=== PATIENT | female | born 1950 | race Caucasian/White ===

== ENCOUNTER → 2017-06-04 08:38 | Day surgery (SDC) | payer MEDICARE, OTHER, SELFPAY ==
[2017-06-03 10:26] VITALS: BMI 16.7
--- NOTE | 2017-06-04 09:59 | CL.D_ITS ---
Patient Name: ASHANTI JUDGE Study Date: 06/04/2017 Performing: Sherif Flores MD Ht: 59.84 inches 152 cm : 1950 Wt: 85.98 lbs 39 kg Age: 66 Gender: female BSA: 1.3 PROCEDURE(S) PERFORMED [id number]/LV CLINICAL PROFILE AND INDICATIONS INDICATIONS: Chest-Pain syndrome of unclear etiology , Class I Stress/Imaging Stress Test w/SPECT MPI: Yes Result: IndeterminantStress Test with SPECT MPI: Inde terminant Angina Classification Anginal Classification w/in 2 Weeks: CCS IV CAD Presentations: Symptom unlikely to be ischemic. Comorbidities/Risk Factors: Current/Recent Smoker (< 1year) Hypertension CONCLUSIONS Normal LV size, wall motion,and systolic function Normal coronary arteries RECOMMENDATIONS d/c plavix, d/w Dr Thakur Evaluate for non cardiac source of chest pain Smoking cessation. DESCRIPTION OF PROCEDURE The patient arrived to the procedure lab. The risks and benefits of the procedure as well as a full d escription of our services here and current unavailability of surgical backup were fully explained to the patient and/or their significant other prior to the catheterization. The Timeout was completed, verifying the correct patient and procedure. The patient's procedural site was prepped and draped in the usual fashion. Local anesthetic was given subcutaneously to right groin region with Lidocaine 2%. Using a modified Seldinger technique, arterial access was obtained via the right femoral artery, a 4 Fr sheath was inserted Left Coronary Artery selective angiography was performed in multiple views us ing a 4 Fr. JL5 catheter. Right Coronary Artery selective angiography was then performed in multiple views using a 4 Fr. 3DRC catheter. Left Ventriculography was performed in MEYER projection using a 4 Fr . Pigtail catheter. LV to AO pullback pressures were then recorded.The arterial sheath was pulled and manual compression applied until hemostasis is achieved. CORONARY ANGIOGRAPHY DOMINANCE: Right Dominant LEFT HEART ASSESSMENT Left Ventricular Ejection Fraction: by LV Gram 65 % Normal LV wall motion Normal Left Ventricular systolic function Normal Left Ventricular systolic function LEFT MAIN: Angiographically normal LEFT ANTERIOR DECENDING ARTERY: Angiographically normal CIRCUMFLEX ARTERY: Angiographically normal RIGHT CORONARY ARTERY: Angiographically normal COMPLICATIONS PROCEDURE MEDICATIONS Oxygen: 2 L/min via nasal cannula SUMMARY OF HEMODYNAMIC DATA Time AIR REST ECG 08:56:16 AO 109/60 (80) SA 09:45:44 LV 104/-18, 7 09:50:58 LV 104/-18, 7 09:51:04 LVp 103/-19, 6 09:51:09 AOp 106/44 (71) 09:51:15 Signed By Sherif Flores MD On 06/04/2017 09:58:42 Sherif Flores MD
== END ==
PROVIDERS: Family Provider Internal Medicine; PCP Internal Medicine; Visit Provider Internal Medicine Cardiovascular Disease
DX: R07.89 Other chest pain (principal); R94.39 Abnormal result of other cardiovascular function study; J30.9 Allergic rhinitis, unspecified; M54.5 Low back pain; G89.29 Other chronic pain; K59.00 Constipation, unspecified; J44.9 Chronic obstructive pulmonary disease, unspecified; M50.30 Other cervical disc degeneration, unspecified cervical region; K21.9 Gastro-esophageal reflux disease without esophagitis; E11.40 Type 2 diabetes mellitus with diabetic neuropathy, unspecified; M81.0 Age-related osteoporosis without current pathological fracture; E55.9 Vitamin D deficiency, unspecified; M79.7 Fibromyalgia; F32.9 Major depressive disorder, single episode, unspecified; I10 Essential (primary) hypertension; F17.200 Nicotine dependence, unspecified, uncomplicated; Z90.89 Acquired absence of other organs; Z90.710 Acquired absence of both cervix and uterus; Z79.82 Long term (current) use of aspirin; Z79.899 Other long term (current) drug therapy
CPT/HCPCS: 93458; 99152; J7040; C1769; C1894; Q9967

== ENCOUNTER 2017-06-05 14:01 | Emergency (ER) | payer MEDICARE, OTHER, SELFPAY ==
[2017-06-05 14:02] VITALS: BP 114/67; PULSE 60; RESP 22; TEMP 36.6; O2SAT 97; BMI 17.4
--- NOTE | 2017-06-05 14:49 | CT_ITS ---
STUDY: CT ABDOMEN AND PELVIS WITHOUT CONTRAST REASON FOR EXAM: Female, 66 years old. Groin pain. Recent cardiac catheter. RADIATION DOSAGE (If Supplied By Facility): CTDIvol = ( 6.05 ) mGy, DLP = ( 246.27 ) mGycm TECHNIQUE: Transaxial images were obtained from the dome of the diaphragm to the symphysis pubis without oral contrast, and without intravenous contrast. Sagittal and coronal images were reconstructed. Individualized dose optimization techniques were used for this CT. COMPARISON: 01/09/2017. FINDINGS: There are chronic interstitial fibrotic changes of the lung bases. The visualized portions of the heart are within normal limits. Normal liver. Normal gallbladder and extrahepatic biliary system. Normal spleen. Normal pancreas. Normal bilateral adrenal glands. No acute abnormality of the right kidney. Stable 2 mm mid right renal nonobstructing stone. Normal left kidney. Evaluation of the GI tract is limited by absence of oral contrast. Cannot exclude stomach wall thickening. No dilated loops of bowel or evidence for obstruction. Cannot exclude segmental thickening of the jones of the small or large bowel. Cannot exclude enteritis or colitis. Moderate diffuse fecal retention. Appendix is not seen. There is diffuse atherosclerotic calcification of the abdominal aorta, without a demonstrated aneurysm. Normal inferior vena cava. Normal retroperitoneum. No evidence for retroperitoneal hematoma. Normal urinary bladder. There is absence of the uterus consistent with a prior hysterectomy. Normal abdominal wall. Normal osseous structures. CT/Abdomen/Pelvis without Cont IMPRESSION: There is no definite acute abnormality. Electronically Signed: Toñito Bowser MD at 15:46 EST , Service support ,
[2017-06-05 15:04] LABS: Absolute Lymphocyte Count 1.01 X10^3/ul (0.83-4.51); Absolute Neutrophil Count 7.3 X10^3/uL (2.0-7.7); Basophil# 0.04 X10^3/uL; Basophil% 0.4 % (0-1); Eosinophil# 0.09 X10^3/uL; Hematocrit 40.7 % (37-47); Hemoglobin 13.6 g/dl (12.0-15.0); Lymphocyte # 1.01 X10^3/ul (4.0); Mean Corp Hgb Conc 33.4 g/gl (32-36); Mean Corpuscular Hgb 33.3 pg (27.0-32.0); Mean Corpuscular Volume 99.8 fL (81-99); Mean Platelet Vol. 8.5 fl (6.2-12.0); Monocyte% 7.6 % (0-10); Neutrophil # 7.33 X10^3/uL (2.7-7.7); Neutrophil % 79.9 % (47-70); Platelet Count 247 K/mm3 (150-450); RBC Distribution Width CV 15.7 % (11.6-14.6); RBC Distribution Width SD 56.1 fl (35.1-43.9); Red Blood Count 4.08 M/mm3 (4.2-5.4); White Blood Count 9.2 K/mm3 (4.4-11.0)
[2017-06-05 15:06] LABS: POSITIVE COUNT NO; POSITIVE DIFFERENTIAL NO; POSITIVE MORPHOLOGY NO
[2017-06-05 15:15] LABS: Anion Gap 5 (5-15); BUN 11 mg/dL (7-18); BUN/Creat Ratio 16.9 RATIO (10-20); Calcium,Total 8.4 mg/dL (8.5-10.1); Chloride 106 mmol/L (98-107); Creatinine, Serum 0.65 mg/dL (0.55-1.02); EST Glomerular Filtration Rate 96 mL/min (>60); Est Glom Filt Rate - Afr Amer 116 mL/min (>60); Estimated Creatinine Clearance 33.16 ml/min; Glucose 115 mg/dL (74-106); Potassium 3.8 mmol/L (3.5-5.1); Sodium Level 142 mmol/L (136-145)
[2017-06-05 16:02] VITALS: BP 128/70; PULSE 65; RESP 14; O2SAT 98
--- NOTE | 2017-06-05 16:25 | ED.DCSUM_ITS ---
- ER Visit Summary Date of Service: 06/05/17 Chief Complaint: [] Back pain History of Present Illness: The patient is a 66 F [] complaining of back pain today that started while walking. She denies any injury. She reports a history of osteoporosis and chronic back pain. No other complaints at this time. She does report that she had a cardiac catheterization yesterday and has slight discomfort in her right groin. She denies bleeding, swelling, warmth or infection in that area. She reports she received no cardiac stents. Physical Examination: [] Afebrile, vital signs stable. Elderly female in no acute distress. Cardiovascular exam is regular rate and rhythm. Lungs are clear to auscultation. Abdomen is soft and nontender. There is discomfort to the mid lumbar spine around L5-S1. Test Results: [] CT of the abdomen/pelvis without contrast is negative. CBC, BMP are normal. Emergency Department Course and Treatment: [] Given intravenous morphine for analgesia. Her labs and CT scan were normal to rule out other significant pathology as the underlying cause for her new pain. She was given a repeat dose of morphine and discharged to follow-up with her primary care physician. Treatment Plan: [] Discharge to follow-up with PCP. Disposition: [] Discharge, stable. Impression: [] Acute on chronic back pain This note was generated with [employer] dictation software. It may contain incorrect words, spelling, and punctuation that were not noted in review of the chart prior to signing ED Disposition - Plan for ED Patient: Chief Complaint: Back Referrals: Tiffany Bull [Primary Care Provider] -
--- NOTE | 2017-06-05 16:25 | ED.DEP ---
ED Disposition - Plan for ED Patient: Disposition: Home or Assisted Living Chief Complaint: Back Instructions: ED Spasm Back No Trauma Referrals: Tiffany Bull [Primary Care Provider] -
[2017-06-05 16:58] VITALS: BP 105/80; PULSE 62; RESP 14; O2SAT 97
== END 2017-06-05 17:00 | disposition home or self-care (01) ==
PROVIDERS: Emergency Provider Emergency Medicine; Family Provider Internal Medicine; PCP Internal Medicine
DX: M54.5 Low back pain (principal); G89.29 Other chronic pain; R10.813 Right lower quadrant abdominal tenderness; M81.0 Age-related osteoporosis without current pathological fracture; J44.9 Chronic obstructive pulmonary disease, unspecified; Z79.82 Long term (current) use of aspirin; Z79.899 Other long term (current) drug therapy; Z72.0 Tobacco use
CPT/HCPCS: 74176; 80048; 85025; 96361; 96374; 96375; 96376; 99285; J7030; J7040; A4216

== ENCOUNTER → 2017-07-19 07:43 | Outpatient (CLI) | payer MEDICARE, OTHER, SELFPAY ==
[2017-07-19 08:08] LABS: Absolute Lymphocyte Count 2.13 X10^3/ul (0.83-4.51); Absolute Neutrophil Count 3.5 X10^3/uL (2.0-7.7); Basophil# 0.09 X10^3/uL; Basophil% 1.4 % (0-1); Eosinophil# 0.15 X10^3/uL; Eosinophils% 2.3 % (0-5); Hematocrit 42.2 % (37-47); Hemoglobin 13.8 g/dl (12.0-15.0); Lymphocyte # 2.13 X10^3/ul (4.0); Mean Corp Hgb Conc 32.7 g/gl (32-36); Mean Platelet Vol. 8.5 fl (6.2-12.0); Monocyte# 0.58 X10^3/uL; Neutrophil # 3.49 X10^3/uL (2.7-7.7); Neutrophil % 54.1 % (47-70); Platelet Count 310 K/mm3 (150-450); RBC Distribution Width CV 15.4 % (11.6-14.6); RBC Distribution Width SD 56.4 fl (35.1-43.9); Red Blood Count 4.18 M/mm3 (4.2-5.4); White Blood Count 6.5 K/mm3 (4.4-11.0)
[2017-07-19 08:09] LABS: POSITIVE COUNT NO; POSITIVE DIFFERENTIAL NO; POSITIVE MORPHOLOGY NO
[2017-07-19 08:43] LABS: ALB/GLOB Ratio 1.2 RATIO (0.9-2.4); AST(SGOT) 18 U/L (15-37); Alanine Aminotransfer ALT/SGPT 22 U/L (13-56); Albumin, Serum 3.9 g/dL (3.2-5.0); Alkaline Phosphatase 72 U/L (45-117); Anion Gap 4 (5-15); BUN 20 mg/dL (7-18); BUN/Creat Ratio 33.5 RATIO (10-20); Calcium,Total 8.7 mg/dL (8.5-10.1); Chloride 105 mmol/L (98-107); EST Glomerular Filtration Rate 106 mL/min (>60); Est Glom Filt Rate - Afr Amer 128 mL/min (>60); Globulin 3.3 g/dL (2.2-4.2); Glucose 83 mg/dL (74-106); Potassium 4.2 mmol/L (3.5-5.1); Protein, Total 7.2 g/dL (6.4-8.2); Sodium Level 140 mmol/L (136-145)
== END ==
PROVIDERS: Family Provider Internal Medicine; PCP Internal Medicine; Visit Provider Internal Medicine Rheumatology
DX: M06.4 Inflammatory polyarthropathy (principal); Z79.899 Other long term (current) drug therapy; M79.7 Fibromyalgia; M51.36 Other intervertebral disc degeneration, lumbar region; J44.9 Chronic obstructive pulmonary disease, unspecified; E11.9 Type 2 diabetes mellitus without complications; F43.23 Adjustment disorder with mixed anxiety and depressed mood; N32.81 Overactive bladder; G25.0 Essential tremor
CPT/HCPCS: 36415; 80053; 85025

== ENCOUNTER 2017-08-07 08:39 | Emergency (ER) | payer MEDICARE, OTHER, SELFPAY ==
[2017-08-07 08:40] VITALS: BP 121/46; PULSE 92; RESP 16; TEMP 36.1; O2SAT 98; BMI 18.3
--- NOTE | 2017-08-07 09:00 | ED.VISSUMM ---
- ER Visit Summary Date of Service: 08/07/17 Chief Complaint: Left leg pain History of Present Illness: The patient is a [address] Campbell and Dr. Rey. She reports that she has a history of chronic back pain. However, she took her morning dose of OxyContin and tramadol and denies any back pain now. She reports that she has left leg pain that began at 130 this morning. Says sharp pain that radiates down the lateral side of her left leg to her ankle. It is 10 out of 10 at worst 9 out of 10 currently. Is worsened by movement. She denies any numbness or weakness. No recent trauma. No fall, MVA, or change in activity. Patient reports that she is currently on a Medrol Dosepak for plantar fasciitis. She has taken her third dose. She reports that she has had 8 episodes of black diarrhea since 1 AM. She denies any abdominal pain. She has been nauseated, but has not vomited. Physical Examination: Vitals: Stable. Afebrile. General: A&O x 3. NAD. Cardiovascular exam: Regular rate and rhythm, no murmur, rub or gallop. Respiratory exam: Clear to auscultation bilaterally. No wheezes or stridor. Abdominal exam: Soft, nontender, nondistended, normal bowel sounds. No peritoneal signs. Back: Diffuse moderate tenderness to palpation over the lumbar spine and the paraspinous musculature in the lumbar region. No point tenderness. Negative straight leg bilaterally. 5/5 DF, PF, EHL bilaterally. Normal sensation to light touch throughout. Extremity: No clubbing, cyanosis, or edema. 2+ dorsalis pedis pulse bilaterally. She has moderate tenderness palpation over the entire surface of her lateral left leg. This is in her thigh and her leg. Test Results: is marked for a white count of 17.3, hemoglobin 15.4, segmented neutrophils 85, lymphocytes of 8. I suspect that her white count is elevated from her steroids. Her last hemoglobin on July 19 was 13.8. Chem-7 is normal. Her BUN is 18. Coags are normal. Emergency Department Course and Treatment: Given the history of recent steroid use and black diarrhea the patient was given a dose of Pepcid IV. She was given Zofran and Dilaudid IV. She is resting comfortably. Treatment Plan: Patient will be placed on Prilosec. She is instructed to not take any further steroid medications. Follow-up with her primary care physician in 1-2 days for another exam and repeat hemoglobin. Follow-up with Dr. Campbell for further treatment of her pain. Return to the emergency department for any worsening symptoms. Disposition: To home in improved and stable condition. Impression: 1. Chronic back pain. 2. Left thigh and leg pain, acute. 3. Stride is due to steroids. This note was generated with [employer] dictation software. It may contain incorrect words, spelling, and punctuation that were not noted in review of the chart prior to signing ED Disposition - Plan for ED Patient: Chief Complaint: Lower Extremity Injury Instructions: ED Sciatica Prescriptions: Omeprazole [Prilosec] 20 mg PO DAILY #30 capsule Referrals: Tiffany Bull [Primary Care Provider] - 1-2 Days if not improving Ashok Campbell MD [STAFF PHYSICIAN] -
[2017-08-07 09:13] LABS: Absolute Neutrophil Count 14.6 X10^3/uL (2.0-7.7); Basophil# 0.02 X10^3/uL; Basophil% 0.1 % (0-1); Eosinophil# 0.07 X10^3/uL; Eosinophils% 0.4 % (0-5); Hematocrit 45.9 % (37-47); Hemoglobin 15.4 g/dl (12.0-15.0); Lymphocyte % 7.5 % (19-41); Mean Corp Hgb Conc 33.6 g/gl (32-36); Mean Corpuscular Hgb 34.5 pg (27.0-32.0); Mean Corpuscular Volume 102.7 fL (81-99); Mean Platelet Vol. 8.6 fl (6.2-12.0); Monocyte# 1.23 X10^3/uL; Monocyte% 7.1 % (0-10); Neutrophil # 14.61 X10^3/uL (2.7-7.7); Neutrophil % 84.7 % (47-70); Platelet Count 265 K/mm3 (150-450); RBC Distribution Width SD 55.3 fl (35.1-43.9); Red Blood Count 4.47 M/mm3 (4.2-5.4); White Blood Count 17.3 K/mm3 (4.4-11.0)
[2017-08-07 09:14] LABS: POSITIVE COUNT NO; POSITIVE DIFFERENTIAL NO; POSITIVE MORPHOLOGY NO
[2017-08-07 09:24] LABS: Anion Gap 6 (5-15); BUN 18 mg/dL (7-18); BUN/Creat Ratio 31.6 RATIO (10-20); Calcium,Total 9.1 mg/dL (8.5-10.1); Chloride 103 mmol/L (98-107); Creatinine, Serum 0.57 mg/dL (0.55-1.02); EST Glomerular Filtration Rate 112 mL/min (>60); Est Glom Filt Rate - Afr Amer 135 mL/min (>60); Glucose 85 mg/dL (74-106); Potassium 3.8 mmol/L (3.5-5.1); Sodium Level 140 mmol/L (136-145)
[2017-08-07 09:29] LABS: International Normalized Ratio 0.9; Prothrombin Time (Protime)PT. 12.1 SECONDS (11.7-14.9)
[2017-08-07 09:30] LABS: Partial Thromboplast Time 24.3 Seconds (24.1-36.2)
[2017-08-07] MEDS: 0.9% Normal Saline 1,000 ML 1000 ML IV (09:35)
[2017-08-07] MEDS: Ondansetron 4 MG/2 ML Vial IV (09:37)
[2017-08-07] MEDS: HYDROmorphone 1 MG/ML Syringe IV (09:37)
[2017-08-07 09:40] VITALS: BP 89/52; PULSE 18; RESP 20; O2SAT 97
[2017-08-07 09:57] VITALS: BP 102/59; BP 90/49; BP 99/84; PULSE 86; PULSE 88
== END 2017-08-07 10:43 | disposition home or self-care (01) ==
PROVIDERS: Emergency Provider Emergency Medicine; Family Provider Internal Medicine; PCP Internal Medicine
DX: M54.5 Low back pain (principal); G89.29 Other chronic pain; M79.605 Pain in left leg; M79.652 Pain in left thigh; K29.70 Gastritis, unspecified, without bleeding; T38.0X5A Adverse effect of glucocorticoids and synthetic analogues, initial encounter; Y92.9 Unspecified place or not applicable; M72.2 Plantar fascial fibromatosis; J02.9 Acute pharyngitis, unspecified; J44.9 Chronic obstructive pulmonary disease, unspecified; M79.7 Fibromyalgia; F41.9 Anxiety disorder, unspecified; M81.0 Age-related osteoporosis without current pathological fracture; Z90.710 Acquired absence of both cervix and uterus; Z79.52 Long term (current) use of systemic steroids; Z79.899 Other long term (current) drug therapy; F17.200 Nicotine dependence, unspecified, uncomplicated
CPT/HCPCS: 80048; 85025; 85610; 85730; 96365; 96375; 99284; J2405; J3490

== ENCOUNTER 2017-08-08 02:07 | Emergency (ER) | payer MEDICARE, OTHER, SELFPAY ==
[2017-08-08 02:09] VITALS: BP 153/116; PULSE 72; RESP 20; TEMP 36.5; O2SAT 95; BMI 18.3
--- NOTE | 2017-08-08 02:33 | ED.VIS.GEN ---
History of Present Illness Chief Complaint: Back Informant: Patient Onset: Yesterday - around 18 hrs ago Context: - - awoke w/ sx Timing: Continuous Quality: ache Location: across low back, worse on right Current Severity: Severe Maximum Severity: Severe Worsened by: movement Relieved by: nothing Associated Symptoms: diarrhea. no abd pain, n/v, fevers. pain radiates into both thighs. Narrative: Chronic symptoms that are worse than usual. States she denies any injury. Woke up with symptoms day before this past day, and states that she started having liquid nonbloody, non-melanotic diarrhea simultaneously and does not know how many times she has gone. She denies any abdominal pain, fevers, vomiting. The back pain does not let up after bowel movements. She states she started prednisone recently, prescribed her by a tool engineer for plantar fasciitis, and states that is the cause of her diarrhea so she has discontinued it as of tonight. Denies any other new medications. Oxycodone 30 mg tablets are on her medication list, but she cannot tell me the last time she took it. It is listed as prescribed to her by Dr. Campbell. She cannot tell me if she is currently in pain management or not. The back pain radiates into both anterior thighs, but does not go below the knees. She denies any bowel or bladder dysfunction. No recent antibiotics. No recent hospital admission or contact with anyone with C. difficile that she knows of, or a senior care. No history of C. difficile that she knows of. No recent travel. Prior similar symptoms: Yes Recent Illness/Hospitalization: Yes - nonbloody diarrhea started simultaneously. no hosp. Past Medical History - Allergies and Home Meds Allergies/Adverse Reactions: Allergies No Known Allergies Allergy (Verified 08/08/17 02:12) Home Medications: Home Medications Medication Instructions Recorded Albuterol Inhaler [Ventolin Hfa 2 puff INHALATION Q6H PRN PRN 06/03/17 (SP)] Benzonatate [Tessalon Perle] 100 mg PO TID PRN PRN 06/03/17 Calcium Carbonate 600 mg PO BID 06/03/17 Ergocalciferol [Vitamin D] 50,000 unit PO Q7D 06/03/17 Famotidine [Pepcid] 20 mg PO BID 06/03/17 Folic Acid 1 mg PO DAILY@0800 02/27/18 Glucosamine Sulf/Chondroitin A 1 each PO BID 06/03/17 [Glucosamine-Chondroitin Cap] Lactose-Reduced Food [Ensure 237 ml PO DAILY 06/03/17 Original] Linacolotide [Linzess] 145 mcg PO DAILY 06/03/17 Lmfol Ca/Acetyl/Mb12/Algal Oil 1 each PO DAILY 06/03/17 [Cerefolin Nac Caplet] Methotrexate 15 mg PO Q7D 06/03/17 Montelukast [Singulair] 10 mg PO DAILY 06/03/17 Nitroglycerin [Nitrostat] 0.4 mg SUBLINGUAL Q5M PRN 06/03/17 [place]-3 Fatty Acids/Fish Oil 1 each PO DAILY 06/03/17 [[place] 3 1,000 mg Softgel] Oxycodone HCl [Roxicodone] 30 mg PO BID PRN PRN 06/03/17 traMADol [Ultram (G)] 50 mg PO 4X/DAY 06/03/17 Duloxetine Hcl [Cymbalta] 20 mg PO BID 08/08/17 Ibandronate Sodium [Boniva] 150 mg PO Q30D 08/08/17 Omeprazole [Prilosec] 20 mg PO BID 08/08/17 Primary Care Physician: Ashok Campbell MD [STAFF PHYSICIAN] - 2 Days Smoking Status: Current every day smoker Physical Exam Vital Signs/Narrative: Vital Signs Temp Pulse Resp BP Pulse Ox 08/08/17 02:09 97.7 F L 72 20 H 153/116 H 95 Diagnostic/Tx/Re-eval Impressions Lumbar Spine X-Ray 08/08/17 02:40 IMPRESSION: Diffuse facet disease with normal alignment. Electronically Signed: Eddie Carter MD at 3:37 EDT Tel , Service support , 08/08/17 02:40 Lumbar Spine 2 or 3 Views [RAD] Stat Laboratory Results 08/08/17 08/08/17 Range/Units 02:50 02:50 WBC 12.1 H (4.4-11.0) K/mm3 RBC 4.19 L (4.2-5.4) M/mm3 Hgb 14.7 (12.0-15.0) g/dl Hct 43.0 (37-47) % MCV 102.6 H (81-99) fL MCH 35.1 H (27.0-32.0) pg MCHC 34.2 (32-36) g/gl RDW 14.8 H (11.6-14.6) % RDW Differential 54.5 H (35.1-43.9) fl Plt Count 311 (150-450) K/mm3 MPV 8.5 (6.2-12.0) fl Immature Gran % (Auto) 0.200 (0.0-0.9) % Neut % (Auto) 83.4 H (47-70) % Lymph % (Auto) 12.4 L (19-41) % [place] % (Auto) 2.8 (0-10) % Eos % (Auto) 0.8 (0-5) % Baso % (Auto) 0.4 (0-1) % Absolute Neuts (auto) 10.0 H (2.0-7.7) X10^3/uL Absolute Lymphs (auto) 1.50 (0.83-4.51) X10^3/ul Total Counted Not Reportable Sodium 136 (136-145) mmol/L Potassium 3.4 L (3.5-5.1) mmol/L Chloride 102 (98-107) mmol/L Carbon Dioxide 29.0 (21.0-32.0) mmol/L Anion Gap 5 (5-15) BUN 14 (7-18) mg/dL Creatinine 0.63 (0.55-1.02) mg/dL Estim Creat Clear Calc 34.60 ml/min Est GFR (MDRD) Af Amer 120 (>60) mL/min Est GFR (MDRD) Non-Af 99 (>60) mL/min BUN/Creatinine Ratio 22.2 H (10-20) RATIO Glucose 151 H (74-106) mg/dL Calcium 8.1 L (8.5-10.1) mg/dL Total Bilirubin 0.70 (0.20-1.00) mg/dL AST 13 L (15-37) U/L ALT 30 (13-56) U/L Alkaline Phosphatase 68 (45-117) U/L Total Protein 7.0 (6.4-8.2) g/dL Albumin 3.5 (3.2-5.0) g/dL Globulin 3.5 (2.2-4.2) g/dL Albumin/Globulin Ratio 1.0 (0.9-2.4) RATIO Lipase 152 (73-393) U/L - Medical Decision Making X-rays show no acute abnormalities are compressions. Her leukocytosis is down compared to a couple days ago, which I determined she had several recent visits, the last of which was yesterday for the same symptoms, which the patient did not disclose. She was given morphine. She then was demanding Dilaudid from the nurses, which I do not feel she needs; she admits she feels improved, and is objectively more comfortable. She has no radicular symptoms, or positive straight leg raises. She had a CT of the abdomen and pelvis recently, which was benign and did not state any abnormalities of the spine, and her x-rays today are unremarkable. She is neurologically intact throughout her lower extremities and ambulatory. I feel she is stable for discharge home outpatient follow-up with her pain management doctor. Given her diarrhea and multiple ER visits recently, I did send off an enteric pathogen panel and C. difficile, those are not back yet but are not due to return tonight. ED Disposition - Plan for ED Patient: Disposition: Home or Assisted Living Chief Complaint: Back Diagnosis: Acute exacerbation of chronic low back pain Instructions: ED Neck Back Pain General Referrals: Ashok Campbell MD [STAFF PHYSICIAN] - 2 Days
--- NOTE | 2017-08-08 02:40 | RAD_ITS ---
STUDY: X-RAY - LUMBAR SPINE REASON FOR EXAM: Female, 67 years old. Chronic back pain radiating into the left leg TECHNIQUE: 3 view(s) of the lumbar spine were obtained. COMPARISON: None FINDINGS: Diffuse facet disease. Normal alignment. Heights of disc spaces are maintained. Aortic calcifications. No compression deformities are seen. RAD/Lumbar Spine 2 or 3 Views IMPRESSION: Diffuse facet disease with normal alignment. Electronically Signed: Eddie Carter MD at 3:37 EDT Tel , Service support ,
--- NOTE | 2017-08-08 02:43 | ED.DCSUM_ITS ---
History of Present Illness Chief Complaint: Back Informant: Patient Onset: Yesterday - around 18 hrs ago Context: - - awoke w/ sx Timing: Continuous Quality: ache Location: across low back, worse on right Current Severity: Severe Maximum Severity: Severe Worsened by: movement Relieved by: nothing Associated Symptoms: diarrhea. no abd pain, n/v, fevers. pain radiates into both thighs. Narrative: Chronic symptoms that are worse than usual. States she denies any injury. Woke up with symptoms day before this past day, and states that she started having liquid nonbloody, non-melanotic diarrhea simultaneously and does not know how many times she has gone. She denies any abdominal pain, fevers, vomiting. The back pain does not let up after bowel movements. She states she started prednisone recently, prescribed her by a marshmallow machine worker for plantar fasciitis, and states that is the cause of her diarrhea so she has discontinued it as of tonight. Denies any other new medications. Oxycodone 30 mg tablets are on her medication list, but she cannot tell me the last time she took it. It is listed as prescribed to her by Dr. Campbell. She cannot tell me if she is currently in pain management or not. The back pain radiates into both anterior thighs, but does not go below the knees. She denies any bowel or bladder dysfunction. No recent antibiotics. No recent hospital admission or contact with anyone with C. difficile that she knows of, or a long-term. No history of C. difficile that she knows of. No recent travel. Prior similar symptoms: Yes Recent Illness/Hospitalization: Yes - nonbloody diarrhea started simultaneously. no hosp. Past Medical History - Allergies and Home Meds Allergies/Adverse Reactions: Allergies No Known Allergies Allergy (Verified 08/08/17 02:12) Home Medications: Home Medications Medication Instructions Recorded Albuterol Inhaler [Ventolin Hfa 2 puff INHALATION Q6H PRN PRN 06/03/17 (SP)] Benzonatate [Tessalon Perle] 100 mg PO TID PRN PRN 06/03/17 Calcium Carbonate 600 mg PO BID 06/03/17 Ergocalciferol [Vitamin D] 50,000 unit PO Q7D 06/03/17 Famotidine [Pepcid] 20 mg PO BID 06/03/17 Folic Acid 1 mg PO DAILY@0800 02/27/18 Glucosamine Sulf/Chondroitin A 1 each PO BID 06/03/17 [Glucosamine-Chondroitin Cap] Lactose-Reduced Food [Ensure 237 ml PO DAILY 06/03/17 Original] Linacolotide [Linzess] 145 mcg PO DAILY 06/03/17 Lmfol Ca/Acetyl/Mb12/Algal Oil 1 each PO DAILY 06/03/17 [Cerefolin Nac Caplet] Methotrexate 15 mg PO Q7D 06/03/17 Montelukast [Singulair] 10 mg PO DAILY 06/03/17 Nitroglycerin [Nitrostat] 0.4 mg SUBLINGUAL Q5M PRN 06/03/17 [place]-3 Fatty Acids/Fish Oil 1 each PO DAILY 06/03/17 [[place] 3 1,000 mg Softgel] Oxycodone HCl [Roxicodone] 30 mg PO BID PRN PRN 06/03/17 traMADol [Ultram (G)] 50 mg PO 4X/DAY 06/03/17 Duloxetine Hcl [Cymbalta] 20 mg PO BID 08/08/17 Ibandronate Sodium [Boniva] 150 mg PO Q30D 08/08/17 Omeprazole [Prilosec] 20 mg PO BID 08/08/17 Primary Care Physician: Ashok Campbell MD [STAFF PHYSICIAN] - 2 Days Smoking Status: Current every day smoker Physical Exam Vital Signs/Narrative: Vital Signs Temp Pulse Resp BP Pulse Ox 08/08/17 02:09 97.7 F L 72 20 H 153/116 H 95 Diagnostic/Tx/Re-eval Impressions Lumbar Spine X-Ray 08/08/17 02:40 IMPRESSION: Diffuse facet disease with normal alignment. Electronically Signed: Eddie Carter MD at 3:37 EDT Tel , Service support , 08/08/17 02:40 Lumbar Spine 2 or 3 Views [RAD] Stat Laboratory Results 08/08/17 08/08/17 Range/Units 02:50 02:50 WBC 12.1 H (4.4-11.0) K/mm3 RBC 4.19 L (4.2-5.4) M/mm3 Hgb 14.7 (12.0-15.0) g/dl Hct 43.0 (37-47) % MCV 102.6 H (81-99) fL MCH 35.1 H (27.0-32.0) pg MCHC 34.2 (32-36) g/gl RDW 14.8 H (11.6-14.6) % RDW Differential 54.5 H (35.1-43.9) fl Plt Count 311 (150-450) K/mm3 MPV 8.5 (6.2-12.0) fl Immature Gran % (Auto) 0.200 (0.0-0.9) % Neut % (Auto) 83.4 H (47-70) % Lymph % (Auto) 12.4 L (19-41) % [place] % (Auto) 2.8 (0-10) % Eos % (Auto) 0.8 (0-5) % Baso % (Auto) 0.4 (0-1) % Absolute Neuts (auto) 10.0 H (2.0-7.7) X10^3/uL Absolute Lymphs (auto) 1.50 (0.83-4.51) X10^3/ul Total Counted Not Reportable Sodium 136 (136-145) mmol/L Potassium 3.4 L (3.5-5.1) mmol/L Chloride 102 (98-107) mmol/L Carbon Dioxide 29.0 (21.0-32.0) mmol/L Anion Gap 5 (5-15) BUN 14 (7-18) mg/dL Creatinine 0.63 (0.55-1.02) mg/dL Estim Creat Clear Calc 34.60 ml/min Est GFR (MDRD) Af Amer 120 (>60) mL/min Est GFR (MDRD) Non-Af 99 (>60) mL/min BUN/Creatinine Ratio 22.2 H (10-20) RATIO Glucose 151 H (74-106) mg/dL Calcium 8.1 L (8.5-10.1) mg/dL Total Bilirubin 0.70 (0.20-1.00) mg/dL AST 13 L (15-37) U/L ALT 30 (13-56) U/L Alkaline Phosphatase 68 (45-117) U/L Total Protein 7.0 (6.4-8.2) g/dL Albumin 3.5 (3.2-5.0) g/dL Globulin 3.5 (2.2-4.2) g/dL Albumin/Globulin Ratio 1.0 (0.9-2.4) RATIO Lipase 152 (73-393) U/L - Medical Decision Making X-rays show no acute abnormalities are compressions. Her leukocytosis is down compared to a couple days ago, which I determined she had several recent visits , the last of which was yesterday for the same symptoms, which the patient did not disclose. She was given morphine. She then was demanding Dilaudid from the nurses, which I do not feel she needs; she admits she feels improved, and is objectively more comfortable. She has no radicular symptoms, or positive straight leg raises. She had a CT of the abdomen and pelvis recently, which was benign and did not state any abnormalities of the spine, and her x-rays today are unremarkable. She is neurologically intact throughout her lower extremities and ambulatory. I feel she is stable for discharge home outpatient follow-up with her pain management doctor. Given her diarrhea and multiple ER visits recently, I did send off an enteric pathogen panel and C. difficile, those are not back yet but are not due to return tonight. ED Disposition - Plan for ED Patient: Disposition: Home or Assisted Living Chief Complaint: Back Diagnosis: Acute exacerbation of chronic low back pain Instructions: ED Neck Back Pain General Referrals: Ashok Campbell MD [STAFF PHYSICIAN] - 2 Days
[2017-08-08 02:59] LABS: Basophil# 0.05 X10^3/uL; Basophil% 0.4 % (0-1); Eosinophils% 0.8 % (0-5); Hemoglobin 14.7 g/dl (12.0-15.0); Lymphocyte % 12.4 % (19-41); Mean Corp Hgb Conc 34.2 g/gl (32-36); Mean Corpuscular Hgb 35.1 pg (27.0-32.0); Mean Corpuscular Volume 102.6 fL (81-99); Mean Platelet Vol. 8.5 fl (6.2-12.0); Monocyte# 0.34 X10^3/uL; Monocyte% 2.8 % (0-10); Neutrophil # 10.04 X10^3/uL (2.7-7.7); Neutrophil % 83.4 % (47-70); Platelet Count 311 K/mm3 (150-450); RBC Distribution Width CV 14.8 % (11.6-14.6); RBC Distribution Width SD 54.5 fl (35.1-43.9); Red Blood Count 4.19 M/mm3 (4.2-5.4); White Blood Count 12.1 K/mm3 (4.4-11.0)
[2017-08-08 03:00] LABS: POSITIVE COUNT NO; POSITIVE DIFFERENTIAL NO; POSITIVE MORPHOLOGY NO
[2017-08-08] MEDS: Morphine 4 MG/ML Syringe IV (03:03)
[2017-08-08 03:13] LABS: AST(SGOT) 13 U/L (15-37); Alanine Aminotransfer ALT/SGPT 30 U/L (13-56); Albumin, Serum 3.5 g/dL (3.2-5.0); Alkaline Phosphatase 68 U/L (45-117); Anion Gap 5 (5-15); BUN 14 mg/dL (7-18); BUN/Creat Ratio 22.2 RATIO (10-20); Calcium,Total 8.1 mg/dL (8.5-10.1); Chloride 102 mmol/L (98-107); Creatinine, Serum 0.63 mg/dL (0.55-1.02); EST Glomerular Filtration Rate 99 mL/min (>60); Est Glom Filt Rate - Afr Amer 120 mL/min (>60); Globulin 3.5 g/dL (2.2-4.2); Glucose 151 mg/dL (74-106); Lipase 152 U/L (73-393); Potassium 3.4 mmol/L (3.5-5.1); Sodium Level 136 mmol/L (136-145)
[2017-08-08 04:10] VITALS: BP 146/80; PULSE 78; RESP 18; O2SAT 96
== END 2017-08-08 04:11 | disposition home or self-care (01) ==
PROVIDERS: Emergency Provider Emergency Medicine; Family Provider Internal Medicine; PCP Internal Medicine
DX: M54.5 Low back pain (principal); G89.29 Other chronic pain; R19.7 Diarrhea, unspecified; M72.2 Plantar fascial fibromatosis; Z79.52 Long term (current) use of systemic steroids; Z79.899 Other long term (current) drug therapy; F17.200 Nicotine dependence, unspecified, uncomplicated
CPT/HCPCS: 72100; 80053; 83690; 85025; 96374; 99282; A4216

== ENCOUNTER 2017-11-01 00:34 | Emergency (ER) | payer MEDICARE, OTHER, SELFPAY ==
[2017-11-01 00:37] VITALS: BP 108/52; PULSE 94; RESP 17; TEMP 36.6; O2SAT 99; BMI 18.9
--- NOTE | 2017-11-01 01:17 | ED.VISSUMM ---
- ER Visit Summary Date of Service: 11/01/17 Chief Complaint: Vomiting diarrhea History of Present Illness: The patient is a 67 F vomiting diarrhea this evening. Total 3 episodes each. Last time prior to arrival. No hematemesis, melena, hematochezia. No recent antibiotics. Complains of chills. No urinary symptoms. No cough. Denies sick contacts. History of chronic back pain. States to the symptoms of vomiting diarrhea is having some abdominal cramping. History of appendectomy and hysterectomy. Unable keep her pain pills down for her back. Physical Examination: General: Alert and oriented ?3, no acute distress HEENT: Normocephalic, atraumatic. Moist mucosa membranes Neck: supple, nontender. Cardiovascular: Regular rate and rhythm, no murmurs Respiratory: Normal breath sounds, symmetric, no distress Abdomen: Soft, generalized tenderness without guarding or rebound, nondistended. Normal bowel sounds Extremities: Nontender, no edema, pulses intact ?4 Neuro: no focal neurological deficits. Test Results: WBC 7.7 hemoglobin 15.1. Creatinine 0.61. Lipase 78. Liver enzymes normal. Potassium 3.8. Emergency Department Course and Treatment: Patient with a nonsurgical abdomen. Presents with reported vomiting diarrhea since yesterday. No C. difficile risk factors. I did check abdominal labs including electrolytes which were normal. She is given Zofran IV fluids. Reevaluation complains of aches in her thighs. She given Toradol with improvement of symptoms she is able to tolerate oral fluids. Patient given prescription for Zofran to use as needed. Encouraged continued oral hydration. She is on chronic opiate medications for her back pain. Treatment Plan: [] Disposition: Discharge Impression: 1. Vomiting and diarrhea 2. Myalgias This note was generated with [employer] dictation software. It may contain incorrect words, spelling, and punctuation that were not noted in review of the chart prior to signing ED Disposition - Plan for ED Patient: Disposition: Home or Assisted Living Chief Complaint: General Illness Diagnosis: Vomiting and diarrhea, Myalgia Instructions: ED Diet Vomiting Diarrhea Prescriptions: Ondansetron [Zofran Odt] 4 mg PO Q8H PRN PRN #10 tablet PRN Reason: Nausea Referrals: Tiffany Bull [Primary Care Provider] - 3-5 Days
[2017-11-01] MEDS: Ondansetron 4 MG/2 ML Vial IV (01:26)
[2017-11-01] MEDS: 0.9% Normal Saline 1,000 ML 1000 ML IV (01:26)
[2017-11-01 01:38] LABS: Absolute Lymphocyte Count 0.52 X10^3/ul (0.83-4.51); Absolute Neutrophil Count 6.5 X10^3/uL (2.0-7.7); Basophil# 0.03 X10^3/uL; Basophil% 0.4 % (0-1); Differential Indicated SCAN CRITERIA MET; Eosinophil# 0.04 X10^3/uL; Eosinophils% 0.5 % (0-5); Hematocrit 43.4 % (37-47); Hemoglobin 15.1 g/dl (12.0-15.0); Lymphocyte # 0.52 X10^3/ul (4.0); Lymphocyte % 6.7 % (19-41); Mean Corp Hgb Conc 34.8 g/gl (32-36); Mean Corpuscular Hgb 35.1 pg (27.0-32.0); Mean Corpuscular Volume 100.9 fL (81-99); Mean Platelet Vol. 8.7 fl (6.2-12.0); Monocyte# 0.62 X10^3/uL; Neutrophil # 6.49 X10^3/uL (2.7-7.7); Neutrophil % 84.3 % (47-70); POSITIVE COUNT NO; POSITIVE DIFFERENTIAL YES; POSITIVE MORPHOLOGY NO; Platelet Count 289 K/mm3 (150-450); RBC Distribution Width CV 14.1 % (11.6-14.6); RBC Distribution Width SD 50.9 fl (35.1-43.9); White Blood Count 7.7 K/mm3 (4.4-11.0)
[2017-11-01 01:54] LABS: AST(SGOT) 14 U/L (15-37); Alanine Aminotransfer ALT/SGPT 22 U/L (13-56); Albumin, Serum 3.7 g/dL (3.2-5.0); Alkaline Phosphatase 65 U/L (45-117); Anion Gap 4 (5-15); BUN 11 mg/dL (7-18); Calcium,Total 8.7 mg/dL (8.5-10.1); Chloride 104 mmol/L (98-107); Creatinine, Serum 0.61 mg/dL (0.55-1.02); EST Glomerular Filtration Rate 103 mL/min (>60); Est Glom Filt Rate - Afr Amer 125 mL/min (>60); Estimated Creatinine Clearance 35.62 ml/min; Globulin 3.7 g/dL (2.2-4.2); Glucose 119 mg/dL (74-106); Potassium 3.8 mmol/L (3.5-5.1); Protein, Total 7.4 g/dL (6.4-8.2); Sodium Level 138 mmol/L (136-145)
[2017-11-01 02:03] LABS: Differential Comment SCANNED
[2017-11-01 02:35] LABS: Lipase 78 U/L (73-393)
[2017-11-01 03:10] VITALS: PULSE 87; RESP 18; O2SAT 98
[2017-11-01] MEDS: Ketorolac 30 MG/ML Syringe IV (03:11)
[2017-11-01 04:30] VITALS: BP 132/98; PULSE 95; RESP 16; O2SAT 97
== END 2017-11-01 04:37 | disposition home or self-care (01) ==
PROVIDERS: Emergency Provider Emergency Medicine; Family Provider Internal Medicine; PCP Internal Medicine
DX: R11.2 Nausea with vomiting, unspecified (principal); R19.7 Diarrhea, unspecified; M79.1 Myalgia; R10.817 Generalized abdominal tenderness; M54.9 Dorsalgia, unspecified; G89.29 Other chronic pain; Z90.89 Acquired absence of other organs; Z90.710 Acquired absence of both cervix and uterus; Z79.899 Other long term (current) drug therapy; Z72.0 Tobacco use
CPT/HCPCS: 80053; 82248; 83690; 85025; 96361; 96374; 96375; 99283; J7030; A4216; J2405

== ENCOUNTER → 2017-12-31 11:20 | Outpatient (CLI) | payer MEDICARE, OTHER, SELFPAY ==
[2017-12-31 12:18] LABS: Absolute Lymphocyte Count 2.05 X10^3/ul (0.83-4.51); Absolute Neutrophil Count 3.6 X10^3/uL (2.0-7.7); Basophil# 0.06 X10^3/uL; Eosinophil# 0.24 X10^3/uL; Eosinophils% 3.8 % (0-5); Hematocrit 42.4 % (37-47); Hemoglobin 14.4 g/dl (12.0-15.0); Lymphocyte # 2.05 X10^3/ul (4.0); Lymphocyte % 32.6 % (19-41); Mean Corpuscular Hgb 34.4 pg (27.0-32.0); Mean Corpuscular Volume 101.4 fL (81-99); Mean Platelet Vol. 8.9 fl (6.2-12.0); Monocyte# 0.38 X10^3/uL; Neutrophil # 3.56 X10^3/uL (2.7-7.7); Neutrophil % 56.6 % (47-70); Platelet Count 299 K/mm3 (150-450); RBC Distribution Width CV 14.4 % (11.6-14.6); RBC Distribution Width SD 52.2 fl (35.1-43.9); Red Blood Count 4.18 M/mm3 (4.2-5.4); White Blood Count 6.3 K/mm3 (4.4-11.0)
[2017-12-31 12:23] LABS: POSITIVE COUNT NO; POSITIVE DIFFERENTIAL NO; POSITIVE MORPHOLOGY NO
[2017-12-31 12:39] LABS: BUN 12 mg/dL (7-18); Creatinine, Serum 0.78 mg/dL (0.55-1.02); EST Glomerular Filtration Rate 78 mL/min (>60); Glucose 105 mg/dL (74-106)
[2017-12-31 12:40] LABS: ALB/GLOB Ratio 1.1 RATIO (0.9-2.4); AST(SGOT) 16 U/L (15-37); Alanine Aminotransfer ALT/SGPT 26 U/L (13-56); Albumin, Serum 3.7 g/dL (3.2-5.0); Alkaline Phosphatase 64 U/L (45-117); Anion Gap 8 (5-15); BUN/Creat Ratio 15.4 RATIO (10-20); Calcium,Total 9.1 mg/dL (8.5-10.1); Chloride 103 mmol/L (98-107); Est Glom Filt Rate - Afr Amer 94 mL/min (>60); Globulin 3.5 g/dL (2.2-4.2); Potassium 4.2 mmol/L (3.5-5.1); Protein, Total 7.2 g/dL (6.4-8.2); Sodium Level 144 mmol/L (136-145)
== END ==
PROVIDERS: Family Provider Internal Medicine; PCP Internal Medicine; Visit Provider Internal Medicine Rheumatology
DX: M06.4 Inflammatory polyarthropathy (principal); Z79.899 Other long term (current) drug therapy; M79.7 Fibromyalgia; M51.36 Other intervertebral disc degeneration, lumbar region; J44.9 Chronic obstructive pulmonary disease, unspecified; E11.9 Type 2 diabetes mellitus without complications; F43.23 Adjustment disorder with mixed anxiety and depressed mood; N32.81 Overactive bladder; G25.0 Essential tremor
CPT/HCPCS: 36415; 80053; 85025

== ENCOUNTER → 2018-02-05 10:14 | Outpatient (CLI) | payer MEDICARE, OTHER, SELFPAY ==
[2018-02-05 10:47] LABS: Amphetamine Urine VISTA NEGATIVE (<1000 ng/mL); Barbiturate Urine VISTA NEGATIVE (< 200 ng/mL); Benzodiazepine Urine VISTA NEGATIVE (< 200 ng/mL); Cocaine Urine VISTA NEGATIVE (< 300 ng/mL); Ecstacy Urine VISTA NEGATIVE (< 500 ng/mL); Methadone Urine VISTA NEGATIVE (< 300 ng/mL); PCP Urine VISTA NEGATIVE (< 25 ng/mL); THC Urine VISTA NEGATIVE (< 50 ng/mL); Vista UDS pH Range 6
== END ==
PROVIDERS: Family Provider Internal Medicine; PCP Internal Medicine; Referring Provider Anesthesiology Pain Medicine; Visit Provider Anesthesiology Pain Medicine
DX: F11.20 Opioid dependence, uncomplicated (principal)
CPT/HCPCS: 80307

== ENCOUNTER → 2018-03-12 06:25 | Outpatient (CLI) | payer MEDICARE, OTHER, SELFPAY ==
--- NOTE | 2018-03-12 06:34 | MRI_ITS ---
STUDY: MRI CERVICAL SPINE WITHOUT CONTRAST REASON FOR EXAM: Female, 67 years old. Neck pain and right shoulder pain. TECHNIQUE: Standardized fat and water weighted pulse sequences were obtained in the sagittal and axial planes. COMPARISON: None FINDINGS: Normal foramen magnum and brainstem-cervical cord junction. Normal craniovertebral junction. Normal anterior atlantoaxial articulation. Normal odontoid process. Normal cervical lordosis. Normal vertebral bodies and posterior osseous elements. C2-3: Normal endplates. Normal disc height, signal and morphology. Normal central canal and intervertebral neural foramina. C3-4: Normal endplates. Normal disc height, signal and morphology. Normal central canal and intervertebral neural foramina. C4-5: Normal endplates. Normal disc height, signal and morphology. Normal central canal and intervertebral neural foramina. C5-6: Normal endplates. Mild disc space height narrowing. No ventral extradural defect. Normal central canal and bilateral intervertebral neural foramina. Minimal osteophytes arising from the uncovertebral joints. C6-7: Normal endplates. Normal disc height, signal and morphology. Normal central canal and intervertebral neural foramina. C7-T1: Normal endplates. Normal disc height, signal and morphology. Normal central canal and intervertebral neural foramina. T1-T2: Normal endplates. Normal disc height, hydration and morphology. Normal central canal and bilateral intervertebral neural foramina. T2-T3, T3-T4, T4-T5 and T5-T6: (Sagittal only). Normal endplates. Normal disc height and morphology. Normal central canal and bilateral intervertebral neural foramina. Normal cervical cord. Normal visualized soft tissue structures. MRI/Spine Cervical (Routine) IMPRESSION: 1. No MRI evidence of cervical extruded disc fragment, spinal stenosis or cervical nerve root displacement. 2. Minimal C5-C6 disc space height narrowing with minimal spurs arising from both sides of the uncovertebral joints. Electronically Signed: Enrique Garcia MD at 14:29 EST , Service support ,
== END ==
PROVIDERS: Family Provider Internal Medicine; PCP Internal Medicine; Referring Provider Anesthesiology Pain Medicine; Visit Provider Anesthesiology Pain Medicine
DX: M54.2 Cervicalgia (principal); M79.603 Pain in arm, unspecified
CPT/HCPCS: 72141

== ENCOUNTER → 2018-04-20 13:16 | Outpatient (CLI) | payer MEDICARE, OTHER, SELFPAY ==
[2018-04-20 13:52] LABS: Absolute Lymphocyte Count 2.23 X10^3/ul (0.83-4.51); Absolute Neutrophil Count 2.3 X10^3/uL (2.0-7.7); Basophil# 0.14 X10^3/uL; Basophil% 2.7 % (0-1); Eosinophil# 0.18 X10^3/uL; Eosinophils% 3.4 % (0-5); Hematocrit 43.2 % (37-47); Hemoglobin 14.7 g/dl (12.0-15.0); Lymphocyte # 2.23 X10^3/ul (4.0); Lymphocyte % 42.6 % (19-41); Mean Corpuscular Hgb 34.7 pg (27.0-32.0); Mean Corpuscular Volume 101.9 fL (81-99); Mean Platelet Vol. 9.2 fl (6.2-12.0); Monocyte# 0.36 X10^3/uL; Monocyte% 6.9 % (0-10); Neutrophil # 2.32 X10^3/uL (2.7-7.7); Neutrophil % 44.2 % (47-70); Platelet Count 287 K/mm3 (150-450); RBC Distribution Width CV 13.8 % (11.6-14.6); RBC Distribution Width SD 50.5 fl (35.1-43.9); Red Blood Count 4.24 M/mm3 (4.2-5.4); White Blood Count 5.2 K/mm3 (4.4-11.0)
[2018-04-20 14:11] LABS: POSITIVE COUNT NO; POSITIVE DIFFERENTIAL NO; POSITIVE MORPHOLOGY NO
[2018-04-20 14:23] LABS: ALB/GLOB Ratio 1.2 RATIO (0.9-2.4); AST(SGOT) 15 U/L (15-37); Alanine Aminotransfer ALT/SGPT 24 U/L (13-56); Alkaline Phosphatase 68 U/L (45-117); Anion Gap 9 (5-15); BUN 13 mg/dL (7-18); Chloride 104 mmol/L (98-107); Creatinine, Serum 0.68 mg/dL (0.55-1.02); EST Glomerular Filtration Rate 91 mL/min (>60); Est Glom Filt Rate - Afr Amer 110 mL/min (>60); Globulin 3.3 g/dL (2.2-4.2); Glucose 84 mg/dL (74-106); Potassium 4.1 mmol/L (3.5-5.1); Protein, Total 7.3 g/dL (6.4-8.2); Sodium Level 141 mmol/L (136-145)
== END ==
PROVIDERS: Family Provider Internal Medicine; PCP Internal Medicine; Referring Provider Internal Medicine Rheumatology; Visit Provider Internal Medicine Rheumatology
DX: M06.4 Inflammatory polyarthropathy (principal); Z79.899 Other long term (current) drug therapy; M79.7 Fibromyalgia; M18.0 Bilateral primary osteoarthritis of first carpometacarpal joints; M51.36 Other intervertebral disc degeneration, lumbar region; M47.897 Other spondylosis, lumbosacral region; J44.9 Chronic obstructive pulmonary disease, unspecified; E11.9 Type 2 diabetes mellitus without complications; F43.23 Adjustment disorder with mixed anxiety and depressed mood; N32.81 Overactive bladder; G25.0 Essential tremor
CPT/HCPCS: 36415; 80053; 85025

== ENCOUNTER → 2018-07-01 10:09 | Outpatient (CLI) | payer MEDICARE, OTHER, SELFPAY ==
[2018-07-01 11:37] LABS: Vitamin D,25 Hydroxy 83.2 ng/mL (29.95-100.01)
[2018-07-01 11:43] LABS: ALB/GLOB Ratio 1.1 RATIO (0.9-2.4); AST(SGOT) 17 U/L (15-37); Alanine Aminotransfer ALT/SGPT 22 U/L (13-56); Albumin, Serum 3.7 g/dL (3.2-5.0); Alkaline Phosphatase 58 U/L (45-117); Anion Gap 9 (5-15); BUN 14 mg/dL (7-18); BUN/Creat Ratio 24.3 RATIO (10-20); Calcium,Total 8.8 mg/dL (8.5-10.1); Chloride 106 mmol/L (98-107); Creatinine, Serum 0.58 mg/dL (0.55-1.02); EST Glomerular Filtration Rate 110 mL/min (>60); Est Glom Filt Rate - Afr Amer 133 mL/min (>60); Globulin 3.3 g/dL (2.2-4.2); Glucose 98 mg/dL (74-106); Potassium 4.4 mmol/L (3.5-5.1); Sodium Level 143 mmol/L (136-145)
[2018-07-01 12:29] LABS: Hemoglobin A1c 5.7 % (4.2-6.3)
== END ==
PROVIDERS: Family Provider Internal Medicine; PCP Internal Medicine; Referring Provider Internal Medicine; Visit Provider Internal Medicine
DX: E11.9 Type 2 diabetes mellitus without complications (principal); E55.9 Vitamin D deficiency, unspecified
CPT/HCPCS: 36415; 80053; 82306; 83036

== ENCOUNTER → 2018-07-10 08:44 | Outpatient (CLI) | payer MEDICARE, OTHER, SELFPAY ==
--- NOTE | 2018-07-10 08:46 | RAD_ITS ---
STUDY: X-RAY CHEST REASON FOR EXAM: Female, 68 years old. Upper anterior chest pain and COPD. TECHNIQUE: PA and lateral views of the chest. COMPARISON: Prior comparison studies are not available for review at this time. FINDINGS: There is hyperinflation of the lungs consistent with chronic obstructive lung disease (COPD). Nodular opacities at the lung bases probably represent nipple shadows. There is mild interstitial thickening visible at the lung bases. There is pleural fibrotic thickening of the pulmonary lung apices. There is blunting of lateral and posterior costophrenic angles possibly representing small effusions versus hyperexpansion of lungs. Normal size heart. Normal mediastinum and otilia. There is prominence of the pulmonary hilar arteries without peripheral pulmonary vascular congestion. There is atherosclerotic calcification of the aortic arch with tortuosity. There is demineralization of the osseous structures. Normal visualized ribs, clavicles, and shoulders. There is no demonstrated abnormality of the visualized soft tissue structures of the upper abdomen. RAD/Chest PA and Lateral IMPRESSION: COPD with small pleural effusion. Electronically Signed: Gilda Pate MD at 8:52 EDT , Service support ,
--- NOTE | 2018-07-10 08:55 | US_ITS ---
STUDY: ABDOMINAL ULTRASOUND REASON FOR EXAM: Female, 68 years old. Abdominal pain TECHNIQUE: Transabdominal ultrasound was performed with real-time and static lee scale imaging. TECHNICAL QUALITY: Adequate. COMPARISON: None. FINDINGS: Liver: The liver measures 14 cm. There is coarsened echogenicity of the liver. The bile ducts are within normal limits. There is hepatic color flow. The direction of portal flow is hepatopetal. There is no demonstrated mass lesion. Portal vein measurement: Gallbladder: Normal distended gallbladder. The gallbladder wall measures 1.3 mm. There is a negative sonographic Cunningham's sign. There is no pericholecystic fluid. There are no gallstones. Common Bile Duct (C.B.D.): The common bile duct measures 6.8 mm. Pancreas: There is normal echogenicity of the visualized pancreas. There is no demonstrated pancreatic mass or cyst. Spleen: Normal size of the spleen. The spleen measures 7.6 cm. Right Kidney: Normal size of the right kidney. The right kidney measures 8.9 cm. Normal renal cortex. The right cortex measures 0.8 cm. There is no demonstrated renal mass or cyst. There is no right hydronephrosis. No shadowing calculi. Left Kidney: Normal size of the left kidney. The left kidney measures 10.1 cm. Normal renal cortex. The left cortex measures 0.8 cm. There is no demonstrated renal mass or cyst. There is no left hydronephrosis. No shadowing calculi. Aorta: Nonaneurysmal I.V.C.: The IVC is patent. There is no ascites. Atherosclerotic calcifications of the abdominal aorta demonstrated. US/Abdomen Complete IMPRESSION: 1. No gallstones or biliary obstruction. 2. No hydronephrosis or shadowing calcifications of the kidneys. 3. Atherosclerosis. 4. Increased, coarsened echo pattern of the liver is nonspecific but most commonly associated with hepatic steatosis or other infiltrative hepatic process. Electronically Signed: Carlton Spann MD at 16:21 EDT , Service support ,
== END ==
PROVIDERS: Family Provider Internal Medicine; PCP Internal Medicine; Referring Provider Internal Medicine; Visit Provider Internal Medicine
DX: R10.9 Unspecified abdominal pain (principal); R07.9 Chest pain, unspecified
CPT/HCPCS: 71046; 76700

== ENCOUNTER → 2018-08-13 | Outpatient (CLI) | payer MEDICARE, OTHER, SELFPAY ==
[2018-08-13 10:12] LABS: Absolute Lymphocyte Count 1.91 X10^3/ul (0.83-4.51); Absolute Neutrophil Count 3.9 X10^3/uL (2.0-7.7); Basophil# 0.09 X10^3/uL; Basophil% 1.3 % (0-1); Eosinophil# 0.25 X10^3/uL; Eosinophils% 3.6 % (0-5); Hematocrit 40.8 % (37-47); Hemoglobin 13.7 g/dl (12.0-15.0); Lymphocyte # 1.91 X10^3/ul (4.0); Lymphocyte % 27.5 % (19-41); Mean Corp Hgb Conc 33.6 g/gl (32-36); Mean Corpuscular Hgb 34.6 pg (27.0-32.0); Monocyte# 0.78 X10^3/uL; Monocyte% 11.2 % (0-10); Neutrophil # 3.91 X10^3/uL (2.7-7.7); Neutrophil % 56.3 % (47-70); Platelet Count 322 K/mm3 (150-450); RBC Distribution Width CV 14.8 % (11.6-14.6); RBC Distribution Width SD 54.7 fl (35.1-43.9); Red Blood Count 3.96 M/mm3 (4.2-5.4)
[2018-08-13 10:17] LABS: POSITIVE COUNT NO; POSITIVE DIFFERENTIAL NO; POSITIVE MORPHOLOGY NO
[2018-08-13 10:40] LABS: ALB/GLOB Ratio 1.1 RATIO (0.9-2.4); AST(SGOT) 14 U/L (15-37); Alanine Aminotransfer ALT/SGPT 32 U/L (13-56); Albumin, Serum 3.7 g/dL (3.2-5.0); Alkaline Phosphatase 59 U/L (45-117); Anion Gap 6 (5-15); BUN 21 mg/dL (7-18); BUN/Creat Ratio 31.7 RATIO (10-20); Calcium,Total 8.8 mg/dL (8.5-10.1); Chloride 106 mmol/L (98-107); Creatinine, Serum 0.66 mg/dL (0.55-1.02); EST Glomerular Filtration Rate 94 mL/min (>60); Est Glom Filt Rate - Afr Amer 113 mL/min (>60); Globulin 3.4 g/dL (2.2-4.2); Glucose 89 mg/dL (74-106); Potassium 4.1 mmol/L (3.5-5.1); Protein, Total 7.1 g/dL (6.4-8.2); Sodium Level 142 mmol/L (136-145)
== END | disposition home or self-care (01) ==
LOC: LAB 09:22
PROVIDERS: Family Provider Internal Medicine; PCP Internal Medicine; Referring Provider Internal Medicine Rheumatology; Visit Provider Internal Medicine Rheumatology
DX: M06.4 Inflammatory polyarthropathy (principal); Z79.899 Other long term (current) drug therapy; M79.7 Fibromyalgia; M18.0 Bilateral primary osteoarthritis of first carpometacarpal joints; M51.36 Other intervertebral disc degeneration, lumbar region; M47.897 Other spondylosis, lumbosacral region
CPT/HCPCS: 36415; 80053; 85025

== ENCOUNTER → 2018-09-29 | Outpatient (CLI) | payer MEDICARE, OTHER, SELFPAY ==
--- NOTE | 2018-09-29 09:29 | RAD_ITS ---
STUDY: X-RAY CHEST REASON FOR EXAM: Female, 68 years old. TECHNIQUE: 2 views COMPARISON: None. FINDINGS: Both lungs are hyperexpanded due to chronic obstructive lung disease but no evidence of consolidation or atelectasis. No pleural effusion noted. And no pneumothorax. The cardiac silhouette is not enlarged. The visualized bones are intact. The trachea is in the midline. The visualized bones are intact. RAD/Chest PA and Lateral IMPRESSION: Hyperinflation of both lung sher due to COPD. Electronically Signed: Antonio Mcknight, at 13:44 EDT Tel , Service support ,
== END | disposition home or self-care (01) ==
LOC: RAD 09:27
PROVIDERS: Family Provider Internal Medicine; PCP Internal Medicine; Referring Provider Internal Medicine; Visit Provider Internal Medicine
DX: J44.9 Chronic obstructive pulmonary disease, unspecified (principal)
CPT/HCPCS: 71046

== ENCOUNTER 2018-10-20 17:17 | Inpatient (IN) | payer MEDICARE, OTHER, SELFPAY ==
[2018-10-20] VITALS (11 sets, daily range): BP systolic 89–119; BP diastolic 35–74; PULSE 56–81; RESP 16–28; TEMP 36.8–36.9; O2SAT 95–98; BMI 17.9; BMI 19.0
--- NOTE | 2018-10-20 18:51 | CT_ITS ---
STUDY: CTA CHEST REASON FOR EXAM: Female, 68 years old. Shortness of breath RADIATION DOSAGE (If Supplied By Facility): CTDIvol = ( 7.45 ) mGy, DLP = ( 191.70 ) mGycm TECHNIQUE: The examination was performed with the intravenous administration of 75ml IV Isovue 300. Post-processing of the angiographic images was performed, with multiplanar reformation and 3D reconstruction. Individualized dose optimization techniques were used for this CT. COMPARISON: None. FINDINGS: Normal enhancement of the main pulmonary artery and right and left pulmonary arteries. Normal enhancement of the bilateral peripheral pulmonary arteries. There is no demonstrated pulmonary embolism. Normal thoracic aorta and visualized great vessels. There is no demonstrated aortic dissection. There is a small pericardial effusion. The heart is normal in size. Mild mediastinal prominence is present. Normal hilar regions. Normal visualized trachea and bronchi. The lungs are well expanded. Severe emphysema is present with cystic change. Bilateral apical fibrotic changes are present. There is left medial lower lobe consolidation versus scarring. Normal pleura. Normal chest wall structures. Normal osseous structures. Normal visualized upper abdomen. CT/CTA Chest W/WO Contrast IMPRESSION: No evidence of pulmonary embolus. Severe emphysema with cystic change as well as bilateral apical fibrotic change and left medial lower lobe consolidation versus scarring. Small pericardial effusion. Electronically Signed: Josh Leong, at 20:59 EDT Tel , Service support ,
--- NOTE | 2018-10-20 18:52 | EKG12_ITS ---
Test Reason : CP Blood Pressure : / mmHG Vent. Rate : 065 BPM Atrial Rate : 065 BPM P-R Int : 130 ms QRS Dur : 072 ms QT Int : 378 ms P-R-T Axes : 062 072 055 degrees QTc Int : 393 ms Normal sinus rhythm Normal ECG Confirmed by MEGAN DICKERSON, AIDA ([id number]), graphics editor FRANKIE TEJADA ([id number] on 10/22/2018 1:32:10 PM Referred By: Salvador Capps Confirmed By:AIDA GUZMAN MD
--- NOTE | 2018-10-20 19:01 | US_ITS ---
STUDY: VENOUS DOPPLER ULTRASOUND - LEFT LOWER EXTREMITY REASON FOR EXAM: Female, 68 years old. Pain TECHNIQUE: Ultrasound evaluation of the deep vein system to include gage-scale imaging and compression was performed. Gage-scale imaging and Doppler sonographic evaluation, including duplex spectral analysis and qualitative color flow sonography, was performed. COMPARISON: None. FINDINGS: Common Femoral Vein: Normal compression, spontaneity and augmentation. Normal color Doppler. Common Femoral Vein/Greater Saphenous Junction: Normal compression, spontaneity and augmentation. Normal color Doppler. Deep Femoral Vein: Normal compression, spontaneity and augmentation. Normal color Doppler. Femoral Proximal: Normal compression, spontaneity and augmentation. Normal color Doppler. Femoral Middle: Normal compression, spontaneity and augmentation. Normal color Doppler. Femoral Distal: Normal compression, spontaneity and augmentation. Normal color Doppler. Popliteal Vein: Normal compression, spontaneity and augmentation. Normal color Doppler. Posterior Tibial Vein: Normal compression, spontaneity and augmentation. Normal color Doppler. Peroneal Vein: Normal compression, spontaneity and augmentation. Normal color Doppler. US/Venous Duplex Imag/Limited/Uni IMPRESSION: Normal venous Doppler ultrasound of the lower extremity. Electronically Signed: Josh Leong, at 19:33 EDT Tel , Service support ,
[2018-10-20] MEDS: Aspirin 81 MG TAB.CHEW 324 MG PO (19:03)
[2018-10-20 19:05] LABS: Absolute Lymphocyte Count 0.82 X10^3/uL (0.83-4.51); Basophil# 0.05 X10^3/uL; Basophil% 0.9 % (0-1); Eosinophils% 1.9 % (0-5); Hematocrit 43.1 % (37-47); Hemoglobin 14.4 g/dL (12.0-15.0); Lymphocyte # 0.82 X10^3/ul (4.0); Lymphocyte % 15.5 % (19-41); Mean Corp Hgb Conc 33.4 g/dL (32-36); Mean Corpuscular Hgb 34.1 pg (27.0-32.0); Mean Corpuscular Volume 102.1 fL (81-99); Mean Platelet Vol. 9.2 fl (6.2-12.0); Monocyte# 0.27 X10^3/uL; Monocyte% 5.1 % (0-10); NRBC Flagged by Analyzer 0 % (0-5); Neutrophil # 4.02 X10^3/uL (2.7-7.7); Neutrophil % 76.2 % (47-70); Platelet Count 353 K/mm3 (150-450); RBC Distribution Width CV 13.8 % (11.6-14.6); RBC Distribution Width SD 51.6 fl (35.1-43.9); Red Blood Count 4.22 M/mm3 (4.2-5.4); White Blood Count 5.3 K/mm3 (4.4-11.0)
--- NOTE | 2018-10-20 19:33 | ED.VISSUMM ---
- ER Visit Summary Date of Service: 10/20/18 Chief Complaint: Chest pain History of Present Illness: The patient is a 68 F presenting with chest pain. Patient states it started last night. She complains of chest pain, shortness of breath. She states she has been very fatigued and unable to sleep. She took 2-3 nitro last night which intermittently improved her pain. She also took aspirin at home. She was seen by her pain management physician Dr. Campbell today for an injection of her lower back. This pain started before this injection. She does not feel that they are related. She has a history of COPD. She has a mild cough. She denies fever. She also complains of left lower extremity pain which has been ongoing for several weeks but is improving. Denies other complaints. Physical Examination: Vitals are stable. Patient is afebrile. Alert no acute distress. HEENT exam is unremarkable. Neck is supple. Lungs are wheezing bilaterally. Heart is regular rate and rhythm. Abdomen is soft nontender nondistended. Extremities are unremarkable. Normal distal pulses. Skin is warm and dry. No focal neurologic deficit. Remainder of exam is unremarkable. Emergency Department Course and Treatment: Patient was given albuterol, Atrovent aerosols. EKG is sinus rhythm rate of 65 with no acute ischemic changes. CBC, chemistries unremarkable. Troponin is negative. Ultrasound left lower extremity shows no evidence of DVT. CTA chest shows no evidence of pulmonary embolus. Severe emphysema with cystic change as well as bilateral apical fibrotic change and left medial lower lobe consolidation versus scarring. Small pericardial effusion. While in the emergency department patient desaturated to 85% on room air. She was put on nasal cannula oxygen with improvement. She was given Solu-Medrol IV. Discussed with the hospitalist for admission. Disposition: Admission Impression: COPD exacerbation, hypoxia This note was generated with [employer] dictation software. It may contain incorrect words, spelling, and punctuation that were not noted in review of the chart prior to signing ED Disposition - Plan for ED Patient:
[2018-10-20 19:58] LABS: Anion Gap 3 (5-15); BUN 14 mg/dL (7-18); BUN/Creat Ratio 20.1 RATIO (10-20); Calcium,Total 9.1 mg/dL (8.5-10.1); Chloride 108 mmol/L (98-107); EST Glomerular Filtration Rate 88 mL/min (>60); Est Glom Filt Rate - Afr Amer 107 mL/min (>60); Estimated Creatinine Clearance 36.61 ml/min; Glucose 117 mg/dL (74-106); Potassium 4.1 mmol/L (3.5-5.1); Sodium Level 139 mmol/L (136-145)
[2018-10-20] MEDS: Ipratropium/Albuterol Sulfate 3 ML AMPUL.NEB INHALATION (20:08)
[2018-10-20] MEDS: Morphine 4 MG/ML Syringe IV (21:05)
[2018-10-20] MEDS: Ondansetron 4 MG/2 ML Vial IV (21:05)
--- NOTE | 2018-10-20 21:54 | PCM.HP.STD ---
Problem List (1) COPD with exacerbation Status: Chronic History of Present Illness Date of Admission: 10/20/18 Chief Complaint: SHORTNESS OF BREATH The patient is a 68 year old F with a significant history of fibromyalgia; osteoporosis; diabetes mellitus; IBS; arthritis; and COPD who presented to the emergency department with persistent shortness of breath that occurs at rest; and which started a day before presentation. Associated with her symptoms is chest tightness; and fatigue. She has had cough in the morning that she attributes to postnasal drip. Reportedly at the emergency department on room air her oxygen saturation was 85%. Also for the past 3 weeks patient has had left leg pain. She sees Dr. Capmbell, pain management for back pain that has been going on for about 10 years. She gets shots at her back. Also she is on chronic Ultram for pain. She has pain in multiple sites of her body. At the emergency department CTPA showed emphysema and a small pericardial effusion. Emergency department doctor discussed the case with sheet metal duct installer helper who recommended echocardiogram to evaluate the pericardial effusion. Past Medical History Past Medical History (Chronic Problems): Chronic Problems COPD with exacerbation (Chronic) Allergies No Known Allergies Allergy (Verified 10/20/18 17:21) Home Medications: Ambulatory Orders Medication Instructions Recorded Albuterol Inhaler [Ventolin Hfa 2 puff INHALATION Q6H PRN PRN 06/03/17 (SP)] Benzonatate [Tessalon Perle] 100 mg PO TID PRN PRN 06/03/17 Calcium Carbonate 600 mg PO BID 06/03/17 Ergocalciferol [Vitamin D] 50,000 unit PO Q7D 06/03/17 Folic Acid 1 mg PO BID 06/03/17 Glucosa Crabtree 2Kcl/Chondroitin Crabtree 1 each PO BID 06/03/17 [Glucosamine-Chondroitin Cap] Linacolotide [Linzess] 145 mcg PO DAILY 06/03/17 Methotrexate 15 mg PO Q7D 06/03/17 Montelukast [Singulair] 10 mg PO DAILY 06/03/17 Nitroglycerin (INPATIENT USE) 0.4 mg SUBLINGUAL Q5M PRN 06/03/17 [Nitrostat] Garrison-3 Fatty Acids/Fish Oil 1 each PO DAILY 06/03/17 [Garrison 3 1,000 mg Softgel] traMADol [Ultram (G)] 100 mg PO BID 06/03/17 Duloxetine Hcl [Cymbalta] 20 mg PO BID 08/08/17 Ibandronate Sodium [Boniva] 150 mg PO Q30D 08/08/17 Omeprazole [Prilosec] 20 mg PO DAILY 08/08/17 Ondansetron [Zofran Odt] 4 mg PO Q8H PRN PRN #10 tablet 11/01/17 Acetaminophen [Tylenol] 500 mg PO BID 10/20/18 Lactose-Reduced Food [Boost] 237 ml PO BID 10/20/18 Surgical History: appendectomy, hysterectomy Lives: Spouse/ Significant Other Smoking Status: Current every day smoker - *Family History Maternal History Items: - - Patient does not know. Paternal History Items: Pulmonary Disease - His father had lung disease attributed to working at the [email or web address] Review of Systems Constitutional: Reports: Fatigue. Denies: Chills, Fever, Weight Change HEENT: Reports: Post Nasal Drip. Denies: Head Aches, Sinus Congestion, Sinus Drainage Cardiovascular: Reports: Chest Tightness. Denies: Palpitations Respiratory: Reports: Cough, Shortness of breath at rest, Sputum production - associated with postnasal drip. Gastrointestinal: Denies: Abdominal Pain, Nausea, Vomiting Genitourinary: Denies: Dysuria Musculoskeletal: Reports: Leg Pain - left. Denies: Joint Pain, Joint Tenderness Skin: Denies: Rash, Wounds Neurological: Denies: Numbness, Tingling, Focal weakness Psychiatric: Denies: Anxiety, Depression, Homicidal Ideations, Suicidal Ideations Hematologic/ Lymphatic: Denies: Easy Bruising, Easy Bleeding VTE Information - Inpt Only VTE Present on Admission: No VTE Mechan Device Prophylaxis: None VTE Pharm Prophylaxis ordered?: Yes - Physical Exam General: Alert, Oriented x3, Cooperative, - - Thin frame HEENT: Atraumatic, PERRLA, EOMI, Normocephalic Neck: Supple, No JVD, Negative Carotid Bruits Lungs: Clear to auscultation, Normal air movement Cardiovascular: Regular rate, No murmurs Abdomen: Bowel Sounds Present, Soft, Non Tender Extremities: No edema, Capillary Refill Less than 3 Seconds Skin: No rashes, No breakdown Musculoskeletal: No Tenderness to Palpation of Joints or Extremities Neurological: Cranial nerves II-XII grossly intact Psych/Mental Status: Normal Affect, Appropriate Vital Signs Temp Pulse Resp BP Pulse Ox 98.4 F 74 18 119/71 96 10/20/18 17:18 10/20/18 21:04 10/20/18 21:04 10/20/18 21:04 10/20/18 21:04 Oxygen Flow Rate (L/min) 2 Oxygen Delivery Method Room Air Weight: 44.3 kg Body Mass Index (BMI) 17.9 Laboratory Tests Past 24 Hrs 10/20/18 10/20/18 17:45 17:45 WBC 5.3 RBC 4.22 Hgb 14.4 Hct 43.1 MCV 102.1 H MCH 34.1 H MCHC 33.4 RDW Std Deviation 51.6 H RDW Coeff of Casper 13.8 Plt Count 353 MPV 9.2 Immature Gran % (Auto) 0.400 Neut % (Auto) 76.2 H Lymph % (Auto) 15.5 L [place] % (Auto) 5.1 Eos % (Auto) 1.9 Baso % (Auto) 0.9 Absolute Neuts (auto) 4.0 Absolute Lymphs (auto) 0.82 L Absolute Nucleated RBC 0.00 Nucleated RBC % 0 Sodium 139 Potassium 4.1 Chloride 108 H Carbon Dioxide 28.0 Anion Gap 3 L BUN 14 Creatinine 0.70 Estim Creat Clear Calc 36.61 Est GFR (MDRD) Af Amer 107 Est GFR (MDRD) Non-Af 88 BUN/Creatinine Ratio 20.1 H Glucose 117 H Calcium 9.1 Troponin I < 0.015 Assessment/Plan All Active Problems Chest pain (Acute) Abnormal nuclear stress test (Acute) The patient is a 68 year old F with a significant history of fibromyalgia; osteoporosis; diabetes mellitus; IBS; arthritis; and COPD who presented to the emergency department with persistent shortness of breath that occurs at rest; chest tightness; and fatigue consistent with acute COPD exacerbation. Acute COPD exacerbation CTPA showed no evidence of pulmonary embolus. Severe emphysema with cystic changes as well as bilateral apical fibrotic change in left medial lower lobe consolidation versus scarring. Small pericardial effusion. CTPA was independently reviewed. I agree with radiologist interpretation. EKG independently reviewed confirms rhythm with a rate of 65 Scheduled DuoNeb Albuterol as needed Prednisone ordered Oxygen as needed Chest pain Likely because of his COPD patient. Her initial troponin was negative. Trend troponin. EKG independently reviewed showed sinus rhythm. Review of records: Cardiac catheterization on 06/04/2017 showed normal left ventricular size, wall motion and systolic function with normal coronary arteries. At that time patient's Plavix was discontinued. Pericardial effusion Small Echocardiogram ordered. Left leg pain Duplex ultrasound was unremarkable. Likely secondary to sciatica from back pain. Patient to continue outpatient management with steroid shots; and Ultram. DVT prophylaxis Lovenox ordered Code Visit OBSV E&M: 68280 Initial observation care L3
[2018-10-20] MEDS: MethylPREDNISolone 125 MG/2 ML Vial IV (22:40)
[2018-10-21] VITALS (16 sets, daily range): BP systolic 90–112; BP diastolic 32–55; PULSE 71–87; RESP 16–20; TEMP 36.6–37.1; O2SAT 88–96
[2018-10-21] MEDS: traMADol 50 MG Tablet 100 MG PO ×3 (00:49→22:48)
[2018-10-21] MEDS: Acetaminophen 325 MG Tablet 650 MG PO ×3 (00:50→22:48)
--- NOTE | 2018-10-21 00:55 | EKG12_ITS ---
Test Reason : CP ADMISSION Blood Pressure : / mmHG Vent. Rate : 056 BPM Atrial Rate : 056 BPM P-R Int : 120 ms QRS Dur : 080 ms QT Int : 436 ms P-R-T Axes : 013 062 047 degrees QTc Int : 420 ms Sinus bradycardia Otherwise normal ECG When compared with ECG of 20-OCT-2018 17:24, MANUAL COMPARISON REQUIRED, DATA IS UNCONFIRMED Confirmed by CAROLE DICKERSON, ASIF ([id number]), assignment editor RAMSES SAM ([id number]) on 10/27/2018 2:01:53 PM Referred By: Salvador Capps Confirmed By:SAIF LAM MD
--- NOTE | 2018-10-21 05:55 | ECHOCS_ITS ---
Reason For Study: DYSPNEA Procedure This was a 2D Doppler, Color Flow transthoracic echocardiogram. The study was technically difficult. Contrast injection was performed. Exam performed portable in patient room. Left Ventricle Normal LV size. Left ventricular systolic function is normal. The estimated ejection fraction is 70 %. No evidence for diastolic dysfunction. No regional wall motion abnormalities noted. Right Ventricle Normal RV size. Normal systolic function. Atria Normal left atrium. Normal right atrium. No doppler evidence for ASD. Mitral Valve There is no mitral annular calcification. Normal mitral valve. Trivial mitral valve insufficiency. Tricuspid Valve Normal tricuspid valve. Mild tricuspid valve insufficiency. Right ventricular systolic pressure estimated to be 42 mmHg. Aortic Valve Trisinus/trileaflet aortic valve. Normal aortic valve. Pulmonic Valve The pulmonic valve is not well visualized. Great Vessels Normal sized aortic root. Pericardium/Pleural Trivial pericardial effusion. There are no echocardiographic indications of cardiac tamponade. Medication Diluted definity 2ml given slow IV push to enhance endocardial definition. MMode/2D Measurements & Calculations LVIDd: 4.0 cm IVSd: 0.79 cm Ao root diam: 3.1 cm LVIDs: 2.9 cm LVPWd: 0.98 cm RVDd: 3.1 cm FS: 28.0 % LAV(MOD-bp): 25.6 ml LA A4 area: 12.8 cm2 LA dimension(2D): 2.9 cm LAV(MOD-bp) Indexed: 18.8 ml/m2 LAV(MOD-sp2): 22.7 ml LAV(MOD-sp4): 29.2 ml RA A4 area: 11.9 cm2 Time Measurements MV dec time: 0.22 sec Doppler Measurements & Calculations MV E max ricky: 85.4 cm/sec Lat Peak E' Ricky: 7.7 cm/sec Med Peak E' Ricky: 7.2 cm/sec MV A max ricky: 81.6 cm/sec E/E' lat: 11.1 E/E' med: 11.8 MV E/A: 1.0 Ao V2 max: 133.7 cm/sec LV V1 max: 123.9 cm/sec PA V2 max: 84.5 cm/sec Ao max P.2 mmHg LV V1 max P.1 mmHg TR max ricky: 261.2 cm/sec TR max P.3 mmHg Interpretation Summary The study was technically difficult. Contrast injection was performed. Left ventricular systolic function is normal. The estimated ejection fraction is 70 %. Trivial mitral valve insufficiency. Mild tricuspid valve insufficiency. Trivial pericardial effusion. There are no echocardiographic indications of cardiac tamponade. Right ventricular systolic pressure estimated to be 42 mmHg. No evidence for diastolic dysfunction. Ordering Physician: Salvador Capps Referring Physician: DALTON DAMON Performed By: Joycelyn Payne RDCS, RVT
[2018-10-21] MEDS: 0.9% NaCl Peripheral Flush Adult/Peds IV (07:05)
[2018-10-21] MEDS: Ipratropium/Albuterol Sulfate 3 ML AMPUL.NEB INHALATION ×3 (07:25→20:55)
[2018-10-21] MEDS: Montelukast 10 MG Tablet PO (08:10)
[2018-10-21] MEDS: Enoxaparin 40 MG/0.4 ML Syringe SC (08:10)
[2018-10-21] MEDS: DULoxetine Hcl 20 MG Capsule PO ×2 (08:10→22:47)
[2018-10-21] MEDS: Folic Acid 1 MG Tablet PO (08:10)
[2018-10-21] MEDS: Pantoprazole Sodium 20 MG Tablet PO ×2 (08:10→22:48)
[2018-10-21] MEDS: LINACLOTIDE 145 MCG CAPSULE PO (08:10)
[2018-10-21] MEDS: Calcium Carbonate 500 MG Tablet PO ×2 (08:11→22:48)
--- NOTE | 2018-10-21 09:24 | NS ---
Per pharmacy, pt has Boost 237mL PO BID at home. Will provide Ensure Enlive 120 mL 4x/day as substitute. If pt would prefer supplement with meals, please call clinical dietitian at [phone]. Ashok Nuñez MS, RDN, LD
[2018-10-21] MEDS: tiZANidine HCl 2 MG Tablet PO (11:34)
--- NOTE | 2018-10-21 13:16 | PN_ITS ---
Subjective: Pt without further CP or SOB. CP occurred midsternal with associated SOB and occurred with exertion. Prior stress 2 years ago + and follow up cath negative. No workup since. Continues to smoke 2 cigs per day. - Physical Exam General: Alert, Oriented x3, Cooperative HEENT: Atraumatic, PERRLA, EOMI, Normocephalic Neck: Supple, No JVD, Negative Carotid Bruits Lungs: Clear to auscultation, Normal air movement Cardiovascular: Regular rate, No murmurs Abdomen: Bowel Sounds Present, Soft, Non Tender Extremities: No edema, Capillary Refill Less than 3 Seconds Skin: No rashes, No breakdown Musculoskeletal: No Tenderness to Palpation of Joints or Extremities Neurological: Cranial nerves II-XII grossly intact Psych/Mental Status: Normal Affect, Appropriate, Alert and oriented to time, place, person, mood and affect Vital Signs Temp Pulse Resp BP Pulse Ox 98.1 F 81 18 112/55 L 93 10/21/18 08:40 10/21/18 08:40 10/21/18 08:40 10/21/18 08:40 10/21/18 08:40 Oxygen Flow Rate (L/min) 93 Oxygen Delivery Method Room Air Weight: 95 lb 10.89 oz Body Mass Index (BMI) 19.0 Intake and Output for Last 24 Hours 10/19/18 10/20/18 10/21/18 23:59 23:59 23:59 Intake Total 120 / 120 720 / 720 Balance 120 / 120 720 / 720 Laboratory Tests Past 24 Hrs 10/20/18 10/20/18 10/20/18 17:45 17:45 23:25 WBC 5.3 RBC 4.22 Hgb 14.4 Hct 43.1 MCV 102.1 H MCH 34.1 H MCHC 33.4 RDW Std Deviation 51.6 H RDW Coeff of [place] 13.8 Plt Count 353 MPV 9.2 Immature Gran % (Auto) 0.400 Neut % (Auto) 76.2 H Lymph % (Auto) 15.5 L [place] % (Auto) 5.1 Eos % (Auto) 1.9 Baso % (Auto) 0.9 Absolute Neuts (auto) 4.0 Absolute Lymphs (auto) 0.82 L Absolute Nucleated RBC 0.00 Nucleated RBC % 0 Sodium 139 Potassium 4.1 Chloride 108 H Carbon Dioxide 28.0 Anion Gap 3 L BUN 14 Creatinine 0.70 Estim Creat Clear Calc 36.61 Est GFR (MDRD) Af Amer 107 Est GFR (MDRD) Non-Af 88 BUN/Creatinine Ratio 20.1 H Glucose 117 H Calcium 9.1 Troponin I < 0.015 < 0.015 10/21/18 10/21/18 02:38 05:05 WBC RBC Hgb Hct MCV MCH MCHC RDW Std Deviation RDW Coeff of [place] Plt Count MPV Immature Gran % (Auto) Neut % (Auto) Lymph % (Auto) [place] % (Auto) Eos % (Auto) Baso % (Auto) Absolute Neuts (auto) Absolute Lymphs (auto) Absolute Nucleated RBC Nucleated RBC % Sodium Potassium Chloride Carbon Dioxide Anion Gap BUN Creatinine Estim Creat Clear Calc Est GFR (MDRD) Af Amer Est GFR (MDRD) Non-Af BUN/Creatinine Ratio Glucose Calcium Troponin I < 0.015 < 0.015 Medical Necessity - Tobacco Use Smoking Status: Current every day smoker Assessment/Plan All Active Problems Chest pain (Acute) Abnormal nuclear stress test (Acute) 1. Acute COPD exacerbation - no SOB, no wheezing, no O2 requirement. po prednisone. aerosols. 2. Chest pain - likely etiology for SOB. Trop negative. EKG neg. will stress in AM. -Echo with EF70%, no LV dysfunction, RVSP 42 mmHg, trivial pericardial effusion. 3. Pericardial effusion - as above. trivial. 4. LLE pain / swelling - CTA neg for PE, US neg for DVT. 5. Ongoing nicotine abuse - discussed need for cessation. DVT ppx: lovenox DC planning: stress in am. This patient was seen by Monty Moya PA-C under the supervision of Dr. Perez.
--- NOTE | 2018-10-21 15:00 | CASEMGMT ---
RN CM SOCIAL WORK SPECIALIST CM to room to meet with patient for initial transition planning/care coordination assessment. LYNETTE BALL introduced self and role at [facility]. Pt voices understanding and consents to assessment at this time. Pt resting in bed in no distress at this time. Pt is A/O at this time and answers all questions appropriately. Care providers, pharmacy, and demographics verified at this time. PCP: Ml jensen [place] Specialists: Basali for pain mgmt Preferred Pharmacy: [facility] Insurance: MCR, Prescription Benefit: Living Will/HPOA: States does not have LW or HCPOA . Interested in more information and would like to talk to DEIRDRE to complete paperwork. DEIRDRE Aggarwal, notifiied. LNOK: , Anjel Living Arrangements: Lives with her in a split-level home. Independent with ADL's. and pt share home mgmt tasks. Transportation: Pt states drives self and states no transportation concerns at this time. will drive pt home @ discharge. DME: States has/uses a cane @ home on occasion. Also has a shower chair and walker but does not use them. Does not have home O2. Pt states no need for further DME at this time. HHC/SNF: No history of either and denies needs. No needs identified. PT/OT notes have been reviewed and no further therapy is recommended. Pt wishes to return home and states has no concerns with going home at time of discharge. CM to follow for home oxygen needs and any further discharge planning/needs. Pt voices no further concerns/needs at this time. Advised pt to ask for CM if any further questions/concerns/needs arise. Voices understanding. PLAN: Home w/spousal support and discharge plans in place. Mer TEJADA RN, CM
[2018-10-21 17:13] LABS: Magnesium 2.3 mg/dL (1.6-2.6)
[2018-10-21] MEDS: 0.9% Normal Saline 1,000 ML 100 ML IV (23:14)
[2018-10-22 02:56] VITALS: PULSE 63
[2018-10-22 04:20] VITALS: BP 113/64; PULSE 77; RESP 20; TEMP 37.3; O2SAT 94
[2018-10-22 05:16] LABS: Absolute Lymphocyte Count 1.06 X10^3/uL (0.83-4.51); Absolute Neutrophil Count 6.2 X10^3/uL (2.0-7.7); Basophil# 0.03 X10^3/uL; Basophil% 0.4 % (0-1); Hematocrit 34.9 % (37-47); Hemoglobin 11.9 g/dL (12.0-15.0); Lymphocyte # 1.06 X10^3/ul (4.0); Lymphocyte % 13.4 % (19-41); Mean Corp Hgb Conc 34.1 g/dL (32-36); Mean Corpuscular Volume 102.6 fL (81-99); Mean Platelet Vol. 8.8 fl (6.2-12.0); Monocyte# 0.55 X10^3/uL; NRBC Flagged by Analyzer 0 % (0-5); Neutrophil # 6.24 X10^3/uL (2.7-7.7); Neutrophil % 78.8 % (47-70); Platelet Count 261 K/mm3 (150-450); RBC Distribution Width CV 14.3 % (11.6-14.6); RBC Distribution Width SD 53.8 fl (35.1-43.9); White Blood Count 7.9 K/mm3 (4.4-11.0)
[2018-10-22 05:41] VITALS: BP 107/55; PULSE 65; RESP 18; TEMP 37.2; O2SAT 94
[2018-10-22 05:43] LABS: Anion Gap 4 (5-15); BUN 18 mg/dL (7-18); BUN/Creat Ratio 28.7 RATIO (10-20); Calcium,Total 8.3 mg/dL (8.5-10.1); Chloride 111 mmol/L (98-107); Cholesterol 140 mg/dL (200); Creatinine, Serum 0.63 mg/dL (0.55-1.02); EST Glomerular Filtration Rate 100 mL/min (>60); Est Glom Filt Rate - Afr Amer 121 mL/min (>60); Estimated Creatinine Clearance 35.87 ml/min; Glucose 103 mg/dL (74-106); High Density Lipoprotein 66 mg/dL; Potassium 4.3 mmol/L (3.5-5.1); Sodium Level 143 mmol/L (136-145); Triglycerides 45 mg/dL; Very Low Density Lipoprotein 9 mg/dL (5-40)
--- NOTE | 2018-10-22 05:55 | EKG12_ITS ---
Test Reason : AM EKG Blood Pressure : / mmHG Vent. Rate : 064 BPM Atrial Rate : 064 BPM P-R Int : 126 ms QRS Dur : 072 ms QT Int : 388 ms P-R-T Axes : 013 067 056 degrees QTc Int : 400 ms Normal sinus rhythm Normal ECG When compared with ECG of 20-OCT-2018 23:43, MANUAL COMPARISON REQUIRED, DATA IS UNCONFIRMED Confirmed by CAROLE DICKERSON, ASIF ([id number]), mapping editor RAMSES SAM ([id number]) on 10/27/2018 2:01:42 PM Referred By: Salvador Capps Confirmed By:ASIF LAM MD
[2018-10-22] MEDS: Folic Acid 1 MG Tablet PO (10:42)
[2018-10-22] MEDS: predniSONE 20 MG Tablet 40 MG PO (10:42)
[2018-10-22] MEDS: Calcium Carbonate 500 MG Tablet PO (10:43)
[2018-10-22] MEDS: LINACLOTIDE 145 MCG CAPSULE PO (10:43)
[2018-10-22] MEDS: DULoxetine Hcl 20 MG Capsule PO (10:43)
[2018-10-22] MEDS: Pantoprazole Sodium 20 MG Tablet PO (10:43)
[2018-10-22] MEDS: Montelukast 10 MG Tablet PO (10:43)
[2018-10-22] MEDS: Acetaminophen 325 MG Tablet 650 MG PO (10:44)
[2018-10-22] MEDS: traMADol 50 MG Tablet 100 MG PO (10:44)
[2018-10-22] MEDS: tiZANidine HCl 2 MG Tablet PO (10:47)
--- NOTE | 2018-10-22 10:56 | CASEMGMT ---
Pt interested in completing LW/POA forms as per CM. SW met w/pt in room, pt is not interested in completing the forms at this time, but may want to complete them in the future. SW gave pt the forms and the rack card for social work, let pt know when she is ready to complete the forms, she can call and set up an appointment as an outpt. Pt states understanding. Pt also spoke of both her and her 's health issues, financial concerns. SW offered support to pt. No further needs at this time. MELVI Womack
--- NOTE | 2018-10-22 11:13 | STRESSREP_ITS ---
Stress Test Report Date: 10/22/2018 Procedure: Pharmacologic stress nuclear imaging study Indications: Chest pain, shortness of breath Consent: Per the patient Procedure: The patient underwent pharmacologic (Regadenoson) evaluation with a peak heart rate of 104 beats per minute (69 %predicted maximal heart rate) and a peak blood pressure of 130/60 mmHg. The baseline ECG demonstrated normal sinus rhythm. EKG during lexiscan infusion revealed no significant ischemic changes. EKG post infusion revealed no significant ischemic changes [There were no cardiac dysrhythmias pretest, during pharmacologic infusion, or recovery]. [There was no complaint of chest discomfort during pharmacologic infusion or recovery]. The examination was discontinued secondary to completion of protocol. Impression: 1. Lexiscan stress test test is negative for Lexiscan infusion induced EKG changes of ischemia. 2. Lexiscan stress test test is negative for Lexiscan infusion induced chest pain. 3. Results of the nuclear portion of the test is as below Myocardial perfusion imaging study: Technique: The patient was injected with 11.1 millicuries of technetium 99m Cardiolite and subsequently rest SPECT Cardiolite nuclear imaging was obtained in the horizontal long, vertical long, and short axis views. The patient underwent pharmacologic (Regadenoson) evaluation. Please see above for details. The patient was injected with 33.4 millicuries of technetium 99m Cardiolite and subsequently stress SPECT Cardiolite nuclear imaging was obtained in the horizontal long, vertical long, and short axis views. A gated Cardiolite study at peak stress was obtained. Interpretation: Rest and stress SPECT Cardiolite nuclear imaging status post realignment, normalization, and attenuation correction demonstrate normal myocardial radioisotope uptake. Gated images reveal no significant regional wall motion abnormalities. The reported LVEF is greater than 70 %. Impression: 1. There is no evidence of significant ischemia or infarction. 2. Estimated ejection fraction is greater than 70%. This note was generated with [email or web address] software. It may contain incorrect words, spelling, and punctuation that were not noted in checking the note before signing.
[2018-10-22 11:23] VITALS: BP 103/50; PULSE 67; RESP 16; TEMP 36.8; O2SAT 94
--- NOTE | 2018-10-22 11:57 | DCINST_ITS ---
- Discharge Diagnoses Current Active Problems: Current Active and Chronic Problems (1) Chest Pain, Suspected non-cardiac, negative cardiac enzymes and normal stress testing, unspecific etiology (2) Acute on chronic COPD exacerbation (3) Tobacco Abuse (4) Severe protein calorie malnutrition (5) Incidental small pericardial effusion You will use the following diet at home:: Regular Your food should be the consistency of: Regular Your liquids should be the consistency of: Regular/Thin Discharge Activity: - - Encourage continuation of moderate activity until completion of your steroid regimen for you mild COPD exacerbation. May resume sexual activity in: No Restrictions Weight Bearing Status: Weight bearing as tolerated Call your doctor if you observe: Fever of 101 or Higher, Inability to urinate, Inability to have a bowel movement, Shortness of breath, Dizziness, Fainting spells, Chest pain, Uncontrolled pain Instructions: What Is COPD?, Treatments for COPD, Chronic Lung Disease: Becoming More Active, Chronic Lung Disease: Maximizing Your Energy, Why Do You Smoke?, Planning to Quit Smoking, Coping with Smoking Withdrawal Additional Instructions: The chest pain you experienced is not from your heart. The stress test is negative and your heart squeezed normally. The ekg monitor tech you wore showed no problem with the rhythm of your heart. Additionally, the cardiac enzyme series performed remained normal. Sometimes chest pain can come from a problem with the muscles or skeleton and/or associated with straining or doing some strenuous activity you do not normally perform. Generally Aleve or Motrin will help allieviate this discomfort if these medications are appropriate for you to take. Chest pain can also be associated with anxiety and with this you frequently have racing heart, trouble sleeping and irritability. It can also come from gastroesophageal reflux disease or heartburn. People who smoke experience increased heartburn because nicotine decreases the pressure in the lower esophageal sphincter and causes reflux. This type of discomfort is well treated with drinking a large glass of cold water which strips the acid out of the esophagus or taking Mylanta, Maalox or Pepto- Bismol. Other foods to avoid if you have reflux are chocolate, peppermint and calcium containing products such as Tums. Allergies/Adverse Reactions: Allergies No Known Allergies Allergy (Verified 10/20/18 17:21) Medications to take at Discharge Albuterol Inhaler [Ventolin Hfa] 2 puff INHALATION Q6H PRN PRN 06/03/17 Benzonatate [Tessalon Perle] 100 mg PO TID PRN PRN 06/03/17 Calcium Carbonate 600 mg PO BID 06/03/17 Ergocalciferol [Vitamin D] 50,000 unit PO Q7D 06/03/17 Folic Acid 1 mg PO BID 06/03/17 Glucosa [place] 2Kcl/Chondroitin [place]tree [Glucosamine-Chondroitin Cap] 1 each PO BID 06/03/17 Linacolotide [Linzess] 145 mcg PO DAILY 06/03/17 Methotrexate 15 mg PO Q7D 06/03/17 Montelukast [Singulair] 10 mg PO DAILY 06/03/17 Nitroglycerin (INPATIENT USE) [Nitrostat] 0.4 mg SUBLINGUAL Q5M PRN 06/03/17 [place]-3 Fatty Acids/Fish Oil [[place] 3 1,000 mg Softgel] 1 each PO DAILY 06/03/17 traMADol [Ultram] 100 mg PO BID 06/03/17 Duloxetine Hcl [Cymbalta] 20 mg PO BID 08/08/17 Ibandronate Sodium [Boniva] 150 mg PO Q30D 08/08/17 Omeprazole [Prilosec] 20 mg PO DAILY 08/08/17 Ondansetron [Zofran Odt] 4 mg PO Q8H PRN PRN #10 tablet 11/01/17 Acetaminophen [Tylenol] 500 mg PO BID 10/20/18 Lactose-Reduced Food [Boost] 237 ml PO BID 10/20/18 Aspirin [Aspirin, Baby] 81 mg PO DAILY@0800 #30 tab.chew 10/22/18 Fluticasone/Salmeterol [Advair 250-50 Diskus] 1 ea IH BID #1 blst.w.dev 10/22/18 Prednisone 10 mg PO UD 12 Days #30 tab 10/22/18 The following prescriptions were given: Fluticasone/Salmeterol [Advair 250-50 Diskus] 1 ea IH BID #1 blst.w.dev Prescription Printed Aspirin [Aspirin, Baby] 81 mg PO DAILY@0800 #30 tab.chew Prescription Printed Prednisone 10 mg PO UD 12 Days #30 tab Prescription Printed Primary Care Physician: Tiffany Bull [Primary Care Provider] - Please follow up with your Primary Care Physician in: Follow-up within 3-5 days to review admission. Test Results: Test results from this visit will be discussed in further detail at your follow- up appointment, if applicable. Please Follow Up With: Silverio Miramontes MD When: Please consider follow-up/establishing w/ pulmonary within 4-8 weeks. Proposed Discharge Date: 10/22/18
--- NOTE | 2018-10-22 12:09 | DS.PCM_ITS ---
Discharge Date and Diagnosis Date of Admission: 10/20/18 Date of Discharge: 10/22/18 - Primary Discharge Diagnosis (1) Chest Pain, Suspected non-cardiac, negative cardiac enzymes and normal stress testing, unspecific etiology (2) Acute on chronic COPD exacerbation (3) Tobacco Abuse (4) Severe protein calorie malnutrition (5) Incidental small pericardial effusion - Secondary Discharge Diagnosis Chronic Problems COPD with exacerbation (Chronic) Hospital Course and Treatment Imaging Results: 10/22/18 05:55 Nuclear Stress Test - Chemical [NM] AM (NON MEDS) Operations: None Procedures: 2-D Echocardiogram, EKG Summary of Care Provided: The patient is a 68 y/o w/ PMHx: Chronic COPD, Tobacco use, Severe Protein- Calorie Malnutrition who presented to the [facility] ED on 10/20/18 w/ history of worsening dyspnea, chest tightness with no specific increased purulent sputum but ongoing cough. EKG in ED SR without acute evidence of ischemia, CXR w/ no changes, initial trop x 1. Admitted to PCU, placed on a monitored bed to assure no acute myocardial infarction with serial cardiac enzymes and EKGs which remained unremarkable, mag obtained and normal, no telemetry events noted, FLP not marked appearing. Given higher suspicion for cardiac etiology for dyspnea presentation, continue to treat patient for as noted concurrent mild COPD ex acerbation but performed 10/22/18 AM nuclear stress testing which was noted to be unremarkable for inducible ischemia. During admission, patient maintained on oxygen with wean as tolerated to room air with oxygenation testing prior to discharge with appropriate oxygenation on room air, continue ATC duonebs, PRN albuterol, respiratory viral panel obtained and negative, IV methylprednisolone-->prednisone transition given stable improvement day prior with discharge on steroid taper as well as initiation of albuterol inhaler and Advair regimen with recommendation for follow-up pulmonary function testing. Tobacco cessation encouraged. Nutrition consultation during admission given severe protein calorie malnutrition with education and discussions with patient administered. Patient discharged to home in stable improved condition with follow-up with primary care physician, referral to pulmonary medicine with continued as noted steroid taper and inhalers. DAY OF DISCHARGE PROGRESS NOTE: Subjective: Patient without acute event overnight per self and nursing report. Patient denies any further dyspnea, chest discomfort and states that she is amenable to discharge to home. Patient denies fever, chills, nausea, emesis, abdominal pain, recurrent or worsened chest pain or dyspnea. Patient will be discharged with follow-up with primary care physician within 3-5 days in addition to referral to pulmonary medicine. Objective: T 98.3, heart rate 67, BP 103/50, respiratory rate 16, 94% on room air. Physical Examination: General: awake, alert, oriented x 3 and cooperative, seated upright in the PCU bedside chair, NAD. Skin: normal color, turgor, no icterus, cyanosis. HEENT: AT/NC, EOMI, PERRLA, improved MMM. Lungs: Improved breath sounds, still diminished bilateral bases, improved ef fort, no evidence of respiratory distress, improved examination from day prior, no current rales, ronchi or wheezing. Heart: Regular rate and rhythm; no gallop, rub audible. Abdomen: soft, thin, cachectic appearance, NTTP, ND, normal BS. Extremities: no cyanosis, clubbing, or edema. Neurological: patient awake, alert, oriented x 3; cognitive function intact; pupils equally reactive to light and accomodation; cranial nerves II-XII grossly normal, moving all 4 extremities, no focal deficits, strength proved, moderately globally decreased secondary to acute presentation. Psychiatric: affect appears normal, no acute evidence of depressive or anxiety feelings. Assessment and Plan: Please see hospital summary above. - Physical Exam Vital Signs Temp Pulse Resp BP Pulse Ox 98.3 F 67 16 103/50 L 94 10/22/18 11:23 10/22/18 11:23 10/22/18 11:23 10/22/18 11:23 10/22/18 11:23 Oxygen Flow Rate (L/min) [ 2 AMBULATION with Oxygen] Oxygen Flow Rate (L/min) 93 Oxygen Delivery Method Room Air Weight: 95 lb 10.89 oz Body Mass Index (BMI) 19.0 Intake and Output for Last 24 Hours 10/20/18 10/21/18 10/22/18 23:59 23:59 23:59 Intake Total 120 / 120 960 / 960 895 / 895 Output Total Balance 120 / 120 959 / 959 895 / 895 Microbiology Past 72 Hours 10/21/18 17:04 Respiratory Panel (PCR) - Final Mucosa - Nasopharyngeal Laboratory Tests Past 24 Hrs 10/21/18 10/22/18 10/22/18 05:05 05:05 05:05 WBC 7.9 RBC 3.40 L Hgb 11.9 L Hct 34.9 L MCV 102.6 H MCH 35.0 H MCHC 34.1 RDW Std Deviation 53.8 H RDW Coeff of [place] 14.3 Plt Count 261 MPV 8.8 Immature Gran % (Auto) 0.400 Neut % (Auto) 78.8 H Lymph % (Auto) 13.4 L [place] % (Auto) 7.0 Eos % (Auto) 0.0 Baso % (Auto) 0.4 Absolute Neuts (auto) 6.2 Absolute Lymphs (auto) 1.06 Absolute Nucleated RBC 0.00 Nucleated RBC % 0 Sodium 143 Potassium 4.3 Chloride 111 H Carbon Dioxide 28.0 Anion Gap 4 L BUN 18 Creatinine 0.63 Estim Creat Clear Calc 35.87 Est GFR (MDRD) Af Amer 121 Est GFR (MDRD) Non-Af 100 BUN/Creatinine Ratio 28.7 H Glucose 103 Calcium 8.3 L Magnesium 2.3 Triglycerides 45 Cholesterol 140 LDL Cholesterol 65 VLDL Cholesterol 9 HDL Cholesterol 66 Discharge Activity: - - Encourage continuation of moderate activity until completion of your steroid regimen for you mild COPD exacerbation. May resume sexual activity in: No Restrictions Weight Bearing Status: Weight bearing as tolerated Call your doctor if you observe: Fever of 101 or Higher, Inability to urinate, Inability to have a bowel movement, Shortness of breath, Dizziness, Fainting spells, Chest pain, Uncontrolled pain Home Medications: Medications to take at Discharge Albuterol Inhaler [Ventolin Hfa] 2 puff INHALATION Q6H PRN PRN 06/03/17 Benzonatate [Tessalon Perle] 100 mg PO TID PRN PRN 06/03/17 Calcium Carbonate 600 mg PO BID 06/03/17 Ergocalciferol [Vitamin D] 50,000 unit PO Q7D 06/03/17 Folic Acid 1 mg PO BID 06/03/17 Glucosa [place] 2Kcl/Chondroitin [place] [Glucosamine-Chondroitin Cap] 1 each PO BID 06/03/17 Linacolotide [Linzess] 145 mcg PO DAILY 06/03/17 Methotrexate 15 mg PO Q7D 06/03/17 Montelukast [Singulair] 10 mg PO DAILY 06/03/17 Nitroglycerin (INPATIENT USE) [Nitrostat] 0.4 mg SUBLINGUAL Q5M PRN 06/03/17 [place]-3 Fatty Acids/Fish Oil [[place] 3 1,000 mg Softgel] 1 each PO DAILY 06/03/17 traMADol [Ultram] 100 mg PO BID 06/03/17 Duloxetine Hcl [Cymbalta] 20 mg PO BID 08/08/17 Ibandronate Sodium [Boniva] 150 mg PO Q30D 08/08/17 Omeprazole [Prilosec] 20 mg PO DAILY 08/08/17 Ondansetron [Zofran Odt] 4 mg PO Q8H PRN PRN #10 tablet 11/01/17 Acetaminophen [Tylenol] 500 mg PO BID 10/20/18 Lactose-Reduced Food [Boost] 237 ml PO BID 10/20/18 Aspirin [Aspirin, Baby] 81 mg PO DAILY@0800 #30 tab.chew 10/22/18 Fluticasone/Salmeterol [Advair 250-50 Diskus] 1 ea IH BID #1 blst.w.dev 10/22/18 Prednisone 10 mg PO UD 12 Days #30 tab 10/22/18 Following Prescrptions Were Given to Patient: Fluticasone/Salmeterol [Advair 250-50 Diskus] 1 ea IH BID #1 blst.w.dev Prescription Printed Aspirin [Aspirin, Baby] 81 mg PO DAILY@0800 #30 tab.chew Prescription Printed Prednisone 10 mg PO UD 12 Days #30 tab Prescription Printed Primary Care Physician: Tiffany Bull [Primary Care Provider] - Please follow up with your Primary Care Physician in: Follow-up within 3-5 days to review admission. Please Follow Up With: Silverio Miramontes MD When: Please consider follow-up/establishing w/ pulmonary within 4-8 weeks. Patient Instructions: What Is COPD?, Chronic Lung Disease: Becoming More Active, Chronic Lung Disease: Maximizing Your Energy, Why Do You Smoke?, Planning to Quit Smoking, Coping with Smoking Withdrawal, Treatments for COPD Disposition: Home Minutes spent on discharge:: 35 Patient Condition:: Fair Medical Necessity - Tobacco Use Smoking Status: Current every day smoker Meaningful Use Info Meaningful Use Diagnoses (Choose all that apply): None applicable Code Visit Inpatient E&M: 46383 Disch Hosp
[2018-10-22 13:01] VITALS: PULSE 70; RESP 16
[2018-10-22] MEDS: Ipratropium/Albuterol Sulfate 3 ML AMPUL.NEB INHALATION (13:01)
--- NOTE | 2018-10-26 14:14 | CASEMGMT ---
LYNETTE DC PHONE CALL DC DATE: 10/22/18 DC Disposition: Diagnosis on Discharge: COPD LACE/STRATA: 12/08 Attempted call to home phone. No answer and no machine grain picker. Yves TEJADA RN ACM
== END 2018-10-22 14:31 | disposition home or self-care (01) | DRG 190 ==
LOC: ED 18:34 → PCU 22:33
PROVIDERS: Admitting Provider Hospitalist; Emergency Provider Emergency Medicine; Family Provider Internal Medicine; PCP Internal Medicine; Referring Provider Hospitalist; Visit Provider Family Medicine
DX: J44.1 Chronic obstructive pulmonary disease with (acute) exacerbation (principal); E43 Unspecified severe protein-calorie malnutrition; Z68.1 Body mass index [BMI] 19.9 or less, adult; I31.3 Pericardial effusion (noninflammatory); R09.02 Hypoxemia; F17.210 Nicotine dependence, cigarettes, uncomplicated; M79.605 Pain in left leg; R07.89 Other chest pain; K58.9 Irritable bowel syndrome, unspecified
CPT/HCPCS: 36415; 71275; 78452; 80048; 80061; 83735; 84484; 85025; 87633; 93005; 93017; 93306; 93971; 94640; 97161; 97166; 97802; 99285; 99406; A9500; J7030; J7040; Q9957; Q9967; A4216; C8929; J2405; J2785

== ENCOUNTER → 2018-11-12 | Outpatient (CLI) | payer MEDICARE, OTHER, SELFPAY ==
[2018-10-20 23:42] VITALS: BMI 19.0
--- NOTE | 2018-11-12 09:56 | BI_ITS ---
MAMMOGRAPHY - BILATERAL SCREENING 3-D TOMOSYNTHESIS REASON FOR EXAM: Female, 68 years old. Bilateral Screening 3-D tomosynthesis PERTINENT HISTORY: No significant family history. TECHNIQUE: 2-D mammograms and 3-D Tomosynthesis of the breast (s) were performed. CAD was performed. COMPARISON: 10/22/2017. FINDINGS: The breast composition is composed of scattered fibroglandular density. Scattered benign calcifications are seen. No dense spiculated masses or suspicious microcalcifications are identified. No architectural distortion is identified. There is no skin thickening or retraction. There has been no significant change since the prior study. BI/SCREEN MAMM (CAD) W/NADEEN BILAT IMPRESSION: No mammographic signs of malignancy. Routine yearly mammograms recommended. ASSESSMENT CATEGORY: BIRADS Category 2: Benign. A letter regarding these results will be sent to the patient by the facility within 30 days. FOLLOW UP RECOMMENDATION: Yearly follow up mammogram recommended. (A) Approximately 10% of breast cancers are not detected by mammography. A normal mammogram should not delay biopsy of a clinically suspicious abnormality. Electronically Signed: Gregorio Rojas MD at 11:18 EDT Tel [phone], Service support ,
--- NOTE | 2018-11-12 09:59 | BD_ITS ---
STUDY: DUAL ENERGY X-RAY ABSORPTIOMETRY / DXA REASON FOR EXAM: Female, 68 years old. The patient is postmenopausal. Loss of height. TECHNIQUE: Bone Mineral Density (BMD) measurements of lumbar spine and bilateral hips were obtained. COMPARISON: None. FINDINGS: Lumbar Spine (L1-L4): g/cm2 (0.694) / T-score (-4.0) / Z-score (-2.4) Findings are suggestive of osteoporosis with a high fracture risk. Left Femur Total: g/cm2 (0.509) / T-score (-4.0) / Z-score (-2.5) Left Femoral Neck: g/cm2 (0.565) / T-score (-3.4) / Z-score (-1.7) Right Femur Total: g/cm2 (0.567) / T-score (-3.5) / Z-score (-2.0) Right Femoral Neck: g/cm2 (0.614) / T-score (-3.0) / Z-score (-1.3) BD/Dexa Bone Density Study IMPRESSION: The patient is considered osteoporotic as outlined below according to World George Organization (WHO) criteria with a high fracture risk. Reference Information: The T-score is the number of standard deviations above or below the standard which is normal for young adults at their peak bone mineral density. The World Health Organization (WHO) interprets the T-scores as follows: Above -1 Normal bone density Between -1 and -2.5 Osteopenia Equal to / or below -2.5 Osteoporosis As a practical clinical guideline, osteopenia may be graded as follows: Mild -1 through -1.5 Moderate -1.6 through -2.0 Severe -2.1 through -2.4 The Z-score is the number of standard deviations above or below age-matched controls. A Z-score of less than -1.5 would be considered abnormal. References: 1. NIH Osteoporosis and Related Bone Diseases http://www.osteo.org 2. International Society for Clinical Densitometry http://www.iscd.org 3. National Osteoporosis Foundation http://www.nof.org Electronically Signed: Jonnie Allen, at 9:44 EDT , Service support ,
== END | disposition home or self-care (01) ==
LOC: OPBD 09:54
PROVIDERS: Family Provider Internal Medicine; PCP Internal Medicine; Referring Provider Internal Medicine; Visit Provider Internal Medicine
DX: Z12.31 Encounter for screening mammogram for malignant neoplasm of breast (principal); Z78.0 Asymptomatic menopausal state
CPT/HCPCS: 77063; 77067; 77080

== ENCOUNTER → 2018-11-13 | Outpatient (CLI) | payer MEDICARE, OTHER, SELFPAY ==
[2018-10-20 23:42] VITALS: BMI 19.0
[2018-11-13 06:27] LABS: Absolute Lymphocyte Count 1.37 X10^3/uL (0.83-4.51); Absolute Neutrophil Count 3.4 X10^3/uL (2.0-7.7); Basophil# 0.07 X10^3/uL; Basophil% 1.2 % (0-1); Eosinophil# 0.53 X10^3/uL; Eosinophils% 8.8 % (0-5); Hematocrit 41.4 % (37-47); Hemoglobin 13.7 g/dL (12.0-15.0); Lymphocyte # 1.37 X10^3/ul (4.0); Lymphocyte % 22.6 % (19-41); Mean Corp Hgb Conc 33.1 g/dL (32-36); Mean Corpuscular Hgb 34.8 pg (27.0-32.0); Mean Corpuscular Volume 105.1 fL (81-99); Mean Platelet Vol. 8.6 fl (6.2-12.0); Monocyte% 11.6 % (0-10); NRBC Flagged by Analyzer 0 % (0-5); Neutrophil # 3.37 X10^3/uL (2.7-7.7); Neutrophil % 55.6 % (47-70); Platelet Count 285 K/mm3 (150-450); RBC Distribution Width CV 15.4 % (11.6-14.6); RBC Distribution Width SD 59.2 fl (35.1-43.9); Red Blood Count 3.94 M/mm3 (4.2-5.4); White Blood Count 6.1 K/mm3 (4.4-11.0)
[2018-11-13 06:43] LABS: ALB/GLOB Ratio 1.1 RATIO (0.9-2.4); AST(SGOT) 30 U/L (15-37); Alanine Aminotransfer ALT/SGPT 74 U/L (13-56); Albumin, Serum 3.6 g/dL (3.2-5.0); Alkaline Phosphatase 71 U/L (45-117); Anion Gap 5 (5-15); BUN 17 mg/dL (7-18); Calcium,Total 9.2 mg/dL (8.5-10.1); Chloride 105 mmol/L (98-107); Creatinine, Serum 0.66 mg/dL (0.55-1.02); EST Glomerular Filtration Rate 95 mL/min (>60); Est Glom Filt Rate - Afr Amer 115 mL/min (>60); Globulin 3.4 g/dL (2.2-4.2); Glucose 96 mg/dL (74-106); Potassium 4.3 mmol/L (3.5-5.1); Sodium Level 142 mmol/L (136-145)
== END | disposition home or self-care (01) ==
LOC: LAB 06:07
PROVIDERS: Family Provider Internal Medicine; PCP Internal Medicine; Referring Provider Internal Medicine Rheumatology; Visit Provider Internal Medicine Rheumatology
DX: M06.4 Inflammatory polyarthropathy (principal); Z79.899 Other long term (current) drug therapy; M79.7 Fibromyalgia; M18.0 Bilateral primary osteoarthritis of first carpometacarpal joints; M51.36 Other intervertebral disc degeneration, lumbar region; M47.897 Other spondylosis, lumbosacral region; J44.9 Chronic obstructive pulmonary disease, unspecified; E11.9 Type 2 diabetes mellitus without complications; F43.23 Adjustment disorder with mixed anxiety and depressed mood; N32.81 Overactive bladder; G25.0 Essential tremor
CPT/HCPCS: 36415; 80053; 85025

== ENCOUNTER → 2018-12-15 08:40 | Outpatient (CLI) | payer MEDICARE, OTHER, SELFPAY ==
[2018-11-26 07:57] VITALS: BMI 20.5
[2018-12-15 09:03] LABS: Absolute Lymphocyte Count 1.87 X10^3/uL (0.83-4.51); Absolute Neutrophil Count 3.5 X10^3/uL (2.0-7.7); Basophil# 0.11 X10^3/uL; Basophil% 1.7 % (0-1); Eosinophil# 0.42 X10^3/uL; Eosinophils% 6.4 % (0-5); Hematocrit 44.4 % (37-47); Hemoglobin 14.4 g/dL (12.0-15.0); Lymphocyte # 1.87 X10^3/ul (4.0); Lymphocyte % 28.3 % (19-41); Mean Corp Hgb Conc 32.4 g/dL (32-36); Mean Corpuscular Hgb 33.6 pg (27.0-32.0); Mean Corpuscular Volume 103.5 fL (81-99); Mean Platelet Vol. 8.6 fl (6.2-12.0); Monocyte# 0.67 X10^3/uL; Monocyte% 10.2 % (0-10); NRBC Flagged by Analyzer 0 % (0-5); Neutrophil # 3.51 X10^3/uL (2.7-7.7); Neutrophil % 53.1 % (47-70); Platelet Count 254 K/mm3 (150-450); RBC Distribution Width CV 13.4 % (11.6-14.6); RBC Distribution Width SD 51.5 fl (35.1-43.9); Red Blood Count 4.29 M/mm3 (4.2-5.4); White Blood Count 6.6 K/mm3 (4.4-11.0)
[2018-12-15 09:33] LABS: AST(SGOT) 24 U/L (15-37); Alanine Aminotransfer ALT/SGPT 26 U/L (13-56); Albumin, Serum 3.5 g/dL (3.2-5.0); Alkaline Phosphatase 75 U/L (45-117); Anion Gap 6 (5-15); BUN 15 mg/dL (7-18); BUN/Creat Ratio 24.3 RATIO (10-20); Calcium,Total 8.8 mg/dL (8.5-10.1); Chloride 108 mmol/L (98-107); Creatinine, Serum 0.62 mg/dL (0.55-1.02); EST Glomerular Filtration Rate 101 mL/min (>60); Est Glom Filt Rate - Afr Amer 123 mL/min (>60); Globulin 3.6 g/dL (2.2-4.2); Glucose 93 mg/dL (74-106); Potassium 4.2 mmol/L (3.5-5.1); Protein, Total 7.1 g/dL (6.4-8.2); Sodium Level 143 mmol/L (136-145)
== END ==
PROVIDERS: Family Provider Internal Medicine; PCP Internal Medicine; Referring Provider Internal Medicine Rheumatology; Visit Provider Internal Medicine Rheumatology
DX: M06.4 Inflammatory polyarthropathy (principal); Z79.899 Other long term (current) drug therapy; M79.7 Fibromyalgia; M18.0 Bilateral primary osteoarthritis of first carpometacarpal joints; M51.36 Other intervertebral disc degeneration, lumbar region; M47.897 Other spondylosis, lumbosacral region
CPT/HCPCS: 36415; 80053; 85025

== ENCOUNTER → 2018-12-17 08:23 | Outpatient (CLI) | payer MEDICARE, OTHER, SELFPAY ==
[2018-11-26 07:57] VITALS: BMI 20.5
[2018-12-17 08:30] VITALS: PULSE 100; PULSE 101; PULSE 82; PULSE 90; PULSE 99; O2SAT 90; O2SAT 91; O2SAT 93; O2SAT 95
--- NOTE | 2018-12-18 08:46 | PCM.PSN.6M ---
PSN 6 Minute Walk Test - 6 Minute Walk Test 6 Minute Walk Test: 6 Minute Walk Test PSN:6-Minute Walk Test Start: 12/17/18 08:48 Freq: Status: Active Protocol: [id number] Document 12/17/18 08:30 HG (Rec: 12/17/18 08:51 HG [id number]) 6 Minute Walk Test Date Performed 12/17/18 Time Performed 08:30 Height 5 ft Weight: 106 lb Weight in Pounds 106.[address]: Pete Amin Assistive device used: None Pre-test Oxygen Delivery Method Room Air Pulse Ox (%) 91 Pulse Rate (60-100 beats/min) 82 Dyspnea Gilmer Scale (0-10) 1 Exertion Gilmer Scale (6-20) 8 1st minute Oxygen Delivery Method Room Air Pulse Ox (%) 91 Pulse Rate (60-100 beats/min) 100 2nd minute Oxygen Delivery Method Room Air Pulse Ox (%) 93 Pulse Rate (60-100 beats/min) 99 3rd minute Oxygen Delivery Method Room Air Pulse Ox (%) 90 Pulse Rate (60-100 beats/min) 101 H 4th minute Oxygen Delivery Method Room Air Pulse Ox (%) 91 Pulse Rate (60-100 beats/min) 99 5th minute Oxygen Delivery Method Room Air Pulse Ox (%) 91 Pulse Rate (60-100 beats/min) 99 6th minute Oxygen Delivery Method Room Air Pulse Ox (%) 90 Pulse Rate (60-100 beats/min) 99 Post-test Oxygen Delivery Method Room Air Pulse Ox (%) 95 Pulse Rate (60-100 beats/min) 90 Dyspnea Gilmer Scale (0-10) 2 Exertion Gilmer Scale (6-20) 11 Full Laps Walked 15 Partial Lap, Number of Tiles Walked 20 Total Distance Walked (ft) 905 - Interpretation Interpretation: The patient ambulated 905 feet over the course of 6 minutes beginning on room air without assistive devices or breaks. Pretesting oxygen saturation was noted to be 91% on room air. With ambulation, the stacey oxygen saturation was 90%. There was no significant exertional oxygen desaturation. - Recommendations Recommendations: There is no indication for the use of supplemental oxygen at this time. However, close interval follow-up is recommended, given the patient's low resting oxygen saturation on room air.
== END ==
PROVIDERS: Family Provider Internal Medicine; PCP Internal Medicine; Referring Provider Internal Medicine Critical Care Medicine; Visit Provider Internal Medicine Critical Care Medicine
DX: J44.9 Chronic obstructive pulmonary disease, unspecified (principal); F17.210 Nicotine dependence, cigarettes, uncomplicated
CPT/HCPCS: 94618

== ENCOUNTER → 2019-01-12 06:53 | Outpatient (CLI) | payer MEDICARE, OTHER, SELFPAY ==
[2018-11-26 07:57] VITALS: BMI 20.5
--- NOTE | 2019-01-12 10:40 | PFT ---
INTRODUCTION: The patient is a 68-year-old female that presents for pulmonary function studies secondary to a diagnosis of COPD. Respiratory therapy reports good patient effort. Bronchodilators were used during testing. INTERPRETATION: Forced expiration spirometry demonstrates the presence of a mild large airways obstructive ventilatory defect. There was a significant response to aerosolized bronchodilators noted, based upon change in FVC. Spirograms are of fair quality and do not plateau indicating slow emptying of the lungs. Body plethysmography was performed and reveals lung volumes to be within normal limits. Diffusing capacity by single breath CO is reduced at 53% of predicted. IMPRESSION: Partially reversible mild large airways obstructive ventilatory defect with preserved lung volumes and moderate reduction in diffusing capacity.
== END ==
PROVIDERS: Family Provider Internal Medicine; PCP Internal Medicine; Referring Provider Internal Medicine Critical Care Medicine; Visit Provider Internal Medicine Critical Care Medicine
DX: J44.9 Chronic obstructive pulmonary disease, unspecified (principal); F17.210 Nicotine dependence, cigarettes, uncomplicated
CPT/HCPCS: 94060; 94726; 94729

== ENCOUNTER → 2019-01-14 08:03 | Outpatient (CLI) | payer MEDICARE, OTHER, SELFPAY ==
[2018-11-26 07:57] VITALS: BMI 20.5
[2019-01-14 09:11] LABS: Absolute Lymphocyte Count 1.79 X10^3/uL (0.83-4.51); Absolute Neutrophil Count 2.7 X10^3/uL (2.0-7.7); Basophil% 1.8 % (0-1); Eosinophil# 0.41 X10^3/uL; Eosinophils% 7.3 % (0-5); Hematocrit 42.6 % (37-47); Hemoglobin 13.6 g/dL (12.0-15.0); Lymphocyte # 1.79 X10^3/ul (4.0); Lymphocyte % 31.9 % (19-41); Mean Corp Hgb Conc 31.9 g/dL (32-36); Mean Corpuscular Hgb 33.1 pg (27.0-32.0); Mean Corpuscular Volume 103.6 fL (81-99); Monocyte% 10.7 % (0-10); NRBC Flagged by Analyzer 0 % (0-5); Neutrophil # 2.71 X10^3/uL (2.7-7.7); Neutrophil % 48.1 % (47-70); Platelet Count 320 K/mm3 (150-450); RBC Distribution Width CV 14.1 % (11.6-14.6); RBC Distribution Width SD 53.3 fl (35.1-43.9); Red Blood Count 4.11 M/mm3 (4.2-5.4); White Blood Count 5.6 K/mm3 (4.4-11.0)
[2019-01-14 09:39] LABS: ALB/GLOB Ratio 1.1 RATIO (0.9-2.4); AST(SGOT) 17 U/L (15-37); Alanine Aminotransfer ALT/SGPT 20 U/L (13-56); Albumin, Serum 3.5 g/dL (3.2-5.0); Alkaline Phosphatase 74 U/L (45-117); Anion Gap 5 (5-15); BUN 10 mg/dL (7-18); BUN/Creat Ratio 16.4 RATIO (10-20); Calcium,Total 8.6 mg/dL (8.5-10.1); Chloride 109 mmol/L (98-107); Creatinine, Serum 0.61 mg/dL (0.55-1.02); EST Glomerular Filtration Rate 103 mL/min (>60); Est Glom Filt Rate - Afr Amer 124 mL/min (>60); Globulin 3.3 g/dL (2.2-4.2); Glucose 87 mg/dL (74-106); Potassium 4.3 mmol/L (3.5-5.1); Protein, Total 6.8 g/dL (6.4-8.2); Sodium Level 144 mmol/L (136-145)
== END ==
PROVIDERS: Family Provider Internal Medicine; PCP Internal Medicine; Referring Provider Internal Medicine Rheumatology; Visit Provider Internal Medicine Rheumatology
DX: M06.4 Inflammatory polyarthropathy (principal); Z79.899 Other long term (current) drug therapy; M79.7 Fibromyalgia; M18.0 Bilateral primary osteoarthritis of first carpometacarpal joints; M51.36 Other intervertebral disc degeneration, lumbar region; M47.897 Other spondylosis, lumbosacral region
CPT/HCPCS: 36415; 80053; 85025

== ENCOUNTER → 2019-03-15 08:55 | Outpatient (CLI) | payer MEDICARE, OTHER, SELFPAY ==
[2019-01-19 14:42] VITALS: BMI 20.5
[2019-03-15 10:37] LABS: Hemoglobin A1c 5.4 % (4.2-6.3)
[2019-03-15 10:52] LABS: ALB/GLOB Ratio 1.3 RATIO (0.9-2.4); AST(SGOT) 18 U/L (15-37); Alanine Aminotransfer ALT/SGPT 27 U/L (13-56); Albumin, Serum 3.9 g/dL (3.2-5.0); Alkaline Phosphatase 58 U/L (45-117); Anion Gap 3 (5-15); BUN 15 mg/dL (7-18); BUN/Creat Ratio 22.7 RATIO (10-20); Calcium,Total 9.1 mg/dL (8.5-10.1); Chloride 108 mmol/L (98-107); Creatinine, Serum 0.66 mg/dL (0.55-1.02); EST Glomerular Filtration Rate 94 mL/min (>60); Est Glom Filt Rate - Afr Amer 113 mL/min (>60); Globulin 3.1 g/dL (2.2-4.2); Glucose 87 mg/dL (74-106); Sodium Level 141 mmol/L (136-145)
[2019-03-15 11:28] LABS: Vitamin D,25 Hydroxy 48.5 ng/mL (29.95-100.01)
== END ==
PROVIDERS: Family Provider Internal Medicine; PCP Internal Medicine; Referring Provider Internal Medicine; Visit Provider Internal Medicine
DX: E11.9 Type 2 diabetes mellitus without complications (principal); R94.5 Abnormal results of liver function studies; Z87.898 Personal history of other specified conditions; M62.838 Other muscle spasm
CPT/HCPCS: 36415; 80053; 82306; 83036

== ENCOUNTER → 2019-04-20 06:24 | Outpatient (CLI) | payer MEDICARE, OTHER, SELFPAY ==
[2019-01-19 14:42] VITALS: BMI 20.5
[2019-04-20 07:50] LABS: Absolute Lymphocyte Count 1.24 X10^3/uL (0.83-4.51); Absolute Neutrophil Count 5.1 X10^3/uL (2.0-7.7); Basophil# 0.09 X10^3/uL; Basophil% 1.2 % (0-1); Hematocrit 42.4 % (37-47); Hemoglobin 13.9 g/dL (12.0-15.0); Lymphocyte # 1.24 X10^3/ul (4.0); Lymphocyte % 16.4 % (19-41); Mean Corp Hgb Conc 32.8 g/dL (32-36); Mean Corpuscular Hgb 34.2 pg (27.0-32.0); Mean Corpuscular Volume 104.4 fL (81-99); Mean Platelet Vol. 9.2 fl (6.2-12.0); Monocyte# 0.87 X10^3/uL; Monocyte% 11.5 % (0-10); NRBC Flagged by Analyzer 0 % (0-5); Neutrophil # 5.06 X10^3/uL (2.7-7.7); Neutrophil % 66.6 % (47-70); Platelet Count 306 K/mm3 (150-450); RBC Distribution Width CV 14.9 % (11.6-14.6); RBC Distribution Width SD 57.8 fl (35.1-43.9); Red Blood Count 4.06 M/mm3 (4.2-5.4); White Blood Count 7.6 K/mm3 (4.4-11.0)
[2019-04-20 08:26] LABS: AST(SGOT) 19 U/L (15-37); Alanine Aminotransfer ALT/SGPT 34 U/L (13-56); Albumin, Serum 3.6 g/dL (3.2-5.0); Alkaline Phosphatase 72 U/L (45-117); Anion Gap 3 (5-15); BUN 9 mg/dL (7-18); BUN/Creat Ratio 13.4 RATIO (10-20); Calcium,Total 9.1 mg/dL (8.5-10.1); Chloride 104 mmol/L (98-107); Creatinine, Serum 0.67 mg/dL (0.55-1.02); EST Glomerular Filtration Rate 92 mL/min (>60); Est Glom Filt Rate - Afr Amer 112 mL/min (>60); Globulin 3.7 g/dL (2.2-4.2); Glucose 87 mg/dL (74-106); Potassium 4.2 mmol/L (3.5-5.1); Protein, Total 7.3 g/dL (6.4-8.2); Sodium Level 136 mmol/L (136-145)
== END ==
PROVIDERS: Family Provider Internal Medicine; PCP Internal Medicine; Referring Provider Internal Medicine Rheumatology; Visit Provider Internal Medicine Rheumatology
DX: M06.4 Inflammatory polyarthropathy (principal); Z79.899 Other long term (current) drug therapy; M79.7 Fibromyalgia; M18.11 Unilateral primary osteoarthritis of first carpometacarpal joint, right hand; M18.12 Unilateral primary osteoarthritis of first carpometacarpal joint, left hand; M51.36 Other intervertebral disc degeneration, lumbar region; M47.897 Other spondylosis, lumbosacral region; J44.9 Chronic obstructive pulmonary disease, unspecified; E11.9 Type 2 diabetes mellitus without complications
CPT/HCPCS: 36415; 80053; 85025

== ENCOUNTER → 2019-05-01 09:21 | Outpatient (CLI) | payer MEDICARE, OTHER, SELFPAY ==
[2019-01-19 14:42] VITALS: BMI 20.5
--- NOTE | 2019-05-01 09:27 | RAD_ITS ---
STUDY: X-RAY CHEST REASON FOR EXAM: Female, 68 years old. cough TECHNIQUE: PA and lateral views of the chest. COMPARISON: 09/29/2018 FINDINGS: There is hyperinflation of the lungs consistent with chronic obstructive lung disease (COPD). There are scattered fibrotic changes. There is consolidation of the medial left lower lobe which is new since the prior study. There is pleural fibrotic thickening of the pulmonary lung apices. Normal size heart. Normal mediastinum and otilia. Normal visualized pulmonary arteries. Normal visualized aortic arch and descending thoracic aorta. Normal visualized thoracic spine. Normal visualized ribs, clavicles, and shoulders. There is no demonstrated abnormality of the visualized soft tissue structures of the upper abdomen. RAD/Chest PA and Lateral IMPRESSION: Localized consolidation the medial left lower lobe may represent volume loss/atelectasis or pneumonia (including postobstructive causes). Electronically Signed: Carlton Spann MD ([place]) at 17:52 EST , Service support ,
== END ==
PROVIDERS: Family Provider Internal Medicine; PCP Internal Medicine; Referring Provider Internal Medicine; Visit Provider Internal Medicine
DX: R05 Cough (principal)
CPT/HCPCS: 71046

== ENCOUNTER → 2019-05-11 10:13 | Outpatient (CLI) | payer MEDICARE, OTHER, SELFPAY ==
[2019-01-19 14:42] VITALS: BMI 20.5
[2019-05-11 11:15] LABS: Amphetamine Urine VISTA NEGATIVE (<1000 ng/mL); Barbiturate Urine VISTA NEGATIVE (< 200 ng/mL); Benzodiazepine Urine VISTA NEGATIVE (< 200 ng/mL); Cocaine Urine VISTA NEGATIVE (< 300 ng/mL); Ecstacy Urine VISTA NEGATIVE (< 500 ng/mL); Methadone Urine VISTA NEGATIVE (< 300 ng/mL); PCP Urine VISTA NEGATIVE (< 25 ng/mL); THC Urine VISTA NEGATIVE (< 50 ng/mL); Vista UDS pH Range 6
== END ==
PROVIDERS: PCP Internal Medicine; Referring Provider Anesthesiology Pain Medicine; Visit Provider Anesthesiology Pain Medicine
DX: F11.20 Opioid dependence, uncomplicated (principal)
CPT/HCPCS: 80307

== ENCOUNTER → 2019-05-18 08:41 | Outpatient (CLI) | payer MEDICARE, OTHER, SELFPAY ==
[2019-01-19 14:42] VITALS: BMI 20.5
--- NOTE | 2019-05-18 08:45 | RAD_ITS ---
STUDY: X-RAY CHEST REASON FOR EXAM: Female, 68 years old. Dyspnea. COPD. Smoker. History of collapsed left lung. TECHNIQUE: PA and lateral views of the chest. COMPARISON: May 01, 2019. FINDINGS: There is hyperinflation of the lungs consistent with chronic obstructive lung disease (COPD). Again seen is collapse of the left lower lobe There is no new mass or infiltrate. There is no demonstrated pleural abnormality. Normal size heart. Normal mediastinum and otilia. Normal visualized pulmonary arteries. There is atherosclerotic calcification of the aortic arch with tortuosity. No visualized osseous changes. There is no demonstrated abnormality of the visualized soft tissue structures of the upper abdomen. RAD/Chest PA and Lateral IMPRESSION: No major interval change when compared to the previous examination. Electronically Signed: Reese Doran DO at 18:59 EST Tel [phone], Service support ,
== END ==
PROVIDERS: PCP Internal Medicine; Referring Provider Internal Medicine; Visit Provider Internal Medicine
DX: R93.89 Abnormal findings on diagnostic imaging of other specified body structures (principal)
CPT/HCPCS: 71046

== ENCOUNTER → 2019-07-21 11:38 | Outpatient (CLI) | payer MEDICARE, OTHER, SELFPAY ==
[2019-05-26 06:29] VITALS: BMI 21.4
[2019-07-21 12:46] LABS: Absolute Lymphocyte Count 1.91 X10^3/uL (0.83-4.51); Basophil# 0.11 X10^3/uL; Basophil% 1.8 % (0-1); Eosinophil# 0.35 X10^3/uL; Eosinophils% 5.9 % (0-5); Hematocrit 44.1 % (37-47); Hemoglobin 14.6 g/dL (12.0-15.0); Lymphocyte # 1.91 X10^3/ul (4.0); Mean Corp Hgb Conc 33.1 g/dL (32-36); Mean Corpuscular Volume 102.8 fL (81-99); Mean Platelet Vol. 9.2 fl (6.2-12.0); Monocyte# 0.57 X10^3/uL; Monocyte% 9.6 % (0-10); NRBC Flagged by Analyzer 0 % (0-5); Neutrophil # 3.01 X10^3/uL (2.7-7.7); Neutrophil % 50.5 % (47-70); Platelet Count 344 K/mm3 (150-450); RBC Distribution Width CV 14.2 % (11.6-14.6); RBC Distribution Width SD 53.9 fl (35.1-43.9); Red Blood Count 4.29 M/mm3 (4.2-5.4)
[2019-07-21 13:13] LABS: ALB/GLOB Ratio 1.1 RATIO (0.9-2.4); AST(SGOT) 15 U/L (15-37); Alanine Aminotransfer ALT/SGPT 19 U/L (13-56); Albumin, Serum 3.7 g/dL (3.2-5.0); Alkaline Phosphatase 76 U/L (45-117); Anion Gap 4 (5-15); BUN 12 mg/dL (7-18); Calcium,Total 8.9 mg/dL (8.5-10.1); Chloride 108 mmol/L (98-107); Creatinine, Serum 0.71 mg/dL (0.55-1.02); EST Glomerular Filtration Rate 87 mL/min (>60); Est Glom Filt Rate - Afr Amer 105 mL/min (>60); Globulin 3.3 g/dL (2.2-4.2); Glucose 85 mg/dL (74-106); Sodium Level 141 mmol/L (136-145)
== END ==
PROVIDERS: PCP Internal Medicine; Referring Provider Internal Medicine Rheumatology; Visit Provider Internal Medicine Rheumatology
DX: M06.4 Inflammatory polyarthropathy (principal); Z79.899 Other long term (current) drug therapy; M79.7 Fibromyalgia; M18.0 Bilateral primary osteoarthritis of first carpometacarpal joints; M51.36 Other intervertebral disc degeneration, lumbar region; M47.897 Other spondylosis, lumbosacral region; J44.9 Chronic obstructive pulmonary disease, unspecified; E11.9 Type 2 diabetes mellitus without complications; F43.23 Adjustment disorder with mixed anxiety and depressed mood
CPT/HCPCS: 36415; 80053; 85025

== ENCOUNTER → 2019-08-27 06:45 | Outpatient (CLI) | payer MEDICARE, OTHER, SELFPAY ==
[2019-05-26 06:29] VITALS: BMI 21.4
[2019-08-18 08:50] VITALS: BMI 21.4
[2019-08-27 07:23] LABS: Absolute Lymphocyte Count 1.99 X10^3/uL (0.83-4.51); Absolute Neutrophil Count 2.6 X10^3/uL (2.0-7.7); Basophil% 1.7 % (0-1); Eosinophil# 0.54 X10^3/uL; Eosinophils% 9.1 % (0-5); Hematocrit 42.4 % (37-47); Lymphocyte # 1.99 X10^3/ul (4.0); Lymphocyte % 33.6 % (19-41); Mean Corpuscular Hgb 33.9 pg (27.0-32.0); Mean Corpuscular Volume 102.7 fL (81-99); Monocyte# 0.67 X10^3/uL; Monocyte% 11.3 % (0-10); NRBC Flagged by Analyzer 0 % (0-5); Platelet Count 336 K/mm3 (150-450); RBC Distribution Width CV 14.6 % (11.6-14.6); RBC Distribution Width SD 54.9 fl (35.1-43.9); Red Blood Count 4.13 M/mm3 (4.2-5.4); White Blood Count 5.9 K/mm3 (4.4-11.0)
[2019-08-27 07:48] LABS: AST(SGOT) 28 U/L (15-37); Alanine Aminotransfer ALT/SGPT 24 U/L (13-56); Albumin, Serum 3.6 g/dL (3.2-5.0); Alkaline Phosphatase 72 U/L (45-117); Anion Gap 5 (5-15); BUN 17 mg/dL (7-18); BUN/Creat Ratio 24.4 RATIO (10-20); Calcium,Total 8.9 mg/dL (8.5-10.1); Chloride 106 mmol/L (98-107); EST Glomerular Filtration Rate 88 mL/min (>60); Est Glom Filt Rate - Afr Amer 107 mL/min (>60); Globulin 3.5 g/dL (2.2-4.2); Glucose 94 mg/dL (74-106); Potassium 4.5 mmol/L (3.5-5.1); Protein, Total 7.1 g/dL (6.4-8.2); Sodium Level 140 mmol/L (136-145)
== END ==
PROVIDERS: PCP Internal Medicine; Referring Provider Internal Medicine Rheumatology; Visit Provider Internal Medicine Rheumatology
DX: M06.4 Inflammatory polyarthropathy (principal); M79.7 Fibromyalgia; Z79.899 Other long term (current) drug therapy; M18.0 Bilateral primary osteoarthritis of first carpometacarpal joints; M51.36 Other intervertebral disc degeneration, lumbar region; M47.897 Other spondylosis, lumbosacral region
CPT/HCPCS: 36415; 80053; 85025

== ENCOUNTER → 2019-09-09 08:27 | Outpatient (CLI) | payer MEDICARE, OTHER, SELFPAY ==
[2019-08-18 08:50] VITALS: BMI 21.4
--- NOTE | 2019-09-09 08:30 | CT_ITS ---
STUDY: LOW DOSE CT LUNG CANCER SCREENING REASON FOR EXAM: Female, 69 years old. TOBACCO USE, 1 PPD X 50 YRS. COPD, HX PNEUMOTHORAX RADIATION DOSAGE (If Supplied By Facility): CTDIvol = ( 1.70 ) mGy, DLP = ( 54.88 ) mGycm TECHNIQUE: No contrast was administered. Low dose technique was utilized (average mAS-38 and kVp 120). 1.25 mm axial source images with a slice interval of 1.25-mm were reconstructed in lung windows. 2.5 mm axial source images with a slice interval of 2.5-mm were reconstructed in lung windows. 5.0 mm axial source images with a slice interval of 5.0-mm were reconstructed in soft tissue windows. Nodule measured using lung windows on PACS and/or independent workstation with automated measurement of minimum and maximum diameter. Nodule measurement reported as average diameter rounded to the nearest whole number. Growth is defined as an increase ins size of greater than 1.5 mm. COMPARISON: Comparison is made with prior examination dated October 20, 2018. NODULES: No suspicious nodules are seen. Emphysema: Diffuse emphysematous changes with bleb formation in the upper lobes worse on the right side. Stable areas of scarring in the lung apices more prominent on the right side. The previously seen focal soft tissue density in the posterior medial segment of the left lower lobe is not seen at this time. Aorta: Atherosclerotic calcific plaques of the aortic arch as well as descending thoracic aorta. Coronary arteries: Coronary artery calcification. Heart: Stable mild degree of anterior pericardial thickening. Pulmonary artery: Unremarkable. Mediastinal nodes: Small mediastinal lymph nodes. Other chest and abdominal findings: Demineralizationof the thoracic spine. CT/Low Dose CT Lung Screening IMPRESSION: Lung-RADS category 2 - Continue annual screening with LDCT in 12 months. IMPORTANT NOTES FOR USE: ACR Lung-RADS Version 1.0 Assessment Categories Release Date: August 02, 2013 Category: Coded 0-4 bases on nodule(s) with highest degree of suspicion. Negative screen is defined as categories 1 and 2; a positive screen is defined as categories 3 and 4. Category 3 and 4A nodules that are unchanged on interval CT should be coded as category 2, and individuals returned to screening in 12 months. Category 4X: Category 3 or 4 nodules with additional imaging findings that increase the suspicion of lung cancer, such as spiculation, GGN that doubles in size in 1 year, enlarged lymph notes, etc. Category Modifiers: S (significant finding unrelated to lung cancer) and C (prior history of treated lung cancer) may be added to the 0-4 Lung-RADS Electronically Signed: Jonnie Allen, at 9:09 EDT , Service support ,
== END ==
PROVIDERS: PCP Internal Medicine; Referring Provider Nurse Practitioner Acute Care; Visit Provider Nurse Practitioner Acute Care
DX: F17.210 Nicotine dependence, cigarettes, uncomplicated (principal)
CPT/HCPCS: G0297

== ENCOUNTER → 2019-10-04 10:48 | Outpatient (CLI) | payer MEDICARE, OTHER, SELFPAY ==
[2019-08-18 08:50] VITALS: BMI 21.4
[2019-10-04 11:43] LABS: ALB/GLOB Ratio 1.2 RATIO (0.9-2.4); AST(SGOT) 15 U/L (15-37); Alanine Aminotransfer ALT/SGPT 23 U/L (13-56); Albumin, Serum 3.7 g/dL (3.2-5.0); Alkaline Phosphatase 74 U/L (45-117); Anion Gap 4 (5-15); BUN 15 mg/dL (7-18); BUN/Creat Ratio 22.9 RATIO (10-20); Chloride 106 mmol/L (98-107); Creatinine, Serum 0.66 mg/dL (0.55-1.02); EST Glomerular Filtration Rate 94 mL/min (>60); Est Glom Filt Rate - Afr Amer 114 mL/min (>60); Globulin 3.2 g/dL (2.2-4.2); Glucose 90 mg/dL (74-106); Protein, Total 6.9 g/dL (6.4-8.2); Sodium Level 141 mmol/L (136-145)
[2019-10-04 11:47] LABS: Hemoglobin A1c 5.4 % (3.8-5.6)
== END ==
PROVIDERS: PCP Internal Medicine; Referring Provider Internal Medicine; Visit Provider Internal Medicine
DX: E11.9 Type 2 diabetes mellitus without complications (principal)
CPT/HCPCS: 36415; 80053; 83036

== ENCOUNTER → 2019-11-26 06:10 | Outpatient (CLI) | payer MEDICARE, OTHER, SELFPAY ==
[2019-11-17 09:01] VITALS: BMI 22.2
[2019-11-26 07:20] LABS: Absolute Neutrophil Count 3.8 X10^3/uL (2.0-7.7); Basophil# 0.11 X10^3/uL; Basophil% 1.7 % (0-1); Eosinophil# 0.29 X10^3/uL; Eosinophils% 4.6 % (0-5); Hematocrit 41.6 % (37-47); Hemoglobin 13.6 g/dL (12.0-15.0); Lymphocyte % 22.1 % (19-41); Mean Corp Hgb Conc 32.7 g/dL (32-36); Mean Corpuscular Volume 106.9 fL (81-99); Mean Platelet Vol. 8.9 fl (6.2-12.0); Monocyte# 0.71 X10^3/uL; Monocyte% 11.2 % (0-10); NRBC Flagged by Analyzer 0 % (0-5); Neutrophil # 3.81 X10^3/uL (2.7-7.7); Neutrophil % 60.1 % (47-70); Platelet Count 306 K/mm3 (150-450); RBC Distribution Width CV 14.8 % (11.6-14.6); RBC Distribution Width SD 57.1 fl (35.1-43.9); Red Blood Count 3.89 M/mm3 (4.2-5.4); White Blood Count 6.3 K/mm3 (4.4-11.0)
[2019-11-26 08:13] LABS: ALB/GLOB Ratio 1.1 RATIO (0.9-2.4); AST(SGOT) 12 U/L (15-37); Alanine Aminotransfer ALT/SGPT 22 U/L (13-56); Albumin, Serum 3.5 g/dL (3.2-5.0); Alkaline Phosphatase 61 U/L (45-117); Anion Gap 2 (5-15); BUN 11 mg/dL (7-18); BUN/Creat Ratio 16.7 RATIO (10-20); Calcium,Total 8.6 mg/dL (8.5-10.1); Chloride 106 mmol/L (98-107); Creatinine, Serum 0.66 mg/dL (0.55-1.02); EST Glomerular Filtration Rate 94 mL/min (>60); Est Glom Filt Rate - Afr Amer 114 mL/min (>60); Globulin 3.2 g/dL (2.2-4.2); Glucose 93 mg/dL (74-106); Protein, Total 6.7 g/dL (6.4-8.2); Sodium Level 139 mmol/L (136-145)
== END ==
PROVIDERS: PCP Internal Medicine; Referring Provider Internal Medicine Rheumatology; Visit Provider Internal Medicine Rheumatology
DX: M06.4 Inflammatory polyarthropathy (principal); Z79.899 Other long term (current) drug therapy; M79.7 Fibromyalgia; M18.0 Bilateral primary osteoarthritis of first carpometacarpal joints; M51.36 Other intervertebral disc degeneration, lumbar region; M47.897 Other spondylosis, lumbosacral region; J44.9 Chronic obstructive pulmonary disease, unspecified; E11.9 Type 2 diabetes mellitus without complications; F43.23 Adjustment disorder with mixed anxiety and depressed mood; N32.81 Overactive bladder; G25.0 Essential tremor; M81.0 Age-related osteoporosis without current pathological fracture
CPT/HCPCS: 36415; 80053; 85025

== ENCOUNTER → 2019-11-30 06:57 | Outpatient (CLI) | payer MEDICARE, OTHER, SELFPAY ==
[2019-08-18 08:50] VITALS: BMI 21.4
[2019-11-17 09:01] VITALS: BMI 22.2
--- NOTE | 2019-12-02 08:18 | PFT ---
INTRODUCTION: The patient is a 69-year-old female that presents for pulmonary function studies secondary to a diagnosis of COPD. Respiratory therapy reports good patient effort. Bronchodilators were used during testing. INTERPRETATION: Forced expiration spirometry demonstrates the presence of a mild large airways obstructive ventilatory defect. There was no significant response to aerosolized bronchodilators. Spirograms are of good quality and do not plateau indicating slow emptying of the lungs. Body plus tomography was performed and reveals an elevated TLC and RV, indicative of underlying hyperinflation and air trapping. Diffusing capacity by single breath CO is reduced at 56% of predicted. IMPRESSION: Irreversible mild large airways obstructive ventilatory defect with associated hyperinflation, air trapping and moderate reduction in diffusing capacity.
== END ==
PROVIDERS: PCP Internal Medicine; Referring Provider Nurse Practitioner Acute Care; Visit Provider Nurse Practitioner Acute Care
DX: J44.9 Chronic obstructive pulmonary disease, unspecified (principal)
CPT/HCPCS: 94060; 94726; 94729

== ENCOUNTER → 2020-02-10 10:40 | Outpatient (CLI) | payer MEDICARE, OTHER, SELFPAY ==
[2019-12-17 10:48] VITALS: BMI 22.0
== END ==
PROVIDERS: PCP Internal Medicine; Referring Provider Internal Medicine; Visit Provider Internal Medicine
DX: R05 Cough (principal)
CPT/HCPCS: 87635; C9803; U0003

== ENCOUNTER → 2020-02-17 09:36 | Outpatient (CLI) | payer MEDICARE, OTHER, SELFPAY ==
[2019-12-17 10:48] VITALS: BMI 22.0
--- NOTE | 2020-02-17 09:57 | RAD_ITS ---
STUDY: X-RAY CHEST REASON FOR EXAM: Female, 69 years old. INCREASED SOB x2-3 WEEKS, MEDICATION NOT HELPING -- HX OF HTN, SMOKER TECHNIQUE: Frontal and lateral views COMPARISON: 05/18/2019 FINDINGS: The lungs are hyperaerated. Questionable right basilar 1 cm nodular density opacity. Apical pleural thickening. Normal size heart. Normal mediastinum and otilia. Normal visualized pulmonary arteries. Calcified aortic arch and descending thoracic aorta. Normal visualized thoracic spine. Normal visualized ribs, clavicles, and shoulders. There is no demonstrated abnormality of the visualized soft tissue structures of the upper abdomen. RAD/Chest PA and Lateral IMPRESSION: Hyperaerated lungs. Questionable right basilar nodular opacity. Correlation with CT if needed. Electronically Signed: Reinier Montana DO at 23:54 EST Tel [phone], Service support ,
== END ==
PROVIDERS: PCP Internal Medicine; Visit Provider Internal Medicine
DX: R05 Cough (principal); R06.02 Shortness of breath
CPT/HCPCS: 71046

== ENCOUNTER → 2020-02-23 06:13 | Outpatient (CLI) | payer MEDICARE, OTHER, SELFPAY ==
[2019-05-26 06:29] VITALS: BMI 21.4
[2019-08-18 08:50] VITALS: BMI 21.4
[2019-12-17 10:48] VITALS: BMI 22.0
[2020-02-23 07:02] LABS: Absolute Lymphocyte Count 1.21 X10^3/uL (0.83-4.51); Absolute Neutrophil Count 8.8 X10^3/uL (2.0-7.7); Basophil# 0.02 X10^3/uL; Basophil% 0.2 % (0-1); Hematocrit 45.3 % (37-47); Hemoglobin 14.9 g/dL (12.0-15.0); Lymphocyte # 1.21 X10^3/ul (4.0); Lymphocyte % 11.5 % (19-41); Mean Corp Hgb Conc 32.9 g/dL (32-36); Mean Corpuscular Hgb 34.2 pg (27.0-32.0); Mean Corpuscular Volume 103.9 fL (81-99); Mean Platelet Vol. 8.8 fl (6.2-12.0); Monocyte# 0.45 X10^3/uL; Monocyte% 4.3 % (0-10); NRBC Flagged by Analyzer 0 % (0-5); Neutrophil # 8.79 X10^3/uL (2.7-7.7); Neutrophil % 83.3 % (47-70); Platelet Count 406 K/mm3 (150-450); RBC Distribution Width CV 14.5 % (11.6-14.6); RBC Distribution Width SD 55.5 fl (35.1-43.9); Red Blood Count 4.36 M/mm3 (4.2-5.4); White Blood Count 10.5 K/mm3 (4.4-11.0)
[2020-02-23 07:40] LABS: ALB/GLOB Ratio 1.1 RATIO (0.9-2.4); AST(SGOT) 14 U/L (15-37); Alanine Aminotransfer ALT/SGPT 25 U/L (13-56); Albumin, Serum 3.7 g/dL (3.2-5.0); Alkaline Phosphatase 62 U/L (45-117); Anion Gap 5 (5-15); BUN 25 mg/dL (7-18); Calcium,Total 8.8 mg/dL (8.5-10.1); Chloride 105 mmol/L (98-107); Creatinine, Serum 0.74 mg/dL (0.55-1.02); EST Glomerular Filtration Rate 83 mL/min (>60); Est Glom Filt Rate - Afr Amer 100 mL/min (>60); Globulin 3.3 g/dL (2.2-4.2); Glucose 93 mg/dL (74-106); Potassium 4.2 mmol/L (3.5-5.1); Sodium Level 141 mmol/L (136-145)
[2020-02-23 08:12] LABS: Hemoglobin A1c 5.7 % (3.8-5.6)
[2020-02-23 09:24] LABS: Vitamin D,25 Hydroxy 66.2 ng/mL
== END ==
PROVIDERS: PCP Internal Medicine; Referring Provider Internal Medicine Rheumatology; Visit Provider Internal Medicine Rheumatology
DX: E55.9 Vitamin D deficiency, unspecified (principal); E11.9 Type 2 diabetes mellitus without complications; M79.7 Fibromyalgia
CPT/HCPCS: 36415; 80053; 82306; 83036; 85025

== ENCOUNTER → 2020-02-28 10:58 | Outpatient (CLI) | payer MEDICARE, OTHER, SELFPAY ==
[2019-12-17 10:48] VITALS: BMI 22.0
--- NOTE | 2020-02-28 11:05 | MRI_ITS ---
STUDY: MRI CERVICAL SPINE WITHOUT CONTRAST REASON FOR EXAM: Female, 69 years old. neck and bilat shoulder -- pain , nki TECHNIQUE: Standardized fat and water weighted pulse sequences were obtained in the sagittal and axial planes. COMPARISON: None FINDINGS: Normal foramen magnum and brainstem-cervical cord junction. There is straightening of the normal cervical lordosis. C2-3: Normal endplates. Normal disc height, signal and morphology. Normal central canal and intervertebral neural foramina. C3-4: There is minimal disc space narrowing and endplate spondylosis. There is no significant disc herniation, central canal or foraminal stenosis. C4-5: There is minimal disc space narrowing and endplate spondylosis. There is no significant disc herniation, central canal or foraminal stenosis. C5-6: There is mild disc space narrowing and endplates spondylosis. Mild disc osteophyte complex without significant central canal or foraminal stenosis. C6-7: There is mild disc space narrowing and endplates spondylosis. Mild disc osteophyte complex with mild central canal stenosis. Uncovertebral arthropathy without significant foraminal stenosis. C7-T1: There is minimal disc space narrowing and endplate spondylosis. There is no significant disc herniation, central canal or foraminal stenosis. Normal cervical cord. MRI/Spine Cervical (Routine) IMPRESSION: Mild degenerative changes. Electronically Signed: Rebecca Mcintosh MD at 11:03 EST Tel , Service support ,
== END ==
PROVIDERS: PCP Internal Medicine; Referring Provider Anesthesiology Pain Medicine; Visit Provider Anesthesiology Pain Medicine
DX: M54.2 Cervicalgia (principal); M79.603 Pain in arm, unspecified
CPT/HCPCS: 72141

== ENCOUNTER → 2020-03-06 12:06 | Outpatient (CLI) | payer MEDICARE, OTHER, SELFPAY ==
[2020-03-06 11:10] VITALS: BMI 24.2
== END ==
PROVIDERS: PCP Internal Medicine; Referring Provider Nurse Practitioner Acute Care; Visit Provider Nurse Practitioner Acute Care
DX: R51.9 Headache, unspecified (principal)
CPT/HCPCS: 87633

== ENCOUNTER 2020-05-11 13:00 | Outpatient (RCR) | payer MEDICARE, OTHER, SELFPAY ==
[2020-03-06 11:10] VITALS: BMI 24.2
--- NOTE | 2020-03-24 13:27 | HP.PTEVAL ---
Patient's Visit Information ASHANTI JUDGE is a 69 year old F referred to Physical Therapy by Dr. Ashok Campbell MD with a diagnosis of NECK PAIN. Date of Evaluation: 03/24/20 Physical Therapist: Analia Bradford, PT, Cert MDT - Visit Plan Frequency: 2-3x /Week Duration: 4-6 Weeks Plan: US, CP OR MH, POSTURE CORRECTION/STRENGTHENING, INSTRUCTION IN APPROPRIATE BODY MECHANICS AND ACTIVITY MODIFICATIONS. ARINA UE ROM, STRETCHING AND STRENGTHENING. HEP INSTRUCTION. - Subjective Work/Leisure: RETIRED. Present symptoms: PAIN BASE OF NECK AND UP INTO HEAD AND ALSO AROUND THE SIDES OF HER NECK. RIGHT UP PAIN, NUMBNESS AND TINGLING TO FINGERS AT TIMES. Present since: 3-4 YEARS. Pain Scale: Worst - 8/10 Least - 4/10. Currently: /10 - WORSENING. Commenced as a result of: NO APPARENT REASON. Symptoms at onset: RIGHT NECK PAIN. Worse: NOTHING IN PARTICULAR. Better: ICE PACK. HAS NOT TRIED HEAT. Disturbed sleep: NO. Previous history/Previous treatment: HAS BEEN IN PAIN MGMT AND GETTING NECK INJECTIONS FOR ABOUT 3 YEARS AND RECEIVED A SHOT ABOUT 2 MONTHS AGO BUT DIDN'T HELP. STATES IT IS GETTING TO THE POINT THAT THE SHOTS ARE NO LONGER HELPING. NO NECK SURGERY. NO PT. NO CHIROPRACTOR. Dizziness: NO. Tinnitis: NO. Nausea: NO. Shortness of Breath: YES - COPD. Difficulty Swollowing: NO. Gait: NORMAL. Accidents: NO. Unexplained weight loss: NO. Imaging: RECENT CERVICAL MRI 2020: Comparison: 03/12/2018. Overall there is minimal increase of the multilevel degenerative changes. most prominent at C6/C7 with minimal increase of the disc space narrowing. and endplate spondylosis and disc herniation. PMH/Recent major surgery: COPD, NEUROPATHY, HEART CATH. CHRONIC LBP - TRAMADOL. FIBROMYALGIA. OA. SEE BELOW FOR MORE. - Objective Sitting Posture/Standing Posture: POOR. FH. RS'S. Active Correction of posture: WORSE - PULLS ON NECK. Other Observations: INDEP GAIT AND TRANSFERS WITHOUT AD. Motor deficit: ARINA UE'S GROSSLY 4/5 WITH MMT'ING. Sensory deficit: ARINA UE LIGHT TOUCH SENSATION INTACT AND SYMMETRICAL. ROM deficit: ARINA UE'S WFL. Reflexes: 2/3 ARINA UE'S. Dural Signs: POSITIVE RIGHT UE. Cervical Mvmt Loss: Flex: NIL. Pro: NIL. Ext: DOMINIC. Ret: DOMINIC. RSB: MOD. LSB: MOD. R Rot: MOD. L Rot: MOD. PATIENT WITH C/O RIGHT NECK PAIN WITH CERVICAL ROM TESTING ALL PLANES ESPECIALLY EXT AND RETRACTION. Postural strength: POOR. Palpation: TENDERNESS WITH LIGHT PALPATION OF OF ENTIRE CERVICAL AND OCCIPUT REGIONS INTO THORACIC SPINE. TREATMENT: NEUROMUSCULAR REEDUCATION - RETRAINING OF MVMT AND POSTURE FOR SITTING, LYING AND STANDING ACTIVITIES. - Goals Goal 1:: DECREASE C/O NECK AND RIGHT UE SX'S. Goal Time Frame: 4-6 Weeks Goal 2:: IMPROVE PERSONAL CARE, LIFTING, READING, WORK, DRIVING AND RECREATIONAL FUNCTION Goal Time Frame: 4-6 Weeks Goal 3:: INSTRUCT IN PROPHYLAXIS Goal Time Frame: 4-6 Weeks - Anticipated Interventions Patient/Client Instruction: Educate patient on: Condition, Plan of Care, Risk Factors, Benefits of Fitness Program For the Purpose of:: To improve self management Therapeutic Exercise to Include: Strength training, Body mechanics, Postural training, Flexibilty training, Neuromotor development, Scapular Strength/Stabilization For the Purpose of:: To decrease pain, To increase ROM, To improve muscle performance and motor function, To increase tolerance to activity/condition/position, To improve ability of physical actions for home/community/work/leisure Cryotherapy (ice pack, ice massage): Yes Thermo therapy (hot pack): Yes Ultrasound (thermal/non thermal): Yes For the Purpose of:: To decrease pain, To decrease swelling/inflammation, To improve nutrient delivery to tissue Thank you for the opportunity to evaluate your patient. For Medicare and Medicare HMO plans, please review the plan of care and approve it. It will need to be FAXED BACK to us at [phone] for Medicare purposes. For Medicare only, by signing this I certify the plan of care. Please let me know if there are questions or concerns regarding this plan of care. Physician Signature: Date:
--- NOTE | 2020-05-11 13:30 | HP.PTDCSUM ---
It has been my pleasure to treat ASHANTI JUDGE referred by Dr. Ashok Campbell MD, with the diagnosis of NECK PAIN for a total of 9 visit(s). Discharge Date: 05/11/20 Please see the following information for a summary of their discharge status. Subjective: PATIENT REPORTS SHE HAS LESS PAIN IN HER NECK SINCE HAVING PHYSICAL THEARPY AND IT IS JUST ON THE RIGHT SIDE NOW. PATIENT REPORTS SHE DOESN'T CURRENTLY FEEL LIKE SHE NEEDS ANOTHER CORTISONE SHOT IN HER NECK.PATIENT REPORTS SHE THINKS SHE IS GOING TO BE OK WITHOUT THERAPY NOW AND THE EX'S REALLY HELP. PATIENT REPORTS SHE FEELS LIKE SHE HAS ENOUGH HOME EX'S AT THIS TIME. Right sided neck pain Pain Intensity (Out of 10): 3 % Improvement: 75 Objective/Function: Motor deficit: ARINA UE'S GROSSLY 4/5 WITH MMT'ING. Sensory deficit: ARINA UE LIGHT TOUCH SENSATION INTACT AND SYMMETRICAL. ROM deficit: ARINA UE'S WFL. Reflexes: 2/3 ARINA UE'S. Dural Signs: POSITIVE RIGHT UE. Cervical Mvmt Loss: Flex: NIL. Pro: NIL. Ext: DOMINIC. Ret: DOMINIC. RSB: MOD. LSB: MOD. R Rot: MOD. L Rot: MOD. PATIENT DENIES INCREASED PAIN WITH CERVCIAL ROM TESTING ALL PLANES TODAY. Postural strength: POOR Goal 1:: DECREASE C/O NECK AND RIGHT UE SX'S. Goal Progress: Goal Met Goal 2:: IMPROVE PERSONAL CARE, LIFTING, READING, WORK, DRIVING AND RECREATIONAL FUNCTION Goal Progress: Goal Met Goal 3:: INSTRUCT IN PROPHYLAXIS Goal Progress: Goal Met Plan: D/C TO HEP. PATIENT AGREEABLE. If there are questions or concerns regarding this patient's physical therapy, please feel free to call me at [phone]. Thank you for the referral of this patient. Sincerely, Analia Bradford, PT, Cert MDT
== END 2020-05-11 19:00 | disposition home or self-care (01) ==
LOC: PT 13:00
PROVIDERS: PCP Internal Medicine; Referring Provider Anesthesiology Pain Medicine; Visit Provider Anesthesiology Pain Medicine
DX: M54.2 Cervicalgia (principal)
CPT/HCPCS: 97035; 97110; 97112; 97162; 97164; 97530

== ENCOUNTER → 2020-05-17 16:12 | Outpatient (CLI) | payer MEDICARE, OTHER, SELFPAY ==
[2020-03-06 11:10] VITALS: BMI 24.2
[2020-05-17 17:24] LABS: Hemoglobin A1c 5.5 % (3.8-5.6)
[2020-05-17 17:50] LABS: AST(SGOT) 18 U/L (15-37); Alanine Aminotransfer ALT/SGPT 25 U/L (13-56); Albumin, Serum 3.6 g/dL (3.2-5.0); Alkaline Phosphatase 78 U/L (45-117); Anion Gap 5 (5-15); BUN 11 mg/dL (7-18); BUN/Creat Ratio 15.3 RATIO (10-20); Calcium,Total 9.1 mg/dL (8.5-10.1); Chloride 107 mmol/L (98-107); Creatinine, Serum 0.72 mg/dL (0.55-1.02); EST Glomerular Filtration Rate 85 mL/min (>60); Est Glom Filt Rate - Afr Amer 103 mL/min (>60); Globulin 3.5 g/dL (2.2-4.2); Glucose 90 mg/dL (74-106); Potassium 4.3 mmol/L (3.5-5.1); Protein, Total 7.1 g/dL (6.4-8.2); Sodium Level 142 mmol/L (136-145)
== END ==
PROVIDERS: PCP Internal Medicine; Visit Provider Internal Medicine
DX: E11.9 Type 2 diabetes mellitus without complications (principal); E55.9 Vitamin D deficiency, unspecified
CPT/HCPCS: 36415; 80053; 82306; 83036

== ENCOUNTER → 2020-06-03 11:42 | Outpatient (CLI) | payer MEDICARE, OTHER, SELFPAY ==
[2020-05-25 12:50] VITALS: BMI 17.3
[2020-06-03 12:39] LABS: Absolute Lymphocyte Count 2.22 X10^3/uL (0.83-4.51); Absolute Neutrophil Count 4.9 X10^3/uL (2.0-7.7); Basophil% 1.2 % (0-1); Eosinophil# 0.29 X10^3/uL; Eosinophils% 3.6 % (0-5); Hematocrit 45.9 % (37-47); Hemoglobin 14.9 g/dL (12.0-15.0); Lymphocyte # 2.22 X10^3/ul (4.0); Lymphocyte % 27.6 % (19-41); Mean Corp Hgb Conc 32.5 g/dL (32-36); Mean Corpuscular Hgb 33.9 pg (27.0-32.0); Mean Corpuscular Volume 104.6 fL (81-99); Mean Platelet Vol. 8.7 fl (6.2-12.0); Monocyte# 0.55 X10^3/uL; Monocyte% 6.8 % (0-10); NRBC Flagged by Analyzer 0 % (0-5); Neutrophil # 4.86 X10^3/uL (2.7-7.7); Neutrophil % 60.6 % (47-70); Platelet Count 323 K/mm3 (150-450); RBC Distribution Width CV 14.1 % (11.6-14.6); RBC Distribution Width SD 53.7 fl (35.1-43.9); Red Blood Count 4.39 M/mm3 (4.2-5.4)
[2020-06-03 13:10] LABS: ALB/GLOB Ratio 1.2 RATIO (0.9-2.4); AST(SGOT) 13 U/L (15-37); Alanine Aminotransfer ALT/SGPT 21 U/L (13-56); Albumin, Serum 3.7 g/dL (3.2-5.0); Alkaline Phosphatase 65 U/L (45-117); Anion Gap 4 (5-15); BUN 15 mg/dL (7-18); BUN/Creat Ratio 21.9 RATIO (10-20); Calcium,Total 9.2 mg/dL (8.5-10.1); Chloride 108 mmol/L (98-107); Creatinine, Serum 0.68 mg/dL (0.55-1.02); EST Glomerular Filtration Rate 90 mL/min (>60); Est Glom Filt Rate - Afr Amer 109 mL/min (>60); Globulin 3.1 g/dL (2.2-4.2); Glucose 94 mg/dL (74-106); Potassium 4.4 mmol/L (3.5-5.1); Protein, Total 6.8 g/dL (6.4-8.2); Sodium Level 142 mmol/L (136-145)
== END ==
PROVIDERS: PCP Internal Medicine; Visit Provider Internal Medicine Rheumatology
DX: M06.4 Inflammatory polyarthropathy (principal); Z79.899 Other long term (current) drug therapy; M79.7 Fibromyalgia; M18.0 Bilateral primary osteoarthritis of first carpometacarpal joints; M51.36 Other intervertebral disc degeneration, lumbar region; M47.897 Other spondylosis, lumbosacral region; J44.9 Chronic obstructive pulmonary disease, unspecified; E11.9 Type 2 diabetes mellitus without complications; F43.23 Adjustment disorder with mixed anxiety and depressed mood; N32.81 Overactive bladder; G25.0 Essential tremor; M81.0 Age-related osteoporosis without current pathological fracture
CPT/HCPCS: 36415; 80053; 85025

== ENCOUNTER → 2020-06-06 09:36 | Outpatient (CLI) | payer MEDICARE, OTHER, SELFPAY ==
[2020-05-25 12:50] VITALS: BMI 17.3
[2020-06-06 11:26] LABS: Amphetamine Urine VISTA NEGATIVE (<1000 ng/mL); Barbiturate Urine VISTA NEGATIVE (< 200 ng/mL); Benzodiazepine Urine VISTA NEGATIVE (< 200 ng/mL); Cocaine Urine VISTA NEGATIVE (< 300 ng/mL); Ecstacy Urine VISTA NEGATIVE (< 500 ng/mL); Methadone Urine VISTA NEGATIVE (< 300 ng/mL); PCP Urine VISTA NEGATIVE (< 25 ng/mL); THC Urine VISTA NEGATIVE (< 50 ng/mL); Vista UDS pH Range 6
== END ==
PROVIDERS: PCP Internal Medicine; Referring Provider Anesthesiology Pain Medicine; Visit Provider Anesthesiology Pain Medicine
DX: F11.20 Opioid dependence, uncomplicated (principal)
CPT/HCPCS: 80307

== ENCOUNTER 2020-06-13 21:36 | Outpatient (RCR) | payer MEDICARE, OTHER, SELFPAY ==
[2020-05-25 12:50] VITALS: BMI 17.3
[2020-06-13] MEDS: COVID-19 VACC, MRNA(PFIZER)/PF 30 MCG/0.3 ML SYRINGE IM (15:08)
[2020-07-04] MEDS: COVID-19 VACC, MRNA(PFIZER)/PF 30 MCG/0.3 ML SYRINGE IM (15:00)
== END 2020-09-12 23:59 ==
LOC: IMMUN 21:36
PROVIDERS: PCP Internal Medicine; Visit Provider Family Medicine
DX: Z23 Encounter for immunization (principal)
CPT/HCPCS: 0001A; 0002A; 91300

== ENCOUNTER → 2020-07-03 12:34 | Outpatient (CLI) | payer MEDICARE, OTHER, SELFPAY ==
[2020-03-06 11:10] VITALS: BMI 24.2
[2020-05-25 12:50] VITALS: BMI 17.3
--- NOTE | 2020-07-03 12:38 | CT_ITS ---
STUDY: CT CHEST WITH CONTRAST REASON FOR EXAM: Female, 69 years old. LUNG NODULE RADIATION DOSAGE (If Supplied By Facility): CTDIvol = ( 7.6 ) mGy, DLP = ( 192.76 ) mGycm TECHNIQUE: Transaxial imaging was performed following intravenous administration of IV 100mL Isovue-300. Multiplanar coronal and sagittal images were reformatted. Individualized dose optimization techniques were used for this CT. COMPARISON: Comparison is made with prior examination dated 09/09/2019. FINDINGS: Hyperinflation. Diffuse emphysematous changes worse in the upper lobes with evidence of bullous formation in the upper lobes. Stable scarring at the lung apices. There is no demonstrated pleural abnormality. Coronary artery calcification. Stable minimal thickening of the anterior pericardium. Normal mediastinum. Normal hilar regions. Normal enhanced pulmonary arteries. Atherosclerotic calcific plaques of the aortic arch. There are multi-level degenerative changes of the thoracic spine. There is no demonstrated abnormality of the visualized upper abdomen. CT/Chest WITH Contrast IMPRESSION: Emphysematous changes and scarring at the lung apices. Electronically Signed: Jonnie Allen MD at 13:40 EDT , Service support ,
== END ==
PROVIDERS: PCP Internal Medicine; Referring Provider Internal Medicine; Visit Provider Internal Medicine
DX: R91.1 Solitary pulmonary nodule (principal)
CPT/HCPCS: 71260; Q9967

== ENCOUNTER → 2020-07-11 09:46 | Outpatient (CLI) | payer MEDICARE, OTHER, SELFPAY ==
[2020-07-11 11:14] LABS: Thyroid Stim Hormone (TSH) 1.05 uIU/mL (0.358-3.74)
== END ==
PROVIDERS: PCP Internal Medicine; Referring Provider Internal Medicine; Visit Provider Internal Medicine
DX: R53.83 Other fatigue (principal)
CPT/HCPCS: 36415; 84439; 84443; 84481

== ENCOUNTER → 2020-07-27 06:34 | Outpatient (CLI) | payer MEDICARE, OTHER, SELFPAY ==
[2020-07-20 08:14] VITALS: BMI 23.5
--- NOTE | 2020-07-27 06:38 | RAD_ITS ---
STUDY: X-RAY - RIGHT KNEE REASON FOR EXAM: Female, 70 years old. KNEE PAIN TECHNIQUE: 4 view(s) of the knee. COMPARISON: 05/03/2014. FINDINGS: No acute fracture, dislocation or osseous destruction. Mild medial compartment joint space narrowing. Lateral compartment preserved. Patellofemoral spacing preserved. No significant soft tissue swelling. No significant joint effusion. RAD/Knee 4 or More Views IMPRESSION: Right knee intact Mild medial joint space narrowing Electronically Signed: Mushtaq Vergara DO at 8:15 EDT Tel , Service support ,
== END ==
PROVIDERS: PCP Internal Medicine; Referring Provider Internal Medicine; Visit Provider Internal Medicine
DX: E11.59 Type 2 diabetes mellitus with other circulatory complications (principal); E55.9 Vitamin D deficiency, unspecified; R53.83 Other fatigue
CPT/HCPCS: 73564

== ENCOUNTER → 2020-09-07 15:22 | Outpatient (CLI) | payer MEDICARE, OTHER, SELFPAY ==
[2020-07-20 08:14] VITALS: BMI 23.5
[2020-09-07 17:29] LABS: Absolute Lymphocyte Count 1.01 X10^3/uL (0.83-4.51); Absolute Neutrophil Count 7.5 X10^3/uL (2.0-7.7); Basophil# 0.02 X10^3/uL; Basophil% 0.2 % (0-1); Hematocrit 41.3 % (37-47); Hemoglobin 13.7 g/dL (12.0-15.0); Lymphocyte # 1.01 X10^3/ul (0.83-4.51); Lymphocyte % 11.3 % (19-41); Mean Corp Hgb Conc 33.2 g/dL (32-36); Mean Corpuscular Hgb 34.6 pg (27.0-32.0); Mean Corpuscular Volume 104.3 fL (81-99); Mean Platelet Vol. 9.2 fl (6.2-12.0); Monocyte# 0.34 X10^3/uL; Monocyte% 3.8 % (0-10); NRBC Flagged by Analyzer 0 % (0-5); Neutrophil # 7.52 X10^3/uL (2.7-7.7); Neutrophil % 84.3 % (47-70); Platelet Count 357 K/mm3 (150-450); RBC Distribution Width CV 14.9 % (11.6-14.6); RBC Distribution Width SD 57.5 fl (35.1-43.9); Red Blood Count 3.96 M/mm3 (4.2-5.4); White Blood Count 8.9 K/mm3 (4.4-11.0)
[2020-09-07 18:05] LABS: ALB/GLOB Ratio 1.1 RATIO (0.9-2.4); AST(SGOT) 9 U/L (15-37); Alanine Aminotransfer ALT/SGPT 24 U/L (13-56); Albumin, Serum 3.9 g/dL (3.2-5.0); Alkaline Phosphatase 67 U/L (45-117); Anion Gap 7 (5-15); BUN 11 mg/dL (7-18); BUN/Creat Ratio 16.7 RATIO (10-20); Calcium,Total 9.2 mg/dL (8.5-10.1); Chloride 107 mmol/L (98-107); Creatinine, Serum 0.66 mg/dL (0.55-1.02); EST Glomerular Filtration Rate 94 mL/min (>60); Est Glom Filt Rate - Afr Amer 114 mL/min (>60); Globulin 3.4 g/dL (2.2-4.2); Glucose 103 mg/dL (74-106); Potassium 4.1 mmol/L (3.5-5.1); Protein, Total 7.3 g/dL (6.4-8.2); Sodium Level 142 mmol/L (136-145)
== END ==
PROVIDERS: PCP Internal Medicine; Visit Provider Internal Medicine Rheumatology
DX: M06.4 Inflammatory polyarthropathy (principal); Z79.899 Other long term (current) drug therapy; M79.7 Fibromyalgia; M18.0 Bilateral primary osteoarthritis of first carpometacarpal joints; M51.36 Other intervertebral disc degeneration, lumbar region; M47.897 Other spondylosis, lumbosacral region; J44.9 Chronic obstructive pulmonary disease, unspecified; E11.9 Type 2 diabetes mellitus without complications; F43.23 Adjustment disorder with mixed anxiety and depressed mood; N32.81 Overactive bladder; G25.0 Essential tremor; M81.0 Age-related osteoporosis without current pathological fracture
CPT/HCPCS: 36415; 80053; 85025

== ENCOUNTER → 2020-09-13 14:16 | Outpatient (CLI) | payer MEDICARE, OTHER, SELFPAY ==
[2020-07-20 08:14] VITALS: BMI 23.5
--- NOTE | 2020-09-13 14:35 | CT_ITS ---
STUDY: LOW DOSE CT LUNG CANCER SCREENING REASON FOR EXAM: Female, 70 years old. current smoker and gt; 40 pack years RADIATION DOSAGE (If Supplied By Facility): CTDIvol = ( 2.01 ) mGy, DLP = ( 73.24 ) mGycm TECHNIQUE: Transaxial imaging was performed without the administration of intravenous contrast material. Individualized dose optimization techniques were used for this CT. COMPARISON: CT chest 07/03/2020. FINDINGS: Heart and great vessels: Heart size normal. No aneurysm of the thoracic aorta. Trace pericardial fluid similar to previous. Lungs, pleura, airways: No pneumonia, edema, or acute abnormality in the lungs. No pleural effusion. No pneumothorax. Severe emphysema again demonstrated with mild bilateral bronchial wall thickening and regions of subsegmental mucous plugging and scarring of the lung apices. Mediastinum: No adenopathy or mass or hematoma. Osseous:No fracture or acute osseous abnormality. Chest wall: No concerning findings. Upper abdomen: No acute findings. CT/Low Dose CT Lung Screening IMPRESSION: No pulmonary nodules. Lung-RADS category 2. Continued annual screening suggested. Severe emphysema and chronic bronchitis. IMPORTANT NOTES FOR USE: ACR Lung-RADS Version 1.1 Assessment Categories Release Date: 2018 Category: Coded 0-4 bases on nodule(s) with highest degree of suspicion. Negative screen is defined as categories 1 and 2; a positive screen is defined as categories 3 and 4. Category 3 and 4A nodules that are unchanged on interval CT should be coded as category 2, and individuals returned to screening in 12 months. Category 4X: Category 3 or 4 nodules with additional imaging findings that increase the suspicion of lung cancer, such as spiculation, GGN that doubles in size in 1 year, enlarged lymph notes, etc. Category Modifiers: S (significant finding unrelated to lung cancer) Electronically Signed: Edgard Hernandez MD at 1:59 EDT Tel , Service support ,
== END ==
PROVIDERS: PCP Internal Medicine; Referring Provider Nurse Practitioner Acute Care; Visit Provider Nurse Practitioner Acute Care
DX: F17.210 Nicotine dependence, cigarettes, uncomplicated (principal)
CPT/HCPCS: 71271

== ENCOUNTER → 2020-09-19 11:09 | Outpatient (CLI) | payer MEDICARE, OTHER, SELFPAY ==
[2020-07-20 08:14] VITALS: BMI 23.5
[2020-09-19 11:15] VITALS: PULSE 84; PULSE 87; PULSE 93; PULSE 94; PULSE 95; PULSE 96; PULSE 97; O2SAT 92; O2SAT 93; O2SAT 94; O2SAT 95
--- NOTE | 2020-09-20 14:22 | WT_ITS ---
PSN 6 Minute Walk Test 6 Minute Walk Test 6 Minute Walk Test: 6 Minute Walk Test PSN:6-Minute Walk Test Start: 09/19/20 14:01 Freq: Status: Active Protocol: [id number] Document 09/19/20 11:15 JAEL (Rec: 09/19/20 14:03 JLA [id number]) 6 Minute Walk Test Date Performed 09/19/20 Time Performed 11:15 Height 5 ft Weight: 120 lb Weight in Pounds 120.[address]: Dede Napoles AUTOMOTIVE SERVICE DIRECTOR Assistive device used: None Pre-test Oxygen Delivery Method Room Air Pulse Ox (%) 95 Pulse Rate (60-100 beats/min) 84 Dyspnea Gilmer Scale (0-10) 3 Exertion Gilmer Scale (6-20) 6 1st minute Oxygen Delivery Method Room Air Pulse Ox (%) 94 Pulse Rate (60-100 beats/min) 94 2nd minute Oxygen Delivery Method Room Air Pulse Ox (%) 94 Pulse Rate (60-100 beats/min) 93 3rd minute Oxygen Delivery Method Room Air Pulse Ox (%) 94 Pulse Rate (60-100 beats/min) 95 4th minute Oxygen Delivery Method Room Air Pulse Ox (%) 93 Pulse Rate (60-100 beats/min) 93 5th minute Oxygen Delivery Method Room Air Pulse Ox (%) 92 Pulse Rate (60-100 beats/min) 97 6th minute Oxygen Delivery Method Room Air Pulse Ox (%) 95 Pulse Rate (60-100 beats/min) 96 Dyspnea Gilmer Scale (0-10) 3 Exertion Gilmer Scale (6-20) 11 Post-test Oxygen Delivery Method Room Air Pulse Ox (%) 94 Pulse Rate (60-100 beats/min) 87 Full Laps Walked 14 Partial Lap, Number of Tiles Walked 0 Total Distance Walked (ft) 826 Interpretation Interpretation: The patient ambulated 826 feet over the course of 6 minutes beginning on room air without assistive devices. Pretesting oxygen saturation was noted to be 95% on room air. With ambulation, the stacey oxygen saturation was 92%. There was no significant exertional oxygen desaturation. Recommendations Recommendations: There is no indication for the use of supplemental oxygen at this time.
== END ==
PROVIDERS: PCP Internal Medicine; Referring Provider Nurse Practitioner Acute Care; Visit Provider Nurse Practitioner Acute Care
DX: J44.9 Chronic obstructive pulmonary disease, unspecified (principal)
CPT/HCPCS: 94618

== ENCOUNTER → 2020-10-03 09:23 | Outpatient (CLI) | payer MEDICARE, OTHER, SELFPAY ==
[2020-07-20 08:14] VITALS: BMI 23.5
--- NOTE | 2020-10-04 09:37 | PFT ---
INTRODUCTION: The patient is a 70-year-old female that presents for pulmonary function studies secondary to a diagnosis of COPD. Respiratory therapy reports good patient effort. Bronchodilators were used during testing. INTERPRETATION: Forced expiration spirometry demonstrates the presence of a mild large airways obstructive ventilatory defect. There was no significant response to aerosolized bronchodilators. Spirograms are of good quality but do not plateau indicating slow emptying of the lungs. Body plethysmography was performed and reveals lung volumes to be within normal limits. Diffusing capacity by single breath CO is reduced at 51% of predicted. IMPRESSION: Irreversible mild large airways obstructive ventilatory defect with disproportionate reduction in diffusing capacity.
== END ==
PROVIDERS: PCP Internal Medicine; Referring Provider Nurse Practitioner Acute Care; Visit Provider Nurse Practitioner Acute Care
DX: J44.9 Chronic obstructive pulmonary disease, unspecified (principal)
CPT/HCPCS: 94060; 94726; 94729

== ENCOUNTER → 2020-10-26 06:23 | Outpatient (CLI) | payer MEDICARE, OTHER, SELFPAY ==
[2020-10-25 05:56] VITALS: BMI 24.2
[2020-10-26 07:20] LABS: Absolute Lymphocyte Count 2.06 X10^3/uL (0.83-4.51); Absolute Neutrophil Count 3.8 X10^3/uL (2.0-7.7); Basophil# 0.14 X10^3/uL; Basophil% 2.1 % (0-1); Eosinophil# 0.26 X10^3/uL; Eosinophils% 3.8 % (0-5); Hematocrit 43.4 % (37-47); Hemoglobin 14.5 g/dL (12.0-15.0); Lymphocyte # 2.06 X10^3/ul (0.83-4.51); Lymphocyte % 30.2 % (19-41); Mean Corp Hgb Conc 33.4 g/dL (32-36); Mean Corpuscular Hgb 35.2 pg (27.0-32.0); Mean Corpuscular Volume 105.3 fL (81-99); Monocyte# 0.58 X10^3/uL; Monocyte% 8.5 % (0-10); NRBC Flagged by Analyzer 0 % (0-5); Neutrophil # 3.76 X10^3/uL (2.7-7.7); Neutrophil % 55.3 % (47-70); Platelet Count 383 K/mm3 (150-450); RBC Distribution Width CV 14.7 % (11.6-14.6); RBC Distribution Width SD 57.9 fl (35.1-43.9); Red Blood Count 4.12 M/mm3 (4.2-5.4); White Blood Count 6.8 K/mm3 (4.4-11.0)
[2020-10-26 07:47] LABS: ALB/GLOB Ratio 1.2 RATIO (0.9-2.4); AST(SGOT) 14 U/L (15-37); Alanine Aminotransfer ALT/SGPT 24 U/L (13-56); Albumin, Serum 3.9 g/dL (3.2-5.0); Alkaline Phosphatase 59 U/L (45-117); Anion Gap 5 (5-15); BUN 15 mg/dL (7-18); BUN/Creat Ratio 21.9 RATIO (10-20); Calcium,Total 9.6 mg/dL (8.5-10.1); Chloride 106 mmol/L (98-107); Creatinine, Serum 0.68 mg/dL (0.55-1.02); EST Glomerular Filtration Rate 90 mL/min (>60); Est Glom Filt Rate - Afr Amer 109 mL/min (>60); Globulin 3.2 g/dL (2.2-4.2); Glucose 92 mg/dL (74-106); Magnesium 2.4 mg/dL (1.6-2.6); Potassium 3.9 mmol/L (3.5-5.1); Protein, Total 7.1 g/dL (6.4-8.2); Sodium Level 141 mmol/L (136-145)
[2020-10-26 09:48] LABS: Hemoglobin A1c 5.6 % (3.8-5.6)
[2020-10-26 21:37] LABS: Vitamin D,25 Hydroxy 57.5 ng/mL
== END ==
PROVIDERS: PCP Internal Medicine; Referring Provider Internal Medicine; Visit Provider Internal Medicine
DX: E11.59 Type 2 diabetes mellitus with other circulatory complications (principal); E55.9 Vitamin D deficiency, unspecified; R53.83 Other fatigue
CPT/HCPCS: 36415; 80053; 82306; 83036; 83735; 85025

== ENCOUNTER → 2020-11-17 06:03 | Outpatient (CLI) | payer MEDICARE, OTHER, SELFPAY ==
[2020-10-25 05:56] VITALS: BMI 24.2
[2020-11-17 07:38] LABS: Absolute Lymphocyte Count 1.94 X10^3/uL (0.83-4.51); Absolute Neutrophil Count 5.6 X10^3/uL (2.0-7.7); Basophil# 0.07 X10^3/uL; Basophil% 0.8 % (0-1); Eosinophil# 0.14 X10^3/uL; Eosinophils% 1.7 % (0-5); Hematocrit 41.9 % (37-47); Lymphocyte # 1.94 X10^3/ul (0.83-4.51); Mean Corp Hgb Conc 33.4 g/dL (32-36); Mean Corpuscular Hgb 35.2 pg (27.0-32.0); Mean Corpuscular Volume 105.3 fL (81-99); Monocyte# 0.62 X10^3/uL; Monocyte% 7.3 % (0-10); NRBC Flagged by Analyzer 0 % (0-5); Neutrophil # 5.64 X10^3/uL (2.7-7.7); Neutrophil % 66.8 % (47-70); Platelet Count 379 K/mm3 (150-450); RBC Distribution Width CV 14.6 % (11.6-14.6); RBC Distribution Width SD 57.1 fl (35.1-43.9); Red Blood Count 3.98 M/mm3 (4.2-5.4); White Blood Count 8.4 K/mm3 (4.4-11.0)
[2020-11-17 08:13] LABS: ALB/GLOB Ratio 1.2 RATIO (0.9-2.4); AST(SGOT) 11 U/L (15-37); Alanine Aminotransfer ALT/SGPT 24 U/L (13-56); Albumin, Serum 3.6 g/dL (3.2-5.0); Alkaline Phosphatase 46 U/L (45-117); Anion Gap 3 (5-15); BUN 18 mg/dL (7-18); BUN/Creat Ratio 33.8 RATIO (10-20); Calcium,Total 8.9 mg/dL (8.5-10.1); Chloride 109 mmol/L (98-107); Creatinine, Serum 0.53 mg/dL (0.55-1.02); EST Glomerular Filtration Rate 120 mL/min (>60); Est Glom Filt Rate - Afr Amer 145 mL/min (>60); Globulin 3.1 g/dL (2.2-4.2); Glucose 88 mg/dL (74-106); Protein, Total 6.7 g/dL (6.4-8.2); Sodium Level 139 mmol/L (136-145)
== END ==
PROVIDERS: PCP Internal Medicine; Referring Provider Internal Medicine Rheumatology; Visit Provider Internal Medicine Rheumatology
DX: M06.4 Inflammatory polyarthropathy (principal); Z79.899 Other long term (current) drug therapy; M79.7 Fibromyalgia; M18.0 Bilateral primary osteoarthritis of first carpometacarpal joints; M51.36 Other intervertebral disc degeneration, lumbar region; M47.897 Other spondylosis, lumbosacral region; J44.9 Chronic obstructive pulmonary disease, unspecified; E11.9 Type 2 diabetes mellitus without complications; F43.23 Adjustment disorder with mixed anxiety and depressed mood; N32.81 Overactive bladder; G25.0 Essential tremor; M81.0 Age-related osteoporosis without current pathological fracture
CPT/HCPCS: 36415; 80053; 85025

== ENCOUNTER → 2020-12-05 10:55 | Outpatient (CLI) | payer MEDICARE, OTHER, SELFPAY ==
[2020-10-25 05:56] VITALS: BMI 24.2
--- NOTE | 2020-12-05 10:59 | BI_ITS ---
MAMMOGRAPHY - BILATERAL SCREENING 3-D TOMOSYNTHESIS REASON FOR EXAM: Female, 70 years old. SCREENING PERTINENT HISTORY: No significant family history. TECHNIQUE: 2-D mammograms and 3-D Tomosynthesis of the breast (s) were performed. CAD was performed. COMPARISON: 11/12/2018 FINDINGS: The breast composition is composed of scattered fibroglandular density. Scattered benign calcifications are seen. No dense spiculated masses or suspicious microcalcifications are identified. No architectural distortion is identified. There is no skin thickening or retraction. There has been no significant change since the prior study. BI/SCRN MAMM (CAD)W/NADEEN BILAT IMPRESSION: No mammographic signs of malignancy. Routine yearly mammograms recommended. ASSESSMENT CATEGORY: BIRADS Category 1: Negative. A letter regarding these results will be sent to the patient by the facility within 30 days. FOLLOW UP RECOMMENDATION: Yearly follow up mammogram recommended. (A) Approximately 10% of breast cancers are not detected by mammography. A normal mammogram should not delay biopsy of a clinically suspicious abnormality. Electronically Signed: Alfredo Blanc MD at 17:10 EDT Tel , Service support ,
--- NOTE | 2020-12-05 11:01 | BD_ITS ---
STUDY: DUAL ENERGY X-RAY ABSORPTIOMETRY / DXA REASON FOR EXAM: Female, 70 years old. [id number]. Patient is postmenopausal. TECHNIQUE: Bone Mineral Density (BMD) measurements of lumbar spine and bilateral hips were obtained. COMPARISON: Comparison is made with prior study 11/12/2018. FINDINGS: Lumbar Spine (L1-L4): g/cm2 (0.625) / T-score (-3.8) / Z-score (-1.6) Findings are suggestive of osteoporosis with a high fracture risk. Left Femur Total: g/cm2 (0.512) / T-score (-3.5) / Z-score (-1.1) Left Femoral Neck: g/cm2 (0.396) / T-score (-4.1) / Z-score (-2.2) Right Femur Total: g/cm2 (0.559) / T-score (-3.1) / Z-score (-1.5) Right Femoral Neck: g/cm2 (0.481) / T-score (-3.3) / Z-score (-1.4) The T-Scores on the most recent prior examination were: Lumbar Spine (L1-L4): There has been improvement of bone density since the previous examination. Left Femur Total: which represents an improvement of 11.9%. Right Femur Total: which represents an improvement of 8.8%. BD/Dexa Bone Density Study IMPRESSION: The patient is considered osteoporotic as outlined below according to World George Organization (WHO) criteria with a high fracture risk. There has been improvement of bone density since the previous examination. Reference Information: The T-score is the number of standard deviations above or below the standard which is normal for young adults at their peak bone mineral density. The World Health Organization (WHO) interprets the T-scores as follows: Above -1 Normal bone density Between -1 and -2.5 Osteopenia Equal to / or below -2.5 Osteoporosis As a practical clinical guideline, osteopenia may be graded as follows: Mild -1 through -1.5 Moderate -1.6 through -2.0 Severe -2.1 through -2.4 The Z-score is the number of standard deviations above or below age-matched controls. A Z-score of less than -1.5 would be considered abnormal. References: 1. NIH Osteoporosis and Related Bone Diseases www osteo.org 2. International Society for Clinical Densitometry www iscd.org 3. National Osteoporosis Foundation www nof.org Electronically Signed: Jonnie Allen MD at 12:51 EDT , Service support ,
== END ==
PROVIDERS: PCP Internal Medicine; Referring Provider Internal Medicine; Visit Provider Internal Medicine
DX: Z12.31 Encounter for screening mammogram for malignant neoplasm of breast (principal); Z78.0 Asymptomatic menopausal state
CPT/HCPCS: 77063; 77067; 77080

== ENCOUNTER → 2021-01-08 16:24 | Outpatient (CLI) | payer MEDICARE, OTHER, SELFPAY ==
--- NOTE | 2021-01-08 16:27 | RAD_ITS ---
STUDY: X-RAY CHEST REASON FOR EXAM: Female, 70 years old. CHEST PAIN,ATYPICAL TECHNIQUE: PA and lateral views of the chest. COMPARISON: 02/17/2020. FINDINGS: The lungs are slightly hyperinflated with questionable emphysematous changes through the mid upper lung sher. Unchanged nodularity at the right lung base demonstrated with high increased density, likely calcification and representing superimposition of costochondral cartilage. There is no demonstrated pleural abnormality. Normal size heart. Normal mediastinum and otilia. Normal visualized pulmonary arteries. There is atherosclerotic calcification of the aortic arch with tortuosity. There is demineralization of the osseous structures. 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 There is no demonstrated abnormality of the visualized soft tissue structures of the upper abdomen. RAD/Chest PA and Lateral IMPRESSION: No acute cardiopulmonary disease. Electronically Signed: Mary Jo Cat MD at 0:31 EDT , Service support ,
== END ==
PROVIDERS: PCP Internal Medicine; Referring Provider Internal Medicine; Visit Provider Internal Medicine
DX: R07.89 Other chest pain (principal)
CPT/HCPCS: 71046

== ENCOUNTER → 2021-01-19 08:42 | Outpatient (CLI) | payer MEDICARE, OTHER, SELFPAY | PROVIDERS: PCP Internal Medicine; Referring Provider Internal Medicine; Visit Provider Internal Medicine | DX: R05.9 Cough, unspecified (principal); R53.83 Other fatigue | CPT/HCPCS: 87635; C9803; U0005; U0003 ==

== ENCOUNTER → 2021-03-07 08:16 | Outpatient (CLI) | payer MEDICARE, OTHER, SELFPAY ==
[2021-03-07 09:15] LABS: Absolute Lymphocyte Count 1.91 X10^3/uL (0.83-4.51); Basophil# 0.09 X10^3/uL; Basophil% 1.3 % (0-1); Eosinophil# 0.16 X10^3/uL; Eosinophils% 2.4 % (0-5); Hematocrit 42.4 % (37-47); Lymphocyte # 1.91 X10^3/ul (0.83-4.51); Lymphocyte % 28.6 % (19-41); Mean Corpuscular Hgb 34.9 pg (27.0-32.0); Mean Corpuscular Volume 105.7 fL (81-99); Mean Platelet Vol. 8.7 fl (6.2-12.0); Monocyte# 0.47 X10^3/uL; NRBC Flagged by Analyzer 0 % (0-5); Neutrophil # 4.02 X10^3/uL (2.7-7.7); Neutrophil % 60.4 % (47-70); Platelet Count 310 K/mm3 (150-450); RBC Distribution Width CV 13.5 % (11.6-14.6); RBC Distribution Width SD 52.9 fl (35.1-43.9); Red Blood Count 4.01 M/mm3 (4.2-5.4); White Blood Count 6.7 K/mm3 (4.4-11.0)
[2021-03-07 09:43] LABS: ALB/GLOB Ratio 1.1 RATIO (0.9-2.4); AST(SGOT) 15 U/L (15-37); Alanine Aminotransfer ALT/SGPT 25 U/L (13-56); Albumin, Serum 3.6 g/dL (3.2-5.0); Alkaline Phosphatase 58 U/L (45-117); Anion Gap 7 (5-15); BUN 18 mg/dL (7-18); Calcium,Total 9.1 mg/dL (8.5-10.1); Chloride 106 mmol/L (98-107); Creatinine, Serum 0.64 mg/dL (0.55-1.02); EST Glomerular Filtration Rate 96 mL/min (>60); Est Glom Filt Rate - Afr Amer 117 mL/min (>60); Globulin 3.3 g/dL (2.2-4.2); Glucose 89 mg/dL (74-106); Protein, Total 6.9 g/dL (6.4-8.2); Sodium Level 143 mmol/L (136-145)
== END ==
PROVIDERS: PCP Internal Medicine; Referring Provider Internal Medicine Rheumatology; Visit Provider Internal Medicine Rheumatology
DX: M06.4 Inflammatory polyarthropathy (principal); Z79.899 Other long term (current) drug therapy; M79.7 Fibromyalgia; M18.0 Bilateral primary osteoarthritis of first carpometacarpal joints; M51.36 Other intervertebral disc degeneration, lumbar region; M47.897 Other spondylosis, lumbosacral region; J44.9 Chronic obstructive pulmonary disease, unspecified; E11.9 Type 2 diabetes mellitus without complications; F43.23 Adjustment disorder with mixed anxiety and depressed mood; N32.81 Overactive bladder; G25.0 Essential tremor; M81.0 Age-related osteoporosis without current pathological fracture
CPT/HCPCS: 36415; 80053; 85025

== ENCOUNTER 2021-06-04 11:33 | Outpatient (CLI) | payer MEDICARE, OTHER, SELFPAY ==
--- NOTE | 2021-06-04 11:48 | RAD_ITS ---
STUDY: X-RAY - RIGHT KNEE REASON FOR EXAM: Female, 70 years old. PAIN TECHNIQUE: 4 view(s) of the knee. COMPARISON: 07/27/2020 FINDINGS: Normal visualized distal femur. Normal visualized proximal tibia and fibula. Normal proximal tibiofibular articulation. Normal medial femorotibial compartment. Normal lateral femorotibial compartment. Normal patellofemoral articulation. The soft tissue structures are unremarkable. RAD/Knee 4 or More Views IMPRESSION: Normal x-ray examination of the knee. Electronically Signed: Alfredo Blanc MD at 13:19 EST ,
--- NOTE | 2021-06-04 11:50 | RAD_ITS ---
STUDY: X-RAY - LEFT KNEE REASON FOR EXAM: Female, 70 years old. PAIN TECHNIQUE: 4 view(s) of the knee. COMPARISON: 04/26/1714 FINDINGS: Normal visualized distal femur. Normal visualized proximal tibia and fibula. Normal proximal tibiofibular articulation. Normal medial femorotibial compartment. Normal lateral femorotibial compartment. Normal patellofemoral articulation. The soft tissue structures are unremarkable. RAD/Knee 4 or More Views IMPRESSION: Normal x-ray examination of the knee. Electronically Signed: Alfredo Blanc MD at 13:19 EST ,
== END 2021-06-04 23:59 | disposition home or self-care (01) ==
PROVIDERS: PCP Internal Medicine; Referring Provider Anesthesiology Pain Medicine; Visit Provider Anesthesiology Pain Medicine
DX: M25.561 Pain in right knee (principal); M06.4 Inflammatory polyarthropathy; J44.9 Chronic obstructive pulmonary disease, unspecified; E11.9 Type 2 diabetes mellitus without complications; Z79.899 Other long term (current) drug therapy; M79.7 Fibromyalgia; M18.0 Bilateral primary osteoarthritis of first carpometacarpal joints; M51.36 Other intervertebral disc degeneration, lumbar region; M47.897 Other spondylosis, lumbosacral region; F43.23 Adjustment disorder with mixed anxiety and depressed mood; N32.81 Overactive bladder; G25.0 Essential tremor; M81.0 Age-related osteoporosis without current pathological fracture; M25.562 Pain in left knee
CPT/HCPCS: 73564

== ENCOUNTER 2021-06-05 07:33 | Outpatient (CLI) | payer MEDICARE, OTHER, SELFPAY ==
[2021-06-05 08:28] LABS: Absolute Lymphocyte Count 1.52 X10^3/uL (0.83-4.51); Basophil# 0.09 X10^3/uL; Basophil% 1.6 % (0-1); Eosinophil# 0.22 X10^3/uL; Hematocrit 40.4 % (37-47); Lymphocyte # 1.52 X10^3/ul (0.83-4.51); Lymphocyte % 27.6 % (19-41); Mean Corp Hgb Conc 34.7 g/dL (32-36); Mean Corpuscular Hgb 35.7 pg (27.0-32.0); Mean Corpuscular Volume 103.1 fL (81-99); Mean Platelet Vol. 8.7 fl (6.2-12.0); Monocyte# 0.64 X10^3/uL; Monocyte% 11.6 % (0-10); NRBC Flagged by Analyzer 0 % (0-5); Neutrophil # 3.01 X10^3/uL (2.7-7.7); Neutrophil % 54.8 % (47-70); Platelet Count 305 K/mm3 (150-450); RBC Distribution Width CV 14.7 % (11.6-14.6); RBC Distribution Width SD 55.3 fl (35.1-43.9); Red Blood Count 3.92 M/mm3 (4.2-5.4); White Blood Count 5.5 K/mm3 (4.4-11.0)
[2021-06-05 08:49] LABS: ALB/GLOB Ratio 1.1 RATIO (0.9-2.4); AST(SGOT) 23 U/L (15-37); Alanine Aminotransfer ALT/SGPT 28 U/L (13-56); Albumin, Serum 3.4 g/dL (3.2-5.0); Alkaline Phosphatase 68 U/L (45-117); Anion Gap 2 (5-15); BUN 16 mg/dL (7-18); BUN/Creat Ratio 25.4 RATIO (10-20); Calcium,Total 8.9 mg/dL (8.5-10.1); Chloride 109 mmol/L (98-107); Creatinine, Serum 0.63 mg/dL (0.55-1.02); EST Glomerular Filtration Rate 98 mL/min (>60); Est Glom Filt Rate - Afr Amer 119 mL/min (>60); Globulin 3.1 g/dL (2.2-4.2); Glucose 100 mg/dL (74-106); Potassium 4.1 mmol/L (3.5-5.1); Protein, Total 6.5 g/dL (6.4-8.2); Sodium Level 142 mmol/L (136-145)
== END 2021-06-05 23:59 | disposition home or self-care (01) ==
LOC: LAB 07:35
PROVIDERS: PCP Internal Medicine; Referring Provider Internal Medicine Rheumatology; Visit Provider Internal Medicine Rheumatology
DX: M06.4 Inflammatory polyarthropathy (principal); J44.9 Chronic obstructive pulmonary disease, unspecified; E11.9 Type 2 diabetes mellitus without complications; Z79.899 Other long term (current) drug therapy; M79.7 Fibromyalgia; M18.0 Bilateral primary osteoarthritis of first carpometacarpal joints; M51.36 Other intervertebral disc degeneration, lumbar region; M47.897 Other spondylosis, lumbosacral region; F43.23 Adjustment disorder with mixed anxiety and depressed mood; N32.81 Overactive bladder; G25.0 Essential tremor; M81.0 Age-related osteoporosis without current pathological fracture
CPT/HCPCS: 36415; 80053; 85025

== ENCOUNTER 2021-07-12 06:24 | Outpatient (CLI) | payer MEDICARE, OTHER, SELFPAY ==
[2021-07-12 07:51] LABS: Hemoglobin A1c 5.5 % (3.8-5.6)
[2021-07-12 08:30] LABS: Vitamin D,25 Hydroxy 57.4 ng/mL
== END 2021-07-12 23:59 | disposition home or self-care (01) ==
LOC: LAB 06:27
PROVIDERS: PCP Internal Medicine; Referring Provider Internal Medicine; Visit Provider Internal Medicine
DX: E11.9 Type 2 diabetes mellitus without complications (principal); E55.9 Vitamin D deficiency, unspecified; M81.0 Age-related osteoporosis without current pathological fracture
CPT/HCPCS: 36415; 82306; 83036

== ENCOUNTER → 2021-09-07 | Outpatient (CLI) | payer MEDICARE, OTHER, SELFPAY ==
[2021-09-07 06:50] LABS: Absolute Lymphocyte Count 0.82 X10^3/uL (0.83-4.51); Absolute Neutrophil Count 4.6 X10^3/uL (2.0-7.7); Basophil# 0.01 X10^3/uL; Basophil% 0.2 % (0-1); Hemoglobin 13.1 g/dL (12.0-15.0); Lymphocyte # 0.82 X10^3/ul (0.83-4.51); Lymphocyte % 14.4 % (19-41); Mean Corp Hgb Conc 33.6 g/dL (32-36); Mean Corpuscular Hgb 35.6 pg (27.0-32.0); Mean Platelet Vol. 8.8 fl (6.2-12.0); Monocyte# 0.27 X10^3/uL; Monocyte% 4.7 % (0-10); NRBC Flagged by Analyzer 0 % (0-5); Neutrophil # 4.58 X10^3/uL (2.7-7.7); Neutrophil % 80.3 % (47-70); Platelet Count 252 K/mm3 (150-450); RBC Distribution Width CV 14.5 % (11.6-14.6); RBC Distribution Width SD 56.1 fl (35.1-43.9); Red Blood Count 3.68 M/mm3 (4.2-5.4); White Blood Count 5.7 K/mm3 (4.4-11.0)
[2021-09-07 07:06] LABS: ALB/GLOB Ratio 1.2 RATIO (0.9-2.4); AST(SGOT) 11 U/L (15-37); Alanine Aminotransfer ALT/SGPT 23 U/L (13-56); Albumin, Serum 3.6 g/dL (3.2-5.0); Alkaline Phosphatase 54 U/L (45-117); Anion Gap 4 (5-15); BUN 22 mg/dL (7-18); BUN/Creat Ratio 29.7 RATIO (10-20); Chloride 108 mmol/L (98-107); Creatinine, Serum 0.74 mg/dL (0.55-1.02); EST Glomerular Filtration Rate 82 mL/min (>60); Est Glom Filt Rate - Afr Amer 99 mL/min (>60); Globulin 3.1 g/dL (2.2-4.2); Glucose 109 mg/dL (74-106); Potassium 4.3 mmol/L (3.5-5.1); Protein, Total 6.7 g/dL (6.4-8.2); Sodium Level 140 mmol/L (136-145)
== END | disposition home or self-care (01) ==
PROVIDERS: PCP Internal Medicine; Referring Provider Internal Medicine Rheumatology; Visit Provider Internal Medicine Rheumatology
DX: M06.4 Inflammatory polyarthropathy (principal); J44.9 Chronic obstructive pulmonary disease, unspecified; E11.9 Type 2 diabetes mellitus without complications; Z79.899 Other long term (current) drug therapy; M79.7 Fibromyalgia; M18.0 Bilateral primary osteoarthritis of first carpometacarpal joints; M51.36 Other intervertebral disc degeneration, lumbar region; M47.897 Other spondylosis, lumbosacral region; F43.23 Adjustment disorder with mixed anxiety and depressed mood; N32.81 Overactive bladder; G25.0 Essential tremor; M81.0 Age-related osteoporosis without current pathological fracture
CPT/HCPCS: 36415; 80053; 85025

== ENCOUNTER → 2021-09-11 | Outpatient (CLI) | payer MEDICARE, OTHER, SELFPAY ==
--- NOTE | 2021-09-11 16:17 | RAD_ITS ---
EXAM: XR RIGHT TIBIA AND FIBULA, 2 VIEWS CLINICAL INDICATION: fall medially TECHNIQUE: Frontal and lateral views of the right tibia and fibula. This report was created using [employer] report generation technology. COMPARISON: None. FINDINGS: BONES/JOINTS: Unremarkable. No acute fracture. No subluxation. Normal alignment. Preservation of the joint space. No sclerotic or destructive changes observed. SOFT TISSUES: Unremarkable. No soft tissue swelling or gas. No radiopaque foreign body. RAD/Tibia & Fibula 2 Views IMPRESSION: Negative right tibia and fibula x-rays. Electronically Signed: Dionicio Kline MD at 16:54 EDT ,
== END | disposition home or self-care (01) ==
LOC: MTRAD 16:17
PROVIDERS: PCP Internal Medicine; Referring Provider Physician Assistant Surgical; Visit Provider Physician Assistant Surgical
DX: S80.11XA Contusion of right lower leg, initial encounter (principal)
CPT/HCPCS: 73590

== ENCOUNTER → 2021-09-17 | Outpatient (CLI) | payer MEDICARE, OTHER, SELFPAY ==
--- NOTE | 2021-09-17 08:03 | CT_ITS ---
STUDY: LOW DOSE CT LUNG CANCER SCREENING REASON FOR EXAM: Female, 71 years old. Smoker and gt; 50 pack years RADIATION DOSAGE (If Supplied By Facility): CTDIvol = ( 1.58 ) mGy, DLP = ( 51.81 ) mGycm TECHNIQUE: No contrast was administered. Low dose technique was utilized (average mAS-38 and kVp 120). 1.25 mm axial source images with a slice interval of 1.25-mm were reconstructed in lung windows. 2.5 mm axial source images with a slice interval of 2.5-mm were reconstructed in lung windows. 5.0 mm axial source images with a slice interval of 5.0-mm were reconstructed in soft tissue windows. COMPARISON: Comparison is made with prior examination dated 09/13/2020. NODULES: No suspicious nodules are seen. Emphysema: Diffuse emphysematous changes with bullous formation worse in the upper lobes. Stable scarring at the lung apices bilaterally worse on the right side. There is a new atelectasis/infiltration in the posterior medial segment of the left lower lobe with a air bronchograms. Findings uterus with a small left pleural effusion. Endobronchial lesion: No endobronchial abnormality is seen although endoscopy is recommended due to the volume loss in the left lower lobe. Aorta: Atherosclerotic calcific plaques. CORONARY ARTERIES: Coronary artery calcification Heart: Minimal anterior pericardial thickening. Pulmonary artery: Unremarkable Mediastinal nodes: Small mediastinal lymph nodes. Other chest and abdominal findings: CT/Low Dose CT Lung Screening IMPRESSION: Lung-RADS category 4A - Screening at 3 months with LDCT or evaluation with PET/CT may be used. IMPORTANT NOTES FOR USE: ACR Lung-RADS Version 1.1 Assessment Categories Release Date: 2018 Category: Coded 0-4 bases on nodule(s) with highest degree of suspicion. Negative screen is defined as categories 1 and 2; a positive screen is defined as categories 3 and 4. Category 3 and 4A nodules that are unchanged on interval CT should be coded as category 2, and individuals returned to screening in 12 months. Category 4X: Category 3 or 4 nodules with additional imaging findings that increase the suspicion of lung cancer, such as spiculation, GGN that doubles in size in 1 year, enlarged lymph notes, etc. Category Modifiers: S (significant finding unrelated to lung cancer) Electronically Signed: Jonnie Allen MD at 12:34 EDT ,
== END | disposition home or self-care (01) ==
LOC: CT 07:51
PROVIDERS: PCP Internal Medicine; Visit Provider Nurse Practitioner Acute Care
DX: F17.210 Nicotine dependence, cigarettes, uncomplicated (principal)
CPT/HCPCS: 71271

== ENCOUNTER 2021-11-01 06:21 | Outpatient (CLI) | payer MEDICARE, OTHER, SELFPAY ==
[2021-11-01 07:44] LABS: ALB/GLOB Ratio 1.2 RATIO (0.9-2.4); AST(SGOT) 12 U/L (15-37); Alanine Aminotransfer ALT/SGPT 22 U/L (13-56); Albumin, Serum 3.8 g/dL (3.2-5.0); Alkaline Phosphatase 58 U/L (45-117); Anion Gap 6 (5-15); BUN 14 mg/dL (7-18); BUN/Creat Ratio 22.7 RATIO (10-20); Calcium,Total 9.3 mg/dL (8.5-10.1); Chloride 107 mmol/L (98-107); Creatinine, Serum 0.62 mg/dL (0.55-1.02); EST Glomerular Filtration Rate 101 mL/min (>60); Est Glom Filt Rate - Afr Amer 122 mL/min (>60); Globulin 3.3 g/dL (2.2-4.2); Glucose 98 mg/dL (74-106); Potassium 4.1 mmol/L (3.5-5.1); Protein, Total 7.1 g/dL (6.4-8.2); Sodium Level 142 mmol/L (136-145)
[2021-11-01 08:22] LABS: Hemoglobin A1c 5.7 % (3.8-5.6)
== END 2021-11-01 23:59 | disposition home or self-care (01) ==
LOC: LAB 06:24
PROVIDERS: PCP Internal Medicine; Referring Provider Internal Medicine; Visit Provider Internal Medicine
DX: E11.9 Type 2 diabetes mellitus without complications (principal); Z86.79 Personal history of other diseases of the circulatory system
CPT/HCPCS: 36415; 80053; 83036

== ENCOUNTER → 2021-11-23 | Outpatient (CLI) | payer MEDICARE, OTHER, SELFPAY ==
[2021-11-23 06:45] LABS: Absolute Lymphocyte Count 2.27 X10^3/uL (0.83-4.51); Absolute Neutrophil Count 2.9 X10^3/uL (2.0-7.7); Basophil# 0.06 X10^3/uL; Eosinophil# 0.25 X10^3/uL; Eosinophils% 4.1 % (0-5); Hematocrit 42.7 % (37-47); Lymphocyte # 2.27 X10^3/ul (0.83-4.51); Lymphocyte % 37.3 % (19-41); Mean Corp Hgb Conc 32.8 g/dL (32-36); Mean Corpuscular Hgb 35.4 pg (27.0-32.0); Mean Corpuscular Volume 107.8 fL (81-99); Mean Platelet Vol. 8.6 fl (6.2-12.0); Monocyte# 0.58 X10^3/uL; Monocyte% 9.5 % (0-10); NRBC Flagged by Analyzer 0 % (0-5); Neutrophil % 47.8 % (47-70); Platelet Count 254 K/mm3 (150-450); RBC Distribution Width CV 14.9 % (11.6-14.6); RBC Distribution Width SD 59.1 fl (35.1-43.9); Red Blood Count 3.96 M/mm3 (4.2-5.4); White Blood Count 6.1 K/mm3 (4.4-11.0)
[2021-11-23 07:29] LABS: ALB/GLOB Ratio 1.1 RATIO (0.9-2.4); AST(SGOT) 18 U/L (15-37); Alanine Aminotransfer ALT/SGPT 28 U/L (13-56); Albumin, Serum 3.5 g/dL (3.2-5.0); Alkaline Phosphatase 58 U/L (45-117); Anion Gap 4 (5-15); BUN 17 mg/dL (7-18); BUN/Creat Ratio 26.5 RATIO (10-20); Calcium,Total 9.6 mg/dL (8.5-10.1); Chloride 107 mmol/L (98-107); Creatinine, Serum 0.64 mg/dL (0.55-1.02); EST Glomerular Filtration Rate 96 mL/min (>60); Est Glom Filt Rate - Afr Amer 116 mL/min (>60); Globulin 3.2 g/dL (2.2-4.2); Glucose 99 mg/dL (74-106); Potassium 4.2 mmol/L (3.5-5.1); Protein, Total 6.7 g/dL (6.4-8.2); Sodium Level 141 mmol/L (136-145)
== END | disposition home or self-care (01) ==
LOC: LAB 06:05
PROVIDERS: PCP Internal Medicine; Referring Provider Internal Medicine Rheumatology; Visit Provider Internal Medicine Rheumatology
DX: M06.4 Inflammatory polyarthropathy (principal); J44.9 Chronic obstructive pulmonary disease, unspecified; E11.9 Type 2 diabetes mellitus without complications; Z79.899 Other long term (current) drug therapy; M79.7 Fibromyalgia; M18.0 Bilateral primary osteoarthritis of first carpometacarpal joints; M51.36 Other intervertebral disc degeneration, lumbar region; M47.897 Other spondylosis, lumbosacral region; F43.23 Adjustment disorder with mixed anxiety and depressed mood; N32.81 Overactive bladder; G25.0 Essential tremor; M81.0 Age-related osteoporosis without current pathological fracture; M17.0 Bilateral primary osteoarthritis of knee
CPT/HCPCS: 36415; 80053; 85025

== ENCOUNTER → 2021-12-03 | Outpatient (CLI) | payer MEDICARE, OTHER, SELFPAY ==
--- NOTE | 2021-12-03 17:05 | MRI_ITS ---
STUDY: MR Spine Lumbar W/O Contrast 12/03/2021 6:19 PM REASON FOR EXAM: Female, 71 years old. Back pain RADICULOPATHY, LUMBAR REGION Technologist Notes Other, PATIENT FELL ABOUT 2 MONTHS AGO WHEN TRIPPED BY DOG. PAIN POSTERIOR LEFT HIP AREA. TECHNIQUE: MR Spine Lumbar W/O Contrast Standardized fat and water weighted pulse sequences were obtained. COMPARISON: MR LUMBAR 01/16/17. XR LUMBAR SPINE 08/08/17 FINDINGS: T12-L1: Normal endplates. Normal disc height, hydration and morphology. Normal bilateral facet joints. Normal central canal and bilateral lateral recesses. Normal bilateral intervertebral neural foramina. Normal lumbar lordosis. There is no substantial scoliosis. Normal conus medullaris that terminates at the L1. There are atherosclerotic vascular calcifications. L1-2: Loss of intervertebral disc height. There is endplate spondylosis of the vertebral body. Normal central canal and intervertebral neuroforamina. There is bilateral facet arthropathy. L2-3: Loss of intervertebral disc height. There is endplate spondylosis of the vertebral body. Normal central canal and intervertebral neuroforamina. There is bilateral facet arthropathy. L3-4: Loss of intervertebral disc height. There is endplate spondylosis of the vertebral body. Normal central canal and intervertebral neuroforamina. There is bilateral facet arthropathy. There is bilateral ligamentum flavum thickening. Posterior disc bulge. L4-5: Loss of intervertebral disc height. There is endplate spondylosis of the vertebral body. Normal central canal and intervertebral neuroforamina. There is bilateral facet arthropathy. There is bilateral ligamentum flavum thickening. Posterior disc bulge. L5-S1: Loss of intervertebral disc height. There is endplate spondylosis of the vertebral body. Normal central canal and intervertebral neuroforamina. There is bilateral facet arthropathy. There is bilateral ligamentum flavum thickening. Posterior disc bulge. Normal visualized sacral ala. Normal visualized paraspinous soft tissue structures. MRI/Spine Lumbar (Routine) IMPRESSION: Multilevel degenerative changes, as described above. No significant interval changes when compared to 01/16/17. Electronically Signed: Dionicio Kline MD at 18:23 EDT ,
== END | disposition home or self-care (01) ==
LOC: MRI 16:51
PROVIDERS: PCP Internal Medicine; Visit Provider Anesthesiology Pain Medicine
DX: M54.16 Radiculopathy, lumbar region (principal)
CPT/HCPCS: 72148

== ENCOUNTER 2022-03-11 14:50 | Outpatient (CLI) | payer MEDICARE, OTHER, SELFPAY ==
--- NOTE | 2022-03-11 14:55 | BI_ITS ---
MAMMOGRAPHY - BILATERAL SCREENING REASON FOR EXAM: Female, 71 years old. Routine annual screening examination. PERTINENT HISTORY: Non-contributory. TECHNIQUE: Digital bilateral breast nadeen (3D mammographic acquisition) in the CC and MLO projections. 2-D mediolateral oblique (MLO) and craniocaudad (CC) views of both breasts were obtained. CAD: Full Field Digital Mammography with Computer Added Detection was performed. COMPARISON: Comparison is made with prior study 12/05/2020 and 11/12/2018. FINDINGS: Breast Composition: There are scattered areas of fibroglandular density. There are no dominant masses or suspicious calcifications. No other significant abnormalities are identified. There has been no significant change since the prior study. BI/SCRN MAMM (CAD)W/NADEEN BILAT IMPRESSION: Stable bilateral screening mammogram. Yearly follow-up mammogram recommended. (A) ASSESSMENT CATEGORY: BIRADS Category 1: Negative. A letter regarding these results will be sent to the patient by the facility within 30 days. Approximately 10% of breast cancers are not detected by mammography. A normal mammogram should not delay biopsy of a clinically suspicious abnormality. [id number] Electronically Signed: Jonnie Allen MD at 8:02 EST ,
--- NOTE | 2022-03-11 15:41 | MRI_ITS ---
STUDY: MRI LUMBAR SPINE WITHOUT CONTRAST REASON FOR EXAM: Female, 71 years old. RADICULOPATHY TECHNIQUE: Standardized fat and water weighted pulse sequences were obtained in the sagittal and axial planes. COMPARISON: 12/03/2021 FINDINGS: T12-L1: Normal endplates. Normal disc height, hydration and morphology. Normal bilateral facet joints. Normal central canal and bilateral lateral recesses. Normal bilateral intervertebral neural foramina. Normal lumbar lordosis. There is no substantial scoliosis. Normal conus medullaris that terminates at the level of L2 L1-2: Normal endplates. Minimal disc bulge. Normal bilateral facet joints. Normal central canal and bilateral lateral recesses. Normal bilateral intervertebral neural foramina. L2-3: Normal endplates. Minimal disc bulge. Normal bilateral facet joints. Normal central canal and bilateral lateral recesses. Normal bilateral intervertebral neural foramina. L3-4: Normal endplates. Mild disc bulge. Normal bilateral facet joints. Normal central canal and bilateral lateral recesses. Normal bilateral intervertebral neural foramina. L4-5: Normal endplates. Disc bulge. Normal bilateral facet joints. Normal central canal and bilateral lateral recesses. Normal bilateral intervertebral neural foramina. L5-S1: Normal endplates. Mild disc bulge. Mild left facet arthrosis. Normal central canal and bilateral lateral recesses. Mild left neural foraminal stenosis. Normal visualized sacral ala. There is moderate paraspinal muscular atrophy. MRI/Spine Lumbar (Routine) IMPRESSION: Mild left L5-S1 neural foraminal stenosis, similar to 12/03/2021. Moderate paraspinal muscular atrophy, increased compared 12/03/2021. Electronically Signed: Albert Gilman MD at 21:38 EST ,
== END 2022-03-11 23:59 | disposition home or self-care (01) ==
PROVIDERS: PCP Internal Medicine; Visit Provider Anesthesiology Pain Medicine
DX: Z12.31 Encounter for screening mammogram for malignant neoplasm of breast (principal); M48.061 Spinal stenosis, lumbar region without neurogenic claudication; M62.50 Muscle wasting and atrophy, not elsewhere classified, unspecified site; M47.816 Spondylosis without myelopathy or radiculopathy, lumbar region; M48.07 Spinal stenosis, lumbosacral region; M54.16 Radiculopathy, lumbar region
CPT/HCPCS: 72148; 77063; 77067

== ENCOUNTER 2022-03-12 07:57 | Outpatient (CLI) | payer MEDICARE, OTHER, SELFPAY ==
[2022-03-12 08:16] LABS: Absolute Lymphocyte Count 1.89 X10^3/uL (0.83-4.51); Absolute Neutrophil Count 3.5 X10^3/uL (2.0-7.7); Basophil# 0.12 X10^3/uL; Basophil% 1.9 % (0-1); Eosinophil# 0.32 X10^3/uL; Eosinophils% 4.9 % (0-5); Hematocrit 42.9 % (37-47); Hemoglobin 14.2 g/dL (12.0-15.0); Lymphocyte # 1.89 X10^3/ul (0.83-4.51); Lymphocyte % 29.2 % (19-41); Mean Corp Hgb Conc 33.1 g/dL (32-36); Mean Corpuscular Hgb 35.1 pg (27.0-32.0); Mean Corpuscular Volume 105.9 fL (81-99); Mean Platelet Vol. 8.7 fl (6.2-12.0); Monocyte# 0.59 X10^3/uL; Monocyte% 9.1 % (0-10); NRBC Flagged by Analyzer 0 % (0-5); Neutrophil # 3.53 X10^3/uL (2.7-7.7); Neutrophil % 54.6 % (47-70); Platelet Count 310 K/mm3 (150-450); RBC Distribution Width CV 14.1 % (11.6-14.6); Red Blood Count 4.05 M/mm3 (4.2-5.4); White Blood Count 6.5 K/mm3 (4.4-11.0)
[2022-03-12 08:38] LABS: ALB/GLOB Ratio 1.2 RATIO (0.9-2.4); AST(SGOT) 14 U/L (15-37); Alanine Aminotransfer ALT/SGPT 22 U/L (13-56); Albumin, Serum 3.7 g/dL (3.2-5.0); Alkaline Phosphatase 62 U/L (45-117); Anion Gap 1 (5-15); BUN 19 mg/dL (7-18); BUN/Creat Ratio 28.8 RATIO (10-20); Calcium,Total 9.2 mg/dL (8.5-10.1); Chloride 110 mmol/L (98-107); Cholesterol 201 mg/dL (200); Creatinine, Serum 0.66 mg/dL (0.55-1.02); EST Glomerular Filtration Rate 93 mL/min (>60); Est Glom Filt Rate - Afr Amer 113 mL/min (>60); Glucose 99 mg/dL (74-106); High Density Lipoprotein 72 mg/dL; Potassium 4.5 mmol/L (3.5-5.1); Protein, Total 6.7 g/dL (6.4-8.2); Sodium Level 142 mmol/L (136-145); Triglycerides 86 mg/dL; Very Low Density Lipoprotein 17 mg/dL (5-40)
[2022-03-12 08:45] LABS: Hemoglobin A1c 5.7 % (3.8-5.6)
== END 2022-03-12 23:59 | disposition home or self-care (01) ==
LOC: LAB 08:01
PROVIDERS: PCP Internal Medicine; Referring Provider Internal Medicine; Visit Provider Internal Medicine
DX: M06.4 Inflammatory polyarthropathy (principal); J44.9 Chronic obstructive pulmonary disease, unspecified; E11.9 Type 2 diabetes mellitus without complications; Z86.79 Personal history of other diseases of the circulatory system; Z79.899 Other long term (current) drug therapy; M51.36 Other intervertebral disc degeneration, lumbar region; M47.897 Other spondylosis, lumbosacral region; F43.23 Adjustment disorder with mixed anxiety and depressed mood; N32.81 Overactive bladder; M81.0 Age-related osteoporosis without current pathological fracture; M17.0 Bilateral primary osteoarthritis of knee; M18.0 Bilateral primary osteoarthritis of first carpometacarpal joints
CPT/HCPCS: 36415; 80053; 80061; 83036; 85025

== ENCOUNTER → 2022-04-12 | Outpatient (CLI) | payer MEDICARE, OTHER, SELFPAY ==
[2022-04-12 11:26] LABS: Amphetamine Urine VISTA NEGATIVE (<1000 ng/mL); Barbiturate Urine VISTA NEGATIVE (< 200 ng/mL); Benzodiazepine Urine VISTA NEGATIVE (< 200 ng/mL); Cocaine Urine VISTA NEGATIVE (< 300 ng/mL); Ecstacy Urine VISTA NEGATIVE (< 500 ng/mL); Methadone Urine VISTA NEGATIVE (< 300 ng/mL); PCP Urine VISTA NEGATIVE (< 25 ng/mL); THC Urine VISTA NEGATIVE (< 50 ng/mL); Vista UDS pH Range 5
== END | disposition home or self-care (01) ==
PROVIDERS: PCP Internal Medicine; Referring Provider Anesthesiology Pain Medicine; Visit Provider Anesthesiology Pain Medicine
DX: F11.20 Opioid dependence, uncomplicated (principal)
CPT/HCPCS: 80307

== ENCOUNTER → 2022-06-03 | Outpatient (CLI) | payer MEDICARE, OTHER, SELFPAY ==
--- NOTE | 2022-06-03 09:24 | RAD_ITS ---
STUDY: X-RAY CHEST REASON FOR EXAM: Female, 71 years old. Chronic shortness of breath and cough. TECHNIQUE: Frontal and lateral views of the chest. COMPARISON: January 08, 2021. FINDINGS: Marked hyperinflation, hyperlucency and flattening of the hemidiaphragms compatible with COPD. Mild diffuse interstitial pattern in both lower lobes, unchanged. Scattered few parenchymal granulomatous calcifications unchanged. There is no demonstrated pleural abnormality. Cardiomegaly unchanged. Normal mediastinum and otilia. Normal visualized pulmonary arteries. Stable aortic tortuosity. Normal visualized thoracic spine. Normal visualized ribs, clavicles, and shoulders. There is no demonstrated abnormality of the visualized soft tissue structures of the upper abdomen. RAD/Chest PA and Lateral IMPRESSION: Stable cardiomegaly, changes of COPD and mild diffuse interstitial pattern in both bases. No acute or active cardiopulmonary disease. Electronically Signed: Yasir Martínez, at 10:33 EST ,
== END | disposition home or self-care (01) ==
LOC: RAD 09:16
PROVIDERS: PCP Internal Medicine; Referring Provider Internal Medicine; Visit Provider Internal Medicine
DX: J43.9 Emphysema, unspecified (principal); R06.02 Shortness of breath; R05.3 Chronic cough
CPT/HCPCS: 71046

== ENCOUNTER → 2022-06-12 | Outpatient (CLI) | payer MEDICARE, OTHER, SELFPAY ==
[2022-06-12 08:16] LABS: Absolute Lymphocyte Count 2.59 X10^3/uL (0.83-4.51); Basophil# 0.09 X10^3/uL; Basophil% 1.2 % (0-1); Eosinophil# 0.17 X10^3/uL; Eosinophils% 2.3 % (0-5); Hematocrit 42.5 % (37-47); Lymphocyte # 2.59 X10^3/ul (0.83-4.51); Lymphocyte % 35.4 % (19-41); Mean Corp Hgb Conc 32.9 g/dL (32-36); Mean Corpuscular Hgb 35.1 pg (27.0-32.0); Mean Corpuscular Volume 106.5 fL (81-99); Mean Platelet Vol. 8.6 fl (6.2-12.0); Monocyte# 0.44 X10^3/uL; NRBC Flagged by Analyzer 0 % (0-5); Neutrophil % 54.7 % (47-70); Platelet Count 375 K/mm3 (150-450); RBC Distribution Width CV 15.1 % (11.6-14.6); RBC Distribution Width SD 59.2 fl (35.1-43.9); Red Blood Count 3.99 M/mm3 (4.2-5.4); White Blood Count 7.3 K/mm3 (4.4-11.0)
[2022-06-12 08:53] LABS: ALB/GLOB Ratio 1.1 RATIO (0.9-2.4); AST(SGOT) 14 U/L (15-37); Alanine Aminotransfer ALT/SGPT 26 U/L (13-56); Albumin, Serum 3.5 g/dL (3.2-5.0); Alkaline Phosphatase 54 U/L (45-117); Anion Gap 5 (5-15); BUN 15 mg/dL (7-18); BUN/Creat Ratio 21.8 RATIO (10-20); Calcium,Total 9.3 mg/dL (8.5-10.1); Chloride 108 mmol/L (98-107); Creatinine, Serum 0.69 mg/dL (0.55-1.02); EST Glomerular Filtration Rate 89 mL/min (>60); Est Glom Filt Rate - Afr Amer 107 mL/min (>60); Globulin 3.1 g/dL (2.2-4.2); Glucose 95 mg/dL (74-106); Potassium 4.1 mmol/L (3.5-5.1); Protein, Total 6.6 g/dL (6.4-8.2); Sodium Level 143 mmol/L (136-145)
== END | disposition home or self-care (01) ==
LOC: LAB 07:18
PROVIDERS: PCP Internal Medicine; Referring Provider Internal Medicine Rheumatology; Visit Provider Internal Medicine Rheumatology
DX: M06.4 Inflammatory polyarthropathy (principal); Z79.899 Other long term (current) drug therapy
CPT/HCPCS: 36415; 80053; 85025

== ENCOUNTER → 2022-07-04 | Outpatient (CLI) | payer MEDICARE, OTHER, SELFPAY | END | disposition home or self-care (01) | LOC: SL 13:15 | PROVIDERS: PCP Internal Medicine; Visit Provider Internal Medicine | DX: R06.00 Dyspnea, unspecified (principal); J43.9 Emphysema, unspecified | CPT/HCPCS: 94762 ==

== ENCOUNTER 2022-07-17 12:30 | Outpatient (RCR) | payer MEDICARE, OTHER, SELFPAY ==
--- NOTE | 2022-07-02 12:39 | HP.PTEVAL ---
Patient's Visit Information ASHANTI JUDGE is a 71 year old F referred to Physical Therapy by Dr. Salvador Meeks DO with a diagnosis of L trochanteric bursitis and L/S spondylosis. Date of Evaluation: 07/02/22 Physical Therapist: Mushtaq Sellers, DPT, OCS, CSCS - Visit Plan Frequency: 2x /Week Duration: 4-6 Weeks Plan: 2x/week for 4-6 weeks for. 1. rollout and stretch piriformis and ITB L. 2. ROM and NS education LB. 3.core adn hip strength to HEP - Subjective Chronic back pain managed by shannan and sent to [facility] as pain management was not helping. Pain is in back and L hip posterio lateral. it has been about 6 months worth of pain. Not sure what started it. Has seen pain management for injections. Has had nerve burning 7 yrs ago. been seeing Sh[facility] 11 yrs overall. [facility] gave injection in her rear end and sent for therapy. Injection did not help. Pain in L buttock near LB and gets to 8/10 intermittently sharply as it will jerk her for no apparent reason. Hurts all the time at least sore. Sleep is not interrupted, uses hemp oil at night. Not employed. Feels OK in am and then it gets sore. Worse up and moving. Lives with , home. Does basic ADLs but sharp pain limits her. No regular exercises, spends day sitting and sewing. No falls and uses cane to get around some of time but not all. - Pain L LBP Pain Intensity (Out of 10): 3 Pain Intensity Range: 3, 8 - Objective Gait mod I with cane L UE.Mild L antalgia. Trasnfers I with UE. Balance is good. Posture is forward head and kyphotic t/s starting up. UE AROM WFL. LE AROM WFL, very tight in L piriformis and ITB and HS moreso than R. Tender to touch in L gluts and piriformis, less so on trochanter L. [id number] 2/3 patella and achilles B. Sensation LE WNL to gross light touch. strength hips 3/5 abd and ext B hips with pain L , flexion 3+ B. knees 4- B HS and quad without pain. ankles 4- B. - slump, - SLR - Balance/Special Test Scores Lower Extremity Functional Score: 29 - Goals Goal 1:: Pain jerking abolished for one week and 2/10 at worst, improved by 75%. Goal Time Frame: 4-6 Weeks Goal 2:: I appropriate HEP to limit future problem(hip stretching adn strength adn core/NS strength Goal Time Frame: 4-6 Weeks Goal 3:: Patient ambulate without antalgia in community Goal Time Frame: 4-6 Weeks Goal 4:: LEFS 55 Goal Time Frame: 4-6 Weeks - Rehabilitation Potential Physical Therapy Diagnosis: degenerative changes in LB and hip stab inflammation causing discomfort. Rehabilitation Potential: Fair - Anticipated Interventions Patient/Client Instruction: Educate patient on: Condition, Plan of Care For the Purpose of:: To decrease pain, To increase ROM, To improve nutrient delivery to tissue, To improve muscle performance and motor function, To increase tolerance to activity/condition/position, To improve ability of physical actions for home/community/work/leisure Therapeutic Exercise to Include: Strength training, Postural training, Flexibilty training, Passive ROM, Active ROM, Dynamic Lumbar Stabilization For the Purpose of:: To decrease pain, To increase ROM, To improve nutrient delivery to tissue, To improve muscle performance and motor function Manual Therapy Techniques to Include: Mobilization, Passive ROM, Soft tissue mobilization For the Purpose of:: To decrease pain, To increase ROM, To improve nutrient delivery to tissue Thermo therapy (hot pack): Yes For the Purpose of:: To decrease pain Thank you for the opportunity to evaluate your patient. For Medicare and Medicare HMO plans, please review the plan of care and approve it. It will need to be FAXED BACK to us at [phone] for Medicare purposes. For Medicare only, by signing this I certify the plan of care. Please let me know if there are questions or concerns regarding this plan of care. Physician Signature: Date:
--- NOTE | 2022-09-24 13:26 | HP.PT.NRP ---
ASHANTI JUDGE was seen in my office for initial evaluation on 07/02/22. The following Plan of Care was established for this patient: Initial Frequency: 2x /Week Initial Duration: 4-6 Weeks Patient/Client Instruction: Educate patient on: Condition, Plan of Care For the Purpose of:: To decrease pain, To increase ROM, To improve nutrient delivery to tissue, To improve muscle performance and motor function, To increase tolerance to activity/condition/position, To improve ability of physical actions for home/community/work/leisure Therapeutic Exercise to Include: Strength training, Postural training, Flexibilty training, Passive ROM, Active ROM, Dynamic Lumbar Stabilization For the Purpose of:: To decrease pain, To increase ROM, To improve nutrient delivery to tissue, To improve muscle performance and motor function Manual Therapy Techniques to Include: Mobilization, Passive ROM, Soft tissue mobilization For the Purpose of:: To decrease pain, To increase ROM, To improve nutrient delivery to tissue Thermo therapy (hot pack): Yes For the Purpose of:: To decrease pain This patient was last seen in our office 07/17/22. Pertinent comments regarding their Physical therapy will appear below: Pt seen for 3 visits of POC and cancelled the next and remaining stating whole body hurts. At this point, it has been over 2 months and I will discontinue due to nonattendance. At this point I will be discontinuing this patient from physical therapy. I would be happy to see this patient again in the future if found appropriate by the physician. Thank you! Mushtaq Sellers, DPT, OCS, CSCS Balance/Gait/Functional tests - Balance/Special Test Scores Lower Extremity Functional Score: 29
== END 2022-07-17 19:00 | disposition home or self-care (01) ==
LOC: PT 12:30
PROVIDERS: PCP Internal Medicine; Referring Provider Orthopaedic Surgery; Visit Provider Orthopaedic Surgery
DX: M70.60 Trochanteric bursitis, unspecified hip (principal); M47.816 Spondylosis without myelopathy or radiculopathy, lumbar region
CPT/HCPCS: 97110; 97161

== ENCOUNTER → 2022-09-10 | Outpatient (CLI) | payer MEDICARE, OTHER, SELFPAY ==
[2022-09-10 11:15] VITALS: PULSE 81; PULSE 83; PULSE 94; PULSE 95; PULSE 96; PULSE 99; O2SAT 91; O2SAT 92; O2SAT 93; O2SAT 94
--- NOTE | 2022-09-10 15:41 | PFT ---
6-minute walk test Indications: COPD Referring provider: Dede Napoles NP Conditions: Room air Assistive device: Cane The patient completed the 6-minute walk test. Baseline SPO2 was 93%. Minimum ambulatory SPO2 was 92% at 6 minutes. The minimum heart rate was 81 bpm at baseline, maximum was 99 bpm at 3 minutes. Posttest SPO2 was 94% and heart rate 83 bpm. The Gilmer dyspnea scale was 1 at preexercise, and 3 at maximum exercise. The Gilmer exertion scale was 6 at baseline and 13 at maximum exercise. The patient took no rests during the test and reported no symptoms. The patient walked 11 laps, for a total distance of 649 feet. Ruben Leigh MD [facility]
--- NOTE | 2022-09-10 15:46 | PFT_ITS ---
Pulmonary, sleep and neurology services [address] [address] 6-minute walk test Indication: COPD Referring provider: Dede Napoles NP [employer] Conditions: Room air, assisted device used, cane. The patient walked for 6 minutes. Baseline SPO2 was 93%. Minimum ambulatory SPO2 was 91% at minute 3. Minimum heart rate was 81% during pretest. Maximum heart rate was 99% at minute 3. Posttest SPO2 was 94%. Heart rate was 83 bpm. The Gilmer dyspnea score 0-10: Was 1 at baseline, and 3 during exercise, The Gilmer exertion scale (6-20) was 6 at pretest and 13 at maximum exercise. The patient took no rests during the test. Symptoms reported: None. The patient walked 11 laps, for a distance of 649 feet. Ruben Leigh MD [facility] September 10, 2022
== END | disposition home or self-care (01) ==
LOC: PSN 10:56
PROVIDERS: PCP Internal Medicine; Referring Provider Nurse Practitioner Acute Care; Visit Provider Nurse Practitioner Acute Care
DX: J44.9 Chronic obstructive pulmonary disease, unspecified (principal)
CPT/HCPCS: 94618

== ENCOUNTER → 2022-09-19 | Outpatient (CLI) | payer MEDICARE, OTHER, SELFPAY ==
--- NOTE | 2022-09-19 12:53 | CT_ITS ---
STUDY: LOW DOSE CT LUNG CANCER SCREENING REASON FOR EXAM: Female, 72 years old. Former smoker. 56 pack-year history: One year ago. RADIATION DOSAGE (If Supplied By Facility): CTDIvol = ( 1.56 ) mGy, DLP = ( 48.83 ) mGycm TECHNIQUE: No contrast was administered. Low dose technique was utilized (average mAS-38 and kVp 120). 1.25 mm axial source images with a slice interval of 1.25-mm were reconstructed in lung windows. 2.5 mm axial source images with a slice interval of 2.5-mm were reconstructed in lung windows. 5.0 mm axial source images with a slice interval of 5.0-mm were reconstructed in soft tissue windows. COMPARISON: September 17, 2021. NODULES: Again seen are small calcific densities in bilateral lung apices. Total lung nodules (excluding granulomas): 0 Emphysema: Diffuse emphysematous changes with bilateral apical pleural scarring. This is unchanged. There is resolution of the collapse of the medial right lower lobe seen on the previous examination. Endobronchial lesion: None Aorta: Stable atherosclerotic changes of the thoracic aorta without aneurysm. CORONARY ARTERIES: Stable coronary artery calcifications. Heart: Normal Pulmonary artery: Slight prominence of the central pulmonary arteries. Question pulmonary hypertension. Mediastinal nodes: None Other chest and abdominal findings: Mild degenerative changes of the thoracic spine. CT/Low Dose CT Lung Screening IMPRESSION: Lung-RADS category 1 - Continue annual screening with LDCT in 12 months. IMPORTANT NOTES FOR USE: ACR Lung-RADS Version 1.1 Assessment Categories Release Date: 2018 Category: Coded 0-4 bases on nodule(s) with highest degree of suspicion. Negative screen is defined as categories 1 and 2; a positive screen is defined as categories 3 and 4. Category 3 and 4A nodules that are unchanged on interval CT should be coded as category 2, and individuals returned to screening in 12 months. Category 4X: Category 3 or 4 nodules with additional imaging findings that increase the suspicion of lung cancer, such as spiculation, GGN that doubles in size in 1 year, enlarged lymph notes, etc. Category Modifiers: S (significant finding unrelated to lung cancer) Electronically Signed: Reese Doran DO at 18:36 EDT Reading Location ID and State: [address] [place] [address] Tel [phone], Service support ,
== END | disposition home or self-care (01) ==
LOC: CT 12:53
PROVIDERS: PCP Internal Medicine; Referring Provider Nurse Practitioner Acute Care; Visit Provider Nurse Practitioner Acute Care
DX: F17.210 Nicotine dependence, cigarettes, uncomplicated (principal)
CPT/HCPCS: 71271

== ENCOUNTER → 2022-09-24 | Outpatient (CLI) | payer MEDICARE, OTHER, SELFPAY ==
[2022-09-24 07:23] LABS: Absolute Lymphocyte Count 1.73 X10^3/uL (0.83-4.51); Absolute Neutrophil Count 2.8 X10^3/uL (2.0-7.7); Basophil# 0.08 X10^3/uL; Basophil% 1.5 % (0-1); Eosinophils% 3.8 % (0-5); Hematocrit 41.9 % (37-47); Hemoglobin 13.8 g/dL (12.0-15.0); Lymphocyte # 1.73 X10^3/ul (0.83-4.51); Lymphocyte % 32.5 % (19-41); Mean Corp Hgb Conc 32.9 g/dL (32-36); Mean Corpuscular Hgb 34.8 pg (27.0-32.0); Mean Corpuscular Volume 105.8 fL (81-99); Mean Platelet Vol. 8.9 fl (6.2-12.0); Monocyte# 0.49 X10^3/uL; Monocyte% 9.2 % (0-10); NRBC Flagged by Analyzer 0 % (0-5); Neutrophil # 2.82 X10^3/uL (2.7-7.7); Neutrophil % 52.8 % (47-70); Platelet Count 276 K/mm3 (150-450); RBC Distribution Width CV 14.3 % (11.6-14.6); RBC Distribution Width SD 55.8 fl (35.1-43.9); Red Blood Count 3.96 M/mm3 (4.2-5.4); White Blood Count 5.3 K/mm3 (4.4-11.0)
[2022-09-24 08:02] LABS: ALB/GLOB Ratio 1.1 RATIO (0.9-2.4); AST(SGOT) 25 U/L (15-37); Alanine Aminotransfer ALT/SGPT 27 U/L (13-56); Albumin, Serum 3.4 g/dL (3.2-5.0); Alkaline Phosphatase 59 U/L (45-117); Anion Gap 1 (5-15); BUN 14 mg/dL (7-18); Calcium,Total 9.3 mg/dL (8.5-10.1); Chloride 109 mmol/L (98-107); Cholesterol 178 mg/dL (200); Creatinine, Serum 0.64 mg/dL (0.55-1.02); EST Glomerular Filtration Rate 97 mL/min (>60); Est Glom Filt Rate - Afr Amer 118 mL/min (>60); Glucose 95 mg/dL (74-106); High Density Lipoprotein 68 mg/dL; Potassium 4.1 mmol/L (3.5-5.1); Protein, Total 6.4 g/dL (6.4-8.2); Sodium Level 142 mmol/L (136-145); Triglycerides 110 mg/dL; Very Low Density Lipoprotein 22 mg/dL (5-40)
[2022-09-24 08:41] LABS: Hemoglobin A1c 5.5 % (3.8-5.6)
== END | disposition home or self-care (01) ==
LOC: LAB 06:32
PROVIDERS: PCP Internal Medicine; Referring Provider Internal Medicine; Visit Provider Internal Medicine
DX: E11.9 Type 2 diabetes mellitus without complications (principal); M06.4 Inflammatory polyarthropathy; Z13.220 Encounter for screening for lipoid disorders; Z79.899 Other long term (current) drug therapy; M79.7 Fibromyalgia; M18.0 Bilateral primary osteoarthritis of first carpometacarpal joints
CPT/HCPCS: 36415; 80053; 80061; 83036; 85025

== ENCOUNTER → 2022-11-26 | Outpatient (CLI) | payer MEDICARE, OTHER, SELFPAY ==
--- NOTE | 2022-11-26 12:31 | RAD_ITS ---
STUDY: X-RAY - THORACIC SPINE REASON FOR EXAM: Female, 72 years old. Back pain. TECHNIQUE: 3 view(s) of the thoracic spine were obtained. COMPARISON: Thoracic spine x-rays dated March 2014. FINDINGS: Osteopenia. Normal kyphosis of the thoracic spine. No scoliosis. Mild diffuse intervertebral disc space narrowing without significant osteophyte formation, unchanged from prior study. Mild hyperinflation of the lung sher. Vascular calcification. RAD/Thoracic Spine 3 Views IMPRESSION: Stable osteopenia with diffuse mild thoracic spondylosis. No acute abnormality or erosive changes. Electronically Signed: Yasir Martínez MD at 9:59 EDT ,
== END | disposition home or self-care (01) ==
LOC: RAD 12:29
PROVIDERS: PCP Internal Medicine; Referring Provider Anesthesiology Pain Medicine; Visit Provider Anesthesiology Pain Medicine
DX: M51.36 Other intervertebral disc degeneration, lumbar region (principal)
CPT/HCPCS: 72072

== ENCOUNTER → 2022-12-19 | Outpatient (CLI) | payer MEDICARE, OTHER, SELFPAY ==
--- NOTE | 2022-12-19 11:45 | BD_ITS ---
STUDY: DUAL ENERGY X-RAY ABSORPTIOMETRY / DXA REASON FOR EXAM: Female, 72 years old. [id number] TECHNIQUE: Bone Mineral Density (BMD) measurements of lumbar spine and bilateral hips were obtained. COMPARISON: Comparison is made with prior study December 05, 2020. FINDINGS: Lumbar Spine (L1-L4): g/cm2 (0.586) / T-score (-4.2) / Z-score (-1.8) Findings are suggestive of osteoporosis with a high fracture risk. Left Femur Total: g/cm2 (0.500) / T-score (-3.6) / Z-score (-1.9) Left Femoral Neck: g/cm2 (0.423) / T-score (-3.8) / Z-score (-1.8) Right Femur Total: g/cm2 (0.557) / T-score (-3.2) / Z-score (-1.4) Right Femoral Neck: g/cm2 (0.487) / T-score (-3.3) / Z-score (-1.2) The T-Scores on the most recent prior examination were: Lumbar Spine (L1-L4): There has been worsening of bone density since the previous examination. Left Femur Total: which represents a worsening of 2.3%. Right Femur Total: which represents a worsening of 0.3%. BD/Dexa Bone Density Study IMPRESSION: The patient is considered osteoporotic as outlined below according to World [employer] Organization (WHO) criteria with a high fracture risk. There has been worsening of bone density since the previous examination. Reference Information: The T-score is the number of standard deviations above or below the standard which is normal for young adults at their peak bone mineral density. The World Health Organization (WHO) interprets the T-scores as follows: Above -1 Normal bone density Between -1 and -2.5 Osteopenia Equal to / or below -2.5 Osteoporosis As a practical clinical guideline, osteopenia may be graded as follows: Mild -1 through -1.5 Moderate -1.6 through -2.0 Severe -2.1 through -2.4 The Z-score is the number of standard deviations above or below age-matched controls. A Z-score of less than -1.5 would be considered abnormal. References: 1. NIH Osteoporosis and Related Bone Diseases www osteo.org 2. International Society for Clinical Densitometry www iscd.org 3. National Osteoporosis Foundation www nof.org Electronically Signed: Jonnie Allen MD at 10:40 EDT ,
== END | disposition home or self-care (01) ==
LOC: OPBD 11:27
PROVIDERS: PCP Internal Medicine; Referring Provider Internal Medicine; Visit Provider Internal Medicine
DX: M81.0 Age-related osteoporosis without current pathological fracture (principal); Z78.0 Asymptomatic menopausal state
CPT/HCPCS: 77080

== ENCOUNTER → 2022-12-25 | Outpatient (CLI) | payer MEDICARE, OTHER, SELFPAY ==
[2022-12-25 09:54] LABS: Absolute Lymphocyte Count 1.51 X10^3/uL (0.83-4.51); Absolute Neutrophil Count 6.5 X10^3/uL (2.0-7.7); Basophil# 0.11 X10^3/uL; Basophil% 1.3 % (0-1); Eosinophil# 0.12 X10^3/uL; Eosinophils% 1.4 % (0-5); Hematocrit 41.3 % (37-47); Hemoglobin 13.7 g/dL (12.0-15.0); Lymphocyte # 1.51 X10^3/ul (0.83-4.51); Lymphocyte % 17.2 % (19-41); Mean Corp Hgb Conc 33.2 g/dL (32-36); Mean Corpuscular Volume 105.6 fL (81-99); Mean Platelet Vol. 8.4 fl (6.2-12.0); Monocyte# 0.54 X10^3/uL; Monocyte% 6.2 % (0-10); NRBC Flagged by Analyzer 0 % (0-5); Neutrophil # 6.48 X10^3/uL (2.7-7.7); Neutrophil % 73.7 % (47-70); Platelet Count 358 K/mm3 (150-450); RBC Distribution Width CV 14.8 % (11.6-14.6); RBC Distribution Width SD 57.5 fl (35.1-43.9); Red Blood Count 3.91 M/mm3 (4.2-5.4); White Blood Count 8.8 K/mm3 (4.4-11.0)
[2022-12-25 10:41] LABS: Hemoglobin A1c 5.7 % (3.8-5.6)
[2022-12-25 10:44] LABS: ALB/GLOB Ratio 0.9 RATIO (0.9-2.4); AST(SGOT) 15 U/L (15-37); Alanine Aminotransfer ALT/SGPT 25 U/L (13-56); Albumin, Serum 3.3 g/dL (3.2-5.0); Alkaline Phosphatase 65 U/L (45-117); Anion Gap 5 (5-15); BUN 14 mg/dL (7-18); BUN/Creat Ratio 18.7 RATIO (10-20); Calcium,Total 8.9 mg/dL (8.5-10.1); Chloride 108 mmol/L (98-107); Cholesterol 182 mg/dL (200); Creatinine, Serum 0.75 mg/dL (0.55-1.02); EST Glomerular Filtration Rate 80 mL/min (>60); Est Glom Filt Rate - Afr Amer 97 mL/min (>60); Globulin 3.6 g/dL (2.2-4.2); Glucose 106 mg/dL (74-106); High Density Lipoprotein 66 mg/dL; Potassium 3.9 mmol/L (3.5-5.1); Protein, Total 6.9 g/dL (6.4-8.2); Sodium Level 142 mmol/L (136-145); Triglycerides 151 mg/dL; Very Low Density Lipoprotein 30 mg/dL (5-40)
== END | disposition home or self-care (01) ==
PROVIDERS: Internal Medicine Rheumatology; PCP Internal Medicine; Referring Provider Nurse Practitioner Acute Care; Visit Provider Nurse Practitioner Acute Care
DX: Z13.220 Encounter for screening for lipoid disorders (principal); M06.4 Inflammatory polyarthropathy; E11.9 Type 2 diabetes mellitus without complications; Z79.899 Other long term (current) drug therapy; G47.10 Hypersomnia, unspecified
CPT/HCPCS: 36415; 80053; 80061; 82043; 83036; 85025; 95810

== ENCOUNTER → 2023-02-01 | Outpatient (CLI) | payer MEDICARE, OTHER, SELFPAY ==
[2023-02-01 13:12] LABS: Ferritin 50 ng/mL (8-252); Folates, (Folic Acid) > 100.00 ng/mL (3.1-55.4); Iron 74 ug/dL (50-170); Iron Binding Capacity,Total 351 ug/dL (250-450); PERCENT IRON SATURATION 21.1 % (15.0-55.0); Thyroid Stim Hormone (TSH) 0.86 uIU/mL (0.358-3.74)
[2023-02-03 12:05] LABS: Vitamin B12 391 pg/mL (211-911)
[2023-02-05 19:07] LABS: Methylmalonic Acid Bld 410 nmol/L (0-378)
== END | disposition home or self-care (01) ==
LOC: LAB 10:47
PROVIDERS: PCP Internal Medicine; Referring Provider Internal Medicine; Visit Provider Internal Medicine
DX: R63.4 Abnormal weight loss (principal); R53.82 Chronic fatigue, unspecified; D64.9 Anemia, unspecified
CPT/HCPCS: 36415; 82607; 82728; 82746; 83540; 83550; 83921; 84443

== ENCOUNTER → 2023-03-18 | Outpatient (CLI) | payer MEDICARE, OTHER, SELFPAY ==
[2023-03-18 17:11] LABS: Amphetamine Urine VISTA NEGATIVE (<1000 ng/mL); Barbiturate Urine VISTA NEGATIVE (< 200 ng/mL); Benzodiazepine Urine VISTA NEGATIVE (< 200 ng/mL); Cocaine Urine VISTA NEGATIVE (< 300 ng/mL); Ecstacy Urine VISTA NEGATIVE (< 500 ng/mL); Methadone Urine VISTA NEGATIVE (< 300 ng/mL); PCP Urine VISTA NEGATIVE (< 25 ng/mL); THC Urine VISTA NEGATIVE (< 50 ng/mL); Vista UDS pH Range 4
== END | disposition home or self-care (01) ==
PROVIDERS: PCP Internal Medicine; Referring Provider Anesthesiology Pain Medicine; Visit Provider Anesthesiology Pain Medicine
DX: F11.20 Opioid dependence, uncomplicated (principal)
CPT/HCPCS: 80307

== ENCOUNTER → 2023-04-23 | Outpatient (CLI) | payer MEDICARE, OTHER, SELFPAY ==
--- OUTSIDE RECORDS SUMMARY | 2023-04-23 07:54 | XMS RPT_ITS | CCD ---
Author Name Unknown Address [email or web address] [place] [address] Organization [facility] Care Team Providers Care Operating Engineer Apprentice Name Role Phone CARLOS, DAMON E Unavailable Unavailable ZARRABI, TIFFANY Unavailable Unavailable CARLOS, DAMON E Unavailable Unavailable CARLOS, DAMON E Unavailable Unavailable CARLOS, DAMON Unavailable Unavailable CARLOS, DAMON Unavailable Unavailable ZARRABI, TIFFANY Unavailable Unavailable CARLOS, DAMON Unavailable Unavailable CARLOS, DAMON Unavailable Unavailable ZARRABI, TIFFANY Unavailable Unavailable CARLOS, DAMON Unavailable Unavailable ZARRABI, TIFFANY Unavailable Unavailable ZARRABI, TIFFANY Unavailable Unavailable REYES, SARAH SUN Unavailable Unavailable ZARRABI, TIFFANY Unavailable Unavailable CARLOS, DAMON E Referring Unavailable TESTRAKE, KE Referring Unavailable TESTRAKE, KE Attending Unavailable TESTRAKE, KE Attending Unavailable TESTRAKE, KE Referring Unavailable CARLOS, DAMON E Attending Unavailable CARLOS, DAMON E Referring Unavailable Zarrabi, Tiffany Unavailable Unavailable Zarrabi, Tiffany Unavailable Unavailable Zarrabi, Tiffany Unavailable Unavailable Zarrabi, Tiffany Unavailable Unavailable Zarrabi, Tiffany Unavailable Unavailable Unavailable Unavailable Unavailable Zarrabi, Tiffany Primary Care Unavailable Zarrabi, Tiffany Referring Unavailable Zarrabi, Tiffany Attending Unavailable Zarrabi, Tiffany Primary Care Unavailable Zarrabi, Tiffany Referring Unavailable Zarrabi, Tiffany Attending Unavailable Zarrabi, Tiffany Referring Unavailable Zarrabi, Tiffany Primary Care Unavailable Zarrabi, Tiffany Attending Unavailable Zarrabi, Tiffany Referring Unavailable Zarrabi, Tiffany Primary Care Unavailable Zarrabi, Tiffany Attending Unavailable Zarrabi, Tiffany Referring Unavailable Zarrabi, Tiffany Primary Care Unavailable Zarrabi, Tiffany Attending Unavailable Zarrabi, Tiffany Referring Unavailable Zarrabi, Tiffany Primary Care Unavailable Zarrabi, Tiffany Attending Unavailable Zarrabi, Tiffany Referring Unavailable Zarrabi, Tiffany Primary Care Unavailable Zarrabi, Tiffany Attending Unavailable Zarrabi, Tiffany Primary Care Unavailable Zarrabi, Tiffany Attending Unavailable Zarrabi, Tiffany Referring Unavailable Zarrabi, Tiffany Attending Unavailable Zarrabi, Tiffany Primary Care Unavailable Zarrabi, Tiffany Referring Unavailable Zarrabi, Tiffany Attending Unavailable Zarrabi, Tiffany Primary Care Unavailable Zarrabi, Tiffany Referring Unavailable Zarrabi, Tiffany Attending Unavailable Zarrabi, Tiffany Primary Care Unavailable Zarrabi, Tiffany Referring Unavailable Zarrabi, Tiffany Primary Care Unavailable Zarrabi, Tiffany Referring Unavailable Zarrabi, Tiffany Attending Unavailable Tiffany Bull MD Primary Care Provider Tiffany Bull MD Unavailable ZARRABI, TIFFANY Attending Unavailable ZARRABI, TIFFANY Primary Care Unavailable ZARRABI, TIFFANY Attending Unavailable ZARRABI, TIFFANY Primary Care Unavailable ZARRABI, TIFFANY Attending Unavailable ZARRABI, TIFFANY Primary Care Unavailable ZARRABI, TIFFANY Attending Unavailable ZARRABI, TIFFANY Primary Care Unavailable ZARRABI, TIFFANY Attending Unavailable ZARRABI, TIFFANY Primary Care Unavailable ZARRABI, TIFFANY Attending Unavailable ZARRABI, TIFFANY Primary Care Unavailable ZARRABI, TIFFANY Attending Unavailable ZARRABI, TIFFANY Primary Care Unavailable Medications Current Medications Medication Drug Class(es) Dates Sig (Normalized) Sig (Original) 8 hr acetaminophen 650 mg extended release oral tablet (20 sources) take 1 tablet by mouth twice daily acetaminophen (Tylenol 8 Hour) 650 mg ER tablet Take 1 tablet (650 mg) by mouth 2 times a day. 0 Active [id number] 200 actuat albuterol 0.09 mg/actuat metered dose inhaler (20 sources) beta2-Adrenergic Agonist Start: 07-20-2022 take 1-2 puff(s) by inhalation every six hours as needed albuterol 90 mcg/actuation inhaler Indications: Pulmonary emphysema, unspecified emphysema type (CMS/HCC) INHALE 1 TO 2 PUFFS EVERY 6 HOURS NEEDED. 54 g 3 07/20/2022 Active Completed/Discontinued Medications Medication Drug Class(es) Dates Sig (Normalized) Sig (Original) amoxicillin 500 mg oral tablet (2 sources) Penicillin-class Antibacterial Start: 04-18-2022 take 1 tablet by mouth once daily Amoxicillin 500 MG Oral Tablet TAKE 1 TABLET EVERY 8 HOURS DAILY. Quantity: 21 Refills: 0 Ordered: 18-Apr-2022 Tiffany Bull MD Start : 18-Apr-2022 Active Problems Active Problems Problem Classification Problem Date Documented Date Episodic/Chronic Abdominal pain (20 sources) Epigastric pain; Translations: [Abdominal pain, epigastric] Onset: 06-05-2022 06-05-2022 Episodic Administrative/social admission (10 sources) Advance directive discussed with patient; Translations: [Other specified counseling] Episodic Anxiety disorders (20 sources) Mixed anxiety and depressive disorder; Translations: [Anxiety state, unspecified] Onset: 06-05-2022 06-05-2022 Chronic Asthma (20 sources) Moderate asthma; Translations: [Asthma, unspecified type, unspecified] Onset: 06-05-2022 06-05-2022 Chronic Blindness and vision defects (20 sources) Visual impairment; Translations: [Unspecified visual loss] Onset: 06-05-2022 06-05-2022 Chronic Cardiac dysrhythmias (11 sources) Tachycardia; Translations: [Tachycardia, unspecified] Episodic Cataract (20 sources) Cataract; Translations: [Unspecified cataract] Onset: 06-05-2022 06-05-2022 Chronic Chronic obstructive pulmonary disease and bronchiectasis (20 sources) Pulmonary emphysema; Translations: [Other emphysema] Onset: 06-05-2022 07-10-2022 Chronic Conditions associated with dizziness or vertigo (20 sources) Benign paroxysmal positional vertigo; Translations: [Benign paroxysmal positional vertigo] Onset: 06-05-2022 06-05-2022 Episodic Deficiency and other anemia (4 sources) Anemia; Translations: [Anemia, unspecified] Onset: 12-26-2022 12-26-2022 Episodic Diabetes mellitus with complications (20 sources) Hypertensive disorder; Translations: [Diabetes with other specified manifestations, type II or unspecified type, not stated as uncontrolled] Onset: 06-05-2022 07-10-2022 Chronic Diabetes mellitus without complication (20 sources) Type 2 diabetes mellitus; Translations: [Diabetes mellitus without mention of complication, type II or unspecified type, not stated as uncontrolled] Onset: 06-05-2022 07-10-2022 Chronic Esophageal disorders (20 sources) Gastroesophageal reflux disease; Translations: [Esophageal reflux] Onset: 06-05-2022 06-05-2022 Chronic Gastritis and duodenitis (5 sources) Chronic gastritis; Translations: [Unspecified chronic gastritis without bleeding] Onset: 02-11-2023 02-11-2023 Chronic Hypertension with complications and secondary hypertension (2 sources) Hypertension secondary to endocrine disorders; 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] Onset: 12-30-2022 Chronic Immunizations and screening for infectious disease (8 sources) Influenza vaccination given; Translations: [Need for prophylactic vaccination and inoculation against influenza] Onset: 02-11-2023 02-11-2023 Episodic Malaise and fatigue (1 source) Fatigue; Translations: [Chronic fatigue, unspecified] 12-26-2022 Chronic Mood disorders (20 sources) Major depression in remission; Translations: [Major depressive affective disorder, single episode, in partial or unspecified remission] Onset: 06-05-2022 07-10-2022 Chronic Mycoses (6 sources) Onychomycosis; Translations: [Tinea unguium] Onset: 12-26-2022 12-26-2022 Episodic Nonspecific chest pain (18 sources) Chest pain, unspecified; Translations: [Other chest pain] Onset: 05-27-2017 Episodic Nutritional deficiencies (20 sources) Vitamin D deficiency; Translations: [Unspecified vitamin D deficiency] Onset: 12-26-2022 12-26-2022 Chronic Osteoarthritis (20 sources) Osteoarthritis of right knee joint; Translations: [Osteoarthrosis, localized, secondary, lower leg] Onset: 06-05-2022 06-05-2022 Chronic Osteoporosis (20 sources) Osteoporosis; Translations: [Osteoporosis, unspecified] Onset: 06-05-2022 06-05-2022 Chronic Other circulatory disease (9 sources) Low blood pressure; Translations: [Hypotension, unspecified] Episodic Other circulatory disease (2 sources) Pulmonary congestion ; Translations: [Other symptoms involving respiratory system and chest] Episodic Other connective tissue disease (3 sources) Imaging of thorax abnormal; Translations: [Abnormal CXR] Episodic Other connective tissue disease (20 sources) Plantar fasciitis; Translations: [Plantar fascial fibromatosis] Episodic Other connective tissue disease (20 sources) Foot pain; Translations: [Pain in limb] Episodic Other connective tissue disease (20 sources) Hand pain; Translations: [Pain in limb] Episodic Other connective tissue disease (7 sources) Pain in lower limb; Translations: [Pain in limb] Episodic Other diseases of bladder and urethra (20 sources) Disorder of bladder; Translations: [Atony of bladder] Onset: 06-05-2022 06-05-2022 Chronic Other diseases of bladder and urethra (20 sources) Overactive bladder; Translations: [Overactive bladder] Onset: 06-05-2022 06-05-2022 Chronic Other ear and sense organ disorders (1 source) Ear pressure sensation; Translations: [Pressure sensation in right ear] Episodic Other hematologic conditions (20 sources) Macrocytosis; Translations: [Other specified diseases of blood and blood-forming organs] Onset: 06-05-2022 06-05-2022 Chronic Other hereditary and degenerative nervous system conditions (20 sources) Essential tremor; Translations: [Essential and other specified forms of tremor] Onset: 06-05-2022 06-05-2022 Chronic Other liver diseases (20 sources) Steatosis of liver; Translations: [Other chronic nonalcoholic liver disease] Onset: 06-05-2022 06-05-2022 Chronic Other lower respiratory disease (16 sources) Cough; Translations: [Cough] 03-13-2023 Episodic Other lower respiratory disease (3 sources) Dyspnea on exertion; Translations: [Shortness of breath] Episodic Other nervous system disorders (20 sources) Neuropathy; Translations: [Mononeuritis of unspecified site] Chronic Other nervous system disorders (3 sources) Pins and needles; Translations: [Paresthesia of skin] Onset: 02-11-2023 02-11-2023 Episodic Other nervous system disorders (2 sources) Paresthesia of skin; Translations: [Paresthesia of skin] Onset: 02-11-2023 Episodic Other nutritional; endocrine; and metabolic disorders (1 source) Weight loss; Translations: [Abnormal weight loss] 12-26-2022 Episodic Other nutritional; endocrine; and metabolic disorders (2 sources) Abnormal weight loss; Translations: [Abnormal weight loss] Onset: 12-26-2022 Episodic Other upper respiratory disease (20 sources) Allergic rhinitis; Translations: [Allergic rhinitis, cause unspecified] Onset: 06-05-2022 06-05-2022 Chronic Other upper respiratory disease (1 source) Rhinitis; Translations: [Chronic rhinitis] Chronic Other upper respiratory disease (1 source) Seasonal allergic rhinitis; Translations: [Other seasonal allergic rhinitis] 02-11-2023 Chronic Other upper respiratory disease (2 sources) Other seasonal allergic rhinitis; Translations: [Other seasonal allergic rhinitis] Onset: 06-05-2022 Chronic Other upper respiratory disease (1 source) Congestion of nasal sinus; Translations: [Other disease of nasal cavity and sinuses] Episodic Other upper respiratory infections (20 sources) Acute pharyngitis; Translations: [Posterior rhinorrhea] Onset: 06-05-2022 Resolved: 07-10-2022 07-10-2022 Episodic Peripheral and visceral atherosclerosis (6 sources) Atherosclerosis of aorta; Translations: [Atherosclerosis of aorta] Onset: 12-26-2022 12-26-2022 Chronic Pneumonia (except that caused by tuberculosis or sexually transmitted disease) (2 sources) Pneumonia; Translations: [Pneumonia] Episodic Residual codes; unclassified (1 source) History of clinical finding in subject; Translations: [Personal history of other specified diseases] Episodic Residual codes; unclassified (1 source) Postmenopausal state; Translations: [Asymptomatic menopausal state] 09-25-2022 Episodic Screening and history of mental health and substance abuse codes (20 sources) Tobacco use and exposure - finding; Translations: [Personal history of tobacco use] Episodic Spondylosis; intervertebral disc disorders; other back problems (20 sources) Degeneration of intervertebral disc; Translations: [Degeneration of intervertebral disc, site unspecified] Chronic Substance-related disorders (2 sources) Smoker; Translations: [Smoker] Chronic Unclassified (1 source) Unknown / UNK(Unknown) Onset: 06-24-2017 Unclassified (1 source) Acute cough; Translations: [Acute cough] Onset: 03-13-2023 Past or Other Problems Problem Classification Problem Date Documented Da te Episodic/Chronic Headache; including migraine (20 sources) Headache; Translations: [Headache] Onset: 06-05-2022 06-05-2022 Episodic Malaise and fatigue (20 sources) Fatigue; Translations: [Other malaise and fatigue] Onset: 06-05-2022 06-05-2022 Episodic Mood disorders (4 sources) Mood disorders Onset: 05-29-2022 08-06-2022 Other circulatory disease (20 sources) H/O: hypertension; Translations: [Personal history of other diseases of circulatory system] Onset: 06-05-2022 Resolved: 12-30-2022 06-05-2022 Episodic Other connective tissue disease (1 source) Pain in left foot; Translations: [Pain in left foot] Onset: 10-31-2017 Episodic Other connective tissue disease (20 sources) Fibromyalgia; Translations: [Myalgia and myositis, unspecified] Onset: 06-05-2022 06-05-2022 Episodic Other connective tissue disease (5 sources) H/O: osteoarthritis; Translations: [Personal history of other diseases of the musculoskeletal system and connective tissue] Onset: 06-05-2022 06-05-2022 Episodic Other connective tissue disease (5 sources) Pain in left foot; Translations: [Pain in left foot] Onset: 06-05-2022 06-05-2022 Episodic Other connective tissue disease (5 sources) Pain in bilateral legs; Translations: [Pain in right leg] Onset: 06-05-2022 06-05-2022 Episodic Other connective tissue disease (5 sources) Pain of left hand; Translations: [Pain in left hand] Onset: 06-05-2022 06-05-2022 Episodic Other connective tissue disease (5 sources) Plantar fasciitis of left foot; Translations: [Plantar fascial fibromatosis] Onset: 06-05-2022 06-05-2022 Episodic Other gastrointestinal disorders (20 sources) Chronic constipation; Translations: [Constipation, unspecified] Onset: 06-05-2022 06-05-2022 Episodic Other lower respiratory disease (20 sources) Calcification of lung; Translations: [Other diseases of lung, not elsewhere classified] Onset: 06-05-2022 06-05-2022 Episodic Other lower respiratory disease (20 sources) Solitary pulmonary nodule; Translations: [Nodule of lung] Onset: 06-05-2022 06-05-2022 Episodic Other lower respiratory disease (20 sources) Chronic cough; Translations: [Cough] Onset: 06-05-2022 07-10-2022 Episodic Other lower respiratory disease (20 sources) H/O: respiratory disease; Translations: [Personal history of other diseases of respiratory system] Resolved: 05-03-2019 Episodic Other lower respiratory disease (20 sources) Dyspnea; Translations: [Shortness of breath] Onset: 06-05-2022 07-10-2022 Episodic Other lower respiratory disease (4 sources) Hypoxemia; Translations: [Hypoxemia] Onset: 07-11-2022 07-11-2022 Episodic Other lower respiratory disease (4 sources) Multiple nodules of lung; Translations: [Other nonspecific abnormal finding of lung field] Onset: 06-05-2022 12-26-2022 Episodic Other nervous system disorders (10 sources) Finding of sensation of lower limb; Translations: [Other symptoms involving skin and integumentary tissues] Onset: 06-05-2022 06-05-2022 Episodic Other nervous system disorders (2 sources) Cold extremity; Translations: [Unspecified disturbances of skin sensation] Onset: 06-05-2022 06-05-2022 Episodic Other non-traumatic joint disorders (20 sources) Pain in right knee; Translations: [Knee pain, right] Onset: 06-05-2022 06-05-2022 Episodic Other non-traumatic joint disorders (6 sources) Hip pain; Translations: [Pain in left hip] Onset: 07-10-2022 07-10-2022 Episodic Other non-traumatic joint disorders (2 sources) Pain in right knee; Translations: [Pain in right knee] Onset: 06-05-2022 06-05-2022 Episodic Other nutritional; endocrine; and metabolic disorders (20 sources) History of nutritional deficiency; Translations: [Personal history of nutritional deficiency] Onset: 06-05-2022 Resolved: 10-02-2021 06-05-2022 Episodic Other screening for suspected conditions (not mental disorders or infectious disease) (14 sources) Imaging of thorax abnormal; Translations: [Nonspecific (abnormal) findings on radiological and other examination of other intrathoracic organs] Onset: 06-05-2022 Resolved: 03-13-2023 06-05-2022 Chronic Other upper respiratory disease (20 sources) Nasal congestion; Translations: [Other disease of nasal cavity and sinuses] Onset: 06-05-2022 06-05-2022 Episodic Pleurisy; pneumothorax; pulmonary collapse (14 sources) Atelectasis; Translations: [Pulmonary collapse] Onset: 06-05-2022 06-05-2022 Episodic Residual codes; unclassified (20 sources) Past history of procedure; Translations: [Other specified personal history presenting hazards to health] Onset: 10-22-2017 Episodic Results Test Name Value Interpretation Reference Range Facil ity Vital Signs Date Time Vital Sign Value Performing Clinician Suni malone 02-11-2023 12:39-0500 Body height 152.4 cm Tiffany Bull MD Work Phone: [facility] 02-11-2023 12:39-0500 Body mass index (BMI) [Ratio] 21.09 kg/m2 Tiffany Bull MD Work Phone: [facility] 02-11-2023 12:39-0500 Body weight 48.99 kg Tiffany Bull MD Work Phone: [facility] 02-11-2023 12:39-0500 Diastolic blood pressure 72 mm[Hg] Tiffany Bull MD Work Phone: [facility] 02-11-2023 12:39-0500 Heart rate 76 /min Tiffany Bull MD Work Phone: [facility] 02-11-2023 12:39-0500 Systolic blood pressure 114 mm[Hg] Tiffany Bull MD Work Phone: [facility] 12-26-2022 12:49-0400 Body height 152.4 cm Tiffany Bull MD Work Phone: [facility] 12-26-2022 12:49-0400 Body mass index (BMI) [Ratio] 20.7 kg/m2 Tiffany Bull MD Work Phone: 5(491)927-746776 [place] [address] 12-26-2022 12:49-0400 Body weight 48.08 kg Tiffany Bull MD Work Phone: 2(180)299-369676 [place] [address] 12-26-2022 12:49-0400 Diastolic blood pressure 62 mm[Hg] Tiffany Bull MD Work Phone: 6(354)385-191962 [place] [address] 12-26-2022 12:49-0400 Heart rate 74 /min Tiffany Bull MD Work Phone: 5(885)263-046762 [place] [address] 12-26-2022 12:49-0400 SaO2% (BldA) [Mass fraction] 92 % Tiffany Bull MD Work Phone: 5(859)966-780462 [place] [address] 12-26-2022 12:49-0400 Systolic blood pressure 118 mm[Hg] Tiffany Bull MD Work Phone: 4(890)507-617962 [place] [address] 09-25-2022 13:18-0400 Body height 152.4 cm Tiffany Bull MD Work Phone: 0(984)456-730562 [place] [address] 09-25-2022 13:18-0400 Body mass index (BMI) [Ratio] 23.24 kg/m2 Tiffany Bull MD Work Phone: 7(414)515-988562 [place] [address] 09-25-2022 13:18-0400 Body weight 53.98 kg Tiffany Bull MD Work Phone: 1(593)347-004862 [place] [address] 09-25-2022 13:18-0400 Diastolic blood pressure 74 mm[Hg] Tiffany Bull MD Work Phone: 5(291)672-851162 [place] [address] 09-25-2022 13:18-0400 Heart rate 80 /min Tiffany Bull MD Work Phone: 6(388)032-248662 [place] [address] 09-25-2022 13:18-0400 Systolic blood pressure 116 mm[Hg] Tiffany Bull MD Work Phone: 0(608)515-211062 [place] [address] 07-10-2022 10:53-0400 Body height 152.4 cm Tiffany Bull MD Work Phone: [facility] 07-10-2022 10:53-0400 Body mass index (BMI) [Ratio] 22.85 kg/m2 Tiffany Bull MD Work Phone: [facility] 07-10-2022 10:53-0400 Body weight 53.07 kg Tiffany Bull MD Work Phone: [facility] 07-10-2022 10:53-0400 Diastolic blood pressure 74 mm[Hg] Tiffany Bull MD Work Phone: [facility] 07-10-2022 10:53-0400 Heart rate 82 /min Tiffany Bull MD Work Phone: [facility] 07-10-2022 10:53-0400 SaO2% (BldA) [Mass fraction] 95 % Tiffany Bull MD Work Phone: [facility] 07-10-2022 10:53-0400 Systolic blood pressure 116 mm[Hg] Tiffany Bull MD Work Phone: [facility] 05-29-2022 11:24-0500 8 1 Tiffany Bull Work Phone: [facility] Internal Medicine Work Phone: Encounters Encounter Date Encounter Type Care Provider Facility Start: 03-20-2023 End: 03-20-2023 ambulatory [facility] Amb[facility] Start: 03-13-2023 End: 03-13-2023 ambulatory [facility] Start: 03-13-2023 End: 03-13-2023 Phys/qhp telephone evaluation 21-30 min Tiffany Bull MD Work Phone: [facility] ER Internal Medicine Procedures Date Procedure Procedure Detail Performing Clinician Start: 03-20-2023 Follow-up visit Follow-up TIFFANY BULL Start: 03-14-2022 Mammography Tiffany Bull MD Work Phone: Start: 10-13-2019 25 hydroxy includes fractions if performed Tiffany Bull Start: 10-13-2019 Comprehensive metabolic 2000 panel [facility] Start: 10-13-2019 Hemoglobin glycosylated a1c Tiffany hartman Start: 04-19-2019 Xray Chest 2 View PA + Lateral Tiffany chavez Start: 08-24-2015 Esophagogastroduodenoscopy Tiffany Conn tosin Work Phone: Plan of Treatment Date Care Activity Detail Author Start: 03-05-2032 DTaP/Tdap/Td Vaccines (2 - Td or Tdap) DTaP/Tdap/Td Vaccines (2 - Td or Tdap) [facility] Start: 12-10-2024 Screening for malignant neoplasm of colon [facility] Start: 02-13-2024 Medicare Annual Wellness Visit Medicare Annual Wellness Visit (AWV) [facility] Start: 07-19-2023 Glaucoma screening Diabetes: Retinopathy Screening [facility] Start: 07-19-2023 Ophthalmic examination and evaluation Diabetes: Retinopathy Screening [facility] Start: 03-20-2023 End: 03-20-2023 Telemedicine consultation with patient 03/20/2023 11:00 AM EST Telemedicine [facility] Internal Medicine [address] [place] [id number] Tiffany Bull MD [address] [place] [address] [facility] Start: 03-14-2023 Screening for malignant neoplasm of breast Mammogram [facility] Start: 03-06-2023 End: 03-06-2023 Patient encounter procedure 03/06/2023 12:30 PM EST Appointment [facility] [address] [facility] [address] [place] [id number] [phone] Ji Us MD [address] [place] [address] [facility] Start: 03-05-2023 End: 03-05-2023 Patient encounter procedure 03/05/2023 10:00 AM EST Office Visit [facility] Internal Medicine [address] [place] [address] Tiffany Bull MD [address] [place] [address] [facility] Internal [facility] Start: 02-11-2023 End: 02-12-2024 Esophagogastroduodenoscopy EGD Endoscopy Routine Gastroesophageal reflux disease without esophagitis Abdominal pain, LUQ Expected: 02/11/2023 (Approximate), Expires: 02/12/2024 [facility] Service Area Work Phone: Immunizations Immunization Date Immunization Notes Care Provider Fa cility 02-11-2023 zoster vaccine-recombinant adjuvanted (Shingrix, PF,) 50 mcg/0.5 mL vaccine Tiffany Bull MD Work Phone: [facility] Work Phone: 02-11-2023 pneumoc 20-diana conj- dip cr,PF, (Prevnar 20, PF,) 0.5 mL vaccine Tiffany Bull MD Work Phone: [facility] Work Phone: 12-15-2022 Influenza, Seasonal, Quadrivalent, Adjuvanted Tiffany Bull MD Work Phone: [facility] 03-05-2022 tetanus toxoid, redu angela diphtheria toxoid, and acellular pertussis vaccine, adsorbed Tiffany Bull Work Phone: [facility] 01-10-2022 Fluzone High-Dose Quadrivalent 0.7 ML Intramuscular Suspension Prefilled Syringe; Translations: [Fluzone High-Dose Quadrivalent 0.7 ML Intramuscular Suspension Prefilled Syringe] Tiffany Bull Work Phone: [facility] Work Phone: Payers Date Payer Category Payer [employer] [id number] 2022 [employer] FOR LIFE [id number] 2022-Present [address] [place] [address] [id number] 2013 Medicare [id number] 2013 Medicare [id number] 2013 Medicare MEDICARE MEDICAR E PART A AND B [id number] 2013-Present [address] [place] [address] [id number] 1948 Unknown [id number] 2.16.840.1.939386.3.579.2 .356 1948 Unknown [id number] 2.16840.1.655563.3.579.2 .356 1948 Unknown [id number] 2.16840.1.182839.3.579.2 .356 1948 Unknown [id number] 2.16.840.1.135056.3.579.2 .356 1948 Unknown [id number] 2.16.840.1.771497.3.579.2 .356 1948 Unknown [id number] 2.16.840.1.096011.3.579.2 .356 1948 Unknown [id number] 2.16.840.1.325688.3.579.2 .356 1948 Unknown [id number] 2.16.840.1.269735.3.579.2 .356 1948 Unknown [id number] 2.16.840.1.372030.3.579.2 .356 1948 Unknown [id number] 2.16.840.1.723808.3.579.2 .356 1948 Unknown [id number] 2.16.840.1.205015.3.579.2 .356 1948 Unknown [id number] 2.16.840.1.570131.3.579.2 .356 1948 Unknown [id number] 2.16.840.1.315606.3.579.2 .4 1948 Unknown [id number] 2.16.840.1.364653.3.579.2 .1244 1948 Unknown [id number] 2.16.840.1.695392.3.579.2 .1243 1948 Unknown [id number] 2.16.840.1.214511.3.579.2 .4 1948 Unknown [id number] 2.16.840.1.663020.3.579.2 .1243 1948 Unknown [id number] 2.16.840.1.957145.3.579.2 .1244 1948 Unknown [id number] 2.16.840.1.587263.3.579.2 .1244 [employer] others) [id number] Medicare [id number] Unknown Social History Date Type Detail Facility Assertion Unknown if ever smoked [facility] Work Phone: Start: 07-10-2022 End: 02-11-2023 Current every day smoker Current every day smoker [facility] Work Phone: Start: 07-10-2022 Tobacco smoking status NHIS Ex-smoker [facility] End: 04-07-2021 History of tobacco use Current smoker [facility] Work Phone: End: 04-07-2021 History of tobacco use Cigarette Smoker [facility] Work Phone: Start: 07-10-2022 Tobacco use and exposure Smokeless tobacco non-user [facility] Work Phone: Start: 07-10-2022 End: 03-13-2023 Alcohol intake Lifetime non-drinker (finding) [facility] Work Phone: Start: 07-10-2022 End: 02-11-2023 Tobacco use panel [facility] Work Phone: Start: 1950 [facility] Start: 06-30-2022 End: 03-13-2023 Exposure to SARS-CoV-2 (event) Not sure [facility] NEGATED: Highlighted row - - [facility] Work Phone: Functional Status Date Assessment Result Facility NEGATED: Highlighted row Functional performance Functional status health issues are not documented Disease [facility] Work Phone: Mental Status Date Assessment Result Facility NEGATED: Highlighted row Cognitive function [Interpretation] Cognitive status health issues are not documented Disease [facility] Work Phone: Clinical Notes 05-10-2009 to 03-13-2023 Tiffany Bull MD - 03/13/2023 12:30 PM Hans Bull MD - 02/11/2023 12:45 PM ESTAssessment & Plan Note - Tiffany Bull MD - 12/26/2022 1:47 PM EDT Note Date & Type Note Facility 03-13-2023 History of Present illness Narrative Subjective Patient ID: Barbi Garzon is a 72 y.o. female who presents for Follow-up (TELEPHONE VISIT - 3 WEEK F/U. C/O BEING LIGHTHEADED AND NOT FEELING WELL FOR THE LAST FEW DAYS. UNABLE TO CHECK TEMP BUT CLAIMS SHE FEELS HOT - POST-NASAL DRIP, COUGH,FERNANDEZ, NAUSEA. ). HPI TELEPHONE VISIT LIGHT HEADEDNESS ,COUGH , POSTNASAL DRIP X 3-4 DAYS WITH NAUSEA AND HEADACHE (4-5/10) ON AND OFF. HAS COVID KIT AT HOME , BUT HASN'T CHECKED THE COVID STATUS YET. Review of Systems Constitutional: Negative for chills and fever. HENT: Positive for postnasal drip. Negative for congestion and rhinorrhea. Eyes: Negative. Negative for visual disturbance. Respiratory: Positive for cough. Negative for shortness of breath and wheezing. Cardiovascular: Negative. Negative for chest pain, palpitations and leg swelling. Gastrointestinal: Negative. Negative for abdominal distention, abdominal pain, constipation, diarrhea, nausea and vomiting. Endocrine: Negative. Genitourinary: Negative for dysuria and urgency. Musculoskeletal: Negative. Negative for back pain. Skin: Negative. Negative for rash. Allergic/Immunologic: Negative for immunocompromised state. Neurological: Positive for light-headedness and headaches. Negative for dizziness and weakness. Psychiatric/Behavioral: Negative. Negative for agitation. Objective Physical Exam Assessment/Plan 1. COPD with acute exacerbation (CMS/HCC) methylPREDNISolone (Medrol Dospak) 4 mg tablets levoFLOXacin (Levaquin) 500 mg tablet DISCONTINUED: levoFLOXacin (Levaquin) 500 mg tablet 2. Hypertension associated with diabetes (CMS/HCC) DISCONTINUED: levoFLOXacin (Levaquin) 500 mg tablet 3. Post-nasal drip methylPREDNISolone (Medrol Dospak) 4 mg tablets levoFLOXacin (Levaquin) 500 mg tablet DISCONTINUED: levoFLOXacin (Levaquin) 500 mg tablet 4. Light headedness methylPREDNISolone (Medrol Dospak) 4 mg tablets 5. Acute cough benzonatate (Tessalon) 200 mg capsule methylPREDNISolone (Medrol Dospak) 4 mg tablets levoFLOXacin (Levaquin) 500 mg tablet DISCONTINUED: levoFLOXacin (Levaquin) 500 mg tablet PT. WAS INSTRUCTED TO INCREASE FLUID INTAKE ,TAKE TYLENOL 650 MG PO Q6H/PRN FOR PAIN OR FEVER AND TAKE ROBITUSSIN OTC 2 TSP Q 6H/PRN FOR COUGH. ADVISED TO Gargle with WARM SALTWATER. ADVISED TO ELEVATE THE HEAD OF THE BED FOR SLEEP AND TO SLEEP WITH WARM HUMIDIFIER. I SPENT 30 MINUTES WITH PT ADDRESSING THE ABOVE. 1 WEEK (VIRTUAL) documented in this encounter [facility] Work Phone: 02-11-2023 History of Present illness Narrative Subjective Reason for Visit: Barbi Garzon is an 72 y.o. female here for a Medicare Wellness visit. Past Medical, Surgical, and Family History reviewed and updated in chart. Reviewed all medications by prescribing practitioner or clinical pharmacist (such as prescriptions, OTCs, herbal therapies and supplements) and documented in the medical record. HPI lAB AND BONE DENSITY F/U. MED REFILL . WORSENING GERD WITH LUQ ABDOMINAL PAIN 4/10 ON AND OFF , WITH BLOATING .HAS PIN AND NEEDLLE SENSATIONS OF BOTH FEET. MEDICARE WELLNESS EXAM. Patient Care Team: Tiffany Bull MD as PCP - General Tiffany Bull MD as PCP - [facility] Attributed Provider Review of Systems Constitutional: Negative for chills and fever. HENT: Negative. Negative for congestion, postnasal drip and rhinorrhea. Eyes: Negative. Negative for visual disturbance. Respiratory: Negative for cough, shortness of breath and wheezing. Cardiovascular: Negative. Negative for chest pain, palpitations and leg swelling. Gastrointestinal: Positive for abdominal pain. Negative for abdominal distention, constipation, diarrhea, nausea and vomiting. BLOATING . Endocrine: Negative. Genitourinary: Negative for dysuria and urgency. Musculoskeletal: Negative. Negative for back pain. Skin: Negative. Negative for rash. Allergic/Immunologic: Negative for immunocompromised state. Neurological: Negative for dizziness, weakness, light-headedness and headaches. PER HPI. Psychiatric/Behavioral: Negative. Negative for agitation. Objective Vitals: BP 114/72 Pulse 76 Ht 1.524 m (5') Wt 49 kg (108 lb) BMI 21.09 kg/m Physical Exam Constitutional: General: She is not in acute distress. HENT: Head: Normocephalic. Nose: Nose normal. Mouth/Throat: Mouth: Mucous membranes are moist. Eyes: Conjunctiva/sclera: Conjunctivae normal. Pupils: Pupils are equal, round, and reactive to light. Cardiovascular: Rate and Rhythm: Normal rate and regular rhythm. Pulses: Normal pulses. Heart sounds: Normal heart sounds. Pulmonary: Effort: No respiratory distress. Breath sounds: No wheezing. Chest: Chest wall: No tenderness. Abdominal: General: Abdomen is flat. Bowel sounds are normal. Palpations: Abdomen is soft. Tenderness: There is abdominal tenderness. Comments: LUQ TENDERNESS Musculoskeletal: General: No tenderness. Normal range of motion. Cervical back: Normal range of motion. Lymphadenopathy: Cervical: No cervical adenopathy. Skin: General: Skin is warm and dry. Findings: No rash. Neurological: General: No focal deficit present. Mental Status: She is alert. Mental status is at baseline. Psychiatric: Mood and Affect: Mood normal. Behavior: Behavior normal. Assessment/Plan 1. Routine general medical examination at health care facility 2. Age-related osteoporosis without current pathological fracture 3. Encounter for vaccination pneumoc 20-diana conj-dip cr,PF, (Prevnar 20, PF,) 0.5 mL vaccine zoster vaccine-recombinant adjuvanted (Shingrix, PF,) 50 mcg/0.5 mL vaccine respiratory syncytial virus, rsv, with adjuvant suspension (Arexvy, PF,) 120 mcg/0.5 mL suspension for reconstitution 4. Diabetic mononeuropathy associated with type 2 diabetes mellitus (CMS/HCC) Referral to Podiatry 5. Pins and needles sensation Referral to Podiatry 6. Gastroesophageal reflux disease without esophagitis EGD CANCELED: EGD 7. Seasonal allergic rhinitis, unspecified trigger loratadine (Claritin) 10 mg tablet 8. Abdominal pain, LUQ sucralfate (Carafate) 1 gram tablet EGD 9. Chronic gastritis without bleeding, unspecified gastritis type TEST RESULTS WERE DISCUSSED. ADVISED TO HAVE LOW FAT AND LOW CALORIE DIET , DAILY EXERCISE. 1800 KAREL ADA HGA1C GOAL LESS THAN 7 LOSE WT EXERCISE DAILY ADVISED TO CONTINUE THE DAILY CA+D.. ADVISED NOT TO overeat. Eat small portions at meals and snacks. Avoid tight clothing and tight-fitting belts. Do not lie down or bend over within the first 15-30 minutes after eating. Do not chew gum or suck on hard candy. Swallowing air with chewing gum and sucking on hard candy can cause belching and reflux. Raise the head of your bed 6-8 inches. Do not eat/drink: chocolate, tomatoes, tomato sauces, oranges, pineapple, grapefruit, mints, coffee, alcohol, carbonated beverages, and black pepper. Eat a low fat diet. Fatty and greasy foods cause your stomach to produce more acid. Advanced Care Planing discussed, diagnosis , treatment and prognosis discussed with pt,pt has capacity to make own decision, pt has a living will, to bring a copy for the chart. MDM 1) COMPLEXITY: 1 UNDIAGNOSED NEW PROBLEM WITH UNCERTAIN PROGNOSIS 2)DATA: TESTS INTERPRETED AND OR ORDERED, TOOK INDEPENDENT HISTORY OR RECORDS REVIEWED 3)RISK: MODERATE RISK DUE TO NATURE OF MEDICAL CONDITIONS/COMORBIDITY OR MEDICATIONS ORDERED OR SURGICAL OR PROCEDURE REFERRAL, . 3 WEEKS . documented in this encounter [facility] Work Phone: 12-26-2022 Evaluation + Plan note Associated Problem(s): Protein-calorie malnutrition, unspecified severity (CMS/HCC) Doing fine and stable with current management, continue same [facility] Work Phone: 12-26-2022 Miscellaneous Notes Associated Problem(s): Protein-calorie malnutrition, unspecified severity (CMS/HCC) Doing fine and stable with current management, continue same documented in this encounter [facility] Work Phone: 12-26-2022 History of Present illness Narrative Subjective Patient ID: Barbi Garzon is a 72 y.o. female who presents for Follow-up (3 MONTH FOLLOW UP + LABS [facility]. C/O WEIGHT LOSS IN THE PAST COUPLE MONTHS. C/O OF EXTREME FATIGUE ). HPI Lab and CHEST CT F/U. COMPLAINS OF WEIGHT LOSS WITH FATIGUE. QUIT SMOKING 1 YEAR AGO. CHRONIC FINGERNAIL DISCOLORATION OF R HAND. Review of Systems Constitutional: Positive for fatigue. Negative for chills and fever. WEIGHT LOSS HENT: Negative. Negative for congestion, postnasal drip and rhinorrhea. Eyes: Negative. Negative for visual disturbance. Respiratory: Negative for cough, shortness of breath and wheezing. Cardiovascular: Negative. Negative for chest pain, palpitations and leg swelling. Gastrointestinal: Negative. Negative for abdominal distention, abdominal pain, constipation, diarrhea, nausea and vomiting. Endocrine: Negative. Genitourinary: Negative for dysuria and urgency. Musculoskeletal: Negative. Negative for back pain. Skin: Negative. Negative for rash. Allergic/Immunologic: Negative for immunocompromised state. Neurological: Negative. Negative for dizziness, weakness, light-headedness and headaches. Psychiatric/Behavioral: Negative. Negative for agitation. Objective Physical Exam Constitutional: General: She is not in acute distress. HENT: Head: Normocephalic. Nose: Nose normal. Mouth/Throat: Mouth: Mucous membranes are moist. Eyes: Conjunctiva/sclera: Conjunctivae normal. Pupils: Pupils are equal, round, and reactive to light. Cardiovascular: Rate and Rhythm: Normal rate and regular rhythm. Pulses: Normal pulses. Heart sounds: Normal heart sounds. Pulmonary: Effort: No respiratory distress. Breath sounds: No wheezing. Chest: Chest wall: No tenderness. Abdominal: General: Abdomen is flat. Bowel sounds are normal. Palpations: Abdomen is soft. Tenderness: There is no abdominal tenderness. Musculoskeletal: General: No tenderness. Normal range of motion. Cervical back: Normal range of motion. Lymphadenopathy: Cervical: No cervical adenopathy. Skin: General: Skin is warm and dry. Findings: No rash. Comments: ONYCHOMYCOSIS OF R THUMB. Neurological: General: No focal deficit present. Mental Status: She is alert. Mental status is at baseline. Psychiatric: Mood and Affect: Mood normal. Behavior: Behavior normal. Assessment/Plan 1. Aortic atherosclerosis (CMS/HCC) atorvastatin (Lipitor) 20 mg tablet 2. Weight loss TSH with reflex to Free T4 if abnormal 3. Onychomycosis clotrimazole (Lotrimin) 1 % external solution 4. Anemia, unspecified type Vitamin B12 Methylmalonic Acid Folate Iron and TIBC Ferritin 5. Chronic fatigue Vitamin B12 Methylmalonic Acid Folate Iron and TIBC Ferritin 6. Panlobular emphysema (CMS/HCC) 7. Protein-calorie malnutrition, unspecified severity (CMS/HCC) 8. Lung nodules TEST RESULTS WERE DISCUSSED. ALL ASSESSED CHRONIC CONDITIONS ARE STABLE OR ADDRESSED. ADVISED TO HAVE LOW FAT AND LOW CALORIE DIET AND TO ADD MORE PROTEIN TO DIET. . MDM 1) COMPLEXITY: 1 UNDIAGNOSED NEW PROBLEM WITH UNCERTAIN PROGNOSIS 2)DATA: TESTS INTERPRETED AND OR ORDERED, TOOK INDEPENDENT HISTORY OR RECORDS REVIEWED 3)RISK: MODERATE RISK DUE TO NATURE OF MEDICAL CONDITIONS/COMORBIDITY OR MEDICATIONS ORDERED OR SURGICAL OR PROCEDURE REFERRAL, . 1 MON LAB TO [facility] Low density CHEST CT TO BE DONE IN 1 YEAR. (TO HAVE I CALL BOX) documented in this encounter [facility] Work Phone: 09-25-2022 History of Present illness Narrative Subjective Patient ID: Barbi Garzon is a 72 y.o. female who presents for 2 month follow up. HPI F/U ON LOW DENSITY CHEST CT AND LABS . HAS F/U WITH [facility] . STILL SMOKES . COMPLAINS OF RHINITIS WITH PRODUCTIVE COUGH. Review of Systems Constitutional: Negative for chills and fever. HENT: Positive for rhinorrhea. Negative for congestion and postnasal drip. Eyes: Negative. Negative for visual disturbance. Respiratory: Positive for cough. Negative for shortness of breath and wheezing. Cardiovascular: Negative. Negative for chest pain, palpitations and leg swelling. Gastrointestinal: Negative. Negative for abdominal distention, abdominal pain, constipation, diarrhea, nausea and vomiting. Endocrine: Negative. Genitourinary: Negative for dysuria and urgency. Musculoskeletal: Negative. Negative for back pain. Skin: Negative. Negative for rash. Allergic/Immunologic: Negative for immunocompromised state. Neurological: Negative. Negative for dizziness, weakness, light-headedness and headaches. Psychiatric/Behavioral: Negative. Negative for agitation. Objective Physical Exam Constitutional: General: She is not in acute distress. HENT: Head: Normocephalic. Nose: Nose normal. Mouth/Throat: Mouth: Mucous membranes are moist. Pharynx: Oropharynx is clear. Eyes: Conjunctiva/sclera: Conjunctivae normal. Pupils: Pupils are equal, round, and reactive to light. Cardiovascular: Rate and Rhythm: Normal rate and regular rhythm. Pulses: Normal pulses. Heart sounds: Normal heart sounds. Pulmonary: Effort: No respiratory distress. Breath sounds: No wheezing. Chest: Chest wall: No tenderness. Abdominal: General: Abdomen is flat. Bowel sounds are normal. Palpations: Abdomen is soft. Tenderness: There is no abdominal tenderness. Musculoskeletal: General: No tenderness. Normal range of motion. Cervical back: Normal range of motion. Lymphadenopathy: Cervical: Cervical adenopathy present. Skin: General: Skin is warm and dry. Findings: No rash. Neurological: General: No focal deficit present. Mental Status: She is alert. Mental status is at baseline. Psychiatric: Mood and Affect: Mood normal. Behavior: Behavior normal. Assessment/Plan 1. Osteoporosis, unspecified osteoporosis type, unspecified pathological fracture presence XR DEXA bone density 2. Type 2 diabetes mellitus without complication, without long-term current use of insulin (CMS/HCC) Hemoglobin A1C Comprehensive Metabolic Panel Albumin , Urine Random 3. Post-menopausal XR DEXA bone density 4. Screening for hyperlipidemia Lipid Panel 5. Upper respiratory tract infection, unspecified type doxycycline (Vibramycin) 100 mg capsule TEST RESULTS WERE DISCUSSED. I STRONGLY ADVISED TO QUIT SMOKING. PT. WAS INSTRUCTED TO INCREASE FLUID INTAKE ,TAKE TYLENOL 650 MG PO Q6H/PRN FOR PAIN OR FEVER AND TAKE ROBITUSSIN OTC 2 TSP Q 6H/PRN FOR COUGH. MDM 1) COMPLEXITY: 1 UNDIAGNOSED NEW PROBLEM WITH UNCERTAIN PROGNOSIS 2)DATA: TESTS INTERPRETED AND OR ORDERED, TOOK INDEPENDENT HISTORY OR RECORDS REVIEWED 3)RISK: MODERATE RISK DUE TO NATURE OF MEDICAL CONDITIONS/COMORBIDITY OR MEDICATIONS ORDERED OR SURGICAL OR PROCEDURE REFERRAL, . 3 MON. LABS TO BE DONE AT [facility]. documented in this encounter [facility] Work Phone: 07-10-2022 Evaluation + Plan note Associated Problem(s): Emphysema/COPD (CMS/HCC) Doing fine and stable with current management, continue same [facility] Work Phone: 07-10-2022 Evaluation + Plan note Associated Problem(s): Depression, major, in remission (CMS/HCC) STABLE, WILL CONTINUE THE SAME. [facility] Work Phone: 07-10-2022 Evaluation + Plan note Associated Problem(s): Diabetic neuropathy (CMS/HCC) stable with current management, continue same [facility] Work Phone: 07-10-2022 Miscellaneous Notes Associated Problem(s): Emphysema/COPD (CMS/HCC) Doing fine and stable with current management, continue same Associated Problem(s): Depression, major, in remission (CMS/HCC) STABLE, WILL CONTINUE THE SAME. Associated Problem(s): Diabetic neuropathy (CMS/HCC) stable with current management, continue same documented in this encounter [facility] Work Phone: 07-10-2022 History of Present illness Narrative Subjective Patient ID: Barbi Garzon is a 72 y.o. female who presents for Follow-up (FOLLOW UP PULSE OX ([facility]). LEFT UPPER HIP PAIN- CURRENTLY IN PT). HPI F/U ON 24H POX (DONE AT [facility]) FOR CHRONIC COUGH AND CHRONIC SOB.. HAS CHRONIC DISCOLORATION AND CHANGES OF THE NAIL OF FINGERS, CURRENTLY IS WEARING THE NAIL [place]. L HIP PAIN 5/10 ON AND OFF , CURRENTLY GETS PHYSICAL TX WHICH HELPS SOME. Review of Systems Constitutional: Negative for chills and fever. HENT: Negative. Negative for congestion, postnasal drip and rhinorrhea. Eyes: Negative. Negative for visual disturbance. Respiratory: Negative for cough, shortness of breath and wheezing. Cardiovascular: Negative. Negative for chest pain, palpitations and leg swelling. Gastrointestinal: Negative. Negative for abdominal distention, abdominal pain, constipation, diarrhea, nausea and vomiting. Endocrine: Negative. Genitourinary: Negative for dysuria and urgency. Musculoskeletal: Negative. Negative for back pain. Skin: Negative for rash. CHNAGES OF THE NAIL OF FINGERS. Allergic/Immunologic: Negative for immunocompromised state. Neurological: Negative. Negative for dizziness, weakness, light-headedness and headaches. Psychiatric/Behavioral: Negative. Negative for agitation. Objective Physical Exam Constitutional: General: She is not in acute distress. HENT: Head: Normocephalic. Nose: Nose normal. Mouth/Throat: Mouth: Mucous membranes are moist. Eyes: Conjunctiva/sclera: Conjunctivae normal. Pupils: Pupils are equal, round, and reactive to light. Cardiovascular: Rate and Rhythm: Normal rate and regular rhythm. Pulses: Normal pulses. Heart sounds: Normal heart sounds. Pulmonary: Effort: No respiratory distress. Breath sounds: No wheezing. Chest: Chest wall: No tenderness. Abdominal: General: Abdomen is flat. Bowel sounds are normal. Palpations: Abdomen is soft. Tenderness: There is no abdominal tenderness. Musculoskeletal: General: Tenderness present. Normal range of motion. Cervical back: Normal range of motion. Comments: MILD L HIP TENDERNESS Lymphadenopathy: Cervical: No cervical adenopathy. Skin: General: Skin is warm and dry. Findings: No rash. Comments: UNABLE TO EVALUATE THE FINGER NAILS SINCE PT IS WEARING THE NAIL CIT[place]. Neurological: General: No focal deficit present. Mental Status: She is alert. Mental status is at baseline. Psychiatric: Mood and Affect: Mood normal. Behavior: Behavior normal. Assessment/Plan Problem List Items Addressed This Visit Nervous Diabetic neuropathy (CMS/HCC) stable with current management, continue same Respiratory Chronic cough Chronic shortness of breath Emphysema/COPD (CMS/HCC) Doing fine and stable with current management, continue same Musculoskeletal Pain of left hip Endocrine/Metabolic Type II diabetes mellitus (CMS/HCC) - Primary Other Depression, major, in remission (CMS/HCC) STABLE, WILL CONTINUE THE SAME. 24 H POX REPORT IS NOT AVAILABLE AT THE VISIT. 1800 KAREL ADA HGA1C GOAL LESS THAN 7 LOSE WT ADVISED TO AVOID WEARING THE NAIL [place] AT NEXT VISIT. ADVISED TO APPLY WARM COMPRESSION AND OTC PAIN CREAM PRN FOR PAIN. MDM 1) COMPLEXITY: MORE THAN 1 STABLE CHRONIC CONDITION ADDRESSED 2)DATA: TESTS INTERPRETED AND OR ORDERED, TOOK INDEPENDENT HISTORY OR RECORDS REVIEWED 3)RISK: MODERATE RISK DUE TO NATURE OF MEDICAL CONDITIONS/COMORBIDITY OR MEDICATIONS ORDERED OR SURGICAL OR PROCEDURE REFERRAL, . 2 weeks. documented in this encounter [facility] Work Phone: 07-15-2021 History of Present illness Narrative TELEPHONE VISIT DUE TO COVID19.LAB F/U . SORE THROAT, COUGH, HEADACHE 4/10 ,WORSENING CHRONIC SOB X 1 DAY. NO KNOWN COVID EXPOSURE. CURRENTLY IS ON TAPERING DOSAGE OF PREDNISONE. [facility] Work Phone: 07-15-2021 History of Present illness Narrative TELEPHONE VISIT DUE TO COVID19.F/UON COVID TEST WHICH WAS NEGATIVE. FINISHED THE COURSE OF LEVAQUIN AND DEXA, FEELS SLIGHLY BETTER,BUT STILL HAS THE CLEAR RHINITIS, SINUS CONGESTION AND COUGH WITH HEADACHE 4/10 .HAS CATS AT HOME. [facility] Work Phone: 06-14-2021 History of Present illness Narrative TELEPHONE VISIT DUE TO COVID19.F/U on labs and MAMMO (DONE AT [facility]) AND STRESS TEST, CXR (DONE AT ). STILL HAS THE ATYPICAL SUBSTERNAL CHEST PAIN 3/10 ON AND OFF LASTING FOR MINUTES TO HOURS , WHICH GETS WORSE BY PRESSING THE CHEST WALL. LIGHT HEADEDNESS WITH HEADACHE 4/10 X SEVERAL DAYS ON AND OFF. CHRONIC POSTNASAL DRIP AND RHINITIS, PT STOPPING HAVING F/U WITH ENT ,ALLERGY SHOT AND TX DIDN'T HELP. [facility] Work Phone: 03-04-2021 History of Present illness Narrative F/U ON COVID AND FLU TESTS WHICH WERE NEGATIVE. FINISHED THE COURSE OF TX AND SYMPTOMS IMPROVED. F/U ON LABS AND LOW DENSITY CHEST CT . HAS CHRONIC CLEAR RHINITIS . QUIT SMOKING SEVERAL MONTHS AGO. [facility] [facility] Work Phone: 07-11-2009 History of Present illness Narrative LAB F/U. GINISHED THE COURSE OF TX AND ACUTE SYMPTOMS IMPROVED. HAS CHRONIC COUGH.MED REFILL . NASAL SPRAY HELPED WITH RHINITIS AND POST NASAL DRIP.. HAS WORSENING GERD WITH EPIGASTRIC PAIN 4-6/10 ON AND OFF .B/L LEG PAIN 4/10 ON AND OFF WITH HAVING H/O TOBACCO, NO H/O TRAUMA. IS DUE FOR ANOTHER COLOGUARD, LAST ONE WAS 3 YEARS AGO. DIABETIC NEUROPATHY IS STABLE. [facility] Work Phone: 05-10-2009 History of Present illness Narrative LAB F/U (THE WHOLE LAB WASN'T DONE). HAS LIGHT HEADEDNESS ON AND OFF WITH BP RUNNING AROUND 100/60. CHEST TIGHTNESS WITH PAIN 2-3/10 (SUBSTERNAL AND L SIDED ) W/O RADIATIONS. NOTHING MAKES IT WORSE OR BETTER , NO SOB . HAS FATIGUE. DM2, NEUROPATHY AND COPD / CHRONIC COUGH HAVE BEEN STABLE. [facility] Work Phone: documented in this encounter [facility] Work Phone: Evaluation note* Diagnosis Osteoporosis, unspecified osteoporosis type, unspecified pathological fracture presence- Primary Type 2 diabetes mellitus without complication, without long-term current use of insulin (CMS/HCC) Post-menopausal Asymptomatic postmenopausal status (age-related) (natural) Screening for hyperlipidemia Screening for lipoid disorders Upper respiratory tract infection, unspecified type documented in this encounter [facility] Work Phone: Evaluation note* Diagnosis Aortic atherosclerosis (CMS/HCC)- Primary Atherosclerosis of aorta Weight loss Loss of weight Onychomycosis Dermatophytosis of nail Anemia, unspecified type Chronic fatigue Other malaise and fatigue Panlobular emphysema (CMS/HCC) Other emphysema Protein-calorie malnutrition, unspecified severity (CMS/HCC) Lung nodules Other diseases of lung, not elsewhere classified documented in this encounter [facility] Work Phone: Evaluation note* Diagnosis Routine general medical examination at health care facility- Primary Routine general medical examination at a health care facility Age-related osteoporosis without current pathological fracture Encounter for vaccination Diabetic mononeuropathy associated with type 2 diabetes mellitus (CMS/HCC) Pins and needles sensation Disturbance of skin sensation Gastroesophageal reflux disease without esophagitis Esophageal reflux Seasonal allergic rhinitis, unspecified trigger Abdominal pain, LUQ Chronic gastritis without bleeding, unspecified gastritis type documented in this encounter [facility] Work Phone: Evaluation note* Diagnosis COPD with acute exacerbation (CMS/HCC)- Primary Hypertension associated with diabetes (CMS/HCC) Unspecified essential hypertension Post-nasal drip Postnasal drip Light headedness Acute cough documented in this encounter [facility] Work Phone: History of Present illness Narrative* Past Medical, Surgical and Family History: reviewed and updated in chart. * Medications and Supplements: Medications and supplements, including calcium and vitamins reviewed and updated in chart. * No, the patient is not using opioids. * Patient Self Assessment of Health Status: fair. * Tobacco use: Non-User * Alcohol use: Non-User * Illicit drug use: Non-User * Current diet: Heart Healthy Diet. * Exercise Frequency: regularly. * Depression/Suicide Screening: Patient has a current diagnosis of depression. * Hearing Impairment: none. * Cognitive Impairment: No cognitive impairment observed. * Bathing: performs independently. * Dressing: performs independently. * Walking: performs independently. * Managing Finances: performs independently. * Shopping: performs independently. * Managing Medications: performs independently. * Housework / Basic Home Maintenance: performs independently. * Falls Risk Screening:. BARBI has not fallen in the last 6 months. * Home safety risk factors: none. * LAB F/U (DONE THIS MORNING ) .POOR VISION , PREOP VISIT . PT IS DX WITH CATARACT AND NEEDS CLEARANCE FOR L EYE CATARACT SURGERY. MEDICARE WELLNESS EXAM. QUIT SMOKING 3 MONTHS AGO. [facility] Work Phone: History of Present illness NarrativeMAMMO AND BONE DENSITY F/U. GENERALIZED BODY ACHES WITH HAVING FIBROMYALGIA , CYMBALTA HELPS ,WONDERS IF THE DOSAGE CAN BE INCREASED..HAS R SIDED CHEST PAIN 3/10 ON AND OFF X SEVERAL MONTHS, NO RADIATIONS , LASTING FOR MINUTES TO HOURS .ACTIVITY MAKES IT WORSE AND REST MAKES IT BETTER .ABDOMINAL BLOATING .[facility] Work Phone: History of Present illness NarrativeMAMMO AND BONE DENSITY F/U. GENERALIZED BODY ACHES WITH HAVING FIBROMYALGIA , CYMBALTA HELPS ,WONDERS IF THE DOSAGE CAN BE INCREASED..HAS R SIDED CHEST PAIN 3/10 ON AND OFF X SEVERAL MONTHS, NO RADIATIONS , LASTING FOR MINUTES TO HOURS .ACTIVITY MAKES IT WORSE AND REST MAKES IT BETTER .ABDOMINAL BLOATING .[facility] Work Phone: History of Present illness Narrative* TELEPHONE VISIT DUE TO COVID19. * F/U ON CXR AND ABDOMINAL U/S . HAS PRODUCTIVE COUGH WITH NASAL CONGESTION X 3 DAYS WITH ACUTE ON CHRONIC RHINITIS . NO KNOWN COVID EXPOSURE. PT IS FULLY VACCINATED AGAINST COVID. [facility] Work Phone: History of Present illness Narrative* TELEPHONE VISIT DUE TO COVID19. * F/U ON COVID TEST WHICH WAS NEGATIVE. STILL HAS THE COUGH ,BUT LES SEVERE . Z- PACK HELPED AND WONDERS IF CAN HAVE ANOTHER COURSE. CHRONIC NASAL CONGESTION , .CHRONIC SOB HAS BEEN STABLE WITH HAVING COPD. CHRONIC ALLERGIC RHINITIS ,GETS MONTHLY ALLERGY SHOT FROM WITH ENT. [facility] Work Phone: History of Present illness NarrativePREOP VISIT FOR CATARACT SURGERY WITH HAVING POOR VISION .HAD RECENT NEGATIVE STRESS TEST AND NEGATIVE CXR.. DM2 AND NEUROPATHY HAVE BEEN STABLE.[facility] Work Phone: History of Present illness Narrative* TELEPHONE VISIT DUE TO COVID19. * F/U ON CXR. WORSENING CHRONIC SOB. HAS CHRONIC COUGH WITH HAVING UNDERLYING COPD . HASN'T BEEN DONEWITH TX YET.. CURRENT TX DOESN'T HELP MUCH.CHRONIC FATIGUE. [facility] Work Phone: Summary Purpose Family History No Family History Records Found Mother Name Dates Details Family history of cardiac di sorder(V17.49, Z82.49) Status:Active Mother Name Dates Details Family history of cardiac di sorder(V17.49, Z82.49) Status:Active Mother Name Dates Details Family history of cardiac di sorder(V17.49, Z82.49) Status:Active Father Name Dates Details No pertinent family history( V49.89, Z78.9) Status:Active Mother Name Dates Details Family history of cardiac di sorder(V17.49, Z82.49) Status:Active Father Name Dates Details No pertinent family history( V49.89, Z78.9) Status:Active Mother Name Dates Details Family history of cardiac di sorder(V17.49, Z82.49) Status:Active Father Name Dates Details No pertinent family history( V49.89, Z78.9) Status:Active Unknown Family Member Name Dates Details Family history of cardiac di sorder: Mother(V17.49, Z82.49) Status:Active No pertinent family history: Father(V49.89, Z78.9) Status:Active Unknown Family Member Name Dates Details Family history of cardiac di sorder: Mother(V17.49, Z82.49) Status:Active No pertinent family history: Father(V49.89, Z78.9) Status:Active Unknown Family Member Name Dates Details Family history of cardiac di sorder: Mother(V17.49, Z82.49) Status:Active No pertinent family history: Father(V49.89, Z78.9) Status:Active Unknown Family Member Name Dates Details Family history of cardiac di sorder: Mother(V17.49, Z82.49) Status:Active No pertinent family history: Father(V49.89, Z78.9) Status:Active Unknown Family Member Name Dates Details Family history of cardiac di sorder: Mother(V17.49, Z82.49) Status:Active No pertinent family history: Father(V49.89, Z78.9) Status:Active Unknown Family Member Name Dates Details Family history of cardiac di sorder: Mother(V17.49, Z82.49) Status:Active No pertinent family history: Father(V49.89, Z78.9) Status:Active Unknown Family Member Name Dates Details Family history of cardiac di sorder: Mother(V17.49, Z82.49) Status:Active No pertinent family history: Father(V49.89, Z78.9) Status:Active Unknown Family Member Name Dates Details Family history of cardiac di sorder: Mother(V17.49, Z82.49) Status:Active No pertinent family history: Father(V49.89, Z78.9) Status:Active Unknown Family Member Name Dates Details Family history of cardiac di sorder: Mother(V17.49, Z82.49) Status:Active No pertinent family history: Father(V49.89, Z78.9) Status:Active Unknown Family Member Name Dates Details Family history of cardiac di sorder: Mother(V17.49, Z82.49) Status:Active No pertinent family history: Father(V49.89, Z78.9) Status:Active Unknown Family Member Name Dates Details Family history of cardiac di sorder: Mother(V17.49, Z82.49) Status:Active No pertinent family history: Father(V49.89, Z78.9) Status:Active Unknown Family Member Name Dates Details Family history of cardiac di sorder: Mother(V17.49, Z82.49) Status:Active No pertinent family history: Father(V49.89, Z78.9) Status:Active Unknown Family Member Name Dates Details Family history of cardiac di sorder: Mother(V17.49, Z82.49) Status:Active No pertinent family history: Father(V49.89, Z78.9) Status:Active Unknown Family Member Name Dates Details Family history of cardiac di sorder: Mother(V17.49, Z82.49) Status:Active No pertinent family history: Father(V49.89, Z78.9) Status:Active Unknown Family Member Name Dates Details Family history of cardiac di sorder: Mother(V17.49, Z82.49) Status:Active No pertinent family history: Father(V49.89, Z78.9) Status:Active Unknown Family Member Name Dates Details Family history of cardiac di sorder: Mother(V17.49, Z82.49) Status:Active No pertinent family history: Father(V49.89, Z78.9) Status:Active Unknown Family Member Name Dates Details Family history of cardiac di sorder: Mother(V17.49, Z82.49) Status:Active No pertinent family history: Father(V49.89, Z78.9) Status:Active Unknown Family Member Name Dates Details Family history of cardiac di sorder: Mother(V17.49, Z82.49) Status:Active No pertinent family history: Father(V49.89, Z78.9) Status:Active Unknown Family Member Name Dates Details No pertinent family history: Father(V49.89, Z78.9) Status:Active Family history of cardiac di sorder: Mother(V17.49, Z82.49) Status:Active Unknown Family Member Name Dates Details Family history of cardiac di sorder: Mother(V17.49, Z82.49) Status:Active No pertinent family history: Father(V49.89, Z78.9) Status:Active Unknown Family Member Name Dates Details Family history of cardiac di sorder: Mother(V17.49, Z82.49) Status:Active No pertinent family history: Father(V49.89, Z78.9) Status:Active Unknown Family Member Name Dates Details Family history of cardiac di sorder: Mother(V17.49, Z82.49) Status:Active No pertinent family history: Father(V49.89, Z78.9) Status:Active Unknown Family Member Name Dates Details Family history of cardiac di sorder: Mother(V17.49, Z82.49) Status:Active No pertinent family history: Father(V49.89, Z78.9) Status:Active Unknown Family Member Name Dates Details Family history of cardiac di sorder: Mother(V17.49, Z82.49) Status:Active No pertinent family history: Father(V49.89, Z78.9) Status:Active Unknown Family Member Name Dates Details Family history of cardiac di sorder: Mother(V17.49, Z82.49) Status:Active No pertinent family history: Father(V49.89, Z78.9) Status:Active Unknown Family Member Name Dates Details Family history of cardiac di sorder: Mother(V17.49, Z82.49) Status:Active No pertinent family history: Father(V49.89, Z78.9) Status:Active Unknown Family Member Name Dates Details Family history of cardiac di sorder: Mother(V17.49, Z82.49) Status:Active No pertinent family history: Father(V49.89, Z78.9) Status:Active Unknown Family Member Name Dates Details Family history of cardiac di sorder: Mother(V17.49, Z82.49) Status:Active No pertinent family history: Father(V49.89, Z78.9) Status:Active Unknown Family Member Name Dates Details Family history of cardiac di sorder: Mother(V17.49, Z82.49) Status:Active No pertinent family history: Father(V49.89, Z78.9) Status:Active Advance Directives No Advanced Directives Records FoundNo Advanced Directives Records FoundNo Advanced Directives Records FoundNo Advanced Directives Records FoundNo Advanced Directives Records FoundNo Advanced Directives Records FoundNo Advanced Directives Records FoundNo Advanced Directives Records FoundNo Advanced Directives Records Found Chief Complaint MEDICARE WELLNESS TODAY AND FU LAB PT HAVING CATARACT SURGERY ON 11/13 AND NEEDS CLEARANCE2 MONTH F/U - HAD MAMMO AND BONE DENSITY AT [facility] MONTH F/U - HAD MAMMO AND BONE DENSITY AT [place]2 MONTH F/U - HAD MAMMO AND BONE DENSITY AT [facility]2 WK FU PT CO TODAY RUNNY NOSE AND CONGESTION X3 DAYS SOME COUGH NO FEVER OR LOSS OF TASTE OR SMELLNO KNOWN EXPOSURE* A telephone visit (audio only) between the patient (at the originating site) and the provider (at the distant site) was utilized to provide this telehealth service. * TELEPHONE- 6 DAY F/U COVID TESTING (NEG 01/19 AT [facility])- PT STILL C/O OF CONSTANT RUNNY NOSE AND COUGH. NO TEMP. 5 MONTH F/U - ONLY LABS DONE WERE ORDERED BY DR. DILLON 06/05/21. C/O LOW B/P READINGS OFF/ON FOR THE LAST 3 MONTHS. C/O CHEST TIGHTNESS OFF/ON X 2 MONTHS. FEELING LIGHTHEADED AND OFF BALANCE WHEN SHE FIRST WAKES IN THE MORNING AND OVERALL TIRED ALL THE TIME.* A telephone visit (audio only) between the patient (at the originating site) and the provider (at the distant site) was utilized to provide this telehealth service. * TELEPHONE- 3 WEEK F/U LABS,CXR, AND STRESS TEST. PT WANTS TO DISCUSS HEADACHES OFF/ON X 2-3 MONTHS.PT TAKES CLARITIN 10 MG AT BEDTIME. PT D/C NASONEX AND STIIOLTO RESPIMAT INHALER AND TRELEGY INHALER 2 WK CHECK UP IN OFFICE; PAPERWORK2 WK CHECK UP IN OFFICE; PAPERWORK1 WEEK F/U IN PERSON (COVID AND FLU NEGATIVE) PT HAS RUNNY NOSE OFF/ON. MEDROL DOESPACK AND AMOXIL COMPLETE.* A telephone visit (audio only) between the patient (at the originating site) and the provider (at the distant site) was utilized to provide this telehealth service. * C/O FERNANDEZ SORE THROAT COUGH AND RUNNY NOSE SINCE THIS MORNING. * A telephone visit (audio only) between the patient (at the originating site) and the provider (at the distant site) was utilized to provide this telehealth service. * TELEPHONE- 1 WEEK F/U COVID (NEGATIVE AT [facility])- PT STILL C/O OF HEADACHE,LIGHT- HEADED,RUNNY NOSE,COUGH, AND SORE THROAT. NO TEMP. PT COMPLETED DEXA AND LEVAQUIN. 2 WK F/U. STILL HAS CONGESTION, FERNANDEZ AND COUGH. C/O BODY ACHES* A telephone visit (audio only) between the patient (at the originating site) and the provider (at the distant site) was utilized to provide this telehealth service. * VIRTUAL- [phone]- 1 WEEK F/U ILLNESS. CXR DONE ([facility]). STILL TAKING PREDNISONE,LEVOFLOXACIN, AND BENZONATATE. PT STILL NOT FEELING WELL AND HAVING COUGHING FITS. PT ALSO C/O OF SHORTNESS OF BREATH. Reason for Referral Specialty Diagnoses / Procedures Referred By Austin t Referred To Contact Radiology Diagnoses Osteoporosis, unspecified osteoporosis type, unspecified pathological fracture presence Post-menopausal Procedures XR DEXA bone density Tiffany Bull MD [address] [place] [address] [id number] Referral ID Status Reason Start Date Expiration Date Visits Requested Visits Authorized [id number] Authorized Perform Procedure 09/25/2022 03/24/2023 1 1 Specialty Diagnoses / Procedures Referred By Contact Referred To Contact Gastroenterology Diagnoses Gastroesophageal reflux disease without esophagitis Abdominal pain, LUQ Procedures EGD EGD UT ESOPHAGOGASTRODUODENOSCOPY TRANSORAL DIAGNOSTIC UT EGD TRANSORAL BIOPSY SINGLE/MULTIPLE Tiffany Bull MD [address] [place] [address] Referral ID Status Reason Start Date Expiration Date V isits Requested Visits Authorized [id number] Pending Review 02/11/2023 02/11/2024 1 1 Specialty Diagnoses / Procedures Referred By [place] t Referred To Contact Podiatry Diagnoses Diabetic mononeuropathy associated with type 2 diabetes mellitus (CMS/HCC) Pins and needles sensation Tiffany Bull MD [address] [place] [address] Referral ID Status Reason Start Date Expiration Date Visits Requested Visits Authorized [id number] Authorized Specialty Services Required 02/11/2023 02/11/2024 1 1 Specialty Diagnoses / Procedures Referred By Austin t Referred To Contact Diagnoses Acute cough Tiffany Bull MD [address] [place] [address] Referral ID Status Reason Start Date Expiration Date Visits Re quested Visits Authorized [id number] Closed 1 1 Additional Source Comments INFORMATION SOURCE (unrecogn ized section and content) DATE CREATED AUTHOR AUTHOR'S ORGANIZ ATION 10/09/2017 [facility] DATE CREATED AUTHOR AUTHOR'S ORGANIZ ATION 10/09/2017 [facility] DATE CREATED AUTHOR AUTHOR'S ORGANIZ ATION 05/26/2018 [facility] DATE CREATED AUTHOR AUTHOR'S ORGANIZ ATION 11/25/[address] [facility] DATE CREATED AUTHOR AUTHOR'S ORGANIZ ATION 07/22/[address] [facility] DATE CREATED AUTHOR AUTHOR'S ORGANIZ ATION 06/05/2022 [facility] DATE CREATED AUTHOR AUTHOR'S ORGANIZ ATION 06/06/2022 [facility] DATE CREATED AUTHOR AUTHOR'S ORGANIZ ATION 03/23/2023 [facility] Reason for Visit (unrecogniz ed section and content) Reason Comments 2 month follow up Reason Comments Follow-up 3 MONTH FOLLOW UP + LABS [facility]. C/O WEIGHT LOSS IN THE PAST COUPLE MONTHS. C/O OF EXTREME FATIGUE Reason Comments Medicare Annual Wellness Visit Subsequen t MEDICARE WELLNESS + 1 MONTH F/U WITH LABS. C/O LEFT HIP PAIN OFF/ON FOR THE LAST COUPLE MONTHS. NO KNOWN INJURY. Reason Comments Follow-up TELEPHONE VISIT - 3 WEEK F/U. C/O BEING LIGHTHEADED AND NOT FEELING WELL FOR THE LAST FEW DAYS. UNABLE TO CHECK TEMP BUT CLAIMS SHE FEELS HOT - POST-NASAL DRIP, COUGH,FERNANDEZ, NAUSEA. Care Teams (unrecognized sec tion and content) Operating Engineer Apprentice Relationship Specialty Start Date End Date Tiffany Bull MD [address] [place] [address] PCP - General 12/08/18 Tiffany Bull MD [address] [place] [address] PCP - [facility] Attributed Provider 04/07/21 Operating Engineer Apprentice Relationship Specialty Start Date End Date Tiffany Bull MD [address] [place] [address] PCP - General 12/08/18 Tiffany Bull MD [address] [place] [address] PCP - [facility] Attributed Provider 04/07/21 Operating Engineer Apprentice Relationship Specialty Start Date End Date Tiffany Bull MD [address] [place] [address] PCP - General 12/08/18 Tiffany Bull MD [address] [place] [address] PCP - [facility] Attributed Provider 04/07/21 Operating Engineer Apprentice Relationship Specialty Start Date End Date Tiffany Bull MD [address] [place] [address] PCP - General 12/08/18 Tiffany Bull MD [address] [place] [address] [facility] - [facility] Attributed Provider 04/07/21 FOR RECORDS PERTAINING TO PATIENTS WHO ARE OR HAVE BEEN ENROLLED IN A CHEMICAL DEPENDENCY/SUBSTANCEABUSE PROGRAM, SOME INFORMATION MAY BE OMITTED. This clinical summary was aggregated from multiple sources. Caution should be exercised in using it in the provision of clinical care. This summary normalizes information from multiple sources, and as a consequence, information in this document may materially change the coding, format and clinical context of patient data. In addition, data may be omitted in some cases. CLINICAL DECISIONS SHOULD BE BASED ON THE PRIMARY CLINICAL RECORDS. [facility]. provides no warranty or guarantee of the accuracy or completeness of information in this document.
[2023-04-23 08:08] LABS: Absolute Lymphocyte Count 1.81 X10^3/uL (0.83-4.51); Absolute Neutrophil Count 4.4 X10^3/uL (2.0-7.7); Basophil# 0.09 X10^3/uL; Basophil% 1.3 % (0-1); Eosinophils% 4.2 % (0-5); Hematocrit 43.5 % (37-47); Hemoglobin 14.4 g/dL (12.0-15.0); Lymphocyte # 1.81 X10^3/ul (0.83-4.51); Lymphocyte % 25.1 % (19-41); Mean Corp Hgb Conc 33.1 g/dL (32-36); Mean Corpuscular Hgb 34.4 pg (27.0-32.0); Mean Corpuscular Volume 103.8 fL (81-99); Mean Platelet Vol. 8.5 fl (6.2-12.0); Monocyte# 0.57 X10^3/uL; Monocyte% 7.9 % (0-10); NRBC Flagged by Analyzer 0 % (0-5); Neutrophil # 4.41 X10^3/uL (2.7-7.7); Neutrophil % 61.2 % (47-70); Platelet Count 342 K/mm3 (150-450); RBC Distribution Width CV 14.3 % (11.6-14.6); RBC Distribution Width SD 54.2 fl (35.1-43.9); Red Blood Count 4.19 M/mm3 (4.2-5.4); White Blood Count 7.2 K/mm3 (4.4-11.0)
[2023-04-23 08:41] LABS: AST(SGOT) 15 U/L (15-37); Alanine Aminotransfer ALT/SGPT 20 U/L (13-56); Albumin, Serum 3.6 g/dL (3.2-5.0); Alkaline Phosphatase 78 U/L (45-117); Anion Gap 2 (5-15); BUN 13 mg/dL (7-18); BUN/Creat Ratio 21.1 RATIO (10-20); Calcium,Total 9.9 mg/dL (8.5-10.1); Chloride 109 mmol/L (98-107); Creatinine, Serum 0.62 mg/dL (0.55-1.02); EST Glomerular Filtration Rate 101 mL/min (>60); Est Glom Filt Rate - Afr Amer 122 mL/min (>60); Globulin 3.5 g/dL (2.2-4.2); Glucose 109 mg/dL (74-106); Potassium 3.9 mmol/L (3.5-5.1); Protein, Total 7.1 g/dL (6.4-8.2); Sodium Level 142 mmol/L (136-145)
== END | disposition home or self-care (01) ==
LOC: LAB 07:46
PROVIDERS: PCP Internal Medicine; Referring Provider Internal Medicine Rheumatology; Visit Provider Internal Medicine Rheumatology
DX: M06.4 Inflammatory polyarthropathy (principal); Z79.899 Other long term (current) drug therapy; M79.7 Fibromyalgia; M18.0 Bilateral primary osteoarthritis of first carpometacarpal joints
CPT/HCPCS: 36415; 80053; 85025

== ENCOUNTER → 2023-06-17 | Outpatient (CLI) | payer MEDICARE, OTHER, SELFPAY ==
--- OUTSIDE RECORDS SUMMARY | 2023-06-17 06:11 | XMS RPT_ITS | CCD ---
Author Name Unknown Address [address] [place] [address] Organization [facility] Care Team Providers Care Target Aircraft Controller Name Role Phone CARLOS, DAMON E Unavailable Unavailable ZARRABI, TIFFANY Unavailable Unavailable CARLOS, DAMON E Unavailable Unavailable CARLOS, DAMON E Unavailable Unavailable CARLOS, DAMON Unavailable Unavailable CARLOS, DAMON Unavailable Unavailable ZARRABI, TIFFANY Unavailable Unavailable CARLOS, DAMON Unavailable Unavailable CARLOS, DMAON Unavailable Unavailable ZARRABI, TIFFANY Unavailable Unavailable CARLOS, [...] mouth 2 times a day. 0 Active [id number] 200 actuat albuterol 0.09 mg/actuat metered dose [...] Problem Classification Problem Date Documented Date Episodic/Chronic Administrative/social admission (10 sources) Advance directive discussed [...] sources) Anemia; Translations: [Anemia, unspecified] Onset: 12-26-2022 3 Episodic Diabetes mellitus with complications (20 sources) Hypertensive disorder; Translations: [Diabetes with other specified manifestations, type II or unspecified type, not stated as uncontrolled] Onset: 06-05-2022 07-10-2022 Chronic Diabetes mellitus without complication (20 sources) Type 2 diabetes mellitus; Translations: [Diabetes mellitus without mention of complication, type II or unspecified type, not stated as uncontrolled] Onset: 06-05-2022 07-10-2022 Chronic Disorders of lipid metabolism (2 sources) Pure hypercholesterolemia, unspecified; Translations: [Pure hypercholesterolemia, unspecified] Onset: 05-20-2023 Chronic Esophageal disorders (20 sources) Gastroesophageal reflux disease; Translations: [Esophageal reflux] Onset: 06-05-2022 06-05-2022 Chronic Gastritis and duodenitis (5 sources) Chronic gastritis; Translations: [Unspecified chronic gastritis without bleeding] Onset: 02-11-2023 02-11-2023 Chronic Hypertension with complications and secondary hypertension (2 sources) Hypertension secondary to endocrine disorders; 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] Onset: 12-30-2022 Chronic Malaise and fatigue (1 source) Fatigue; Translations: [Chronic fatigue, unspecified] 12-26-2022 Chronic Malaise and fatigue (20 sources) Fatigue; Translations: [Other malaise and fatigue] Onset: 06-05-2022 06-05-2022 Episodic Mood disorders (20 sources) Major depression in remission; Translations: [Major depressive affective disorder, single episode, in partial or unspecified remission] Onset: 06-05-2022 07-10-2022 Chronic Nonmalignant breast conditions (2 sources) Mastodynia; Translations: [Mastodynia] Onset: 05-20-2023 Episodic Nonspecific chest pain (18 sources) Chest [...] of skin] Onset: 02-11-2023 02-11-2023 Episodic Other nutritional; endocrine; and metabolic disorders (1 source) Weight loss; Translations: [Abnormal weight loss] 12-26-2022 Episodic Other nutritional; endocrine; and metabolic disorders (2 sources) Personal history of other endocrine, nutritional and metabolic disease; Translations: [Personal history of other endocrine, nutritional and metabolic disease] Onset: 06-05-2022 Episodic Other upper respiratory disease (20 sources) [...] state; Translations: [Asymptomatic menopausal state] 09-25-2022 Episodic Rheumatoid arthritis and related disease (4 sources) Rheumatoid arthritis, unspecified; Translations: [Inflammatory polyarthropathy] Onset: 05-20-2023 Chronic Screening and history of mental health and [...] Classification Problem Date Documented Da te Episodic/Chronic Abdominal pain (20 sources) Epigastric pain; Translations: [Abdominal pain, epigastric] Onset: 06-05-2022 06-05-2022 Episodic Headache; including migraine (20 sources) Headache; Translations: [Headache] Onset: 06-05-2022 06-05-2022 Episodic Immunizations and screening for infectious disease (8 sources) Influenza vaccination given; Translations: [Need for prophylactic vaccination and inoculation against influenza] Onset: 02-11-2023 02-11-2023 Episodic Mood disorders (4 sources) Mood disorders Onset: 05-29-2022 08-06-2022 Mycoses (6 sources) Onychomycosis; Translations: [Tinea unguium] Onset: 12-26-2022 12-26-2022 Episodic Other circulatory disease (20 sources) H/O: hypertension; [...] skin sensation] Onset: 06-05-2022 06-05-2022 Episodic Other nervous system disorders (2 sources) Paresthesia of skin; Translations: [Paresthesia of skin] Onset: 02-11-2023 Episodic Other non-traumatic joint disorders (20 sources) [...] Onset: 06-05-2022 Resolved: 10-02-2021 06-05-2022 Episodic Other nutritional; endocrine; and metabolic disorders (2 sources) Abnormal weight loss; Translations: [Abnormal weight loss] Onset: 12-26-2022 Episodic Other screening for suspected conditions (not [...] 152.4 cm Tiffany Bull MD Work Phone: [facility] 02-11-2023 12:39-0500 Body mass index (BMI) [Ratio] 21.09 kg/m2 Tiffany Bull MD Work Phone: [facility] 02-11-2023 12:39-0500 Body weight 48.99 kg Tiffany Bull MD Work Phone: [facility] 02-11-2023 12:39-0500 Diastolic blood pressure 72 mm[Hg] Tiffany Bull MD Work Phone: [facility] 02-11-2023 12:39-0500 Heart rate 76 /min Tiffany Bull MD Work Phone: 1(740)[phone] [place] [address] 02-11-2023 12:39-0500 Systolic blood pressure 114 mm[Hg] Tiffany Bull MD Work Phone: 8(830)591-445027 [place] [address] 12-26-2022 12:49-0400 Body height 152.4 cm Tiffany Bull MD Work Phone: 6(778)[phone] [address] 12-26-2022 12:49-0400 Body mass index (BMI) [Ratio] 20.7 kg/m2 Tiffany Bull MD Work Phone: 5(851)[phone] [place] [address] 12-26-2022 12:49-0400 Body weight 48.08 kg Tiffany Bull MD Work Phone: 3(992)[phone] [place] [address] 12-26-2022 12:49-0400 Diastolic blood pressure 62 mm[Hg] Tiffany Bull MD Work Phone: 3(886)550-175827 [place] [address] 12-26-2022 12:49-0400 Heart rate 74 /min Tiffany Bull MD Work Phone: 7(790)[phone] [place] [address] 12-26-2022 12:49-0400 SaO2% (BldA) [Mass fraction] 92 % Tiffany Bull MD Work Phone: 4(937)[phone] [place] [address] 12-26-2022 12:49-0400 Systolic blood pressure 118 mm[Hg] Tiffany Bull MD Work Phone: 0(558)[phone] [place] [address] 09-25-2022 13:18-0400 Body height 152.4 cm Tiffany Bull MD Work Phone: 0(117)[phone] [place] [address] 09-25-2022 13:18-0400 Body mass index (BMI) [Ratio] 23.24 kg/m2 Tiffany Bull MD Work Phone: 7(912)[phone] [address] 09-25-2022 13:18-0400 Body weight 53.98 kg Tiffany Bull MD Work Phone: [facility] 09-25-2022 13:18-0400 Diastolic blood pressure 74 mm[Hg] Tiffany Bull MD Work Phone: [facility] 09-25-2022 13:18-0400 Heart rate 80 /min Tiffany Bull MD Work Phone: [facility] 09-25-2022 13:18-0400 Systolic blood pressure 116 mm[Hg] Tiffany Bull MD Work Phone: [facility] 07-10-2022 10:53-0400 Body height 152.4 cm Tiffany Bull MD Work Phone: [facility] 07-10-2022 10:53-0400 Body mass index (BMI) [Ratio] 22.85 kg/m2 Tiffany Bull MD Work Phone: [facility] 07-10-2022 10:53-0400 Body weight 53.07 kg Tiffany Bull MD Work Phone: [facility] 07-10-2022 10:53-0400 Diastolic blood pressure 74 mm[Hg] Tiffany Bull MD Work Phone: [facility] 07-10-2022 10:53-0400 Heart rate 82 /min Tiffany Bull MD Work Phone: [facility] 07-10-2022 10:53-0400 SaO2% (BldA) [Mass fraction] 95 % Tiffany Bull MD Work Phone: [facility] 07-10-2022 10:53-0400 Systolic blood pressure 116 mm[Hg] Tiffany Bull MD Work Phone: [facility] 05-29-2022 11:24-0500 8 1 Tiffany Bull Work Phone: [facility] Work Phone: Encounters Encounter Date Encounter Type Care Provider Facility Start: 05-20-2023 End: 05-20-2023 ambulatory [facility] Start: 03-20-2023 End: 03-20-2023 ambulatory [facility] Start: 03-13-2023 End: 03-13-2023 ambulatory [facility] Start: 03-13-2023 End: 03-13-2023 Phys/qhp telephone evaluation 21-30 min Tiffany Bull MD Work Phone: [facility] Procedures Date Procedure Procedure Detail Performing Clinician Start: 03-20-2023 Follow-up visit Follow-up TIFFANY BULL Start: 03-14-2022 Mammography Tiffany Bull MD Work Phone: Start: 10-13-2019 25 hydroxy includes fractions if performed Tiffany Bull Start: 10-13-2019 Comprehensive metabolic 2000 panel Laci Bull Start: 10-13-2019 Hemoglobin glycosylated a1c Tiffany hartman Start: 04-19-2019 Xray Chest 2 View PA + Lateral Tiffany chavez Start: 08-24-2015 Esophagogastroduodenoscopy Tiffany leahy Work Phone: Plan of Treatment Date Care Activity Detail Author Start: 03-05-2032 DTaP/Tdap/Td Vaccines (2 - Td or Tdap) DTaP/Tdap/Td Vaccines (2 - Td or Tdap) [facility] Start: 12-10-2024 Screening for malignant neoplasm of colon [facility] Start: 02-13-2024 Medicare Annual Wellness Visit Medicare Annual Wellness Visit (AWV) [facility] Start: 07-19-2023 Glaucoma screening Diabetes: Retinopathy Screening [facility] Start: 07-19-2023 Ophthalmic examination and evaluation Diabetes: Retinopathy Screening [facility] Start: 03-20-2023 End: 03-20-2023 Telemedicine consultation with patient 03/20/2023 11:00 AM EST Telemedicine [facility] [address] [place] [address] Tiffany Bull MD [address] [place] [address] [facility] Start: 03-14-2023 Screening for malignant neoplasm of breast Mammogram [facility] Start: 03-06-2023 End: 03-06-2023 Patient encounter procedure 03/06/2023 12:30 PM EST Appointment [facility] [address] [place] [phone] Ji Us MD [address] [place] [address] [facility] Start: 03-05-2023 End: 03-05-2023 Patient encounter procedure 03/05/2023 10:00 AM EST Office Visit [facility] [address] [place] [phone] Tiffany Bull MD [address] [facility] [place] [address] [facility] Start: 02-11-2023 End: 02-12-2024 Esophagogastroduodenoscopy EGD Endoscopy Routine Gastroesophageal reflux disease without esophagitis Abdominal pain, LUQ Expected: 02/11/2023 (Approximate), Expires: 02/12/2024 [facility] Service Area Work Phone: Immunizations Immunization Date Immunization Notes Care Provider Fa cility 02-11-2023 zoster vaccine-recombinant adjuvanted (Shingrix, PF,) 50 mcg/0.5 mL vaccine Tiffany Bull MD Work Phone: [facility] Work Phone: 02-11-2023 pneumoc 20-diana conj- dip cr,PF, (Prevnar 20, PF,) 0.5 mL vaccine Tiffany Bull MD Work Phone: [facility] Work Phone: 12-15-2022 Influenza, Seasonal, Quadrivalent, Adjuvanted Tiffany Bull MD Work Phone: [facility] 03-05-2022 tetanus toxoid, redu angela diphtheria toxoid, and acellular pertussis vaccine, adsorbed Tiffany Bull Work Phone: [facility] 01-10-2022 Fluzone High-Dose Quadrivalent 0.7 ML Intramuscular Suspension Prefilled Syringe; Translations: [Fluzone High-Dose Quadrivalent 0.7 ML Intramuscular Suspension Prefilled Syringe] Tiffany Bull Work Phone: [facility] Work Phone: Payers Date Payer Category Payer [employer] ( [employer] others) [id number] 2022 [employer] ( [employer] others[employer] FOR LIFE [id number] 2022-Present [address] [place] [address] [id number] 2013 Medicare [id number] 2013 Medicare [id number] 2013 Medicare MEDICARE MEDICAR E PART A AND B [id number] 2013-Present [address] [place] [address] [id number] 1948 Unknown [id number] [id number] .356 1948 Unknown [id number] 2.16.840.1.314153.3.579.2 .356 1948 Unknown [id number] 2.16.840.1.178543.3.579.2 .356 1948 Unknown [id number] 2.16.840.1.894850.3.579.2 .356 1948 Unknown [id number] 2.16.840.1.840868.3.579.2 .356 1948 Unknown [id number] 2.16.840.1.662980.3.579.2 .1948 Unknown [id number] 2.16840.1.790048.3.579.2 .1948 Unknown [id number] 2.16840.1.565464.3.579.2 .356 1948 Unknown [id number] 2.16840.1.168389.3.579.2 .1948 Unknown [id number] 2.16840.1.968553.3.579.2 .1948 Unknown [id number] 2.840.1.415336.3.579.2 .1948 Unknown [id number] 2.840.1.608331.3.579.2 .356 1948 Unknown [id number] 2.840.1.924776.3.579.2 .1243 1948 Unknown [id number] 2.840.1.852864.3.579.2 .1243 1948 Unknown [id number] 2.840.1.437722.3.579.2 .1243 1948 Unknown [id number] 2.840.1.679479.3.579.2 .1243 1948 Unknown [id number] 2.840.1.840471.3.579.2 .1243 1948 Unknown [id number] 2.16840.1.979232.3.579.2 .1243 1948 Unknown [id number] 2.16840.1.107336.3.579.2 .1243 1948 Unknown [id number] 2.16840.1.897143.3.579.[address] [facility] e ( and others) [id number] Medicare [id number] Unknown Social History Date Type Detail Facility Assertion Unknown if ever smoked [facility] Work Phone: Start: 07-10-2022 End: 02-11-2023 Current every day smoker Current every day smoker [facility] Work Phone: Start: 07-10-2022 Tobacco smoking status NHIS Ex-smoker [facility] End: 04-07-2021 History of tobacco use Current smoker [facility] Work Phone: End: 04-07-2021 History of tobacco use Cigarette Smoker [facility] Work Phone: Start: 07-10-2022 Tobacco use and exposure Smokeless tobacco non-user [facility] Work Phone: Start: 07-10-2022 End: 03-13-2023 Alcohol intake Lifetime non-drinker (finding) [facility] Work Phone: Start: 07-10-2022 End: 02-11-2023 Tobacco use panel [facility] Work Phone: Start: 1950 Sex Assigned At Not on file [facility] Work Phone: Start: 06-30-2022 End: 03-13-2023 Exposure to SARS-CoV-2 (event) Not sure [facility] NEGATED: Highlighted row - - [facility] Medicine Work Phone: Functional Status Date Assessment Result Facility NEGATED: Highlighted row Functional performance Functional status health issues are not documented Disease [facility] Work Phone: Mental Status Date Assessment Result Facility NEGATED: Highlighted row Cognitive function [Interpretation] Cognitive status health issues are not documented Disease [facility] Work Phone: Clinical Notes 05-10-2009 to 03-13-2023 Tiffany Bull MD - 03/13/2023 12:30 PM Hans Bull MD - 02/11/2023 12:45 PM ESTAssessment & Plan Note - Tiffany Bull MD - 12/26/2022 1:47 PM EDT Note Date & Type Note Facility 03-13-2023 History of Present illness Narrative Subjective Patient ID: Barbi Judge is a 72 y.o. female who presents [...] 1 WEEK (VIRTUAL) documented in this encounter [facility] Work Phone: 02-11-2023 History of Present illness Narrative Subjective Reason for Visit: Barbi Judge is an 72 y.o. female here for [...] General Tiffany Bull MD as PCP - [facility] Attributed Provider Review of Systems Constitutional: [...] mononeuropathy associated with type 2 diabetes mellitus ([facility]) Referral to Podiatry 5. Pins and needles [...] 3 WEEKS . documented in this encounter [facility] Work Phone: 12-26-2022 Evaluation + Plan note Associated Problem(s): Protein-calorie malnutrition, unspecified severity (CMS/HCC) Doing fine and stable with current management, continue same [facility] Work Phone: 12-26-2022 Miscellaneous Notes Associated Problem(s): Protein-calorie malnutrition, unspecified severity (CMS/HCC) Doing fine and stable with current management, continue same documented in this encounter [facility] Work Phone: 12-26-2022 History of Present illness Narrative Subjective Patient ID: Barbi Judge is a 72 y.o. female who presents for Follow-up (3 MONTH FOLLOW UP + LABS [facility]. C/O WEIGHT LOSS IN THE PAST COUPLE [...] PROCEDURE REFERRAL, . 1 MON LAB TO [facility] Low density CHEST CT TO BE DONE IN 1 YEAR. (TO HAVE I CALL BOX) documented in this encounter [facility] Work Phone: 09-25-2022 History of Present illness Narrative Subjective Patient ID: Barbi Judge is a 72 y.o. female who presents for 2 month follow up. HPI F/U ON LOW DENSITY CHEST CT AND LABS . HAS F/U WITH PUBLIC HEALTH STAFF NURSE . STILL SMOKES . COMPLAINS OF RHINITIS [...] complication, without long-term current use of insulin ([facility]) Hemoglobin A1C Comprehensive Metabolic Panel Albumin , [...] 3 MON. LABS TO BE DONE AT [facility]. documented in this encounter [facility] Work Phone: 07-10-2022 Evaluation + Plan note Associated Problem(s): Emphysema/COPD (CMS/HCC) Doing fine and stable with current management, continue same [facility] Work Phone: 07-10-2022 Evaluation + Plan note Associated Problem(s): Depression, major, in remission (CMS/HCC) STABLE, WILL CONTINUE THE SAME. [facility] Work Phone: 07-10-2022 Evaluation + Plan note Associated Problem(s): Diabetic neuropathy (CMS/HCC) stable with current management, continue same [facility] Work Phone: 07-10-2022 Miscellaneous Notes Associated Problem(s): Emphysema/COPD (CMS/HCC) Doing fine and stable with current management, continue same Associated Problem(s): Depression, major, in remission (CMS/HCC) STABLE, WILL CONTINUE THE SAME. Associated Problem(s): Diabetic neuropathy (CMS/HCC) stable with current management, continue same documented in this encounter [facility] Work Phone: 07-10-2022 History of Present illness Narrative Subjective Patient ID: Barbi Judge is a 72 y.o. female who presents for Follow-up (FOLLOW UP PULSE OX ([facility]). LEFT UPPER HIP PAIN- CURRENTLY IN PT). HPI F/U ON 24H POX (DONE AT [facility]) FOR CHRONIC COUGH AND CHRONIC SOB.. HAS CHRONIC DISCOLORATION AND CHANGES OF THE NAIL OF FINGERS, CURRENTLY IS WEARING THE NAIL PANAMANIAN. L HIP PAIN 5/10 ON AND OFF [...] NAILS SINCE PT IS WEARING THE NAIL PANAMANIAN. Neurological: General: No focal deficit present. Mental [...] WT ADVISED TO AVOID WEARING THE NAIL PANAMANIAN AT NEXT VISIT. ADVISED TO APPLY WARM COMPRESSION AND OTC PAIN CREAM PRN FOR PAIN. MDM 1) COMPLEXITY: MORE THAN 1 STABLE CHRONIC CONDITION ADDRESSED 2)DATA: TESTS INTERPRETED AND OR ORDERED, TOOK INDEPENDENT HISTORY OR RECORDS REVIEWED 3)RISK: MODERATE RISK DUE TO NATURE OF MEDICAL CONDITIONS/COMORBIDITY OR MEDICATIONS ORDERED OR SURGICAL OR PROCEDURE REFERRAL, . 2 weeks. documented in this encounter [facility] Work Phone: 07-15-2021 History of Present illness Narrative TELEPHONE VISIT DUE TO COVID19.LAB F/U . SORE THROAT, COUGH, HEADACHE 4/10 ,WORSENING CHRONIC SOB X 1 DAY. NO KNOWN COVID EXPOSURE. CURRENTLY IS ON TAPERING DOSAGE OF PREDNISONE. [facility] Work Phone: 07-15-2021 History of Present illness Narrative TELEPHONE VISIT DUE TO COVID19.F/UON COVID TEST WHICH WAS NEGATIVE. FINISHED THE COURSE OF LEVAQUIN AND DEXA, FEELS SLIGHLY BETTER,BUT STILL HAS THE CLEAR RHINITIS, SINUS CONGESTION AND COUGH WITH HEADACHE 4/10 .HAS CATS AT HOME. [facility] Work Phone: 06-14-2021 History of Present illness Narrative TELEPHONE VISIT DUE TO COVID19.F/U on labs and MAMMO (DONE AT [facility]) AND STRESS TEST, CXR (DONE AT ). STILL HAS THE ATYPICAL SUBSTERNAL CHEST PAIN 3/10 ON AND OFF LASTING FOR MINUTES TO HOURS , WHICH GETS WORSE BY PRESSING THE CHEST WALL. LIGHT HEADEDNESS WITH HEADACHE 4/10 X SEVERAL DAYS ON AND OFF. CHRONIC POSTNASAL DRIP AND RHINITIS, PT STOPPING HAVING F/U WITH ENT ,ALLERGY SHOT AND TX DIDN'T HELP. [facility] Work Phone: 03-04-2021 History of Present illness Narrative F/U ON COVID AND FLU TESTS WHICH WERE NEGATIVE. FINISHED THE COURSE OF TX AND SYMPTOMS IMPROVED. F/U ON LABS AND LOW DENSITY CHEST CT . HAS CHRONIC CLEAR RHINITIS . QUIT SMOKING SEVERAL MONTHS AGO. [facility] Work Phone: 07-11-2009 History of Present illness [...] AGO. DIABETIC NEUROPATHY IS STABLE. [facility] Work Phone: 05-10-2009 History of Present illness Narrative LAB F/U (THE WHOLE LAB WASN'T DONE). HAS LIGHT HEADEDNESS ON AND OFF WITH BP RUNNING AROUND 100/60. CHEST TIGHTNESS WITH PAIN 2-3/10 (SUBSTERNAL AND L SIDED ) W/O RADIATIONS. NOTHING MAKES IT WORSE OR BETTER , NO SOB . HAS FATIGUE. DM2, NEUROPATHY AND COPD / CHRONIC COUGH HAVE BEEN STABLE. [facility] Work Phone: documented in this encounter [facility] Work Phone: Evaluation note* Diagnosis Osteoporosis, unspecified osteoporosis type, unspecified pathological fracture presence- Primary Type 2 diabetes mellitus without complication, without long-term current use of insulin (CMS/HCC) Post-menopausal Asymptomatic postmenopausal status (age-related) (natural) Screening for hyperlipidemia Screening for lipoid disorders Upper respiratory tract infection, unspecified type documented in this encounter [facility] Work Phone: Evaluation note* Diagnosis Aortic atherosclerosis (CMS/HCC)- Primary Atherosclerosis of aorta Weight loss Loss of weight Onychomycosis Dermatophytosis of nail Anemia, unspecified type Chronic fatigue Other malaise and fatigue Panlobular emphysema ([facility]/H[facility]) Other emphysema Protein-calorie malnutrition, unspecified severity ([facility]) Lung nodules Other diseases of lung, not elsewhere classified documented in this encounter [facility] Work Phone: Evaluation note* Diagnosis Routine general medical examination at health care facility- Primary Routine general medical examination at a health care facility Age-related osteoporosis without current pathological fracture Encounter for vaccination Diabetic mononeuropathy associated with type 2 diabetes mellitus ([facility]) Pins and needles sensation Disturbance of skin sensation Gastroesophageal reflux disease without esophagitis Esophageal reflux Seasonal allergic rhinitis, unspecified trigger Abdominal pain, LUQ Chronic gastritis without bleeding, unspecified gastritis type documented in this encounter [facility] Work Phone: Evaluation note* Diagnosis COPD with acute exacerbation ([facility])- Primary Hypertension associated with diabetes ([facility]) Unspecified essential hypertension Post-nasal drip Postnasal drip Light headedness Acute cough documented in this encounter [facility] Work Phone: History of Present illness [...] QUIT SMOKING 3 MONTHS AGO. [facility] Work Phone: History of Present illness NarrativeMAMMO AND BONE DENSITY F/U. GENERALIZED BODY ACHES WITH HAVING FIBROMYALGIA , CYMBALTA HELPS ,WONDERS IF THE DOSAGE CAN BE INCREASED..HAS R SIDED CHEST PAIN 3/10 ON AND OFF X SEVERAL MONTHS, NO RADIATIONS , LASTING FOR MINUTES TO HOURS .ACTIVITY MAKES IT WORSE AND REST MAKES IT BETTER .ABDOMINAL BLOATING .[facility] Work Phone: History of Present illness NarrativeMAMMO AND BONE DENSITY F/U. GENERALIZED BODY ACHES WITH HAVING FIBROMYALGIA , CYMBALTA HELPS ,WONDERS IF THE DOSAGE CAN BE INCREASED..HAS R SIDED CHEST PAIN 3/10 ON AND OFF X SEVERAL MONTHS, NO RADIATIONS , LASTING FOR MINUTES TO HOURS .ACTIVITY MAKES IT WORSE AND REST MAKES IT BETTER .ABDOMINAL BLOATING .[facility] Work Phone: History of Present illness Narrative* TELEPHONE VISIT DUE TO COVID19. * F/U ON CXR AND ABDOMINAL U/S . HAS PRODUCTIVE COUGH WITH NASAL CONGESTION X 3 DAYS WITH ACUTE ON CHRONIC RHINITIS . NO KNOWN COVID EXPOSURE. PT IS FULLY VACCINATED AGAINST COVID. [facility] Work Phone: History of Present illness Narrative* TELEPHONE VISIT DUE TO COVID19. * F/U ON COVID TEST WHICH WAS NEGATIVE. STILL HAS THE COUGH ,BUT LES SEVERE . Z- PACK HELPED AND WONDERS IF CAN HAVE ANOTHER COURSE. CHRONIC NASAL CONGESTION , .CHRONIC SOB HAS BEEN STABLE WITH HAVING COPD. CHRONIC ALLERGIC RHINITIS ,GETS MONTHLY ALLERGY SHOT FROM WITH ENT. [facility] Work Phone: History of Present illness NarrativePREOP VISIT FOR CATARACT SURGERY WITH HAVING POOR VISION .HAD RECENT NEGATIVE STRESS TEST AND NEGATIVE CXR.. DM2 AND NEUROPATHY HAVE BEEN STABLE.[facility] Work Phone: History of Present illness Narrative* TELEPHONE VISIT DUE TO COVID19. * F/U ON CXR. WORSENING CHRONIC SOB. HAS CHRONIC COUGH WITH HAVING UNDERLYING COPD . HASN'T BEEN DONEWITH TX YET.. CURRENT TX DOESN'T HELP MUCH.CHRONIC FATIGUE. [facility] Work Phone: Summary Purpose Family History [...] DAY F/U COVID TESTING (NEG 01/19 AT [facility])- PT STILL C/O OF CONSTANT RUNNY NOSE [...] TELEPHONE- 1 WEEK F/U COVID (NEGATIVE AT [facility])- PT STILL C/O OF HEADACHE,LIGHT- HEADED,RUNNY NOSE,COUGH, AND SORE THROAT. NO TEMP. PT COMPLETED DEXA AND LEVAQUIN. 2 WK F/U. STILL HAS CONGESTION, FERNANDEZ AND COUGH. C/O BODY ACHES* A telephone visit (audio only) between the patient (at the originating site) and the provider (at the distant site) was utilized to provide this telehealth service. * VIRTUAL- [phone]- 1 WEEK F/U ILLNESS. CXR DONE ([facility]). STILL TAKING PREDNISONE,LEVOFLOXACIN, AND BENZONATATE. PT STILL NOT FEELING WELL AND HAVING COUGHING FITS. PT ALSO C/O OF SHORTNESS OF BREATH. Reason for Referral Specialty Diagnoses / Procedures Referred By Contac t Referred To Contact Radiology Diagnoses Osteoporosis, unspecified osteoporosis type, unspecified pathological fracture presence Post-menopausal Procedures XR DEXA bone density Tiffany Bull MD [address] [place] [address] [address] Referral ID Status Reason Start Date Expiration Date Visits Requested Visits Authorized [id number] Authorized Perform Procedure 09/25/2022 03/24/2023 1 1 Specialty Diagnoses / Procedures Referred By Contact Referred To Contact Gastroenterology Diagnoses Gastroesophageal reflux disease without esophagitis Abdominal pain, LUQ Procedures EGD EGD MA ESOPHAGOGASTRODUODENOSCOPY TRANSORAL DIAGNOSTIC MA EGD TRANSORAL BIOPSY SINGLE/MULTIPLE Tiffany Bull MD [address] [place] [address] Referral ID Status Reason Start Date Expiration Date V isits Requested Visits Authorized [id number] Pending Review 02/11/2023 02/11/2024 1 1 Specialty Diagnoses / Procedures Referred By Contac t Referred To Contact Podiatry Diagnoses Diabetic mononeuropathy associated with type 2 diabetes mellitus (CMS/HCC) Pins and needles sensation Tiffany Bull MD [address] [place] [address] Referral ID Status Reason Start Date Expiration Date Visits Requested Visits Authorized [id number] Authorized Specialty Services Required 02/11/2023 02/11/2024 1 1 Specialty Diagnoses / Procedures Referred By Contac t Referred To Contact Diagnoses Acute cough Tiffany Bull MD [address] [place] [address] Referral ID Status Reason Start Date Expiration Date Visits Re quested Visits Authorized [id number] Closed 1 1 Additional Source Comments INFORMATION SOURCE (unrecogn ized section and content) DATE CREATED AUTHOR AUTHOR'S ORGANIZ ATION 10/09/2017 [facility] DATE CREATED AUTHOR AUTHOR'S ORGANIZ ATION 10/09/2017 [facility] DATE CREATED AUTHOR AUTHOR'S ORGANIZ ATION 05/26/2018 [facility] DATE CREATED AUTHOR AUTHOR'S ORGANIZ ATION 11/25/2018 [facility] DATE CREATED AUTHOR AUTHOR'S ORGANIZ ATION 07/22/2021 [facility] DATE CREATED AUTHOR AUTHOR'S ORGANIZ ATION 06/05/2022 [facility] DATE CREATED AUTHOR AUTHOR'S ORGANIZ ATION 06/06/2022 [place] DATE CREATED AUTHOR AUTHOR'S ORGANIZ ATION 05/22/2023 [facility] Reason for Visit (unrecogniz ed section and content) Reason Comments 2 month follow up Reason Comments Follow-up 3 MONTH FOLLOW UP + LABS [facility]. C/O WEIGHT LOSS IN THE PAST COUPLE [...] Care Teams (unrecognized sec tion and content) [employer] Relationship Specialty Start Date End Date Tiffany Bull MD [address] [place] [address] PCP - General 12/08/18 Tiffany Bull MD [address] [place] [address] PCP - MSSP ACO Attributed Provider 04/07/21 [employer] Relationship Specialty Start Date End Date Tiffany Bull MD [address] [place] [address] PCP - General 12/08/18 Tiffany Bull MD [address] [place] [address] PCP - MSSP ACO Attributed Provider 04/07/21 [employer] Relationship Specialty Start Date End Date Tiffany Bull MD [address] [place] [address] PCP - General 12/08/18 Tiffany Bull MD [address] [place] [address] PCP - MSSP ACO Attributed Provider 04/07/21 [employer] Relationship Specialty Start Date End Date Tiffany Bull MD [address] [place] [address] PCP - General 12/08/18 Tiffany Bull MD [address] [place] [address] PCP - MSSP ACO Attributed Provider 04/07/21 FOR RECORDS PERTAINING [...] BE BASED ON THE PRIMARY CLINICAL RECORDS. [facility]. provides no warranty or guarantee of the accuracy or completeness of information in this document.
[2023-06-17 07:44] LABS: Absolute Lymphocyte Count 1.99 X10^3/uL (0.83-4.51); Absolute Neutrophil Count 3.8 X10^3/uL (2.0-7.7); Basophil# 0.08 X10^3/uL; Basophil% 1.2 % (0-1); Eosinophil# 0.16 X10^3/uL; Eosinophils% 2.4 % (0-5); Hematocrit 40.2 % (37-47); Lymphocyte # 1.99 X10^3/ul (0.83-4.51); Lymphocyte % 29.8 % (19-41); Mean Corp Hgb Conc 32.3 g/dL (32-36); Mean Corpuscular Hgb 33.9 pg (27.0-32.0); Mean Platelet Vol. 9.1 fl (6.2-12.0); Monocyte# 0.61 X10^3/uL; Monocyte% 9.1 % (0-10); NRBC Flagged by Analyzer 0 % (0-5); Neutrophil # 3.81 X10^3/uL (2.7-7.7); Neutrophil % 57.1 % (47-70); Platelet Count 336 K/mm3 (150-450); RBC Distribution Width CV 14.3 % (11.6-14.6); RBC Distribution Width SD 55.1 fl (35.1-43.9); Red Blood Count 3.83 M/mm3 (4.2-5.4); White Blood Count 6.7 K/mm3 (4.4-11.0)
[2023-06-17 08:14] LABS: Hemoglobin A1c 5.7 % (3.8-5.6)
[2023-06-17 08:32] LABS: ALB/GLOB Ratio 1.1 RATIO (0.9-2.4); AST(SGOT) 17 U/L (15-37); Alanine Aminotransfer ALT/SGPT 20 U/L (13-56); Albumin, Serum 3.4 g/dL (3.2-5.0); Alkaline Phosphatase 71 U/L (45-117); Anion Gap 2 (5-15); BUN 16 mg/dL (7-18); BUN/Creat Ratio 24.1 RATIO (10-20); Calcium,Total 9.5 mg/dL (8.5-10.1); Chloride 110 mmol/L (98-107); Cholesterol 126 mg/dL (200); Creatinine, Serum 0.66 mg/dL (0.55-1.02); EST Glomerular Filtration Rate 92 mL/min (>60); Est Glom Filt Rate - Afr Amer 112 mL/min (>60); Glucose 97 mg/dL (74-106); High Density Lipoprotein 80 mg/dL; Potassium 3.8 mmol/L (3.5-5.1); Protein, Total 6.4 g/dL (6.4-8.2); Sodium Level 143 mmol/L (136-145); Triglycerides 54 mg/dL; Very Low Density Lipoprotein 11 mg/dL (5-40)
[2023-06-17 10:04] LABS: Microalbumin,Random Urine 23.9 mg/L (NO RANGE EST.)
== END | disposition home or self-care (01) ==
LOC: LAB 06:07
PROVIDERS: PCP Internal Medicine; Referring Provider Internal Medicine Rheumatology; Visit Provider Internal Medicine Rheumatology
DX: M06.4 Inflammatory polyarthropathy (principal); E11.9 Type 2 diabetes mellitus without complications; Z79.899 Other long term (current) drug therapy; Z13.220 Encounter for screening for lipoid disorders
CPT/HCPCS: 36415; 80053; 80061; 82043; 83036; 85025

== ENCOUNTER → 2023-08-12 | Outpatient (CLI) | payer MEDICARE, OTHER, SELFPAY ==
--- NOTE | 2023-08-12 10:10 | RAD_ITS ---
STUDY: X-RAY CHEST REASON FOR EXAM: Female, 73 years old. SOB,COUGH TECHNIQUE: PA and lateral views of the chest. COMPARISON: Comparison is made with prior study June 03, 2022. FINDINGS: There is hyperinflation of the lungs consistent with chronic obstructive lung disease (COPD). Stable increased markings at the lung bases worse at the left lung base suggestive of scarring. Progressive scarring in the lung apices bilaterally. Stable 1.3 cm partially calcified nodule in the right lower lobe. There is no demonstrated pleural abnormality. Normal size heart. Normal mediastinum and otilia. Normal visualized pulmonary arteries. There is atherosclerotic calcification of the aortic arch with tortuosity. There is demineralization of the osseous structures. Normal visualized ribs, clavicles, and shoulders. There is no demonstrated abnormality of the visualized soft tissue structures of the upper abdomen. RAD/Chest PA and Lateral IMPRESSION: Stable examination. Electronically Signed: Jonnie Allen MD at 12:42 EDT ,
== END | disposition home or self-care (01) ==
LOC: RAD 10:05
PROVIDERS: PCP Internal Medicine; Referring Provider Internal Medicine; Visit Provider Internal Medicine
DX: J43.1 Panlobular emphysema (principal); R06.02 Shortness of breath; R05.9 Cough, unspecified
CPT/HCPCS: 71046

== ENCOUNTER → 2023-08-25 | Outpatient (CLI) | payer MEDICARE, OTHER, SELFPAY ==
[2023-08-25 16:38] LABS: Absolute Lymphocyte Count 1.63 X10^3/uL (0.83-4.51); Absolute Neutrophil Count 3.7 X10^3/uL (2.0-7.7); Basophil% 1.5 % (0-1); Eosinophils% 8.8 % (0-5); Hematocrit 40.4 % (37-47); Hemoglobin 13.3 g/dL (12.0-15.0); Lymphocyte # 1.63 X10^3/ul (0.83-4.51); Mean Corp Hgb Conc 32.9 g/dL (32-36); Mean Corpuscular Hgb 34.4 pg (27.0-32.0); Mean Corpuscular Volume 104.4 fL (81-99); Mean Platelet Vol. 8.7 fl (6.2-12.0); Monocyte% 10.3 % (0-10); NRBC Flagged by Analyzer 0 % (0-5); Neutrophil # 3.74 X10^3/uL (2.7-7.7); Neutrophil % 55.1 % (47-70); Platelet Count 330 K/mm3 (150-450); RBC Distribution Width CV 15.6 % (11.6-14.6); RBC Distribution Width SD 59.7 fl (35.1-43.9); Red Blood Count 3.87 M/mm3 (4.2-5.4); White Blood Count 6.8 K/mm3 (4.4-11.0)
[2023-08-25 17:55] LABS: Magnesium 2.4 mg/dL (1.6-2.6); T4 Free Direct 0.91 ng/dL (0.76-1.46); Thyroid Stim Hormone (TSH) 0.75 uIU/mL (0.358-3.74)
[2023-08-25 19:00] LABS: Vitamin B12 331 pg/mL (211-911)
[2023-08-28 14:10] LABS: Zinc, Plasma or Serum 69 ug/dL (44-115)
== END | disposition home or self-care (01) ==
LOC: LAB 15:16
PROVIDERS: PCP Internal Medicine; Referring Provider Internal Medicine; Visit Provider Internal Medicine
DX: R42 Dizziness and giddiness (principal); R53.83 Other fatigue
CPT/HCPCS: 36415; 82607; 83735; 84439; 84443; 84630; 85025

== ENCOUNTER → 2023-10-02 | Outpatient (CLI) | payer MEDICARE, OTHER, SELFPAY ==
--- NOTE | 2023-10-02 14:14 | CT_ITS ---
ACR Level 3 findings have been noted. An addendum which confirms receipt of the report will follow. HISTORY: quit 11/2021. TECHNIQUE: Helically acquired images were obtained of the chest without contrast. A radiation dose optimization technique was used for this scan. 527 images. COMPARISON: 09/19/2022, 09/17/2021. FINDINGS: LARGE AIRWAYS: Patent. LUNGS: Advanced emphysema with chronic biapical scarring. New spiculated 1.5 x 1.8 cm right upper lobe nodule posteriorly. PLEURA: No pneumothorax or significant pleural effusion. HEART/PERICARDIUM: Heart within normal limits in size with coronary artery calcification. Mild pericardial effusion. VESSELS: Thoracic aorta nondilated. Atherosclerosis noted MEDIASTINUM/IDALIA: No pathologically enlarged adenopathy. BONES: Osteopenia and degenerative change. CT/Low Dose CT Lung Screening IMPRESSION: New 1.8 cm spiculated right upper lobe nodule. Lung-RADS category 4X: Recommend diagnostic chest CT with and without contrast, PET/CT, tissue sampling, and/or referral for further clinical evaluation. Electronically Signed: Samaria Sanchez MD at 14:20 EDT ,
== END | disposition home or self-care (01) ==
LOC: CT 14:11
PROVIDERS: PCP Internal Medicine; Referring Provider Nurse Practitioner Acute Care; Visit Provider Nurse Practitioner Acute Care
DX: F17.210 Nicotine dependence, cigarettes, uncomplicated (principal)
CPT/HCPCS: 71271

== ENCOUNTER → 2023-10-10 | Outpatient (CLI) | payer MEDICARE, OTHER, SELFPAY ==
--- NOTE | 2023-10-10 11:16 | STRESSREP ---
Stress Test Report Pharmacologic myocardial perfusion stress test. 73-year-old lady with a history of chest pain Resting EKG demonstrates sinus rhythm with a rate of 74 bpm. Resting blood pressure is 122/64 mmHg. 0.4 mg of regadenoson was infused per usual protocol followed by rapid intravenous saline flush injection. Continuous EKG monitoring was performed. The maximum heart rate was 95 bpm which was 65% of max impacted heart rate the maximum workload was 1 metabolic equivalent. At rest there were no ST or T wave changes noted to suggest ischemia and at peak infusion nonspecific ST changes were noted which did not meet the criteria for ischemia. No clinical angina is noted. The final blood pressure was 130/68 mmHg. Myocardial perfusion protocol. 12 mCi of technetium 99m sestamibi was injected at rest. 0.4 mg of regadenoson was infused per usual protocol. At peak infusion 36 mCi of technetium 99m sestamibi was injected stress images were obtained stress and rest images were reconstructed and compared in the short axis vertical long and horizontal long axis. Gated images were also obtained. Perfusion SPECT analysis: Review of the stress images demonstrate normal uptake of tracer noted in all areas of the myocardium. The resting images similar demonstrated normal uptake of tracer noted in all areas of the myocardium. No areas of reversibility are noted to suggest ischemia and no previous infarct is noted. Gated SPECT analysis: The gated ejection fraction is 85%. Conclusion: Normal pharmacologic myocardial perfusion stress test. Preserved ejection fraction.
== END | disposition home or self-care (01) ==
LOC: CVS 06:05
PROVIDERS: PCP Internal Medicine; Referring Provider Internal Medicine; Visit Provider Internal Medicine
DX: R07.89 Other chest pain (principal)
CPT/HCPCS: 78452; 93017; A9500; A4216; J2785

== ENCOUNTER → 2023-10-14 | Outpatient (CLI) | payer MEDICARE, OTHER, SELFPAY ==
[2023-10-14 09:09] LABS: Absolute Lymphocyte Count 1.75 X10^3/uL (0.83-4.51); Absolute Neutrophil Count 3.5 X10^3/uL (2.0-7.7); Basophil% 1.6 % (0-1); Eosinophil# 0.35 X10^3/uL; Eosinophils% 5.5 % (0-5); Hematocrit 39.9 % (37-47); Lymphocyte # 1.75 X10^3/ul (0.83-4.51); Lymphocyte % 27.7 % (19-41); Mean Corp Hgb Conc 32.6 g/dL (32-36); Mean Corpuscular Hgb 34.5 pg (27.0-32.0); Mean Corpuscular Volume 105.8 fL (81-99); Mean Platelet Vol. 8.4 fl (6.2-12.0); Monocyte# 0.61 X10^3/uL; Monocyte% 9.7 % (0-10); NRBC Flagged by Analyzer 0 % (0-5); Neutrophil # 3.48 X10^3/uL (2.7-7.7); Neutrophil % 55.2 % (47-70); Platelet Count 395 K/mm3 (150-450); RBC Distribution Width CV 14.6 % (11.6-14.6); RBC Distribution Width SD 57.2 fl (35.1-43.9); Red Blood Count 3.77 M/mm3 (4.2-5.4); White Blood Count 6.3 K/mm3 (4.4-11.0)
[2023-10-14 09:34] LABS: ALB/GLOB Ratio 1.1 RATIO (0.9-2.4); AST(SGOT) 18 U/L (15-37); Alanine Aminotransfer ALT/SGPT 25 U/L (13-56); Albumin, Serum 3.3 g/dL (3.2-5.0); Alkaline Phosphatase 62 U/L (45-117); Anion Gap 2 (5-15); BUN 12 mg/dL (7-18); BUN/Creat Ratio 18.3 RATIO (10-20); Calcium,Total 8.9 mg/dL (8.5-10.1); Chloride 107 mmol/L (98-107); Creatinine, Serum 0.66 mg/dL (0.55-1.02); EST Glomerular Filtration Rate 93 mL/min (>60); Est Glom Filt Rate - Afr Amer 113 mL/min (>60); Globulin 2.9 g/dL (2.2-4.2); Glucose 90 mg/dL (74-106); Potassium 4.2 mmol/L (3.5-5.1); Protein, Total 6.2 g/dL (6.4-8.2); Sodium Level 141 mmol/L (136-145)
== END | disposition home or self-care (01) ==
LOC: LAB 08:36
PROVIDERS: PCP Internal Medicine; Referring Provider Internal Medicine Rheumatology; Visit Provider Internal Medicine Rheumatology
DX: M06.4 Inflammatory polyarthropathy (principal); Z79.899 Other long term (current) drug therapy
CPT/HCPCS: 36415; 80053; 85025

== ENCOUNTER → 2023-10-21 | Outpatient (CLI) | payer MEDICARE, OTHER, SELFPAY ==
--- NOTE | 2023-10-21 10:30 | PET_ITS ---
EXAMINATION: FDG PET-CT INDICATIONS: A 73-year-old female with a history of solitary pulmonary nodule. COMPARISON EXAMINATION: CT of the chest dated 10/02/23. INDEX LESION SIZE SUV INTERPRETATION Right lateral neck level IIA 15.9 mm 14.6 Warrants histopathologic investigation secondary to the quantitative degree of uptake. Bilateral apical lung field 1.3 max Quantitative criteria for viable neoplasm are fulfilled. TECHNIQUE: Following the intravenous administration of mCi of F-18 deoxyglucose via the right antecubital fossa, multiplanar image acquisitions of the head, neck, chest, abdomen and pelvis to level of mid-thigh, lower extremities obtained at one hour post radiopharmaceutical administration contemporaneously interpreted with the current CT of the head, neck, chest, abdomen and pelvis to level of mid-thigh, lower extremities dated 10/21/[address] of the chest dated 10/02/23 reveal: SERUM GLUCOSE LEVEL: mg/dl. HEIGHT: inches. WEIGHT: lbs. FINDINGS: Head/Neck: Asymmetric increased tracer uptake is noted in the right lateral neck involving level IIA. The calculated maximum standard uptake value is 14.6. The maximum axial diameter of the metabolic, morphologic abnormality is 15.9 mm. The visualized portion of the cerebral cortical-subcortical structures demonstrate symmetric and preserved glucose metabolism. CHEST: Subtle increased tracer concentration is defined in the bilateral apical lung zones linear in presentation generating a calculated maximum standard uptake value of 1.3. Pertinent chest CT findings are as follows. There is atherosclerotic calcification defined in the thoracic aorta without evidence of dilatation-aneurysm formation. Coronary arterial calcification is observed. Emphysematous changes are defined in the bilateral upper lung zones. Pericardial effusion-thickening reveals no evidence of increased tracer uptake. Abdomen/Pelvis: Normal physiologic distribution of the radiopharmaceutical is apparent in the hepatic (3.0) and splenic parenchyma, both renal units, bladder and visualized intestinal tract. Diffuse radiopharmaceutical concentration is noted in all four quadrants of the abdomen and pelvis. Pertinent abdomen and pelvis CT findings are as follows. There is atherosclerotic calcification defined in the abdominal aorta without evidence of dilatation-aneurysm formation. Abdominal-pelvic arterial calcification is defined. Skeletal: Degenerative changes are noted in the cervical, thoracic and lumbar spine. There is no visualized sclerotic-lytic changes manifest on review of the appendicular-axial skeletal structures. PET/PET/CT Tumor Base -Thigh Init IMPRESSION: 1. The asymmetric increased tracer uptake noted in the right lateral neck involving level IIA likely warrants histopathologic investigation secondary to the quantitative degree of uptake. 2. Increased FDG concentration manifest in the bilateral apical lung zones do not fulfill quantitative criteria for malignant transformation. 3. Metabolic and/or anatomic stability may be ensured in the bilateral apical hemithorax pulmonary parenchymal abnormality with repeat FDG PET study and/or CT of the thorax in three-six months if clinically indicated. (Xiu, Journal of Nuclear Medicine 45:88, P2004 Agnieszka, Seminars in Thoracic and Cardiovascular Surgery 14:292, 2001) Electronic Signature Alfredo Martínez D.O. Accurate Quantification of SUVs for this report are calculated using the exclusive [employer], ([place].S. Patent No. [phone] [id number] [phone] [place] patent [phone] ). Standardization and correction of the FDG SUV metric exclusively available with [employer] intellectual property, allow for vendor non-specific objective quantitative sequential FDG PET-CT comparison and otherwise unobtainable optimization of the sensitivity and specificity of the examination. [email or web address] Electronically Signed: Alfredo Martínez DO at 8:45 EDT ,
== END | disposition home or self-care (01) ==
LOC: ONC 10:11
PROVIDERS: PCP Internal Medicine; Referring Provider Nurse Practitioner Acute Care; Visit Provider Nurse Practitioner Acute Care
DX: R91.8 Other nonspecific abnormal finding of lung field (principal); R91.1 Solitary pulmonary nodule
CPT/HCPCS: 78815; A9552

== ENCOUNTER → 2023-12-18 | Outpatient (CLI) | payer MEDICARE, OTHER, SELFPAY ==
--- NOTE | 2023-12-18 16:49 | CT_ITS ---
STUDY: CT SOFT TISSUE NECK WITH CONTRAST REASON FOR EXAM: Female, 73 years old. Weight loss. Pulmonary nodule. RADIATION DOSAGE (If Supplied By Facility): CTDIvol = ( 8.93 ) mGy, DLP = ( 261.04 ) mGycm TECHNIQUE: The patient was scanned in a multi-detector CT scanner. High resolution transaxial imaging was performed following intravenous administration of IV 75mL Isovue-370. Sagittal and coronal images were reconstructed. Individualized dose optimization techniques were used for this CT. COMPARISON: None. FINDINGS: Normal bilateral parotid glands. Normal bilateral ball thread machine tender spaces. Normal bilateral parapharyngeal spaces. Normal bilateral carotid spaces. Normal bilateral sublingual and submandibular glands and spaces. Normal visualized nasopharynx. Normal retropharyngeal space. Normal perivertebral space. Normal visualized bilateral faucial tonsils. The visualized tongue, tongue base and oropharynx are normal. There is a 1.2 cm x 1.5 cm x 0.7 cm well-defined enhancing nodule at the level 2A of the right cervical region just inferior to the right parotid gland. This corresponds to the PET abnormality. There is no demonstrated solid or cystic mass lesion. There is no abnormal contrast enhancement. Normal epiglottis, bilateral vallecula and hypopharynx. The pre-epiglottic and paraglottic adipose spaces are normal. Normal visualized bilateral piriform sinuses, aryepiglottic folds, vocal cords, and arytenoid-cricoid articulations. Normal subglottic trachea. Normal bilateral lobes of the thyroid gland. Normal visualized pulmonary apices. Normal visualized paranasal sinuses. There is multilevel degenerative changes of the cervical spine. CT/Soft Tissue Neck WITH Contrast IMPRESSION: 1.2 cm x 1.5 cm x 0.7 cm well-defined enhancing nodule at the level 2A of the right cervical region just inferior to the right parotid gland. This corresponds to the abnormality seen on the recent PET scan. Biopsy recommended. Electronically Signed: Jonnie Allen MD at 8:34 EDT ,
[2023-12-18 17:14] LABS: CREATININE FINGERSTICK < 1.0 mg/dL (0.55-1.02); EGFR FINGERSTICK > 60.0000 mL/min (>60)
== END | disposition home or self-care (01) ==
LOC: CT 16:47
PROVIDERS: PCP Internal Medicine; Referring Provider Internal Medicine; Visit Provider Internal Medicine
DX: R93.89 Abnormal findings on diagnostic imaging of other specified body structures (principal)
CPT/HCPCS: 70491; Q9967

== ENCOUNTER → 2024-01-12 | Outpatient (CLI) | payer MEDICARE, OTHER, SELFPAY ==
[2024-01-12 13:12] LABS: Absolute Lymphocyte Count 1.39 X10^3/uL (0.83-4.51); Absolute Neutrophil Count 5.6 X10^3/uL (2.0-7.7); Basophil# 0.07 X10^3/uL; Basophil% 0.9 % (0-1); Eosinophil# 0.18 X10^3/uL; Eosinophils% 2.3 % (0-5); Hematocrit 40.6 % (37-47); Hemoglobin 13.1 g/dL (12.0-15.0); Lymphocyte # 1.39 X10^3/ul (0.83-4.51); Lymphocyte % 17.5 % (19-41); Mean Corp Hgb Conc 32.3 g/dL (32-36); Mean Corpuscular Volume 105.5 fL (81-99); Mean Platelet Vol. 8.4 fl (6.2-12.0); Monocyte# 0.63 X10^3/uL; Monocyte% 7.9 % (0-10); NRBC Flagged by Analyzer 0 % (0-5); Neutrophil # 5.64 X10^3/uL (2.7-7.7); Neutrophil % 71.1 % (47-70); Platelet Count 273 K/mm3 (150-450); RBC Distribution Width CV 15.1 % (11.6-14.6); RBC Distribution Width SD 58.7 fl (35.1-43.9); Red Blood Count 3.85 M/mm3 (4.2-5.4); White Blood Count 7.9 K/mm3 (4.4-11.0)
[2024-01-12 13:27] LABS: ALB/GLOB Ratio 1.2 RATIO (0.9-2.4); AST(SGOT) 16 U/L (15-37); Alanine Aminotransfer ALT/SGPT 24 U/L (13-56); Albumin, Serum 3.5 g/dL (3.2-5.0); Alkaline Phosphatase 72 U/L (45-117); Anion Gap 3 (5-15); BUN 17 mg/dL (7-18); BUN/Creat Ratio 25.5 RATIO (10-20); Chloride 107 mmol/L (98-107); Creatinine, Serum 0.67 mg/dL (0.55-1.02); EST Glomerular Filtration Rate 92 mL/min (>60); Est Glom Filt Rate - Afr Amer 111 mL/min (>60); Globulin 2.9 g/dL (2.2-4.2); Glucose 137 mg/dL (74-106); Protein, Total 6.4 g/dL (6.4-8.2); Sodium Level 141 mmol/L (136-145)
== END | disposition home or self-care (01) ==
LOC: LAB 12:58
PROVIDERS: PCP Internal Medicine; Referring Provider Internal Medicine Rheumatology; Visit Provider Internal Medicine Rheumatology
DX: M06.4 Inflammatory polyarthropathy (principal); M79.7 Fibromyalgia; M18.0 Bilateral primary osteoarthritis of first carpometacarpal joints; Z79.899 Other long term (current) drug therapy
CPT/HCPCS: 36415; 80053; 85025

== ENCOUNTER → 2024-01-13 | Outpatient (CLI) | payer MEDICARE, OTHER, SELFPAY ==
--- NOTE | 2024-01-13 14:46 | CT_ITS ---
STUDY: CT SOFT TISSUE NECK WITH CONTRAST REASON FOR EXAM: Female, 73 years old. Dysphasia RADIATION DOSAGE (If Supplied By Facility): CTDIvol = ( 8.52 ) mGy, DLP = ( 323.45 ) mGycm TECHNIQUE: The patient was scanned in a multi-detector CT scanner. High resolution transaxial imaging was performed following intravenous administration of IV 100mL Isovue-300. Sagittal and coronal images were reconstructed. Individualized dose optimization techniques were used for this CT. COMPARISON: 12/18/2023 FINDINGS: Stable well-defined enhancing nodule just inferior to the right parotid gland on axial image 57 again measuring approximately 1.2 x 1.5 x 0.7 cm. Normal left parotid gland. Normal bilateral supply analyst spaces. Normal bilateral parapharyngeal spaces. Normal bilateral carotid spaces. Normal bilateral sublingual and submandibular glands and spaces. Normal visualized nasopharynx. Normal retropharyngeal space. Normal perivertebral space. Normal visualized bilateral faucial tonsils. The visualized tongue, tongue base and oropharynx are normal. The visualized cervical lymph nodes (levels I-) are within normal size limits, and maintain normal morphology. There is no demonstrated solid or cystic mass lesion. There is no abnormal contrast enhancement. Normal epiglottis, bilateral vallecula and hypopharynx. The pre-epiglottic and paraglottic adipose spaces are normal. Normal visualized bilateral piriform sinuses, aryepiglottic folds, vocal cords, and arytenoid-cricoid articulations. Normal subglottic trachea. Normal bilateral lobes of the thyroid gland. Lung windows show significant underlying emphysema with nonspecific pleural thickening in the apices. Normal visualized paranasal sinuses. There is multilevel degenerative changes of the cervical spine. CT/Soft Tissue Neck WITH Contrast IMPRESSION: Stable well-defined enhancing nodule just inferior to the right parotid gland unchanged from previous study. This was demonstrated to be PET positive. Biopsy again recommended if not already performed. No new suspicious enhancing lesion, no airway narrowing or deviation. No CT evidence of an inflammatory process Lung apices show underlying emphysema with nonspecific pleural thickening Electronically Signed: Mj Nguyen MD at 8:46 EDT ,
--- NOTE | 2024-01-13 14:46 | CT_ITS ---
INDICATION: HORNERS SYNDROME OD EXAMINATION: CT CHEST WITH CONTRAST - CT Chest W/ Contrast Injection TECHNIQUE: Helically acquired images were obtained of the chest following IV contrast. A radiation dose optimization technique was used for this scan. IV Contrast dosage and agent: 100 mL Isovue-370 contrast COMPARISON: 10/02/2023 FINDINGS: LUNGS, PLEURA AND LARGE AIRWAYS: Lung windows show severe underlying emphysema with nonspecific pleural thickening in both apices, again more pronounced in the right apex on the left, and extensive emphysematous blebs. There is no organized infiltrate, effusion, or suspicious new noncalcified mass or nodule. Overall, no interval change since previous study THYROID: No thyroid lesions. HEART AND PERICARDIUM: Heart size is normal. No pericardial effusion. VESSELS: Thoracic aorta is not dilated. No aortic dissection. No obvious central pulmonary embolism although this study was not performed with the pulmonary embolism protocol. MEDIASTINUM AND IDALIA: No suspicious axillary, mediastinal or hilar adenopathy. Esophagus is unremarkable. No hiatal hernia. UPPER ABDOMEN: No acute pathology. BONES: No suspicious lytic or blastic abnormality. Bony structures show degenerative change CT/Chest WITH Contrast IMPRESSION: Severe underlying emphysema with stable pleural thickening in both apices, right greater than left without an organized infiltrate effusion or suspicious new noncalcified mass or nodule. No interval change since the previous study. No suspicious adenopathy Degenerative bony changes Electronically Signed: Mj Nguyen MD at 8:49 EDT ,
--- NOTE | 2024-01-13 14:46 | CT_ITS ---
STUDY: CT BRAIN WITH AND WITHOUT CONTRAST REASON FOR EXAM: Female, 73 years old. BALJIT SYNDROME OD RADIATION DOSAGE (If Supplied By Facility): CTDIvol = ( 44.99 ) mGy, DLP = ( 1575.35 ) mGycm TECHNIQUE: Transaxial CT imaging of the brain was performed pre and post contrast administration. The examination was performed with intravenous administration of IV 100mL Isovue-300. Individualized dose optimization techniques were used for this CT. COMPARISON: None. FINDINGS: Normal soft tissue structures. Normal calvarium. There is mild cerebral atrophy with widening of the extra-axial spaces and ventricular dilatation. Normal white matter tracts of the cerebral hemispheres. Normal basal ganglia and thalami. Normal brainstem. Normal cerebellum. There is no intracranial hemorrhage. There are no findings of an acute ischemic infarction. Normal visualized paranasal sinuses. CT/Brain/Head W/WO Contrast IMPRESSION: Chronic involutional changes of the brain. Electronically Signed: Jonnie Allen MD at 15:39 EDT ,
== END | disposition home or self-care (01) ==
LOC: CT 14:39
PROVIDERS: PCP Internal Medicine; Referring Provider Ophthalmology; Visit Provider Ophthalmology
DX: G90.2 Horner's syndrome (principal)
CPT/HCPCS: 70470; 70491; 71260

== ENCOUNTER 2024-02-06 11:23 | Emergency (ER) | payer MEDICARE, OTHER, SELFPAY ==
[2024-02-06 11:24] VITALS: BP 122/91; PULSE 98; RESP 18; TEMP 36.1; O2SAT 94; BMI 19.9
[2024-02-06] MEDS: Triamcinolone Acetonide 40 MG/ML Vial IM (13:31)
--- NOTE | 2024-02-06 13:34 | ED.RN ---
PT HAS HAD A ITCHY RASH ON HER BACK AND NECK, BUT SAID IT POPS UP AND CHANGES LOCATION. IM INJ OF MED GIVEN AND DR VERDE WORKING ON D/C INSTRUCTIONS FOR PT.
--- NOTE | 2024-02-06 15:07 | EDS_ITS ---
HPI History of Present Illness Chief Complaint: Itching Narrative Narrative: Patient is a 73-year-old female who is presenting to the ER today with chief complaint of intermittent small maculopapular rash along with itching. Patient has gone to the urgent care twice. Patient was placed on a 5-day burst of 40 mg of prednisone that did not help. Patient takes Pepcid once a day. Patient went back to urgent care a second time and has been prescribed triamcinolone e cream that is not helping. Patient has no exposure to anything that she is aware of patient has no fever or chills. No chest pain or shortness of breath. No difficulty swallowing. No swelling to lips or tongue. Patient has no petechia, purpura, no other acute rash reactions.. PFSH [facility] Medical History Pulmonary nodule Encounter for screening for COVID-19 Acute nasopharyngitis [common cold] Acute sinusitis Contusion of right leg Right ankle strain Osteoarthritis of both knees Headache Chronic pain Rheumatoid arthritis Osteoarthritis Pericardial effusion Pleural effusion Secondary pulmonary arterial hypertension Essential (primary) hypertension Smoking greater than 40 pack years Tobacco abuse Asthma-chronic obstructive pulmonary disease overlap syndrome Candidiasis of mouth COPD (chronic obstructive pulmonary disease) GERD (gastroesophageal reflux disease) Diabetes type 2, controlled Emphysema of lung History of bronchitis COPD with exacerbation Home Medications ?Medication ?Instructions ?Recorded ?Last Taken ?Type albuterol sulfate 90 mcg/actuation 2 puff inhalation Q6H PRN PRN 06/03/17 10/18/18 History aerosol inhaler Wheezing calcium carbonate 600 mg PO BID supplement 06/03/17 10/20/18 11:00 History folic acid 1 mg tablet 1 mg PO BID supplement 06/03/17 10/20/18 11:00 History linaclotide 145 mcg capsule 145 mcg PO DAILY IBS 06/03/17 10/19/18 History omega-3 fatty acids-fish oil 300 1 ea PO DAILY supplement 06/03/17 10/19/18 History mg-1,000 mg capsule tramadol 50 mg tablet 100 mg PO BID pain 06/03/17 10/19/18 21:00 History acetaminophen 500 mg tablet 500 mg PO BID pain 10/20/18 10/19/18 21:00 History aspirin 81 mg chewable tablet 81 mg PO DAILY@0800 ##30 10/22/18 Unknown Rx albuterol sulfate 1.25 mg/3 mL 1.25 mg inhalation Q4H 11/26/18 Unknown History solution for nebulization methotrexate sodium 2.5 mg tablet 15 mg PO QWEEK 11/17/19 Unknown History nitroglycerin 0.4 mg sublingual 0.4 mg sublingual Q5M PRN Chest 03/14/21 Unknown Rx tablet Pain #25 tabs duloxetine 30 mg capsule,delayed 30 mg PO BID 05/18/21 Unknown History release cholecalciferol (vitamin D3) 50 50 mcg PO DAILY 12/20/21 Unknown History mcg (2,000 unit) capsule famotidine 20 mg tablet (Pepcid) 20 mg PO DAILY 12/20/21 Unknown History gabapentin 600 mg tablet tablet PO 06/24/22 Unknown History loratadine 10 mg tablet tablet PO 06/24/22 Unknown History atorvastatin 20 mg tablet mg PO 04/30/23 Unknown History fluticasone propionate 50 intranasal 04/30/23 Unknown History mcg/actuation nasal spray,suspension tizanidine 4 mg tablet 4 mg PO BID 08/11/23 Unknown History hydroxyzine pamoate 25 mg capsule 50 mg (2 x 25 mg) PO TID PRN PRN 02/06/24 Unknown Rx Anxiety #8 CAPSULES Allergy/AdvReac Type Severity Reaction Status Date / Time No Known Allergies Allergy Verified 02/06/24 13:34 Family History Father Black lung disease Mother Heart disease Alzheimer disease Surgical History History of thoracentesis (2018) History of left heart catheterization (06/04/17) Hx of appendectomy H/O: hysterectomy Social History Smoking Status: Former smoker Tobacco: How many years used: 30 second hand exposure: Yes alcohol intake: never substance use type: does not use ROS ROS ED ROS Narrative REVIEW OF SYSTEMS: Unless otherwise stated in this report the patient's positive and negative responses for review of systems for constitutional, eyes, ENT, cardiovascular, respiratory, gastrointestinal, neurological, , musculoskeletal, and integument systems and related systems to the presenting problem are either stated in the history of present illness or were not pertinent or were negative for the symptoms and/or complaints related to the presenting medical problem. EXAM Physical Exam Narrative Exam Narrative: Vital signs reviewed and patient is not hypoxic. General: The patient appears well and in no apparent distress. Patient is resting comfortably on cart. Not toxic, lethargic, or listless. Skin: Warm, dry, no pallor noted. There is no rash noted. Patient has a very few scattered maculopapular rash to right hand, 1 to the right side of her face, 1 to her abdomen, 1 to her left upper back. Head: Normocephalic, atraumatic Eye: Normal conjunctiva, no drainage, EOMI. PERRL. Ears, Nose, Mouth, and Throat: oral mucosa is moist. Nares patent. Mouth without vesicles. Cardiovascular: Regular Rate and Rhythm, no murmurs, gallops, or rubs Respiratory: Patient is in no distress, no accessory muscle use, lungs are clear to auscultation, no wheezing, rales or rhonchi Back: non-tender, no CVA tenderness bilaterally to percussion. NO CTLS midline or paraspinal tenderness to palpation. GI: Soft, no tenderness Musculoskeletal: The patient has full range of motion of all extremities and joints with no difficulty. Patient has no motor, no sensory deficits. Neurological: A&O x4, normal speech, no focal neurological deficits. Psychiatric: Cooperative Const Vital Signs: 02/06/24 11:24 Temperature 97 F L Temperature Source Temporal Pulse Rate 98 Respiratory Rate 18 Blood Pressure 122/91 H Blood Pressure Mean 101 Pulse Ox 94 Oxygen Delivery Method Room Air MDM MDM MDM Narrative Medical decision making narrative: Education was done at bedside. Patient was given a Kenalog injection. Patient was told to take her Pepcid twice a day. Patient will use Claritin or Zyrtec during the morning and Benadryl at nighttime. Patient was recommended follow-up with dermatology and PCP as needed. No questions discharge. Patient looks well. No mucous membrane involvement of rash. Patient looks very comfortable. No signs of jaundice, scleral icterus, she has no history of liver disease she has no pain to the abdomen, no right upper quadrant or midepigastric pain. No recent nausea or vomiting. Discharge Plan Triage Chief Complaint: Itching ED Provider: Josh Guan Dx/Rx/DC Orders Clinical Impression: Rash and nonspecific skin eruption, Pruritic dermatitis Instructions: Nonspecific Skin Rash, ED General Allergic Reactions, ED Contact Dermatitis Prescriptions: New hydroxyzine pamoate 25 mg capsule 50 mg PO TID PRN PRN (Reason: Anxiety) Qty: 8 0RF No Action albuterol sulfate 1.25 mg/3 mL solution for nebulization 1.25 mg INHALATION Q4H methotrexate sodium 2.5 mg tablet 15 mg PO QWEEK Patient Comments: TAKE 6 TABLETS BY MOUTH ONCE A WEEK tizanidine 4 mg tablet 4 mg PO BID nitroglycerin 0.4 mg tablet, sublingual 0.4 mg sublingual Q5M PRN (Reason: Chest Pain) Qty: 25 3RF duloxetine 30 mg capsule,delayed release(DR/EC) 30 mg PO BID Patient Comments: take 1 capsule by mouth twice a day famotidine [Pepcid] 20 mg tablet 20 mg PO DAILY cholecalciferol (vitamin D3) 50 mcg (2,000 unit) capsule 50 mcg PO DAILY gabapentin 600 mg tablet PO loratadine 10 mg tablet PO atorvastatin 20 mg tablet PO Patient Comments: take 1 tablet by mouth once daily fluticasone propionate 50 mcg/actuation spray,suspension intranasal tramadol 50 MG tablet 100 mg PO BID calcium carbonate 600 MG tablet 600 mg PO BID folic acid 1 MG tablet 1 mg PO BID albuterol sulfate 1 INHALER inhaler 2 puff inhalation Q6H PRN PRN (Reason: Wheezing) omega-3 fatty acids-fish oil 1 EACH capsule 1 ea PO DAILY linaclotide 145 MCG capsule 145 mcg PO DAILY acetaminophen 500 MG tablet 500 mg PO BID aspirin 81 MG tablet,chewable 81 mg PO DAILY@0800 Qty: 30 0RF Primary Care Provider: Tiffany Bull Referrals: Tiffany Bull MD [Primary Care Provider] - Activity Restrictions/Additional Instructions: Use Pepcid twice a day for the next 2 weeks as discussed. Use Claritin or Zyrtec in the morning, Benadryl at nighttime to help with itching. Use Vistaril during the day or at nighttime to help with burning and itching sensation, Vistaril might make you a little sleepy. We are given injection of Kenalog today to see if this may help with itching and mild rash. You need to follow-up with sugar trucker call today and make an appointment with your PCP next week Print Language: Cook Islander Disposition Disposition: Home, Self Care Discharge Date/Time: 02/06/24 13:45
== END 2024-02-06 13:45 | disposition home or self-care (01) ==
PROVIDERS: Emergency Provider Emergency Medicine; PCP Internal Medicine; Visit Provider Emergency Medicine
DX: L30.8 Other specified dermatitis (principal); I27.21 Secondary pulmonary arterial hypertension; J43.9 Emphysema, unspecified; E11.9 Type 2 diabetes mellitus without complications; I10 Essential (primary) hypertension; K21.9 Gastro-esophageal reflux disease without esophagitis; Z79.82 Long term (current) use of aspirin; Z79.899 Other long term (current) drug therapy; Z87.891 Personal history of nicotine dependence
CPT/HCPCS: 96372; 99282

== ENCOUNTER → 2024-02-26 | Outpatient (CLI) | payer MEDICARE, OTHER, SELFPAY ==
[2024-02-26 08:14] LABS: ALB/GLOB Ratio 1.2 RATIO (0.9-2.4); AST(SGOT) 17 U/L (15-37); Alanine Aminotransfer ALT/SGPT 31 U/L (13-56); Albumin, Serum 3.6 g/dL (3.2-5.0); Alkaline Phosphatase 59 U/L (45-117); Anion Gap 1 (5-15); BUN 18 mg/dL (7-18); BUN/Creat Ratio 28.2 RATIO (10-20); Calcium,Total 8.8 mg/dL (8.5-10.1); Chloride 110 mmol/L (98-107); Creatinine, Serum 0.64 mg/dL (0.55-1.02); EST Glomerular Filtration Rate 96 mL/min (>60); Est Glom Filt Rate - Afr Amer 116 mL/min (>60); Glucose 102 mg/dL (74-106); Protein, Total 6.6 g/dL (6.4-8.2); Sodium Level 142 mmol/L (136-145)
== END | disposition home or self-care (01) ==
LOC: LAB 06:34
PROVIDERS: PCP Internal Medicine; Referring Provider Internal Medicine; Visit Provider Internal Medicine
DX: E11.59 Type 2 diabetes mellitus with other circulatory complications (principal); I15.2 Hypertension secondary to endocrine disorders
CPT/HCPCS: 36415; 80053

== ENCOUNTER → 2024-04-12 | Outpatient (CLI) | payer MEDICARE, OTHER, SELFPAY ==
[2024-04-12 16:17] LABS: Absolute Lymphocyte Count 1.42 X10^3/uL (0.83-4.51); Basophil% 1.6 % (0-1); Eosinophil# 0.23 X10^3/uL; Eosinophils% 3.6 % (0-5); Hematocrit 41.5 % (37-47); Hemoglobin 13.6 g/dL (12.0-15.0); Lymphocyte # 1.42 X10^3/ul (0.83-4.51); Lymphocyte % 22.1 % (19-41); Mean Corp Hgb Conc 32.8 g/dL (32-36); Mean Corpuscular Hgb 34.3 pg (27.0-32.0); Mean Corpuscular Volume 104.5 fL (81-99); Mean Platelet Vol. 8.9 fl (6.2-12.0); Monocyte# 0.67 X10^3/uL; Monocyte% 10.4 % (0-10); NRBC Flagged by Analyzer 0 % (0-5); Neutrophil # 3.98 X10^3/uL (2.7-7.7); Neutrophil % 61.8 % (47-70); Platelet Count 298 K/mm3 (150-450); RBC Distribution Width CV 14.9 % (11.6-14.6); RBC Distribution Width SD 57.5 fl (35.1-43.9); Red Blood Count 3.97 M/mm3 (4.2-5.4); White Blood Count 6.4 K/mm3 (4.4-11.0)
[2024-04-12 16:39] LABS: ALB/GLOB Ratio 1.2 RATIO (0.9-2.4); AST(SGOT) 14 U/L (15-37); Alanine Aminotransfer ALT/SGPT 23 U/L (13-56); Albumin, Serum 3.6 g/dL (3.2-5.0); Alkaline Phosphatase 79 U/L (45-117); Anion Gap 1 (5-15); BUN 16 mg/dL (7-18); Calcium,Total 9.5 mg/dL (8.5-10.1); Chloride 107 mmol/L (98-107); EST Glomerular Filtration Rate 87 mL/min (>60); Est Glom Filt Rate - Afr Amer 105 mL/min (>60); Globulin 3.1 g/dL (2.2-4.2); Glucose 86 mg/dL (74-106); Protein, Total 6.7 g/dL (6.4-8.2); Sodium Level 140 mmol/L (136-145)
== END | disposition home or self-care (01) ==
LOC: LAB 15:19
PROVIDERS: PCP Internal Medicine; Referring Provider Internal Medicine Rheumatology; Visit Provider Internal Medicine Rheumatology
DX: M06.4 Inflammatory polyarthropathy (principal); M79.7 Fibromyalgia; M18.0 Bilateral primary osteoarthritis of first carpometacarpal joints; Z79.899 Other long term (current) drug therapy
CPT/HCPCS: 36415; 80053; 85025

== ENCOUNTER → 2024-07-20 | Outpatient (CLI) | payer MEDICARE, OTHER, SELFPAY ==
--- NOTE | 2024-07-20 06:39 | RAD_ITS ---
PROCEDURE: CHEST PA AND LATERAL 07/20/2024 REASON FOR EXAM: SOB,COPD EXACERBATION TECHNIQUE: Frontal and lateral views of the chest. COMPARISON: None. FINDINGS: The lungs are emphysematous. Bilateral basilar atelectatic changes/pulmonary infiltrates. Bilateral blunting of the costophrenic angles, probably adhesions. Mild atheromatous plaques of the aorta. Mild changes of degenerative joint disease. RAD/Chest PA and Lateral IMPRESSION: Emphysema. Bilateral basilar atelectatic changes/infiltrates. Reading Location[facility]
[2024-07-20 06:57] LABS: Absolute Lymphocyte Count 1.92 X10^3/uL (0.83-4.51); Absolute Neutrophil Count 3.8 X10^3/uL (2.0-7.7); Basophil# 0.07 X10^3/uL; Basophil% 1.1 % (0-1); Eosinophil# 0.07 X10^3/uL; Eosinophils% 1.1 % (0-5); Hematocrit 40.3 % (37-47); Hemoglobin 13.6 g/dL (12.0-15.0); Lymphocyte # 1.92 X10^3/ul (0.83-4.51); Lymphocyte % 30.2 % (19-41); Mean Corp Hgb Conc 33.7 g/dL (32-36); Mean Corpuscular Hgb 34.1 pg (27.0-32.0); Mean Platelet Vol. 8.5 fl (6.2-12.0); Monocyte# 0.43 X10^3/uL; Monocyte% 6.8 % (0-10); NRBC Flagged by Analyzer 0 % (0-5); Neutrophil # 3.84 X10^3/uL (2.7-7.7); Neutrophil % 60.5 % (47-70); Platelet Count 291 K/mm3 (150-450); RBC Distribution Width CV 13.9 % (11.6-14.6); RBC Distribution Width SD 50.9 fl (35.1-43.9); Red Blood Count 3.99 M/mm3 (4.2-5.4); White Blood Count 6.4 K/mm3 (4.4-11.0)
[2024-07-20 07:42] LABS: Microalbumin,Random Urine 40.4 mg/L (NO RANGE EST.); Microalbumin:Creatinine Ratio 162.2 mg/g CRE
[2024-07-20 07:58] LABS: ALB/GLOB Ratio 1.9 RATIO (0.9-2.4); AST(SGOT) 17 U/L (<=31); Alanine Aminotransfer ALT/SGPT 17 U/L (<=34); Albumin, Serum 4.2 g/dL (3.4-4.8); Alkaline Phosphatase 63 U/L (35-104); Anion Gap 9 (5-15); BUN 16 mg/dL (4-19); BUN/Creat Ratio 24.2 RATIO (10-20); Calcium,Total 9.3 mg/dL (7.6-11.0); Carbon Dioxide 26.2 mmol/L (21.0-32.0); Chloride 104 mmol/L (98-108); Creatinine, Serum 0.67 mg/dL (0.70-1.20); EST Glomerular Filtration Rate 91 (>60); Ferritin 67 ng/mL (22-378); Globulin 2.2 g/dL (2.2-4.2); Glucose 97 mg/dL (70-99); Iron 40 ug/dL (50-170); Iron Binding Capacity,Total 311 ug/dL (250-450); Iron Binding Capacity,Unsat 271 ug/dL (228-428); Magnesium 2.2 mg/dL (1.5-2.2); Potassium 3.9 mmol/L (3.3-5.1); Protein, Total 6.3 g/dL (5.9-8.4); Sodium Level 140 mmol/L (133-145); Thyroid Stim Hormone (TSH) 0.585 uIU/mL (0.300-4.200); Total Bilirubin 0.19 mg/dL (0.00-1.30); Vitamin B12 403 pg/mL (180-914)
[2024-07-20 08:35] LABS: FOLATES,SERUM (FOLIC ACID) > 40.00 ng/mL (4.60-34.80)
[2024-07-20 10:35] LABS: Cholesterol 145 mg/dL (<=200); High Density Lipoprotein 89 mg/dL; Low Density Lipoprotein Calc. 49 mg/dL; Triglycerides 38 mg/dL; Very Low Density Lipoprotein 8 mg/dL (5-40); cholesterol:hdl ratio screen 1.63
[2024-07-22 01:06] LABS: Zinc, WHOLE BLOOD 634 ug/dL (440-860)
[2024-07-25 15:07] LABS: Methylmalonic Acid Bld 351 nmol/L (0-378)
== END | disposition home or self-care (01) ==
PROVIDERS: PCP Internal Medicine; Referring Provider Internal Medicine; Visit Provider Internal Medicine
DX: J44.1 Chronic obstructive pulmonary disease with (acute) exacerbation (principal); E11.59 Type 2 diabetes mellitus with other circulatory complications; R05.1 Acute cough; R09.89 Other specified symptoms and signs involving the circulatory and respiratory systems; R06.02 Shortness of breath; I15.2 Hypertension secondary to endocrine disorders; R53.82 Chronic fatigue, unspecified; D64.9 Anemia, unspecified; E78.00 Pure hypercholesterolemia, unspecified
CPT/HCPCS: 36415; 71046; 80053; 80061; 82043; 82570; 82607; 82728; 82746; 83036; 83540; 83550; 83735; 83921; 84439; 84443; 84630; 85025

== ENCOUNTER → 2024-07-27 | Outpatient (CLI) | payer MEDICARE, OTHER, SELFPAY ==
[2024-07-27 16:44] LABS: Absolute Lymphocyte Count 0.76 X10^3/uL (0.83-4.51); Absolute Neutrophil Count 7.1 X10^3/uL (2.0-7.7); Basophil# 0.08 X10^3/uL; Eosinophil# 0.02 X10^3/uL; Eosinophils% 0.2 % (0-5); Hematocrit 39.2 % (37-47); Hemoglobin 13.4 g/dL (12.0-15.0); Lymphocyte # 0.76 X10^3/ul (0.83-4.51); Lymphocyte % 9.3 % (19-41); Mean Corp Hgb Conc 34.2 g/dL (32-36); Mean Corpuscular Hgb 34.4 pg (27.0-32.0); Mean Corpuscular Volume 100.8 fL (81-99); Mean Platelet Vol. 8.6 fl (6.2-12.0); Monocyte# 0.19 X10^3/uL; Monocyte% 2.3 % (0-10); NRBC Flagged by Analyzer 0 % (0-5); Neutrophil # 7.09 X10^3/uL (2.7-7.7); Neutrophil % 86.6 % (47-70); Platelet Count 311 K/mm3 (150-450); RBC Distribution Width CV 14.4 % (11.6-14.6); RBC Distribution Width SD 52.3 fl (35.1-43.9); Red Blood Count 3.89 M/mm3 (4.2-5.4); White Blood Count 8.2 K/mm3 (4.4-11.0)
[2024-07-27 17:39] LABS: ALB/GLOB Ratio 1.8 RATIO (0.9-2.4); AST(SGOT) 21 U/L (<=31); Alanine Aminotransfer ALT/SGPT 20 U/L (<=34); Albumin, Serum 4.3 g/dL (3.4-4.8); Alkaline Phosphatase 70 U/L (35-104); Anion Gap 11 (5-15); BUN 18 mg/dL (4-19); BUN/Creat Ratio 26.4 RATIO (10-20); Calcium,Total 9.4 mg/dL (7.6-11.0); Carbon Dioxide 25.4 mmol/L (21.0-32.0); Chloride 102 mmol/L (98-108); Creatinine, Serum 0.66 mg/dL (0.70-1.20); EST Glomerular Filtration Rate 91 (>60); Globulin 2.4 g/dL (2.2-4.2); Glucose 127 mg/dL (70-99); Potassium 4.3 mmol/L (3.3-5.1); Protein, Total 6.7 g/dL (5.9-8.4); Sodium Level 138 mmol/L (133-145)
== END | disposition home or self-care (01) ==
PROVIDERS: PCP Internal Medicine; Referring Provider Internal Medicine Rheumatology; Visit Provider Internal Medicine Rheumatology
DX: M06.4 Inflammatory polyarthropathy (principal); Z79.899 Other long term (current) drug therapy; M79.7 Fibromyalgia; M18.0 Bilateral primary osteoarthritis of first carpometacarpal joints
CPT/HCPCS: 36415; 80053; 85025

== ENCOUNTER 2024-10-26 10:35 | Outpatient (RCR) | payer MEDICARE, OTHER, SELFPAY ==
[2024-10-26 10:57] LABS: Hematocrit 38.6 % (37-47); Hemoglobin 13.0 g/dL (12.0-15.0); Immature Granulocytes Count 0.020 X10^3/uL (0.0-0.0); Mean Corp Hgb Conc 33.7 g/dL (32-36); Mean Corpuscular Volume 103.8 fL (81-99); Mean Platelet Vol. 8.4 fl (6.2-12.0); NRBC Flagged by Analyzer 0 % (0-5); Platelet Count 259 K/mm3 (150-450); RBC Distribution Width CV 14.6 % (11.6-14.6); RBC Distribution Width SD 55.0 fl (35.1-43.9); Red Blood Count 3.72 M/mm3 (4.2-5.4); White Blood Count 6.3 K/mm3 (4.4-11.0)
[2024-10-26 11:57] LABS: AST(SGOT) 21 U/L (<=31); Alanine Aminotransfer ALT/SGPT 22 U/L (<=34); Albumin, Serum 4.1 g/dL (3.4-4.8); Alkaline Phosphatase 55 U/L (35-104); Anion Gap 9 (5-15); BUN 14 mg/dL (4-19); BUN/Creat Ratio 22.8 RATIO (10-20); Calcium,Total 9.0 mg/dL (7.6-11.0); Carbon Dioxide 24.1 mmol/L (21.0-32.0); Chloride 106 mmol/L (98-108); Globulin 2.2 g/dL (2.2-4.2); Glucose 97 mg/dL (70-99); Potassium 4.3 mmol/L (3.3-5.1)
== END 2024-11-04 21:32 | disposition home or self-care (01) ==
LOC: LAB 10:35
PROVIDERS: PCP Internal Medicine; Referring Provider Internal Medicine Rheumatology; Visit Provider Internal Medicine Rheumatology
DX: M06.4 Inflammatory polyarthropathy (principal); Z79.899 Other long term (current) drug therapy; M79.7 Fibromyalgia; M18.0 Bilateral primary osteoarthritis of first carpometacarpal joints
CPT/HCPCS: 36415; 80053; 85025

== ENCOUNTER → 2024-12-27 | Outpatient (CLI) | payer MEDICARE, OTHER, SELFPAY ==
--- NOTE | 2024-12-27 15:24 | RAD_ITS ---
PROCEDURE: CHEST PA AND LATERAL 12/27/2024 REASON FOR EXAM: CHEST PAIN-FALL TECHNIQUE: Procedure Code: RADCXR Modality: DX Procedure: CHEST PA AND LATERAL COMPARISON: 07/20/2024 FINDINGS: Increased right lower lobe opacity. Pulmonary emphysema. No pleural effusion or pneumothorax. Cardiac silhouette is within normal limits. Calcified aortic arch. No acute fractures. RAD/Chest PA and Lateral IMPRESSION: Increased right lower lobe opacity. Pulmonary emphysema.No pleural effusion or pneumothorax. Reading Location: [id number]
== END | disposition home or self-care (01) ==
LOC: RAD 15:20
PROVIDERS: PCP Internal Medicine; Referring Provider Nurse Practitioner Gerontology; Visit Provider Nurse Practitioner Gerontology
DX: R07.9 Chest pain, unspecified (principal)
CPT/HCPCS: 71046

== ENCOUNTER → 2025-01-06 | Outpatient (CLI) | payer MEDICARE, OTHER, SELFPAY ==
--- NOTE | 2025-01-06 13:20 | CT_ITS ---
PROCEDURE: LOW DOSE CT LUNG SCREENING 01/06/2025 REASON FOR EXAM: SMOKER Current smoker. Patient has smoked 2-3 packs per day for 58 years. COPD. Emphysema. TECHNIQUE: Procedure Code: CTLUNGSCREEN Modality: CT Procedure: LOW DOSE CT LUNG SCREENING Coronal and Sagittal reconstruction series were provided. One or more dose reduction techniques were used (e.g., Automated exposure control, adjustment of the mA and/or kV according to patient size, use of iterative reconstruction technique). REFERENCE LINK: [email or web address] Lung-RADS RADIATION DOSE SUMMARY: CTDlvol: 2.01 mGy DLP: 76.25 mGycm COMPARISON: Prior study dated January 13, 2024. FINDINGS: PULMONARY NODULES: (Only nodules >3mm are reported) Nodules described below are on series 1 unless otherwise specified. Pulmonary Nodules: No suspicious pulmonary nodule seen. Hardware:None Lymph Nodes:No suspicious mediastinal or hilar lymph nodes are seen. Heart and Vasculature:The heart is nonenlarged.Atherosclerotic calcifications of the thoracic aorta. Thoracic aorta and pulmonary arteries have normal contours; noncontrast technique limits evaluation. Coronary Artery Calcifications: Present Lungs and Airways: Advanced emphysematous changes are present. Stable scarring at the lung apices. Pleura:No pleural effusion Upper Abdomen:Unremarkable Bones:Degenerative changes of the thoracic spine. CT/Low Dose CT Lung Screening IMPRESSION: Stable examination. Coronary artery calcification (CAC) is is present Lung-RADS Category: 2 BENIGN (BASED ON IMAGING FEATURES OR INDOLENT BEHAVIOR). RECOMMEND 12-MONTH SCREENING LDCT. Other Significant Findings: Advanced emphysematous changes and COPD with scarri ng at the lung apices. Reading Location: [facility]
--- NOTE | 2025-01-06 13:20 | CT_ITS ---
PROCEDURE: LOW DOSE CT LUNG SCREENING 01/06/2025 REASON FOR EXAM: SMOKER Current smoker. Patient has smoked 2-3 packs per day for 58 years. COPD. Emphysema. TECHNIQUE: Procedure Code: CTLUNGSCREEN Modality: CT Procedure: LOW DOSE CT LUNG SCREENING Coronal and Sagittal reconstruction series were provided. One or more dose reduction techniques were used (e.g., Automated exposure control, adjustment of the mA and/or kV according to patient size, use of iterative reconstruction technique). REFERENCE LINK: [employer] Lung-RADS RADIATION DOSE SUMMARY: CTDlvol: 2.01 mGy DLP: 76.25 mGycm COMPARISON: Prior study dated January 13, 2024. FINDINGS: PULMONARY NODULES: (Only nodules >3mm are reported) Nodules described below are on series 1 unless otherwise specified. Pulmonary Nodules: No suspicious pulmonary nodule seen. Hardware:None Lymph Nodes:No suspicious mediastinal or hilar lymph nodes are seen. Heart and Vasculature:The heart is nonenlarged.Atherosclerotic calcifications of the thoracic aorta. Thoracic aorta and pulmonary arteries have normal contours; noncontrast technique limits evaluation. Coronary Artery Calcifications: Present Lungs and Airways: Advanced emphysematous changes are present. Stable scarring at the lung apices. Pleura:No pleural effusion Upper Abdomen:Unremarkable Bones:Degenerative changes of the thoracic spine. CT/Low Dose CT Lung Screening IMPRESSION: Stable examination. Coronary artery calcification (CAC) is is present Lung-RADS Category: 2 BENIGN (BASED ON IMAGING FEATURES OR INDOLENT BEHAVIOR). RECOMMEND 12-MONTH SCREENING LDCT. Other Significant Findings: Advanced emphysematous changes and COPD with scarri ng at the lung apices. Reading Location: [facility]
--- NOTE | 2025-01-06 15:25 | BD_ITS ---
PROCEDURE: DEXA BONE DENSITY STUDY 01/06/2025 REASON FOR EXAM: F, age 74 y/o . Patient is postmenopausal. TECHNIQUE: Procedure Code: BDDBD Modality: DX Procedure: DEXA BONE DENSITY STUDY FINDINGS: BMD and T-SCORES Lumbar spine: 0.559 g/cm2, T-score -4.4 Levels: L1 through L4 Change from prior: There has been a significant decrease in the bone mineral density of the lumbar spine by 4.8% since the prior study dated 12/19/2022. Left femoral neck: 0.405 g/cm2, T-score -4.0 Left total hip: 0.416 g/cm2, T-score -4.3 Change from prior: There has been a significant decrease in the bone mineral density of the left hip by 16.7% since the prior study dated 12/19/2022. Right femoral neck: 0.491 g/cm2, T-score -3.2 Right total hip: 0.558 g/cm2, T-score -3.2 Change from prior: There has been an increase in the bone mineral density of the right hip by 0.1% since the prior study dated 12/19/2022. The World Health Organization has defined the following categories based on bone density: Normal bone density: T-score equal to or greater than -1.0 Osteopenia: T-score between -1.0 and -2.5 Osteoporosis: T-score equal to or less than -2.5 FRAX (or Comparable) Fracture Risk Assessment: 10 Year Probability of Fracture: Major Osteoporotic Fracture: 74% Hip Fracture: 71% (Note: FRAX is not to be reported in setting of normal range bone density, osteoporosis on DEXA, known history of osteoporosis, prior osteoporotic hip or vertebral fracture, or for any patient undergoing pharmacological treatment for bone loss.) The National Osteoporosis Foundation (NOF) recommends pharmacological treatment for patients with a FRAX 10-year risk of 3% or higher for a hip fracture, or 20% or higher for a major osteoporotic fracture, to prevent osteoporosis and reduce fracture risk. The patient does meet the pharmacological treatment recommendations for prevention of osteoporosis. BD/Dexa Bone Density Study IMPRESSION: OSTEOPOROSIS. Recommend follow-up as clinically warranted. Reading Location: [id number]
== END | disposition home or self-care (01) ==
PROVIDERS: PCP Internal Medicine; Referring Provider Internal Medicine; Visit Provider Internal Medicine
DX: Z12.31 Encounter for screening mammogram for malignant neoplasm of breast (principal); Z78.0 Asymptomatic menopausal state; R91.1 Solitary pulmonary nodule; M81.0 Age-related osteoporosis without current pathological fracture; F17.210 Nicotine dependence, cigarettes, uncomplicated
CPT/HCPCS: 71271; 77080

== ENCOUNTER 2025-01-24 13:30 | Outpatient (RCR) | payer MEDICARE, OTHER, SELFPAY ==
[2025-01-24 14:20] LABS: Hematocrit 39.2 % (37-47); Hemoglobin 13.4 g/dL (12.0-15.0); Immature Granulocytes Count 0.020 X10^3/uL (0.0-0.0); Mean Corp Hgb Conc 34.2 g/dL (32-36); Mean Corpuscular Volume 102.6 fL (81-99); Mean Platelet Vol. 8.9 fl (6.2-12.0); NRBC Flagged by Analyzer 0 % (0-5); Platelet Count 288 K/mm3 (150-450); RBC Distribution Width CV 14.6 % (11.6-14.6); RBC Distribution Width SD 54.7 fl (35.1-43.9); Red Blood Count 3.82 M/mm3 (4.2-5.4); White Blood Count 7.1 K/mm3 (4.4-11.0)
[2025-01-24 15:01] LABS: AST(SGOT) 20 U/L (<=31); Alanine Aminotransfer ALT/SGPT 22 U/L (<=34); Albumin, Serum 4.3 g/dL (3.4-4.8); Alkaline Phosphatase 61 U/L (35-104); Anion Gap 9 (5-15); BUN 18 mg/dL (4-19); BUN/Creat Ratio 25.2 RATIO (10-20); Calcium,Total 9.4 mg/dL (7.6-11.0); Carbon Dioxide 29.5 mmol/L (21.0-32.0); Chloride 103 mmol/L (98-108); Globulin 2.1 g/dL (2.2-4.2); Glucose 96 mg/dL (70-99); Potassium 5.1 mmol/L (3.3-5.1)
== END 2025-01-24 18:00 | disposition home or self-care (01) ==
LOC: LAB 13:30
PROVIDERS: PCP Internal Medicine; Referring Provider Internal Medicine Rheumatology; Visit Provider Internal Medicine Rheumatology
DX: M06.4 Inflammatory polyarthropathy (principal); Z79.899 Other long term (current) drug therapy; M79.7 Fibromyalgia
CPT/HCPCS: 36415; 80053; 85025

== ENCOUNTER → 2025-02-07 | Outpatient (CLI) | payer MEDICARE, OTHER, SELFPAY ==
[2025-02-07 18:19] LABS: Barbiturate Urine NEGATIVE (< 200 ng/mL); Benzodiazepine Urine NEGATIVE (< 200 ng/mL); PCP Urine NEGATIVE (< 25 ng/mL); THC Urine NEGATIVE (< 50 ng/mL)
== END | disposition home or self-care (01) ==
LOC: LAB 16:59
PROVIDERS: PCP Internal Medicine; Referring Provider Anesthesiology Pain Medicine; Visit Provider Anesthesiology Pain Medicine
DX: F11.20 Opioid dependence, uncomplicated (principal)
CPT/HCPCS: 80307